=== PATIENT | female | born 1940 | race Caucasian/White ===

== ENCOUNTER → 2017-03-25 10:12 | Outpatient (CLI) | payer MEDICARE, OTHER, SELFPAY | PROVIDERS: Family Provider Family Medicine; PCP Family Medicine; Visit Provider Otolaryngology | DX: R05 Cough (principal) | CPT/HCPCS: 87070; 87205 ==

== ENCOUNTER → 2017-04-23 06:49 | Outpatient (CLI) | payer MEDICARE, OTHER, SELFPAY ==
--- NOTE | 2017-04-23 06:57 | CT_ITS ---
STUDY: CT MAXILLOFACIAL SINUSES REASON FOR EXAM: Female, 76 years old. RADIATION DOSAGE (If Supplied By Facility): CTDIvol = ( 33.06 ) mGy, DLP = ( 875.17 ) mGycm TECHNIQUE: The patient was scanned in a multi detector CT scanner. High resolution axial imaging was performed without the administration of intravenous contrast material. Sagittal and coronal images were reconstructed. The neck was present causing beam hardening artifact. Individualized dose optimization techniques were used for this CT. COMPARISON: Prior comparison studies are not available for review at this time. FINDINGS: FRONTAL SINUSES: Normal aeration, without mucosal inflammatory disease. ETHMOIDAL SINUSES: Normal aeration, without mucosal inflammatory disease. MAXILLARY SINUSES: Normal aeration, without mucosal inflammatory disease. SPHENOIDAL SINUSES: Normal aeration, without mucosal inflammatory disease. There is patency of the bilateral maxillary infundibuli with normal uncinate processes, ethmoid bullae, and hiatus semilunaris. There is a small right-sided inferior turbinate freddie bullosa. Normal bilateral inferior turbinates. Normal midline nasal septum. There is patency of the bilateral nasal airways. The visualized osseous structures are normal. The visualized bilateral orbital contents are normal. There is partial calcification of the carotid arteries. There is degenerative change of the cervical spine. There is visualization of mild atrophy and chronic involutional change. CT/Sinus/Facial Bone IMPRESSION: No evidence of sinusitis. There is calcification of the bilateral cavernous carotid arteries. There is visualized degenerative change in the cervical spine. Electronically Signed: Vane Zamarripa MD at 12:36 EST Tel , Service support ,
== END ==
PROVIDERS: Family Provider Family Medicine; PCP Family Medicine; Visit Provider Otolaryngology
DX: J32.9 Chronic sinusitis, unspecified (principal)
CPT/HCPCS: 70486

== ENCOUNTER 2017-06-26 05:17 | Emergency (ER) | payer MEDICARE, OTHER, SELFPAY ==
[2017-06-26 05:18] VITALS: BP 177/69; PULSE 67; RESP 18; TEMP 36.3; O2SAT 98; BMI 34.6
--- NOTE | 2017-06-26 05:27 | NURSING ---
PT ARRIVES C/O HEAD, NECK, JAW AND SINUS PAIN W/OCCASIONAL NAUSEA FOR WEEKS, BUT WORSENED THIS AM. DENIES CP, ARM PAIN.
--- NOTE | 2017-06-26 05:34 | ED.VISSUMM ---
- ER Visit Summary Date of Service: 06/26/17 Chief Complaint: Pain to the left side of her jaw. History of Present Illness: The patient is a 76 F history of CAD and ID. She states she has had sinus infections before. Currently states she has clear sinus drainage denies any fever. But is having pain to the left lateral jaw by the TMJ. Denies any trauma. No fever. No earache. Physical Examination: Well-appearing older female. Vital signs stable afebrile. H EENT exam her left TM she is tender to palpation. Hurts to open close her jaw. Dentition is intact. Oral mucosa is unremarkable. And right TM are normal. There is no dislocation of the jaw. There is no jaw fracture. The jaws nonswollen. The lips and gums are not swollen. There is no trouble breathing or swallowing. Neck nontender lymphadenopathy. Lungs clear to auscultation bilaterally. Heart regular rhythm no murmur. Abdomen soft nontender. Extremities moving all 4. Neurovascular intact. Test Results: None Emergency Department Course and Treatment: Patient's history and exam are consistent with left TMJ inflammation. She will be given 2 [place] here. Prescription for [place] and use Motrin and ice. Call and follow-up with her dentist. Treatment Plan: [place] and Motrin. Disposition: Discharge Impression: Acute left TMJ pain and inflammation This note was generated with Promosome dictation software. It may contain incorrect words, spelling, and punctuation that were not noted in review of the chart prior to signing ED Disposition - Plan for ED Patient: Chief Complaint: Cold Sx Referrals: Elfego Blandon III, MD [Primary Care Provider] -
--- NOTE | 2017-06-26 05:36 | ED.DEP ---
ED Disposition - Plan for ED Patient: Disposition: Home or Assisted Living Chief Complaint: Cold Sx Instructions: ED TMJ Syndrome Prescriptions: Hydrocodone Bitart/Apap 5-325 [[place] 5MG-325MG] 1 - 2 tab PO Q4H PRN PRN #20 tab PRN Reason: Pain Referrals: Elfego Blandon III, MD [Primary Care Provider] - As Needed Additional Instructions: To her left jaw at the left TMJ area. Motrin for pain and inflammation 2 pills twice a day. [place] for pain. Call and follow-up with your dentist. If not improving.
--- NOTE | 2017-06-26 05:37 | ED.DCSUM_ITS ---
- ER Visit Summary Date of Service: 06/26/17 Chief Complaint: Pain to the left side of her jaw. History of Present Illness: The patient is a 76 F history of CAD and NM. She states she has had sinus infections before. Currently states she has clear sinus drainage denies any fever. But is having pain to the left lateral jaw by the TMJ. Denies any trauma. No fever. No earache. Physical Examination: Well-appearing older female. Vital signs stable afebrile. H EENT exam her left TM she is tender to palpation. Hurts to open close her jaw. Dentition is intact. Oral mucosa is unremarkable. And right TM are normal. There is no dislocation of the jaw. There is no jaw fracture. The jaws nonswollen. The lips and gums are not swollen. There is no trouble breathing or swallowing. Neck nontender lymphadenopathy. Lungs clear to auscultation bilaterally. Heart regular rhythm no murmur. Abdomen soft nontender. Extremities moving all 4. Neurovascular intact. Test Results: None Emergency Department Course and Treatment: Patient's history and exam are consistent with left TMJ inflammation. She will be given 2 [place] here. Prescription for [place] and use Motrin and ice. Call and follow-up with her dentist. Treatment Plan: [place] and Motrin. Disposition: Discharge Impression: Acute left TMJ pain and inflammation This note was generated with bttn dictation software. It may contain incorrect words, spelling, and punctuation that were not noted in review of the chart prior to signing ED Disposition - Plan for ED Patient: Chief Complaint: Cold Sx Referrals: Elfego Blandon III, MD [Primary Care Provider] -
[2017-06-26] MEDS: HYDROcodone Bitartrate/Apap 5/325 Tablet PO (05:38)
--- NOTE | 2017-06-26 05:40 | DCINST.ED_ITS ---
ED Disposition - Plan for ED Patient: Disposition: Home or Assisted Living Chief Complaint: Cold Sx Instructions: ED TMJ Syndrome Prescriptions: Hydrocodone Bitart/Apap 5-325 [[place] 5MG-325MG] 1 - 2 tab PO Q4H PRN PRN #20 tab PRN Reason: Pain Referrals: Elfego Blandon III, MD [Primary Care Provider] - As Needed Additional Instructions: To her left jaw at the left TMJ area. Motrin for pain and inflammation 2 pills twice a day. [place] for pain. Call and follow-up with your dentist. If not improving.
[2017-06-26 05:58] VITALS: BP 146/85
== END 2017-06-26 05:59 | disposition home or self-care (01) ==
PROVIDERS: Emergency Provider Emergency Medicine; Family Provider Family Medicine; PCP Family Medicine
DX: M26.622 Arthralgia of left temporomandibular joint (principal); M26.69 Other specified disorders of temporomandibular joint; I25.10 Atherosclerotic heart disease of native coronary artery without angina pectoris; I25.2 Old myocardial infarction; E78.00 Pure hypercholesterolemia, unspecified; Z79.899 Other long term (current) drug therapy
CPT/HCPCS: 99283

== ENCOUNTER 2017-11-01 07:06 | Day surgery (SDC) | payer MEDICARE, OTHER, SELFPAY ==
[2017-11-01] VITALS (12 sets, daily range): BP systolic 78–115; BP diastolic 35–94; PULSE 57–67; RESP 18; TEMP 36.3–36.5; O2SAT 92–100; BMI 28.0
--- NOTE | 2017-11-01 10:50 | OP.ENDO_ITS ---
Patient Name: Alba Rowe Procedure Date: 11/01/2017 8:22 AM Date of : 1940 Age: 77 Procedure: Colonoscopy Indications: High risk colon cancer surveillance: Personal history of colonic polyps Patient Profile: Last Colonoscopy: May 2011. Providers: Tom Blandon Referring MD: Tom Blandon MD Medicines: See the Anesthesia note for documentation of the administered medications Complications: No immediate complications. Procedure: Pre-Anesthesia Assessment: - Prior to the procedure, a History and Physical was performed, and patient medications and allergies were reviewed. The patient's tolerance of previous anesthesia was also reviewed. The risks and benefits of the procedure and the sedation options and risks were discussed with the patient. All questions were answered, and informed consent was obtained. Prior Anticoagulants: The patient has taken no previous anticoagulant or antiplatelet agents. ASA Grade Assessment: II - A patient with mild systemic disease. After reviewing the risks and benefits, the patient was deemed in satisfactory condition to undergo the procedure. After I obtained informed consent, the scope was passed under direct vision. Throughout the procedure, the patient's blood pressure, pulse, and oxygen saturations were monitored continuously. The colonoscope was introduced through the anus and advanced to the cecum, identified by appendiceal orifice and ileocecal valve. The colonoscopy was technically difficult and complex due to a tortuous colon. Successful completion of the procedure was aided by applying abdominal pressure. The patient tolerated the procedure well. The quality of the bowel preparation was good. The ileocecal valve was photographed. Scope In: 8:37:35 AM Scope Withdrawal Time 0 hours 6 minutes 10 seconds Scope Out: 8:55:40 AM Total Procedure Duration Time 0 hours 18 minutes 5 seconds Findings: Hemorrhoids were found on perianal exam. Multiple small-mouthed diverticula were found in the sigmoid colon and descending colon. The exam was otherwise without abnormality. Impression: - Hemorrhoids found on perianal exam. - Diverticulosis in the sigmoid colon and in the descending colon. - The examination was otherwise normal. - No specimens collected. Recommendation: - Discharge patient to home. - Resume previous diet. - Continue present medications. - Repeat colonoscopy in 5 years for surveillance. Procedure Code(s): --- Professional --- 52065, Colonoscopy, flexible; diagnostic, including collection of specimen(s) by brushing or washing, when performed (separate procedure) Diagnosis Code(s): --- Professional --- Z86.010, Personal history of colonic polyps K64.9, Unspecified hemorrhoids K57.30, Diverticulosis of large intestine without perforation or abscess without bleeding CPT copyright 2017 [employer]. All rights reserved. The codes documented in this report are preliminary and upon face cleaner review may be revised to meet current compliance requirements. MD Tom Holloway, 11/01/2017 9:01:11 AM This report has been signed electronically. Number of Addenda: 0 Note Initiated On: 11/01/2017 8:22 AM
== END 2017-11-01 10:21 | disposition home or self-care (01) ==
LOC: EN 07:06 → AC 07:07
PROVIDERS: Family Provider Family Medicine; PCP Family Medicine; Visit Provider Surgery
PROC: 0DJD8ZZ Inspection of Lower Intestinal Tract, Via Natural or Artificial Opening Endoscopic (ICD-10-PCS; CPT 45378; principal; 2017-11-01 08:10)
DX: Z86.010 Personal history of colon polyps (principal); K57.30 Diverticulosis of large intestine without perforation or abscess without bleeding; K64.9 Unspecified hemorrhoids; K21.9 Gastro-esophageal reflux disease without esophagitis; I10 Essential (primary) hypertension; E11.9 Type 2 diabetes mellitus without complications; I25.10 Atherosclerotic heart disease of native coronary artery without angina pectoris; E78.00 Pure hypercholesterolemia, unspecified; M19.90 Unspecified osteoarthritis, unspecified site; I25.2 Old myocardial infarction; Z78.0 Asymptomatic menopausal state; Z79.899 Other long term (current) drug therapy
CPT/HCPCS: 45378; J7120

== ENCOUNTER 2021-10-10 15:38 | Emergency (ER) | payer MEDICARE, OTHER, SELFPAY ==
[2021-10-10 15:39] VITALS: BP 121/75; PULSE 84; RESP 14; TEMP 36.9; O2SAT 93; BMI 27.2
--- NOTE | 2021-10-10 16:03 | EKG12_ITS ---
Test Reason : CHEST PAIN Blood Pressure : / mmHG Vent. Rate : 082 BPM Atrial Rate : 082 BPM P-R Int : 160 ms QRS Dur : 086 ms QT Int : 382 ms P-R-T Axes : 027 007 026 degrees QTc Int : 446 ms Sinus rhythm with Premature atrial complexes Otherwise normal ECG Confirmed by LOC OLIVERA, RENETTA ([id number]), photographic editor ALBERTO CASAREZ ([id number]) on 10/13/2021 7:52:14 AM Referred By: ELIZA Confirmed By:RENETTA MONTERROSO MD
[2021-10-10 16:27] LABS: Absolute Neutrophil Count 4.7 X10^3/uL (2.0-7.7); Basophil# 0.01 X10^3/uL; Basophil% 0.2 % (0-1); Hematocrit 38.3 % (37-47); Hemoglobin 12.7 g/dL (12.0-15.0); Lymphocyte % 10.1 % (19-41); Mean Corp Hgb Conc 33.2 g/dL (32-36); Mean Corpuscular Hgb 29.5 pg (27.0-32.0); Mean Corpuscular Volume 88.9 fL (81-99); Monocyte# 0.63 X10^3/uL; Monocyte% 10.6 % (0-10); NRBC Flagged by Analyzer 0 % (0-5); Neutrophil # 4.66 X10^3/uL (2.7-7.7); Neutrophil % 78.6 % (47-70); POSITIVE DIFFERENTIAL YES; Platelet Count 197 K/mm3 (150-450); RBC Distribution Width CV 13.7 % (11.6-14.6); RBC Distribution Width SD 45.2 fl (35.1-43.9); Red Blood Count 4.31 M/mm3 (4.2-5.4); White Blood Count 5.9 K/mm3 (4.4-11.0)
--- NOTE | 2021-10-10 16:28 | CT_ITS ---
EXAM: CT CERVICAL SPINE WITHOUT INTRAVENOUS CONTRAST CLINICAL INDICATION: neck trauma/FALL TECHNIQUE: Helically acquired images were obtained of the cervical spine without intravenous contrast. 2D reformatted images were reviewed. This CT exam was performed using one or more of the following dose reduction techniques: automated exposure control, adjustment of the mA and/or kV according to patient size, and/or use of iterative reconstruction technique. This report was created using [employer] report generation technology. RADIATION DOSE: CTDIvol = 19.23 mGy, DLP = 423.93 mGy-cm COMPARISON: None. FINDINGS: VERTEBRAE: Anterior spondylosis at multiple cervical levels. No fracture. No traumatic subluxation. No discrete lytic or blastic abnormality. Normal alignment. Normal craniocervical junction and cervicothoracic junction. DISCS/SPINAL CANAL/NEURAL FORAMINA: Disc space narrowing throughout the cervical spine with some bridging bone/ankylosis at C3-C4. Bilateral foraminal narrowing at C5-C6, C6-C7 and C7-T1 predominantly due to uncovertebral hypertrophy. SOFT TISSUES: Unremarkable. No prevertebral soft tissue swelling. VASCULATURE: Atherosclerosis of the left carotid artery. LYMPH NODES: Unremarkable. No cervical adenopathy. LUNG APICES: Unremarkable as visualized. Clear. CT/Spine Cervical without Contras IMPRESSION: No acute findings in the cervical spine. Electronically Signed: Harinder Givens MD (Brooks) at 17:43 EDT Reading Location ID and State: [facility] / [place] , Service support ,
--- NOTE | 2021-10-10 16:28 | CT_ITS ---
STUDY: CT BRAIN WITHOUT CONTRAST REASON FOR EXAM: Female, 81 years old. head injury. FALL RADIATION DOSAGE (If Supplied By Facility): CTDIvol = ( 44.99 ) mGy, DLP = ( 779.24 ) mGycm TECHNIQUE: Transaxial CT imaging of the brain was performed without administration of intravenous contrast material. Individualized dose optimization techniques were used for this CT. COMPARISON: 02/19/2012 FINDINGS: Normal soft tissue structures. Normal calvarium. There is mild cerebral atrophy with widening of the extra-axial spaces and ventricular dilatation. There are areas of decreased attenuation within the white matter tracts of the supratentorial brain, consistent with microvascular disease changes. Normal basal ganglia and thalami. Normal brainstem. Normal cerebellum. There is no intracranial hemorrhage. There are no findings of an acute ischemic infarction. Normal visualized paranasal sinuses. CT/Brain/Head without Contrast IMPRESSION: No acute intracranial hemorrhage or mass effect. Electronically Signed: Harinder Givens MD (Brooks) at 17:42 EDT Reading Location ID and State: [facility] / [place] , Service support ,
--- NOTE | 2021-10-10 16:29 | EX.ED.DYSGE1 ---
HPI History of Present Illness Chief Complaint: Syncope Narrative Narrative: 81-year-old female presenting after having a syncopal episode yesterday. She states she was in her kitchen and was walking and had a complete syncopal episode and hit the floor. When she woke up she states I think I still do my chest. She states it hurts mildly. She did not have chest pain before she fell. She states has had a couple of episodes of lightheadedness afterwards while ambulating to the bathroom. She has not fainted again. Patient states she was feeling like she was developing sinusitis on . She went to the urgent care and was diagnosed with COVID-19. Patient at that point was discharged home and over the last 24 hours has developed nausea, vomiting. She states she not able to hold down any food or fluids. She states that she believes she is dehydrated and that is why she is fainting. She states she is not on any blood thinners. Her last fever was 102 ?F. That was on . She has not rechecked her temperature. [facility] Medical History CAD (coronary artery disease) Chest pain Generalized osteoarthritis GERD (gastroesophageal reflux disease) HLD (hyperlipidemia) HTN (hypertension) Personal history of colonic polyps Type II diabetes mellitus Home Medications atenolol 25 mg tablet 25 mg PO DAILY ##0 09/26/15 [History Last Taken 11/01/17 05:00 25 MG] lisinopril 10 mg tablet 10 mg PO DAILY ##0 09/26/15 [History Last Taken 11/01/17 05:00 10 MG] omeprazole 20 mg capsule,delayed release 20 mg PO BID 09/26/15 [History Last Taken 11/01/17 05:00 20 MG] pravastatin 40 mg tablet 80 mg PO DAILY 09/26/15 [History Last Taken 09/26/15] meloxicam 15 mg tablet 15 mg PO DAILY 10/05/17 [History Last Taken Unknown] ondansetron 4 mg disintegrating tablet 4 mg PO Q8H PRN nausea and vomiting #14 tabs 10/10/21 [Rx Last Taken Unknown] Allergy/AdvReac Type Severity Reaction Status Date / Time No Known Allergies Allergy Verified 10/10/21 15:43 Family History Mother Diabetes Heart disease Hypertension CAD (coronary artery disease) Surgical History History of renal stent S/P eye surgery S/P hemorrhoidectomy Social History Smoking Status: Never smoker alcohol intake: never ROS ROS ED Constitutional Constitutional ED: Reports chills and fever(s) Eyes Eyes: Denies change in vision or diplopia ENT ENT ED: Denies rhinorrhea or sore throat Cardiovascular Cardiovascular: Reports chest pain Respiratory/Chest Respiratory/Chest: Reports cough; Denies dyspnea Gastrointestinal Gastrointestinal: Reports nausea and vomiting; Denies abdominal pain Genitourinary Genitourinary ED: Denies dysuria or hematuria Musculoskeletal Musculoskeletal: Reports myalgias Integumentary Denies abscess or Abrasions Neurologic Neurologic: Reports headache(s); Denies paresthesias or weakness Psychiatric Psychiatric: Denies anxiety or depression EXAM Physical Exam Const Vital Signs: 10/10/21 15:39 10/10/21 15:47 10/10/21 16:41 Temperature 98.4 F Temperature Source Temporal Pulse Rate 84 Respiratory Rate 14 Respiratory Effort Normal Non-Labored Respiratory Depth Normal Respiratory Pattern Normal Blood Pressure 121/75 H Blood Pressure Mean 90 Pulse Ox 93 94 Oxygen Delivery Method Room Air Room Air Room Air 10/10/21 18:35 Temperature Temperature Source Pulse Rate 70 Respiratory Rate 16 Respiratory Effort Respiratory Depth Respiratory Pattern Blood Pressure 142/65 H Blood Pressure Mean 90 Pulse Ox 93 Oxygen Delivery Method Positive well nourished General Appearance ED: NAD; Negative for pallor HEENT Reports moist mucous membranes Negative for trauma Eyes PERRL and EOMs intact bilaterally General Eye ED: Negative for pale conjunctiva or scleral icterus Neck no lymphadenopathy Resp normal respiratory effort and clear to auscultation bilaterally Cardio regular rate and regular rhythm GI normal to inspection, nondistended, normoactive bowel sounds Neuro oriented x3 and CN's II-XII intact bilaterally Sensorium / Orientation: alert Psych mental status grossly normal Skin no rashes or lesions noted, no wounds and skin turgor normal General Skin Exam: Negative for jaundice or pallor MDM MDM MDM Narrative Medical decision making narrative: Patient presenting with 1 episode of syncope and a couple episodes of near syncope. She did fall and is unclear if she hit her head but she does complain of some upper chest and neck pain. Due to the syncope I did obtain EKG which on my interpretation shows normal sinus rhythm with a ventricular rate of 82 bpm with occasional PACs. Chest x-ray my interpretation is no acute cardiopulmonary process and radiologist agree. Blood work was obtained and her CBC shows no leukocytosis. She has slight lymphopenic which is consistent with her diagnosis of COVID. Renal function electrolytes are normal. High-sensitivity troponin is 18. Delta troponin at 2 hours is 19 there is no significant interval change. D-dimer was elevated at 1.72 and she did had a CT of the chest which did not identify any pulmonary emboli or dissection. There is no focal airspace disease. CT brain and CT cervical spine are negative for acute findings. Patient was treated with IV fluids. She states she feels improved. She wants to go home. I did not find any thing except for that that would warrant her to be admitted. To drink plenty of fluids and treat fevers and chills with ibuprofen and Tylenol same doses. I will send her home with Lillian to help her with this. Patient discharged home in stable condition. Impression: 1. Syncope 2. Lightheadedness 3. Cervical strain 4. Chest wall pain 5. COVID-19 Lab Data Attestation: I reviewed the patient's lab results. Labs: Laboratory Results - last 24 hr 10/10/21 10/10/21 10/10/21 16:20 16:20 16:20 WBC 5.9 RBC 4.31 Hgb 12.7 Hct 38.3 MCV 88.9 MCH 29.5 MCHC 33.2 RDW Std Deviation 45.2 H RDW Coeff of Jose 13.7 Plt Count 197 MPV 11.0 Immature Gran % (Auto) 0.500 Neut % (Auto) 78.6 H Lymph % (Auto) 10.1 L [place] % (Auto) 10.6 H Eos % (Auto) 0.0 Baso % (Auto) 0.2 Absolute Neuts (auto) 4.7 Absolute Lymphs (auto) 0.60 L Nucleated RBC % 0 Differential Comment SCANNED D-Dimer Quant (PE/DVT) 1.72 H* Sodium 136 Potassium 3.8 Chloride 101 Carbon Dioxide 27.0 Anion Gap 8 BUN 14 Creatinine 0.80 Estim Creat Clear Calc 53.38 Est GFR (MDRD) Af Amer 89 Est GFR (MDRD) Non-Af 74 BUN/Creatinine Ratio 17.5 Glucose 106 Calcium 9.5 Troponin I High Sens 18 10/10/21 18:36 WBC RBC Hgb Hct MCV MCH MCHC RDW Std Deviation RDW Coeff of Jose Plt Count MPV Immature Gran % (Auto) Neut % (Auto) Lymph % (Auto) Valley % (Auto) Eos % (Auto) Baso % (Auto) Absolute Neuts (auto) Absolute Lymphs (auto) Nucleated RBC % Differential Comment D-Dimer Quant (PE/DVT) Sodium Potassium Chloride Carbon Dioxide Anion Gap BUN Creatinine Estim Creat Clear Calc Est GFR (MDRD) Af Amer Est GFR (MDRD) Non-Af BUN/Creatinine Ratio Glucose Calcium Troponin I High Sens 19 Radiography Diagnostic Testing: Clinical Impression(s) from Imaging Studies Brain CT 10/10/21 16:28 IMPRESSION: No acute intracranial hemorrhage or mass effect. Electronically Signed: Harinder Givens MD (Brooks) at 17:42 EDT , Cervical Spine CT 10/10/21 16:28 IMPRESSION: No acute findings in the cervical spine. Electronically Signed: Harinder Givens MD (Brooks) at 17:43 EDT , Chest X-Ray 10/10/21 16:45 IMPRESSION: Mild bibasilar atelectasis without focal airspace consolidation. Electronically Signed: Harinder Givens MD (Brooks) at 17:02 EDT , Chest CTA 10/10/21 16:46 IMPRESSION: 1. No central or segmental pulmonary embolism. Electronically Signed: Harinder Givens MD (Brooks) at 17:47 EDT , Discharge Plan Triage Chief Complaint: Syncope Other Complaint: Fall ED Provider: Jean Smart Dx/Rx/DC Orders Instructions: Coronavirus Disease 2019 (COVID-19): Caring for Yourself or Others, ED Fainting, Uncertain Cause Prescriptions: New ondansetron 4 mg tablet,disintegrating 4 mg PO Q8H PRN (Reason: nausea and vomiting) Qty: 14 0RF No Action meloxicam 15 mg tablet 15 mg PO DAILY atenolol 25 MG tablet 25 mg PO DAILY Qty: 0 Label Comments: BP lisinopril 10 MG tablet 10 mg PO DAILY Qty: 0 pravastatin 40 MG tablet 80 mg PO DAILY Label Comments: CHOLESTEROL omeprazole 20 MG capsule 20 mg PO BID Label Comments: GERD Disposition Disposition: Home, Self Care
[2021-10-10] MEDS: 0.9% Normal Saline 1,000 ML 1000 ML IV (16:31)
[2021-10-10 16:41] VITALS: O2SAT 94
[2021-10-10 16:42] LABS: Differential Indicated SCAN CRITERIA MET
[2021-10-10] MEDS: Ondansetron 4 MG/2 ML Vial IV (16:43)
--- NOTE | 2021-10-10 16:45 | RAD_ITS ---
STUDY: X-RAY CHEST REASON FOR EXAM: Female, 81 years old. POSITIVE FOR COVID YESTERDAY. SYNCOPAL EPISODE AT HOME AND FELL YESTERDAY. LANDED ON CHEST. PAIN IN NECK, SHOULDER AND RIGHT RIBS. WEAKNESS. TECHNIQUE: AP COMPARISON: 09/26/2015 FINDINGS: EKG leads project over the chest. Mild atelectasis in the lung bases. No airspace consolidation. There is no demonstrated pleural abnormality. Normal size heart. Normal mediastinum and radha. Normal visualized pulmonary arteries. There is atherosclerotic tortuosity of the aortic arch and descending thoracic aorta. No acute bony process There is no demonstrated abnormality of the visualized soft tissue structures of the upper abdomen. RAD/Chest 1 View (Portable) IMPRESSION: Mild bibasilar atelectasis without focal airspace consolidation. Electronically Signed: Harinder Givens MD (Brooks) at 17:02 EDT ,
[2021-10-10 16:46] LABS: D-Dimer Quantitative (DVT/PE) 1.72 FEU/ug/m (0.27-0.49)
--- NOTE | 2021-10-10 16:46 | CT_ITS ---
EXAM: CT ANGIOGRAPHY CHEST WITHOUT AND WITH INTRAVENOUS CONTRAST CLINICAL INDICATION: syncope AND FALL, SCANNED BACK THROUGH BASE OF LUNGS THAT WAS MISSED TECHNIQUE: Helically acquired angiography images were obtained of the chest without and with intravenous contrast. This CT exam was performed using one or more of the following dose reduction techniques: automated exposure control, adjustment of the mA and/or kV according to patient size, and/or use of iterative reconstruction technique. This report was created using [employer] report generation technology. MIP reconstructed images were created and reviewed. CONTRAST: IV 100mL [id number] RADIATION DOSE: CTDIvol = 13.09 mGy, DLP = 547.61 mGy-cm COMPARISON: None. FINDINGS: PULMONARY ARTERIES: Unremarkable. Normal in caliber. No evidence of pulmonary embolism. AORTA: Unremarkable. Normal in caliber. No evidence of dissection. GREAT VESSELS OF AORTIC ARCH: Unremarkable. Normal in caliber. No evidence of dissection. LUNGS AND PLEURAL SPACES: Lung bases are excluded. No mass. No pleural effusion or thickening. No pneumothorax. HEART: Unremarkable. Heart size is normal. No pericardial effusion. No signs of right heart strain, ratio of right ventricle to left ventricle measures less than 1. MEDIASTINUM: Unremarkable. No mediastinal or hilar adenopathy. Esophagus is unremarkable. No hiatal hernia. THYROID: Unremarkable. No thyroid lesions. BONES/JOINTS: Degenerative changes of the thoracic spine. No suspicious lytic or blastic abnormality. CT/CTA Chest W/WO Contrast IMPRESSION: 1. No central or segmental pulmonary embolism. Electronically Signed: Harinder Givens MD (Brooks) at 17:47 EDT ,
--- NOTE | 2021-10-10 16:48 | NURSING ---
CRITICAL LAB VALUE GIVEN TO DR DEJESUS. PT D-DIMER IS 1.72.
[2021-10-10 17:01] LABS: Differential Comment SCANNED
[2021-10-10 17:08] LABS: Anion Gap 8 (5-15); BUN 14 mg/dL (7-18); BUN/Creat Ratio 17.5 RATIO (10-20); Calcium,Total 9.5 mg/dL (8.5-10.1); Chloride 101 mmol/L (98-107); EST Glomerular Filtration Rate 74 mL/min (>60); Est Glom Filt Rate - Afr Amer 89 mL/min (>60); Estimated Creatinine Clearance 53.38 ml/min; Glucose 106 mg/dL (74-106); Potassium 3.8 mmol/L (3.5-5.1); Sodium Level 136 mmol/L (136-145); Troponin-I HS (w/2H Reflex) 18 pg/mL (3.0-54.0)
[2021-10-10 18:24] LABS: Reflex Troponin-HS? (from REC) Y
[2021-10-10 18:35] VITALS: BP 142/65; PULSE 70; RESP 16; O2SAT 93
[2021-10-10 19:35] LABS: Troponin-I HS 19 pg/mL (3.0-54.0)
[2021-10-10 20:52] VITALS: BP 97/80; PULSE 67; RESP 16; O2SAT 98
== END 2021-10-10 20:53 | disposition home or self-care (01) ==
PROVIDERS: Emergency Provider Student in an Organized Health Care Education/Training Program; Visit Provider Student in an Organized Health Care Education/Training Program
DX: U07.1 COVID-19 (principal); E11.9 Type 2 diabetes mellitus without complications; I25.10 Atherosclerotic heart disease of native coronary artery without angina pectoris; S16.1XXA Strain of muscle, fascia and tendon at neck level, initial encounter; I10 Essential (primary) hypertension; W19.XXXA Unspecified fall, initial encounter; E78.5 Hyperlipidemia, unspecified; R07.89 Other chest pain; K21.9 Gastro-esophageal reflux disease without esophagitis; Z79.899 Other long term (current) drug therapy; I49.1 Atrial premature depolarization
CPT/HCPCS: 70450; 71045; 71275; 72125; 80048; 84484; 85025; 85379; 93005; 96361; 96374; 99282; J7030; Q9967; A4216; J2405

== ENCOUNTER 2022-07-17 19:34 | Inpatient (IN) | payer MEDICARE, OTHER, SELFPAY ==
[2022-07-17] VITALS (8 sets, daily range): BP systolic 97–131; BP diastolic 50–90; PULSE 69–82; RESP 12–17; TEMP 36.8–37.1; O2SAT 92–97; BMI 27.1
--- NOTE | 2022-07-17 19:49 | EKG12_ITS ---
Test Reason : DYSRHYTHMIA Blood Pressure : / mmHG Vent. Rate : 076 BPM Atrial Rate : 076 BPM P-R Int : 170 ms QRS Dur : 088 ms QT Int : 384 ms P-R-T Axes : 049 -04 020 degrees QTc Int : 432 ms Normal sinus rhythm Normal ECG Confirmed by YARON OLIVERA, BILL ([id number]), film and video editor ALBERTO CASAREZ ([id number]) on 07/20/2022 8:39:48 AM Referred By: MARISELA Confirmed By:BILL MARRUFO MD
[2022-07-17 20:23] LABS: Absolute Lymphocyte Count 1.17 X10^3/uL (0.83-4.51); Absolute Neutrophil Count 10.3 X10^3/uL (2.0-7.7); Basophil# 0.05 X10^3/uL; Basophil% 0.4 % (0-1); Eosinophil# 0.09 X10^3/uL; Eosinophils% 0.7 % (0-5); Hematocrit 34.1 % (37-47); Hemoglobin 11.7 g/dL (12.0-15.0); Lymphocyte # 1.17 X10^3/ul (0.83-4.51); Lymphocyte % 9.2 % (19-41); Mean Corp Hgb Conc 34.3 g/dL (32-36); Mean Corpuscular Hgb 30.5 pg (27.0-32.0); Mean Corpuscular Volume 88.8 fL (81-99); Mean Platelet Vol. 11.1 fl (6.2-12.0); Monocyte# 1.07 X10^3/uL; Monocyte% 8.4 % (0-10); NRBC Flagged by Analyzer 0 % (0-5); Platelet Count 227 K/mm3 (150-450); RBC Distribution Width CV 13.8 % (11.6-14.6); RBC Distribution Width SD 45.2 fl (35.1-43.9); Red Blood Count 3.84 M/mm3 (4.2-5.4); White Blood Count 12.7 K/mm3 (4.4-11.0)
--- NOTE | 2022-07-17 20:45 | RAD_ITS ---
STUDY: X-RAY CHEST REASON FOR EXAM: Female, 81 years old. syncope TECHNIQUE: Single AP portable view of the chest. COMPARISON: 10/10/2021 FINDINGS: EKG leads project over the chest. The lungs are clear and expanded. There is no demonstrated pleural abnormality. Normal size heart. Normal mediastinum and radha. Normal visualized pulmonary arteries. There is atherosclerotic tortuosity of the aortic arch and descending thoracic aorta. Normal visualized thoracic spine. Sclerotic lesion or overlying calcification of the left upper arm stable. There is no demonstrated abnormality of the visualized soft tissue structures of the upper abdomen. RAD/Chest 1 View (Portable) IMPRESSION: Nonacute portable x-ray examination of the chest. Electronically Signed: Harinder Givens (Brooks), at 21:18 EDT ,
[2022-07-17] MEDS: Ondansetron 4 MG/2 ML Vial IV (20:46)
[2022-07-17 21:14] LABS: ALB/GLOB Ratio 0.8 RATIO (0.9-2.4); AST(SGOT) 36 U/L (15-37); Alanine Aminotransfer ALT/SGPT 54 U/L (13-56); Albumin, Serum 2.8 g/dL (3.2-5.0); Alkaline Phosphatase 136 U/L (45-117); Anion Gap 10 (5-15); BUN 30 mg/dL (7-18); BUN/Creat Ratio 25.2 RATIO (10-20); Calcium,Total 8.5 mg/dL (8.5-10.1); Chloride 110 mmol/L (98-107); Creatinine, Serum 1.19 mg/dL (0.55-1.02); EST Glomerular Filtration Rate 46 mL/min (>60); Est Glom Filt Rate - Afr Amer 56 mL/min (>60); Estimated Creatinine Clearance 35.89 ml/min; Globulin 3.6 g/dL (2.2-4.2); Glucose 117 mg/dL (74-106); Potassium 3.8 mmol/L (3.5-5.1); Protein, Total 6.4 g/dL (6.4-8.2); Sodium Level 136 mmol/L (136-145); Troponin-I HS (w/2H Reflex) 7 pg/mL (3.0-54.0)
--- NOTE | 2022-07-17 21:45 | EDS_ITS ---
HPI History of Present Illness Chief Complaint: Syncope Informant: patient Narrative Narrative: Patient is a 81-year-old female with history of diabetes mellitus, hypertension, hyperlipidemia and coronary artery disease resenting after an episode of syncope versus respiratory arrest. Patient states that she was not feeling great after having lunch with her sister. She notes she has not been feeling good recently and also sustained a cat bite to her right foot last night. She needed to lay down because she was feeling a little lightheaded and dizzy but wanted to use the restroom before she went to sleep so she went to the bathroom. She then called out to her daughter because she was not feeling right. Her daughter came in and states the patient was drenched in sweat and her head gary down. The daughter was able to catch her. The daughter called 911. 911 recommend she lower her to the floor. She states her mother because she was holding her breath and then started to have what normal sounds like agonal respirations. rotary drill operator helper recommend the patient start chest compressions. Patient started this. She did not do any rescue breaths. Her mother grunted during these. By this time EMS arrived and took over. Patient had a pulse and was breathing on her own. Patient states she has had some issues since her hip surgery in November 2021 and is never really completely return to normal. She denies any fever. She notes she is has been feeling good today. Currently is complained of some chest pain but attributes that to the chest compressions. No other complaints at this time. [facility] Medical History (Updated 07/17/22 @ 23:[address] Cathleen Llanes, DO) CAD (coronary artery disease) Chest pain Generalized osteoarthritis GERD (gastroesophageal reflux disease) HLD (hyperlipidemia) HTN (hypertension) Personal history of colonic polyps Type II diabetes mellitus Home Medications atenolol 25 mg tablet 25 mg PO DAILY ##0 09/26/15 [History Last Taken 11/01/17 05:00 25 MG] omeprazole 20 mg capsule,delayed release 20 mg PO BID 09/26/15 [History Last Taken 11/01/17 05:00 20 MG] pravastatin 40 mg tablet 40 mg PO DAILY 09/26/15 [History Last Taken 09/26/15] lisinopril 20 mg-hydrochlorothiazide 12.5 mg tablet 1 tab PO DAILY 07/17/22 [History Last Taken Unknown] Allergy/AdvReac Type Severity Reaction Status Date / Time No Known Allergies Allergy Verified 07/17/22 19:48 Family History Mother Diabetes Heart disease Hypertension CAD (coronary artery disease) Surgical History History of renal stent S/P eye surgery S/P hemorrhoidectomy Social History Smoking Status: Never smoker alcohol intake: never ROS ROS ED Constitutional Constitutional ED: Denies chills or fever(s) Eyes Eyes: Denies change in vision ENT ENT ED: Denies rhinorrhea or sore throat Cardiovascular Cardiovascular: Reports chest pain; Denies palpitations Respiratory/Chest Respiratory/Chest: Denies cough or dyspnea Gastrointestinal Gastrointestinal: Reports nausea; Denies abdominal pain or vomiting Genitourinary Genitourinary ED: Denies dysuria or hematuria Musculoskeletal Musculoskeletal: Denies arthralgias or myalgias Integumentary Reports rash Neurologic Neurologic: Reports weakness; Denies headache(s) EXAM Physical Exam Const Vital Signs: 07/17/22 19:41 07/17/22 19:54 07/17/22 19:48 Temperature 98.7 F 98.3 F Temperature Source Temporal Temporal Pulse Rate 72 82 Pulse Rate [Lying] Pulse Rate [Sitting (for 1 minute prior to obtaining)] Pulse Rate [Standing (for 1 minute prior to obtaining)] Respiratory Rate 17 12 Respiratory Effort Normal Non-Labored Respiratory Pattern Normal Blood Pressure 110/55 L 97/72 Blood Pressure [Lying] Blood Pressure [Sitting (for 1 minute prior to obtaining)] Blood Pressure [Standing (for 1 minute prior to obtaining)] Blood Pressure Mean 73 80 Blood Pressure Mean [Lying] Blood Pressure Mean [Sitting (for 1 minute prior to obtaining)] Blood Pressure Mean [Standing (for 1 minute prior to obtaining)] Pulse Ox 92 96 Oxygen Delivery Method Room Air Room Air 07/17/22 21:17 Temperature Temperature Source Pulse Rate Pulse Rate [Lying] 75 Pulse Rate [Sitting (for 1 minute prior to obtaining)] 71 Pulse Rate [Standing (for 1 minute prior to obtaining)] 78 Respiratory Rate Respiratory Effort Respiratory Pattern Blood Pressure Blood Pressure [Lying] 104/57 L Blood Pressure [Sitting (for 1 minute prior to obtaining)] 97/73 Blood Pressure [Standing (for 1 minute prior to obtaining)] 118/62 Blood Pressure Mean Blood Pressure Mean [Lying] 72 Blood Pressure Mean [Sitting (for 1 minute prior to obtaining)] 81 Blood Pressure Mean [Standing (for 1 minute prior to obtaining)] 80 Pulse Ox Oxygen Delivery Method Positive well nourished and well developed Constitutional Narrative: Weak appearing General Appearance ED: well developed HEENT Reports dry mucous membranes Mouth ED: Yes dry mucous membranes Mouth: dry mucous membranes Eyes PERRL and EOMs intact bilaterally Neck supple and no JVD Chest Wall inspection of chest normal Chest Narrative: Mild tenderness palpation of the sternum. No chest wall crepitus appreciated. No deformity appreciated. Resp normal respiratory effort and clear to auscultation bilaterally Cardio regular rate, regular rhythm and no murmurs GI normal to inspection, nondistended, normoactive bowel sounds Extremity Extremity Narrative: Edema erythema and warmth of the right foot diffusely. There is a puncture wound over the fifth metatarsal consistent with a cat bite. No abscess appreciated. At this time there is no lymphangitic streaking. Neuro oriented x3 Sensorium / Orientation: alert Motor Exam: general weakness Psych mental status grossly normal MDM MDM MDM Narrative Medical decision making narrative: Patient is evaluated for a syncopal episode as well as for her cellulitis from a cat bite to her right foot. At this episode sounds more like it was vasovagal in nature as proceeded with diaphoresis and lightheadedness however given the patient's age and the report of apnea with it is possible that his more nefarious cause. Patient does have a leukocytosis of 12.7. Foot exam is highly consistent with cellulitis. I do not appreciate any abscess at this time. Is not consistent with necrotizing fasciitis. Patient is given IV fluids in the ER. No other obvious source of infection is found. She does have an elevation of her creatinine of 1.19 which is mildly above her baseline of 0.75-.8. She is orthostatic negative in the emergency room. Patient started IV Unasyn for this cellulitis. Patient is evaluated by hospitalist and will be admitted for IV antibiotics and further evaluation of the syncopal episode. Patient is agreeable with this plan of care. Lab Data Attestation: I reviewed the patient's lab results. Labs: Laboratory Results - last 24 hr 07/17/22 07/17/22 07/17/22 20:07 20:07 21:14 WBC 12.7 H RBC 3.84 L Hgb 11.7 L Hct 34.1 L MCV 88.8 MCH 30.5 MCHC 34.3 RDW Std Deviation 45.2 H RDW Coeff of Jose 13.8 Plt Count 227 MPV 11.1 Immature Gran % (Auto) 0.300 Neut % (Auto) 81.0 H Lymph % (Auto) 9.2 L [place] % (Auto) 8.4 Eos % (Auto) 0.7 Baso % (Auto) 0.4 Absolute Neuts (auto) 10.3 H Absolute Lymphs (auto) 1.17 Nucleated RBC % 0 ESR 4 Sodium 136 Potassium 3.8 Chloride 110 H Carbon Dioxide 16.0 L Anion Gap 10 BUN 30 H Creatinine 1.19 H Estim Creat Clear Calc 35.89 Est GFR (MDRD) Af Amer 56 L Est GFR (MDRD) Non-Af 46 L BUN/Creatinine Ratio 25.2 H Glucose 117 H Lactic Acid Calcium 8.5 Total Bilirubin 0.50 AST 36 ALT 54 Alkaline Phosphatase 136 H Total Creatine Kinase Troponin I High Sens 7 C-React Prot Ext Range Total Protein 6.4 Albumin 2.8 L Globulin 3.6 Albumin/Globulin Ratio 0.8 L Urine Color Urine Clarity Urine pH Ur Specific [place] Urine Protein Urine Glucose (UA) Urine Ketones Urine Occult Blood Urine Nitrite Urine Bilirubin Urine Urobilinogen Ur Leukocyte Esterase Urine RBC Urine WBC Ur Squamous Epith Cells Urine Bacteria Urine Mucus 07/17/22 07/17/22 07/17/22 21:14 21:14 21:47 WBC RBC Hgb Hct MCV MCH MCHC RDW Std Deviation RDW Coeff of Jose Plt Count MPV Immature Gran % (Auto) Neut % (Auto) Lymph % (Auto) [place] % (Auto) Eos % (Auto) Baso % (Auto) Absolute Neuts (auto) Absolute Lymphs (auto) Nucleated RBC % ESR Sodium Potassium Chloride Carbon Dioxide Anion Gap BUN Creatinine Estim Creat Clear Calc Est GFR (MDRD) Af Amer Est GFR (MDRD) Non-Af BUN/Creatinine Ratio Glucose Lactic Acid 1.9 Calcium Total Bilirubin AST ALT Alkaline Phosphatase Total Creatine Kinase 86 Troponin I High Sens C-React Prot Ext Range 6.47 H Total Protein Albumin Globulin Albumin/Globulin Ratio Urine Color Yellow Urine Clarity Clear Urine pH 5.0 Ur Specific [place] 1.015 Urine Protein 15 H Urine Glucose (UA) Normal Urine Ketones Negative Urine Occult Blood 10 H Urine Nitrite Negative Urine Bilirubin Negative Urine Urobilinogen Normal Ur Leukocyte Esterase 100 H Urine RBC 0 SEEN Urine WBC 0-5 SEEN Ur Squamous Epith Cells 0 SEEN Urine Bacteria 1+ Urine Mucus 0 SEEN Radiography Diagnostic Testing: Clinical Impression(s) from Imaging Studies Chest X-Ray 07/17/22 20:45 IMPRESSION: Nonacute portable x-ray examination of the chest. Electronically Signed: Pizano (Brooks) Chon, at 21:18 EDT , Rhythm Strip Rhythm Strip: Sinus Rhythm Rate: 76 Ectopy: None EKG Initial EKG: Attestation: I personally reviewed and interpreted this EKG as follows: Interpretation: Sinus Rhythm Comments: Normal sinus rhythm rate of 76 bpm Normal axis Normal intervals Normal ST segments Nonspecific T wave inversions in aVR, V1 and V2 which may be normal variant Management Discussion w/another healthcare provider: Hospitalist Discharge Plan Triage Chief Complaint: Syncope Other Complaint: Cellulitis ED Provider: Cathleen Llanes Dx/Rx/DC Orders Clinical Impression: Cat bite of right foot with infection, Type II diabetes mellitus, Syncope and collapse, Witnessed episode of apnea Prescriptions: No Action atenolol 25 MG tablet 25 mg PO DAILY Qty: 0 Label Comments: BP pravastatin 40 MG tablet 40 mg PO DAILY Label Comments: CHOLESTEROL omeprazole 20 MG capsule 20 mg PO BID Label Comments: GERD lisinopril-hydrochlorothiazide 20-12.5 mg tablet 1 tab PO DAILY Primary Care Provider: Shady Nuñez Referrals: Sahdy Nuñez MD [Primary Care Provider] - Disposition Disposition: Acute Care Hospital [facility]
[2022-07-17 21:51] LABS: Erythrocyte Sedimentation Rate 4 mm/hr (0-30)
[2022-07-17 21:52] LABS: Mucous, Urine 0 SEEN /hpf (<or=2+); Red Blood Cells-Urine 0 SEEN /hpf (0-5); Squamous Epithelial Cells - UA 0 SEEN /hpf (5-10)
[2022-07-17 21:58] LABS: CPK Total, Creatine Kinase 86 U/L (26-192); CRP 6.47 mg/L (0.0-3.0)
[2022-07-17 22:11] LABS: Reflex Troponin-HS? (from REC) Y
[2022-07-17 22:18] LABS: Lactic Acid 1.9 mmol/L (0.4-1.9)
[2022-07-17 22:31] LABS: Color, Urine Yellow (Yellow); Glucose, Dipstick Normal (Normal); Ketone-Dipstick Negative (Negative); Leukocyte Esterase-Dipstick 100 /ul (Negative); Nitrite-Dipstick Negative (Negative); Occult Blood-Urine 10 /ul (Negative); Protein-Dipstick 15 mg/dl (Negative); Specific Gravity, Urine 1.015 (1.002-1.030); Urine Bilirubin Dipstick Negative (Negative); Urine Clarity Clear (Clear); Urine Urobilinogen Normal (Normal)
[2022-07-17 22:41] LABS: White Blood Cells 0-5 SEEN /hpf (0-5)
[2022-07-17 22:42] LABS: Bacteria 1+ /hpf (None Seen)
[2022-07-17 23:01] LABS: Troponin-I HS 8 pg/mL (3.0-54.0)
--- NOTE | 2022-07-17 23:35 | HP.PCM.HOS_ITS ---
HPI - General General Date of Admission: 07/17/22 Date of Service: 07/17/22 Chief Complaint: syncope HPI Narrative GARLAND OBANDO, is a 81 F who presents with a syncopal episode. For some time, over the past several months to years, patient has been having episodes where she feels dizzy, diaphoretic, nauseated and passes out. Patient has these periodically. Patient had COVID-19 2 years ago and ever since then has been progressively fatigued. Patient states that she is functional and is able to go to work but struggles through what were previously normal tasks. Today, she had another event. She started feeling that way and went to the bathroom and sat on the toilet and called out to her daughter and by the time her daughter saw her she was unresponsive. CPR was performed by the daughter and EMS was called patient eventually came to. Yesterday, patient was bit on her foot by her cat and then developed erythema on the dorsum of her right foot. Patient was diagnosed with right foot cellulitis and received ampicillin//sulbactam in the emergency room. They did do orthostatic vital signs in the emergency room which were negative. Patient states that she sees doctors only when she needs to. Regards to these dizzy spells and progressive fatigue, patient and her family including her daughters and sister, stated that she has been dismissed because she is turning 82 and they have not sought further attention for the, according to them. [facility] Medical History (Updated 07/17/22 @ 23:[address] Adelfo Mccoy, ) CAD (coronary artery disease) Chest pain Generalized osteoarthritis GERD (gastroesophageal reflux disease) HLD (hyperlipidemia) HTN (hypertension) Malaise Personal history of colonic polyps Type II diabetes mellitus Home Medications atenolol 25 mg tablet 25 mg PO DAILY ##0 09/26/15 [History Last Taken 11/01/17 05:00 25 MG] omeprazole 20 mg capsule,delayed release 20 mg PO BID 09/26/15 [History Last Taken 11/01/17 05:00 20 MG] pravastatin 40 mg tablet 40 mg PO DAILY 09/26/15 [History Last Taken 09/26/15] lisinopril 20 mg-hydrochlorothiazide 12.5 mg tablet 1 tab PO DAILY 07/17/22 [History Last Taken Unknown] Allergy/AdvReac Type Severity Reaction Status Date / Time No Known Allergies Allergy Verified 07/17/22 19:48 Family History Mother Diabetes Heart disease Hypertension CAD (coronary artery disease) Surgical History History of renal stent S/P eye surgery S/P hemorrhoidectomy Social History Smoking Status: Never smoker alcohol intake: never ROS ROS Narrative Does state that she gets periods of anxiety but does not endorse panic attacks. No fever or chills. No blurry vision or diplopia. No chest pain or palpi tations. All review of systems were negative except as mentioned above in the history of present illness and the other review of systems. Vital Signs Vital Signs Vital Signs: 07/17/22 19:41 07/17/22 19:54 07/17/22 19:48 Temperature 37.1 C 36.8 C Temperature Source Temporal Temporal Pulse Rate 72 82 Pulse Rate [Lying] Pulse Rate [Sitting (for 1 minute prior to obtaining)] Pulse Rate [Standing (for 1 minute prior to obtaining)] Respiratory Rate 17 12 Respiratory Effort Normal Non-Labored Respiratory Pattern Normal Blood Pressure 110/55 L 97/72 Blood Pressure [Lying] Blood Pressure [Sitting (for 1 minute prior to obtaining)] Blood Pressure [Standing (for 1 minute prior to obtaining)] Blood Pressure Mean 73 80 Blood Pressure Mean [Lying] Blood Pressure Mean [Sitting (for 1 minute prior to obtaining)] Blood Pressure Mean [Standing (for 1 minute prior to obtaining)] Pulse Ox 92 96 Oxygen Delivery Method Room Air Room Air 07/17/22 21:17 Temperature Temperature Source Pulse Rate Pulse Rate [Lying] 75 Pulse Rate [Sitting (for 1 minute prior to obtaining)] 71 Pulse Rate [Standing (for 1 minute prior to obtaining)] 78 Respiratory Rate Respiratory Effort Respiratory Pattern Blood Pressure Blood Pressure [Lying] 104/57 L Blood Pressure [Sitting (for 1 minute prior to obtaining)] 97/73 Blood Pressure [Standing (for 1 minute prior to obtaining)] 118/62 Blood Pressure Mean Blood Pressure Mean [Lying] 72 Blood Pressure Mean [Sitting (for 1 minute prior to obtaining)] 81 Blood Pressure Mean [Standing (for 1 minute prior to obtaining)] 80 Pulse Ox Oxygen Delivery Method Weight Weight: 76.1 kg Body Mass Index (BMI) 27.1 Physical Exam Const alert and no apparent distress General Appearance: cooperative HEENT normocephalic and head/scalp atraumatic Eyes PERRL and EOMs intact bilaterally Eyes Narrative: No icterus Neck no lymphadenopathy, no JVD and no carotid bruits Resp normal respiratory effort, no retractions, no use of accessory muscles and clear to auscultation bilaterally Cardio regular rate and regular rhythm Cardio Narrative: 2 out of 6 systolic ejection murmur at the right sternal border. GI normal to inspection, nondistended, normoactive bowel sounds, soft to palpation, non-tender, non-distended and hepatosplenomegaly Extremity normal to inspection and full ROM Neuro oriented x3, CN's II-XII intact bilaterally and moves all extremities Sensorium / Orientation: awake and alert Motor Exam: strength 5/5 throughout Psych Psych Narrative: Flat affect Results Lab / Micro Data Attestation: I reviewed the patient's lab results. Result Diagrams: 07/17/22 20:07 07/17/22 20:07 Labs: Laboratory Results - last 24 hr 07/17/22 20:07: WBC 12.7 H, RBC 3.84 L, Hgb 11.7 L, Hct 34.1 L, MCV 88.8, MCH 30.5, MCHC 34.3, RDW Std Deviation 45.2 H, RDW Coeff of Jose 13.8, Plt Count 227, MPV 11.1, Immature Gran % (Auto) 0.300, Neut % (Auto) 81.0 H, Lymph % (Auto) 9.2 L, [place] % (Auto) 8.4, Eos % (Auto) 0.7, Baso % (Auto) 0.4, Absolute Neuts (auto) 10.3 H, Absolute Lymphs (auto) 1.17, Nucleated RBC % 0 07/17/22 20:07: Sodium 136, Potassium 3.8, Chloride 110 H, Carbon Dioxide 16.0 L , Anion Gap 10, BUN 30 H, Creatinine 1.19 H, Estim Creat Clear Calc 35.89, Est GFR (MDRD) Af Amer 56 L, Est GFR (MDRD) Non-Af 46 L, BUN/Creatinine Ratio 25.2 H , Glucose 117 H, Calcium 8.5, Total Bilirubin 0.50, AST 36, ALT 54, Alkaline Phosphatase 136 H, Troponin I High Sens 7, Total Protein 6.4, Albumin 2.8 L, Globulin 3.6, Albumin/Globulin Ratio 0.8 L 07/17/22 21:14: ESR 4 07/17/22 21:14: Total Creatine Kinase 86, C-React Prot Ext Range 6.47 H 07/17/22 21:14: Lactic Acid 1.9 07/17/22 21:47: Urine Color Yellow, Urine Clarity Clear, Urine pH 5.0, Ur Sp ecific [place] 1.015, Urine Protein 15 H, Urine Glucose (UA) Normal, Urine Ke tones Negative, Urine Occult Blood 10 H, Urine Nitrite Negative, Urine Bilirubin Negative, Urine Urobilinogen Normal, Ur Leukocyte Esterase 100 H, Urine RBC 0 SEEN, Urine WBC 0-5 SEEN, Ur Squamous Epith Cells 0 SEEN, Urine Bacteria 1+, Urine Mucus 0 SEEN 07/17/22 22:30: Troponin I High Sens 8 Rhythm Strip Rhythm Strip: Sinus Rhythm Rate: 76 Ectopy: None EKG Initial EKG: Attestation: I personally reviewed and interpreted this EKG as follows: Prior EKG tracings: available for review EKG Rhythm Intrepretation: Sinus Rhythm Radiology Impression Chest X-Ray 07/17/22 20:45 IMPRESSION: Nonacute portable x-ray examination of the chest. Electronically Signed: Harinder Grant (Brooks)an, at 21:18 EDT Reading Location ID and State: [facility] / [place] , Service support , Assessment & Plan Assessment/Plan (1) Cat bite of right foot with infection: PLAN: Patient did develop acute cellulitis within 24 hours of this cat bite. Patient received Unasyn in the emergency room and I will continue with Unasyn but also add vancomycin as I am concerned about staph faction with the rapid onset. No fluctuance that I can appreciate but patient did have a marked erythema on the dorsum of her right foot. That does get worse may need to consider doing further imaging such as a CAT scan. (2) Syncope and collapse: PLAN: I feel this event was more vasovagal related with this recent infection that she had. Patient has had these episodes before. I cannot elicit any things suggesting a peripheral vertigo at this time but patient is not dizzy currently. It is concerning that that could be a possibility but this does occur quite frequently. Other possibilities could be POTS but also medications. I will continue with her atenolol but hold her lisinopril/'s HCTZ. Does have a murmur which she has been told she has had before. We will check an echocardiogram to see if there is any evidence of any cardiomyopathy. Troponin series thus far have been normal x2. We will check another one but this does not seem to be consistent with a non-STEMI. (3) Malaise: PLAN: Is 1 other patient's complaints has been ongoing since she had COVID. Unclear if patient has long COVID or not. I did talk to the patient as well as family that she appears to be depressed and she also does endorse that she does feel anxious at times. I do not feel that her dizzy spells and syncope is related with anxiety. But patient may benefit from further counseling in the future. Of note when I was in the room the patient's daughter stated that I was doing the same thing that all her previous doctors had done to her and basically dismissing her. I told his daughter that I cannot speak for these other doctors but only for myself. With that statement this daughter charged out of the room but only came back later as I was wrapping up. Will check TSH, B12 and folate. PLAN: Plan Chronic conditions * GERD: Continue PPI * History of diabetes: Patient never taken medications. No work-up at this time. * Coronary artery disease: Appears to be stable at this time. VTE prophylaxis with low molecular weight heparin. Advance care planning, spent an additional 20 minutes where I addressed with the patient. I processed this conversation with having no expectations for any cardiopulmonary or respiratory arrest. The patient and the family's were very overwhelmed by this conversation patient initially said that she would want CPR but would not want to be on ventilator. I told her that that would not be practical as for the vast majority of patients that survive cardiopulmonary arrest they tend to be on a ventilator. Encouraged her to go full code if she wants to have CPR. And being on ventilator. Was not really consensus from patient or his family but I did strongly encourage them to talk it over further. I told them that she would remain full code at this time unless they tell us otherwise. Charges/Coding Visit Charges Inpatient E&M: 31881 Init Hosp L3 Procedures Hospitalists Procedures: 84275 Critial Care Addl 30 Min
[2022-07-18] VITALS (8 sets, daily range): BP systolic 97–114; BP diastolic 49–89; PULSE 65–95; RESP 14–18; TEMP 36.4–36.9; O2SAT 95–99; BMI 26.0
--- NOTE | 2022-07-18 00:09 | ECHOD_ITS ---
Reason For Study: SYNCOPE Procedure This was a 2D Doppler, Color Flow transthoracic echocardiogram. Exam performed portable in patient room. Left Ventricle Normal LV size. Left ventricular systolic function is normal. The estimated ejection fraction is 60 %. Stage 1 diastolic dysfunction. No regional wall motion abnormalities noted. Right Ventricle Normal RV size. Normal systolic function. Atria Normal left atrium. Normal right atrium. Mitral Valve Normal mitral valve. Tricuspid Valve Normal tricuspid valve. Mild tricuspid valve insufficiency. Pulmonary artery systolic pressure is 36 mmHg. Aortic Valve Trisinus/trileaflet aortic valve. Mild focal aortic valve calcification. Mild (1+) aortic valve insufficiency. Pulmonic Valve Normal pulmonic valve. Great Vessels Normal aortic root. The pulmonary artery is normal size. Normal inferior vena cava. Pericardium/Pleural No pericardial effusion. MMode/2D Measurements & Calculations LVIDd: 4.2 cm IVSd: 0.95 cm LVOT diam: 2.0 cm LVIDs: 3.2 cm LVPWd: 1.1 cm LVOT area: 3.2 cm2 FS: 22.6 % Ao root diam: 3.8 cm LAV(MOD-bp): 73.1 ml LVAd ap4: 26.0 cm2 LAV(MOD-bp) Indexed: 39.5 ml/m2 LVLd ap4: 7.4 cm LAV(MOD-sp2): 58.8 ml EDV(MOD-sp4): 72.3 ml LAV(MOD-sp4): 86.6 ml EDV(sp4-el): 76.9 ml LVAs ap4: 14.1 cm2 LVLs ap4: 6.2 cm ESV(MOD-sp4): 27.7 ml ESV(sp4-el): 27.3 ml EF(MOD-sp4): 61.6 % EF(sp4-el): 64.5 % SV(MOD-sp4): 44.5 ml SV(sp4-el): 49.5 ml LA A4 area: 25.0 cm2 LA dimension(2D): 4.3 cm RA A4 area: 9.1 cm2 Time Measurements MV dec time: 0.23 sec Doppler Measurements & Calculations MV E max harry: 57.9 cm/sec Lat Peak E' Harry: 8.9 cm/sec Med Peak E' Harry: 3.2 cm/sec MV A max harry: 86.8 cm/sec E/E' lat: 6.5 E/E' med: 18.0 MV E/A: 0.67 MV V2 max: 82.1 cm/sec Ao V2 max: 219.5 cm/sec MV max P.7 mmHg MV dec slope: 268.6 cm/sec2 Ao max P.3 mmHg MV V2 mean: 50.4 cm/sec Ao V2 mean: 159.7 cm/sec MV mean P.1 mmHg Ao mean P.4 mmHg MV V2 VTI: 32.8 cm Ao V2 VTI: 50.0 cm AV (velocity ratio): 0.55 MVA(VTI): 2.7 cm2 ROQUE(I,D): 1.7 cm2 ROQUE(V,D): 1.6 cm2 AI max harry: 325.1 cm/sec LV V1 max: 114.2 cm/sec SV(LVOT): 87.1 ml AI max P.3 mmHg LV V1 max P.2 mmHg LV V1 mean P.1 mmHg AI dec slope: 195.0 cm/sec2 LV V1 mean: 84.3 cm/sec AI P1/2t: 488.3 msec LV V1 VTI: 27.5 cm PA V2 max: 73.8 cm/sec TR max harry: 287.7 cm/sec PA V2 mean: 52.1 cm/sec TR max P.1 mmHg ECHO/Echo Complete Interpretation Summary Normal LV size. Left ventricular systolic function is normal. The estimated ejection fraction is 60 %. Stage 1 diastolic dysfunction. Pulmonary artery systolic pressure is 36 mmHg. Ordering Physician: Adelfo Mccoy Referring Physician: GIANNA STUBBS Performed By: Sadia Singh RCS
[2022-07-18] MEDS: 0.9% Normal Saline 1,000 ML 150 ML IV (00:42)
[2022-07-18] MEDS: 0.9% Saline Lock 10 ML Syringe IV ×3 (00:42→23:37)
[2022-07-18 01:07] LABS: Troponin-I HS 9 pg/mL (3.0-54.0)
--- NOTE | 2022-07-18 02:57 | PCM.RX.CS ---
Consult Pharmacy has been consulted to manage selected antiobiotic: Vancomycin Type of Consult: New start Suspected Infection: Skin/Soft tissue Labs: Sodium 136 mmol/L (136-145) 07/17/22 20:07 Potassium 3.8 mmol/L (3.5-5.1) 07/17/22 20:07 Chloride 110 mmol/L (98-107) H 07/17/22 20:07 Carbon Dioxide 16.0 mmol/L (21.0-32.0) L 07/17/22 20:07 Anion Gap 10 (5-15) 07/17/22 20:07 BUN 30 mg/dL (7-18) H 07/17/22 20:07 Creatinine 1.19 mg/dL (0.55-1.02) H 07/17/22 20:07 Est GFR (MDRD) Af Amer 56 mL/min (>60) L 07/17/22 20:07 Est GFR (MDRD) Non-Af 46 mL/min (>60) L 07/17/22 20:07 BUN/Creatinine Ratio 25.2 RATIO (10-20) H 07/17/22 20:07 Glucose 117 mg/dL (74-106) H 07/17/22 20:07 Goal Trough: 15-20 mcg/mL Pharmacy Plan for Drug Dosing: Pharmacy Service will continue to monitor and adjust dosing as required. Medications Vancomycin HCl (Vancomycin) 1,000 mg in 200 mls @ 200 mls/hr IV Q24H SUSIE Discontinued Medications Vancomycin HCl 1,750 mg/ (Sodium Chloride) 535 mls @ 250 mls/hr IV X1 ONE Stop: 07/18/22 02:38 Last Admin: 07/18/22 00:53 Dose: 250 mls/hr Follow-Up Labs: Trough Vancomycin Labs to be done on [date and time ordered]: 07/20 @ 0030
[2022-07-18 06:15] LABS: Absolute Lymphocyte Count 1.78 X10^3/uL (0.83-4.51); Absolute Neutrophil Count 5.7 X10^3/uL (2.0-7.7); Basophil# 0.04 X10^3/uL; Basophil% 0.5 % (0-1); Eosinophils% 1.2 % (0-5); Hematocrit 34.1 % (37-47); Hemoglobin 11.1 g/dL (12.0-15.0); Lymphocyte # 1.78 X10^3/ul (0.83-4.51); Lymphocyte % 20.8 % (19-41); Mean Corp Hgb Conc 32.6 g/dL (32-36); Mean Corpuscular Hgb 29.9 pg (27.0-32.0); Mean Corpuscular Volume 91.9 fL (81-99); Mean Platelet Vol. 10.9 fl (6.2-12.0); Monocyte# 0.85 X10^3/uL; Monocyte% 9.9 % (0-10); NRBC Flagged by Analyzer 0 % (0-5); Neutrophil # 5.74 X10^3/uL (2.7-7.7); Neutrophil % 67.1 % (47-70); Platelet Count 221 K/mm3 (150-450); RBC Distribution Width CV 14.1 % (11.6-14.6); RBC Distribution Width SD 47.4 fl (35.1-43.9); Red Blood Count 3.71 M/mm3 (4.2-5.4); White Blood Count 8.6 K/mm3 (4.4-11.0)
[2022-07-18 06:56] LABS: AST(SGOT) 26 U/L (15-37); Alanine Aminotransfer ALT/SGPT 47 U/L (13-56); Albumin, Serum 3.2 g/dL (3.2-5.0); Alkaline Phosphatase 143 U/L (45-117); Anion Gap 4 (5-15); BUN 22 mg/dL (7-18); BUN/Creat Ratio 23.1 RATIO (10-20); Calcium,Total 8.7 mg/dL (8.5-10.1); Chloride 108 mmol/L (98-107); Creatinine, Serum 0.95 mg/dL (0.55-1.02); EST Glomerular Filtration Rate 60 mL/min (>60); Est Glom Filt Rate - Afr Amer 72 mL/min (>60); Estimated Creatinine Clearance 44.95 ml/min; Globulin 3.2 g/dL (2.2-4.2); Glucose 111 mg/dL (74-106); Potassium 3.9 mmol/L (3.5-5.1); Protein, Total 6.4 g/dL (6.4-8.2); Sodium Level 139 mmol/L (136-145); Thyroid Stim Hormone (TSH) 1.15 uIU/mL (0.358-3.74)
--- NOTE | 2022-07-18 07:20 | PN.HOSP_ITS ---
Reason for Visit Reason for Visit: Diagnoses Local infection of the skin and subcutaneous tissue, unspecified (07/17/22) Other malaise (07/17/22) Syncope and collapse (07/17/22) Open bite, right foot, initial encounter (07/17/22) Bitten by cat, initial encounter (07/17/22) Subjective Subjective Follow-up for recurrent near syncope symptoms, syncope and collapse and cat bite infection. Objective Data Objective Data Vital Signs: Vital Signs Temp Pulse Resp BP Pulse Ox O2 Del Method 98.1 F 72 18 104/82 H 97 Room Air 07/18/22 05:43 07/18/22 05:43 07/18/22 05:43 07/18/22 05:43 07/18/22 05:43 07/18/22 05:43 Oxygen Delivery Method Room Air Weight: 161 lb 9.581 oz Body Mass Index (BMI) 26.0 Intake & Output: Intake and Output for Last 24 Hours 07/16/22 07/17/22 07/18/22 23:59 23:59 23:59 Intake Total 612 / 612 647 / 647 Balance 612 / 612 647 / 647 Lab / Micro Data Result Diagrams: 07/18/22 05:52 07/18/22 05:52 Labs: Laboratory Results - last 24 hr 07/17/22 20:07: WBC 12.7 H, RBC 3.84 L, Hgb 11.7 L, Hct 34.1 L, MCV 88.8, MCH 30.5, MCHC 34.3, RDW Std Deviation 45.2 H, RDW Coeff of Jose 13.8, Plt Count 227, MPV 11.1, Immature Gran % (Auto) 0.300, Neut % (Auto) 81.0 H, Lymph % (Auto) 9.2 L, [place] % (Auto) 8.4, Eos % (Auto) 0.7, Baso % (Auto) 0.4, Absolute Neuts (auto) 10.3 H, Absolute Lymphs (auto) 1.17, Nucleated RBC % 0 07/17/22 20:07: Sodium 136, Potassium 3.8, Chloride 110 H, Carbon Dioxide 16.0 L , Anion Gap 10, BUN 30 H, Creatinine 1.19 H, Estim Creat Clear Calc 35.89, Est GFR (MDRD) Af Amer 56 L, Est GFR (MDRD) Non-Af 46 L, BUN/Creatinine Ratio 25.2 H , Glucose 117 H, Calcium 8.5, Total Bilirubin 0.50, AST 36, ALT 54, Alkaline Ph osphatase 136 H, Troponin I High Sens 7, Total Protein 6.4, Albumin 2.8 L, Globulin 3.6, Albumin/Globulin Ratio 0.8 L 07/17/22 21:14: ESR 4 07/17/22 21:14: Total Creatine Kinase 86, C-React Prot Ext Range 6.47 H 07/17/22 21:14: Lactic Acid 1.9 07/17/22 21:47: Urine Color Yellow, Urine Clarity Clear, Urine pH 5.0, Ur Specific [place] 1.015, Urine Protein 15 H, Urine Glucose (UA) Normal, Urine Ketones Negative, Urine Occult Blood 10 H, Urine Nitrite Negative, Urine Bilirubin Negative, Urine Urobilinogen Normal, Ur Leukocyte Esterase 100 H, Urine RBC 0 SEEN, Urine WBC 0-5 SEEN, Ur Squamous Epith Cells 0 SEEN, Urine Bacteria 1+, Urine Mucus 0 SEEN 07/17/22 22:30: Troponin I High Sens 8 07/18/22 00:42: Troponin I High Sens 9 07/18/22 05:52: WBC 8.6, RBC 3.71 L, Hgb 11.1 L, Hct 34.1 L, MCV 91.9, MCH 29.9, MCHC 32.6, RDW Std Deviation 47.4 H, RDW Coeff of Jose 14.1, Plt Count 221, MPV 10.9, Immature Gran % (Auto) 0.500, Neut % (Auto) 67.1, Lymph % (Auto) 20.8, [place] % (Auto) 9.9, Eos % (Auto) 1.2, Baso % (Auto) 0.5, Absolute Neuts (auto) 5.7, Absolute Lymphs (auto) 1.78, Nucleated RBC % 0 07/18/22 05:52: Sodium 139, Potassium 3.9, Chloride 108 H, Carbon Dioxide 27.0, Anion Gap 4 L, BUN 22 H, Creatinine 0.95, Estim Creat Clear Calc 44.95, Est GFR (MDRD) Af Amer 72, Est GFR (MDRD) Non-Af 60, BUN/Creatinine Ratio 23.1 H, Glucose 111 H, Calcium 8.7, Total Bilirubin 0.60, AST 26, ALT 47, Alkaline Phosphatase 143 H, Total Protein 6.4, Albumin 3.2, Globulin 3.2, Albumin/Globulin Ratio 1.0, Folate 18.40, TSH 1.15 Radiography Diagnostic Testing: Radiology Impression Chest X-Ray 07/17/22 20:45 IMPRESSION: Nonacute portable x-ray examination of the chest. Electronically Signed: Harinder Givens (Brooks), at 21:18 EDT , Rhythm Strip Rhythm Strip: Sinus Rhythm Rate: 76 Ectopy: None Physical Exam Narrative Seen and examined. Has intermittent dizziness lightheadedness probably about once a week. She still works. She had cat bite on Tuesday evening on right foot. She also had boxes felt on right foot last week while working about 5 days ago. No fever. Physical exam General: Alert, Oriented x3, Cooperative HEENT: Atraumatic, PERRLA, EOMI, Normocephalic Oral: Oral mucosa moist. No Gingival or Mucosal Lesions/ Ulcerations Neck: Supple, No JVD, Negative Carotid Bruits Lungs: Air entry diminished in bilateral lung bases. No crepitation/rhonchi Cardiovascular: Regular rate, Regular Rhythm, Normal S1, Normal S2, systolic and diastolic murmur right second ICS, possible plus AR. Abdomen: Bowel Sounds Present, Soft, Non Tender, Non-Distended : No dysuria. No renal angle tenderness. No suprapubic tenderness. Extremities: Right foot is swollen. Capillary Refill Less than 3 Seconds Skin: 2 teeth bite scar over right foot with surrounding redness, swelling, edema and mild tenderness consistent with cellulitis. No open ulcer. Musculoskeletal: No Tenderness to Palpation of Joints or Extremities except of r ight foot as mentioned above Neurological: Cranial nerves II-XII grossly intact, DTR 2+/4 and Symmetrical, Neuro grossly intact Psych/Mental Status: Flat affect. Assessment & Plan Assessment/Plan (1) Cat bite of right foot with infection: PLAN: This 81-year-old female who was brought to ED for nausea, dizziness, diaphoretic and lightheadedness. She has been having the symptoms for about once a week over past several months to years.History of fatigue after COVID-19; 2 years ago; long-hauler symptoms. She had symptoms of dizziness and diaphoretic, went to bathroom, sat on the toilet seat, called her daughter and she slumped over and got unresponsive. CPR was started by the daughter as per EMS suggestion for agonal breathing. She was also bit by her cat and developed erythema on the dorsum of her right foot. Unasyn was started in ED. Patient had cat bite about 2 days ago on Tuesday and has swelling of the right foot with mild tenderness and redness. Patient received Unasyn in the emergency room and started on vancomycin and Unasyn continued Mild swelling but if patient develops fluctuation or concern for abscess will need CT scan. (2) Syncope and collapse: PLAN: Possible related to vasovagal. Other possibilities are POTS or medications. She also has murmur from the past. She had several episodes of near syncope and syncope in the past. Lisinopril and HCTZ on hold. Atenolol continued. 2D echo ordered. Troponin series all 3 are normal. Orthostatic vitals were negative in ED. (3) Malaise: PLAN: This might be long her symptoms from COVID-19 2 years ago or possible vague/unusual symptom of anxiety and depression. TSH and folate normal. CRP elevated. B12 pending. PLAN: Plan Chronic conditions * GERD: Continue PPI * History of diabetes: Patient never taken medications. No work-up at this time. * Coronary artery disease: Appears to be stable at this time. VTE prophylaxis with low molecular weight heparin. Advance care planning was discussed by admitting hospitalist. Full code Charges/Coding Visit Charges Inpatient E&M: 49279 Subs Hosp L2
[2022-07-18] MEDS: Pantoprazole Sodium 20 MG Tablet PO ×2 (11:16→21:04)
[2022-07-18] MEDS: Enoxaparin 40 MG/0.4 ML Syringe SC (11:16)
[2022-07-18] MEDS: Pravastatin 40 MG Tablet PO (21:04)
[2022-07-19] MEDS: Vancomycin IV 1,000 MG/200 ML BAG 200 MG IV (01:33)
[2022-07-19 03:15] VITALS: BP 115/64; PULSE 67; RESP 16; TEMP 36.8; O2SAT 97
[2022-07-19] MEDS: 0.9% Saline Lock 10 ML Syringe IV (06:02)
[2022-07-19 07:23] LABS: Absolute Lymphocyte Count 1.33 X10^3/uL (0.83-4.51); Absolute Neutrophil Count 3.3 X10^3/uL (2.0-7.7); Basophil# 0.03 X10^3/uL; Basophil% 0.5 % (0-1); Eosinophil# 0.36 X10^3/uL; Eosinophils% 6.5 % (0-5); Hematocrit 33.6 % (37-47); Hemoglobin 10.9 g/dL (12.0-15.0); Lymphocyte # 1.33 X10^3/ul (0.83-4.51); Lymphocyte % 23.9 % (19-41); Mean Corp Hgb Conc 32.4 g/dL (32-36); Mean Corpuscular Hgb 29.7 pg (27.0-32.0); Mean Corpuscular Volume 91.6 fL (81-99); Mean Platelet Vol. 11.5 fl (6.2-12.0); Monocyte# 0.55 X10^3/uL; Monocyte% 9.9 % (0-10); NRBC Flagged by Analyzer 0 % (0-5); Neutrophil # 3.29 X10^3/uL (2.7-7.7); Platelet Count 201 K/mm3 (150-450); RBC Distribution Width CV 14.3 % (11.6-14.6); RBC Distribution Width SD 48.1 fl (35.1-43.9); Red Blood Count 3.67 M/mm3 (4.2-5.4); White Blood Count 5.6 K/mm3 (4.4-11.0)
[2022-07-19 08:23] LABS: Vitamin B12 251 pg/mL (211-911)
[2022-07-19 08:58] VITALS: BP 129/59; PULSE 69; RESP 16; TEMP 37.2; O2SAT 95
[2022-07-19 08:58] LABS: Anion Gap 7 (5-15); BUN 15 mg/dL (7-18); BUN/Creat Ratio 21.3 RATIO (10-20); Calcium,Total 9.2 mg/dL (8.5-10.1); Chloride 108 mmol/L (98-107); EST Glomerular Filtration Rate 85 mL/min (>60); Est Glom Filt Rate - Afr Amer 103 mL/min (>60); Glucose 89 mg/dL (74-106); Potassium 3.9 mmol/L (3.5-5.1); Sodium Level 139 mmol/L (136-145)
[2022-07-19] MEDS: Enoxaparin 40 MG/0.4 ML Syringe SC (09:04)
[2022-07-19] MEDS: Pantoprazole Sodium 20 MG Tablet PO (09:04)
[2022-07-19] MEDS: Atenolol 25 MG Tablet PO (09:04)
--- NOTE | 2022-07-19 10:20 | CASEMGMT ---
RN?CM?MEAT COUNTER WORKER?CM?to room to meet with patient for initial transition planning/care coordination?assessment.?RN?CM?introduced self and role at [facility].? Pt voices understanding and consents to?assessment?at this time.? Pt resting in bed in no distress at this time.? Pt is A/O at this time and answers all questions appropriately.?? Care providers, pharmacy, and demographics verified/updated at this time. PCP: Dr Nuñez Specialists: Dr Skinny Heller-ortho @ [facility]. Has an upcoming appt July 26 Preferred [facility]acy: [facility] Insurance:MCR, [employer] Prescription Benefit:?Yes Living Will/HPOA:?Pt has LW and HCPOA, who is her dtr Alissa LNOK: Dtr/POAAlissa Living Arrangements: Lives w/dtr, Alissa, in 2-story home w/3 steps to enter. FFSU. Denies difficulty w/stairs. Indep w/ADL's and IADL's and manages her own medications. Pt works part-time @ [employer] Transportation:?Pt states drives self and states no transportation concerns at this time.? Dtr also drives. DME: States has the following DME:?shower chair, cane, walker, glucometer ?Pt states no need for further DME at this time.? HHC/SNF: No hx of SNF. Has had HHC in the past after hip surgery. Denies need for HHC or OP therapy at this time. Pt wishes to return home and states has no concerns with going home at time of discharge.? ?CM?to follow for any discharge planning/needs.? Pt voices no concerns/needs at this time.? Advised pt to ask for?CM?if any questions/concerns/needs arise.? Voices understanding. PLAN:??Home. Jonnathan KNAPPN?RN?CM
--- NOTE | 2022-07-19 12:51 | DCINST_ITS ---
Discharge Instructions Diet Discharge Diet: Low fat / Low cholesterol Activity Discharge Activity: Return to Normal Activity Dressing / Incision Call your doctor if you observe: Fever of 101 or Higher, Shortness of breath, Dizziness, Fainting spells, Swelling in the ankles, Chest pain and Increased palpitations (irregular heartbeat) Follow Up Care Test Results: Test results from this visit will be discussed in further detail at your follow- up appointment, if applicable. Discharge Plan Admission Admit Date/Time: 07/17/22 23:28 Attending Provider: Diogo Ward Primary Care Provider: Shady Nuñez Consulting Providers: Adelfo Mccoy ; Claude Ramey Instructions Additional Instructions / Restrictions: Hold your lisinopril and hydrochlorothiazide combination pill until after following up with your PCP. If you do have a home blood pressure monitor please take your blood pressure twice a day until you see your primary care physician. Given your history of long COVID as we discussed it may be beneficial to follow- up with neurology as an outpatient for possible autonomic testing. Discharge Orders/Prescriptions Prescriptions: New amoxicillin-pot clavulanate 875-125 mg tablet 1 tab PO BID Qty: 10 0RF Continued atenolol 25 MG tablet 25 mg PO DAILY Qty: 0 Label Comments: BP pravastatin 40 MG tablet 40 mg PO DAILY Label Comments: CHOLESTEROL omeprazole 20 MG capsule 20 mg PO BID Label Comments: GERD Held lisinopril-hydrochlorothiazide 20-12.5 mg tablet 1 tab PO DAILY Hold Instructions: Resume on 07/26/22. Referrals / Follow Up: Skinny Heller MD [Non-Staff] - 07/26/22 (As previously scheduled ) Shady Nuñez MD [Primary Care Provider] - Within 1 Week Disposition Disposition (needs filled in before D/C Order can be placed): Home, Self Care
--- NOTE | 2022-07-19 12:55 | PCM.DC.SUM ---
Providers Date of Admission: 07/17/22 Primary Care Physician: Dr. Shady Nuñez MD Reason For Visit: RIGHT FOOT CELLULITIS, SYNCOPE Diagnosis Discharge Diagnosis (1) Cat bite of right foot with infection: Status: Acute Code(s): S91.351A - Open bite, right foot, initial encounter; L08.9 - Local infection of the skin and subcutaneous tissue, unspecified; W55.01XA - Bitten by cat, initial encounter (2) Syncope and collapse: Status: Acute Code(s): R55 - Syncope and collapse (3) Malaise: Status: Acute Code(s): R53.81 - Other malaise Medications at Discharge Home Medications atenolol 25 mg tablet 25 mg PO DAILY ##0 09/26/15 omeprazole 20 mg capsule,delayed release 20 mg PO BID 09/26/15 pravastatin 40 mg tablet 40 mg PO DAILY 09/26/15 lisinopril 20 mg-hydrochlorothiazide 12.5 mg tablet 1 tab PO DAILY 07/17/22 amoxicillin 875 mg-potassium clavulanate 125 mg tablet 1 tab PO BID #10 tabs 07/19/22 Hospital Course Operations None Procedures 2-D Echocardiogram Summary of Care Provided Minutes Spent on Discharge: 38 Hospital Course: Per HPI: GARLAND OBANDO, is a 81 F who presents with a syncopal episode.? For some time, over the past several months to years, patient has been having episodes where she feels dizzy, diaphoretic, nauseated and passes out.? Patient has these periodically.? Patient had COVID-19 2 years ago and ever since then has been progressively fatigued.? Patient states that she is functional and is able to go to work but struggles through what were previously normal tasks.? Today, she had another event.? She started feeling that way and went to the bathroom and sat on the toilet and called out to her daughter and by the time her daughter saw her she was unresponsive.? CPR was performed by the daughter and EMS was called patient eventually came to.? Yesterday, patient was bit on her foot by her cat and then developed erythema on the dorsum of her right foot.? Patient was diagnosed with right foot cellulitis and received ampicillin//sulbactam in the emergency room.? They did do orthostatic vital signs in the emergency room which were negative.? Patient states that she sees doctors only when she needs to.? Regards to these dizzy spells and progressive fatigue, patient and her family including her daughters and sister, stated that she has been dismissed because she is turning 82 and they have not sought further attention for the, according to them. Hospital Course: 1. Syncope?81-year-old female presents to the hospital with syncope which she has had since she had COVID about 2 years ago she has been having multiple episodes of syncope periodically. She has had she states between 8-12 episodes within the last 12 months. She says that she sort of feels flushed and feels like everything is gotten really big before she passes out and she normally has time to get to a chair or to a couch. She did have troponins on admission which were unremarkable, and her echo demonstrated pulmonary artery pressure of 36 mmHg with a normal EF and stage I diastolic dysfunction which is normal for age. She is on atenolol and hydrochlorothiazide as well as lisinopril, I discussed with her the plan for possible discharge today and she expressed understanding of the risk benefits going home and would like to go home today. We did discuss how depression can play a role in verity of symptoms, she says that she has depression just because she feels so fatigued from her COVID and cannot live her normal life the way she used to. At this time she does not want to try any medications but I did recommend therapy. We will plan to continue the atenolol on discharge but will hold her lisinopril and hydrochlorothiazide and asked her to take blood pressures at home and follow-up with her PCP in 3 to 5 days, was evidenced here that she had some low blood pressures in the 90s even though her orthostatic vital signs were normal. Renal function was also at baseline. I did also discuss with her that it might be beneficial to follow-up with neurology as an outpatient to rule out an autonomic cause for her syncope 2. Cat bite of her right foot?she is feeling better and her white count is normal, no significant pain in her right foot she was started on Unasyn while here will transition to p.o. Augmentin for another 5 days and recommend outpatient follow-up. 3. GERD, hyperlipidemia are chronic medical conditions which complicate her care. Her home medications were continued where appropriate Physical Exam Narrative General: Alert, Oriented x3, Cooperative, No apparent distress HEENT: Atraumatic, PERRLA, EOMI, Normocephalic Oral: Moist Mucosa Neck: Supple, No JVD Lungs: Clear to auscultation, Normal air movement, No rhonchi, No wheeze, No rales Cardiovascular: Regular rate, Regular Rhythm, Normal S1, Normal S2, No murmurs Abdomen: Soft, Non Tender, Non-Distended, No Hepato-splenomegaly Extremities: No edema, Capillary Refill Less than 3 Seconds Skin: Right foot cellulitis from cat bite Musculoskeletal: No Tenderness to Palpation of Joints or Extremities Neurological: Cranial nerves II-XII grossly intact, Motor Exam 5/5 strength throughout, Sensory exam intact to light touch and pain Psych/Mental Status: Normal Affect, Appropriate Weight / BMI Weight Weight: 161 lb 9.581 oz Body Mass Index (BMI) 26.0 ABG / Lab / Microbiology Data Result Diagrams: 07/19/22 05:42 07/19/22 05:42 Laboratory: Laboratory Results - last 24 hr 07/18/22 05:52: Vitamin B12 251 07/19/22 05:42: WBC 5.6, RBC 3.67 L, Hgb 10.9 L, Hct 33.6 L, MCV 91.6, MCH 29.7, MCHC 32.4, RDW Std Deviation 48.1 H, RDW Coeff of Jose 14.3, Plt Count 201, MPV 11.5, Immature Gran % (Auto) 0.200, Neut % (Auto) 59.0, Lymph % (Auto) 23.9, [place] % (Auto) 9.9, Eos % (Auto) 6.5 H, Baso % (Auto) 0.5, Absolute Neuts (auto) 3.3, Absolute Lymphs (auto) 1.33, Nucleated RBC % 0 07/19/22 05:42: Sodium 139, Potassium 3.9, Chloride 108 H, Carbon Dioxide 24.0, Anion Gap 7, BUN 15, Creatinine 0.70, Estim Creat Clear Calc 42.70, Est GFR (MDRD) Af Amer 103, Est GFR (MDRD) Non-Af 85, BUN/Creatinine Ratio 21.3 H, Glucose 89, Calcium 9.2 Radiography Diagnostic Testing: Radiology Impression Echocardiogram 07/18/22 00:09 Interpretation Summary Normal LV size. Left ventricular systolic function is normal. The estimated ejection fraction is 60 %. Stage 1 diastolic dysfunction. Pulmonary artery systolic pressure is 36 mmHg. Ordering Physician: Adelfo Mccoy Referring Physician: SHADY STUBBS Performed By: Sadia Singh RCS D/C Instructions Discharge Diet: Low fat / Low cholesterol Call your doctor if you observe: Fever of 101 or Higher, Shortness of breath, Dizziness, Fainting spells, Swelling in the ankles, Chest pain and Increased palpitations (irregular heartbeat) Meaningful Use Info Meaningful Use Diagnoses (Choose all that apply): None applicable Discharge Plan Admission Admit Date/Time: 07/17/22 23:28 Attending Provider: Diogo Ward Primary Care Provider: Shady Nuñez Consulting Providers: Adelfo Mccoy ; Claude Ramey Instructions Additional Instructions / Restrictions: Hold your lisinopril and hydrochlorothiazide combination pill until after following up with your PCP. If you do have a home blood pressure monitor please take your blood pressure twice a day until you see your primary care physician. Given your history of long COVID as we discussed it may be beneficial to follow-up with neurology as an outpatient for possible autonomic testing. Discharge Orders/Prescriptions Prescriptions: New amoxicillin-pot clavulanate 875-125 mg tablet 1 tab PO BID Qty: 10 0RF Continued atenolol 25 MG tablet 25 mg PO DAILY Qty: 0 Label Comments: BP pravastatin 40 MG tablet 40 mg PO DAILY Label Comments: CHOLESTEROL omeprazole 20 MG capsule 20 mg PO BID Label Comments: GERD Held lisinopril-hydrochlorothiazide 20-12.5 mg tablet 1 tab PO DAILY Hold Instructions: Resume on 07/26/22. Referrals / Follow Up: Skinny Heller MD [Non-Staff] - 07/26/22 (As previously scheduled ) Shady Nuñez MD [Primary Care Provider] - Within 1 Week Disposition Disposition (needs filled in before D/C Order can be placed): Home, Self Care Charges/Coding Visit Charges Inpatient E&M: 44566 Disch Hosp >30min
--- NOTE | 2022-07-19 14:37 | CASEMGMT ---
Patient medically ready for discharge today. Sw presented to bedside, introduced self and explained sw role during admission. Sw asked patient if she has Advanced Directives in place. Patient reports that she does have documents, but would prefer to do them again today if sw is able to assist with that. - Sw completed necessary documents with patient, provided copies and had document scanned into patient's chart. Magalie Ortiz, ROADS [employer] PARKING LOTS SWEEPER OPERATOR, MANAGER AUDIT
[2022-07-19 14:52] VITALS: BP 144/69; PULSE 99; RESP 16; TEMP 36.8; O2SAT 98
--- NOTE | 2022-07-19 15:07 | PHA.DC.MC ---
Addendum entered and electronically signed by Kelsey Mckenna 07/19/22 15:07: Patient counseled by outpatient pharmacy managerJorge. Original Note: Pharmacy Service has performed discharge medication reconciliation and counseling for this patient. 1. AUGMENTIN 875MG PO BID X 5 DAYS The patient's discharge medication list was reviewed for discrepancies and discrepancies were resolved. Home Medications atenolol 25 mg tablet 25 mg PO DAILY blood pressure ##0 09/26/15 omeprazole 20 mg capsule,delayed release 20 mg PO BID reflux 09/26/15 pravastatin 40 mg tablet 40 mg PO DAILY cholesterol 09/26/15 lisinopril 20 mg-hydrochlorothiazide 12.5 mg tablet 1 tab PO DAILY blood pressure 07/17/22 amoxicillin 875 mg-potassium clavulanate 125 mg tablet 1 tab PO BID #10 tabs 07/19/22 The patient was counseled on the following discharge medications and changes in medications for homegoing were reviewed. The Reason for Use, instructions for use, and potential side effects were reviewed for all new medications. The patient's questions regarding all of their medications were answered. The patient was able to verbally demonstrate an understanding of their discharge medications.
--- NOTE | 2022-07-19 15:08 | CHAPLAIN ---
Type of Pastoral Visit _x__ Initial Visit ___ Follow-up Visit ___ On-call Visit ___ General Patient Visit ___ Spiritual Assessment ___ Family Conference ___ Bereavement ___ Rapid Response ___ Code Blue ___ Other (describe below) Pastoral Care Referral From _x__ Patient ___ Family ___ Nurse ___ Physician ___ [employer] Director ___ Field Liability Generalist ___ Other (describe below) Sacrament/Intervention _x__ Active listening ___ Anointing ___ Pentecostalism ___ Bereavement ___ Communion ___ Yakelin exploration ___ ___ Life review ___ Prayer ___ Reconciliation ___ Sacrament of Sick _x__ Supportive presence ___ Wedding ___ Other (describe below) Pastoral Comments asked this patient about her concerns or needs; pt said that everyone has been very nice and good to her; pt is expecting to be discharged soon today; pt said all is going well and she has no needs;
== END 2022-07-19 16:29 | disposition home or self-care (01) | DRG 603 ==
LOC: ED 23:05 → PCU 23:22
PROVIDERS: Internal Medicine; Emergency Provider Emergency Medicine; PCP Family Medicine; Visit Provider Family Medicine
DX: L03.115 Cellulitis of right lower limb (principal); S91.351A Open bite, right foot, initial encounter; E11.9 Type 2 diabetes mellitus without complications; K21.9 Gastro-esophageal reflux disease without esophagitis; I10 Essential (primary) hypertension; E78.5 Hyperlipidemia, unspecified; I25.10 Atherosclerotic heart disease of native coronary artery without angina pectoris; R55 Syncope and collapse; Z86.16 Personal history of COVID-19
CPT/HCPCS: 36415; 71045; 80048; 80053; 81001; 82550; 82607; 82746; 83605; 84443; 84484; 85025; 85652; 86140; 93005; 93306; 99285; J7030; J7040; A4216; J0295; J2405

== ENCOUNTER 2023-01-11 15:57 | Emergency (ER) | payer MEDICARE, OTHER, SELFPAY ==
[2023-01-11 15:59] VITALS: BP 170/82; PULSE 82; RESP 19; TEMP 35.9; O2SAT 96
--- NOTE | 2023-01-11 16:48 | RAD_ITS ---
STUDY: X-RAY CHEST REASON FOR EXAM: Female, 82 years old. cough TECHNIQUE: Single AP portable view of the chest. COMPARISON: 07/17/2022. FINDINGS: The lungs are clear and expanded. There is no demonstrated pleural abnormality. Normal size heart. Normal mediastinum and radha. Normal visualized pulmonary arteries. Normal visualized aortic arch and descending thoracic aorta. Normal visualized thoracic spine. Normal visualized ribs, clavicles, and shoulders. There is no demonstrated abnormality of the visualized soft tissue structures of the upper abdomen. RAD/Chest 1 View (Portable) IMPRESSION: Normal x-ray examination of the chest. Electronically Signed: John Brady MD at 17:32 EST ,
--- NOTE | 2023-01-11 16:49 | EDS_ITS ---
HPI <SUNIL Hammond - Last Filed: 01/11/23 18:16> History of Present Illness Chief Complaint: General Illness Narrative Narrative: 82-year-old female with PMH of HTN, HLD, CAD presents with 3 days of flulike illness. She has had low-grade fever under 100F, chills, malaise, congestion, shortness of breath, nausea and headache. She occasionally feels lightheaded. She has had decreased p.o. intake but no vomiting. No chest pain or cough. No abdominal pain or diarrhea. 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 PFSH <SUNIL Hammond - Last Filed: 01/11/23 18:16> [facility] Medical History (Updated 01/11/23 @ 18:00 by SUNIL Hammond) CAD (coronary artery disease) Chest pain Generalized osteoarthritis GERD (gastroesophageal reflux disease) HLD (hyperlipidemia) HTN (hypertension) Malaise Personal history of colonic polyps Type II diabetes mellitus Home Medications atenolol 25 mg tablet 25 mg PO DAILY blood pressure ##0 09/26/15 [History Last Taken 11/01/17 05:00 25 MG] omeprazole 20 mg capsule,delayed release 20 mg PO BID reflux 09/26/15 [History Last Taken 11/01/17 05:00 20 MG] pravastatin 40 mg tablet 40 mg PO DAILY cholesterol 09/26/15 [History Last Taken 09/26/15] lisinopril 20 mg-hydrochlorothiazide 12.5 mg tablet 1 tab PO DAILY blood pressure 07/17/22 [History Last Taken Unknown] amoxicillin 875 mg-potassium clavulanate 125 mg tablet 1 tab PO BID #10 tabs 07/19/22 [Rx Last Taken Unknown] ondansetron 4 mg disintegrating tablet 4 mg PO Q8H PRN PRN Nausea #12 tabs 01/11/23 [Rx Last Taken Unknown] Allergy/AdvReac Type Severity Reaction Status Date / Time No Known Allergies Allergy Verified 01/11/23 15:58 Family History Mother Diabetes Heart disease Hypertension CAD (coronary artery disease) Surgical History History of renal stent S/P eye surgery S/P hemorrhoidectomy Social History Smoking Status: Never smoker alcohol intake: never ROS <SUNIL Hammond - Last Filed: 01/11/23 18:16> ROS ED ROS Narrative Constitutional: Positive for fever, chills, malaise. ENT: Positive for rhinorrhea. CVS: Negative for chest pain, syncope. Respiratory: Positive for shortness of breath. Negative for cough. GI: Positive for nausea. Negative for abdominal pain, vomiting, diarrhea, melena, hematochezia. : Negative for dysuria, frequency. Neuro: Positive for headache. EXAM <SUNIL Hammond - Last Filed: 01/11/23 18:16> Physical Exam Narrative Exam Narrative: CONST: Patient sitting in no acute distress. EYES: Normal inspection. ENT: Normal inspection, moist mucous membranes. NECK: Normal inspection. No meningismus. RESP: No respiratory distress, CTAB. CVS: Regular rate and rhythm, no murmur, no gallop. ABD: Soft and nontender, no guarding or rebound, nondistended. SKIN: Color normal, no rash, warm, dry, intact. EXTREMITIES: Normal appearance, no pedal edema. NEURO: Oriented x4. PSYCH: Normal affect. Const Vital Signs: 01/11/23 15:59 01/11/23 17:18 01/11/23 18:01 Temperature 96.6 F L 98.4 F Temperature Source Temporal Oral Pulse Rate 82 76 Respiratory Rate 19 H 16 Respiratory Effort Normal Non-Labored Respiratory Pattern Normal Blood Pressure 170/82 H 149/56 H Blood Pressure Mean 111 87 Pulse Ox 96 94 Oxygen Delivery Method Room Air Room Air <Dr. Yefri Simmons MD - Last Filed: 01/11/23 22:10> Physical Exam Const Vital Signs: 01/11/23 15:59 01/11/23 17:18 01/11/23 18:01 Temperature 96.6 F L 98.4 F Temperature Source Temporal Oral Pulse Rate 82 76 Respiratory Rate 19 H 16 Respiratory Effort Normal Non-Labored Respiratory Pattern Normal Blood Pressure 170/82 H 149/56 H Blood Pressure Mean 111 87 Pulse Ox 96 94 Oxygen Delivery Method Room Air Room Air MDM <SUNIL Hammond - Last Filed: 01/11/23 18:16> MDM MDM Narrative Medical decision making narrative: History gathered from: Patient and daughter Patient has had 3 days of a flulike illness and episodic lightheadedness. She appears well and nontoxic. Vital signs are unremarkable. Her exam is also unremarkable. Differential includes COVID, flu, other viral illness, pneumonia, UTI among others. She was treated with IV fluids, Tylenol and Zofran while tests are pending. CBC and BMP are unremarkable CXR and UA negative for infectious process. Viral swab is positive for COVID-19 which explains her symptoms. She complains she still had a headache and was given IV Toradol since she has normal renal function. She is comfortable going home and I prescribed Zofran as needed and discussed symptomatic care and return precautions. She was discharged in stable condition. Lab Data Attestation: I reviewed the patient's lab results. Labs: Laboratory Results - last 24 hr 01/11/23 01/11/23 16:58 17:58 WBC 8.9 RBC 4.62 Hgb 13.3 Hct 41.0 MCV 88.7 MCH 28.8 MCHC 32.4 RDW Std Deviation 49.0 H RDW Coeff of Jose 15.0 H Plt Count 236 MPV 10.6 Immature Gran % (Auto) 0.300 Neut % (Auto) 87.9 H Lymph % (Auto) 5.2 L Alexander % (Auto) 6.3 Eos % (Auto) 0.1 Baso % (Auto) 0.2 Absolute Neuts (auto) 7.8 H Absolute Lymphs (auto) 0.46 L Nucleated RBC % 0 Differential Comment SCANNED Sodium 136 Potassium 3.7 Chloride 104 Carbon Dioxide 27.0 Anion Gap 5 BUN 13 Creatinine 0.73 Estim Creat Clear Calc 42.00 Est GFR (MDRD) Af Amer 98 Est GFR (MDRD) Non-Af 81 BUN/Creatinine Ratio 17.7 Glucose 130 H Calcium 9.1 Urine Color Yellow Urine Clarity Clear Urine pH 6.5 Ur Specific [place] 1.015 Urine Protein 15 H Urine Glucose (UA) Normal Urine Ketones Negative Urine Occult Blood 50 H Urine Nitrite Negative Urine Bilirubin Negative Urine Urobilinogen Normal Ur Leukocyte Esterase 100 H Urine RBC 0-5 SEEN Urine WBC 0-5 SEEN Ur Squamous Epith Cells 0-5 SEEN Urine Bacteria 0 SEEN Urine Mucus 0 SEEN Radiography Diagnostic Testing: Clinical Impression(s) from Imaging Studies Chest X-Ray 01/11/23 16:48 IMPRESSION: Normal x-ray examination of the chest. Electronically Signed: John Brady MD at 17:32 EST , ED attending interpretation of 1-view chest x-ray shows normal heart size, no acute infiltrate, edema, or effusion. <Dr. Yefri Simmons MD - Last Filed: 01/11/23 22:10> [facility] Lab Data Labs: Laboratory Results - last 24 hr 01/11/23 01/11/23 16:58 17:58 WBC 8.9 RBC 4.62 Hgb 13.3 Hct 41.0 MCV 88.7 MCH 28.8 MCHC 32.4 RDW Std Deviation 49.0 H RDW Coeff of Jose 15.0 H Plt Count 236 MPV 10.6 Immature Gran % (Auto) 0.300 Neut % (Auto) 87.9 H Lymph % (Auto) 5.2 L Alexander % (Auto) 6.3 Eos % (Auto) 0.1 Baso % (Auto) 0.2 Absolute Neuts (auto) 7.8 H Absolute Lymphs (auto) 0.46 L Nucleated RBC % 0 Differential Comment SCANNED Sodium 136 Potassium 3.7 Chloride 104 Carbon Dioxide 27.0 Anion Gap 5 BUN 13 Creatinine 0.73 Estim Creat Clear Calc 42.00 Est GFR (MDRD) Af Amer 98 Est GFR (MDRD) Non-Af 81 BUN/Creatinine Ratio 17.7 Glucose 130 H Calcium 9.1 Urine Color Yellow Urine Clarity Clear Urine pH 6.5 Ur Specific [place] 1.015 Urine Protein 15 H Urine Glucose (UA) Normal Urine Ketones Negative Urine Occult Blood 50 H Urine Nitrite Negative Urine Bilirubin Negative Urine Urobilinogen Normal Ur Leukocyte Esterase 100 H Urine RBC 0-5 SEEN Urine WBC 0-5 SEEN Ur Squamous Epith Cells 0-5 SEEN Urine Bacteria 0 SEEN Urine Mucus 0 SEEN Radiography Diagnostic Testing: Clinical Impression(s) from Imaging Studies Chest X-Ray 01/11/23 16:48 IMPRESSION: Normal x-ray examination of the chest. Electronically Signed: John Brady MD at 17:32 EST , Treatment and Re-Evaluation :: I have personally performed a face to face assessment of the patient and have reviewed the MAGALI Note. I performed a substantive portion of the visit including all aspects of the following. My ventura findings include: History: Patient has had about 3 days of some myalgias, low-grade fever, occasional sense of mild dyspnea. 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 Exam: Patient awake alert. She does have some nasal congestion on exam but no sinus tenderness. Oropharynx is normal. Neck is supple. No JVD or stridor. Lungs are clear bilaterally. Saturations are normal at 96% on room air showing no hypoxia. Heart rate is regular. Abdomen is soft nontender. Medical Decision Making: Patient is positive for COVID-19 which explains her sy mptoms. Discharge Plan Triage Chief Complaint: General Illness ED Midlevel Provider: Doris Manzano ED Provider: Yefri Simmons Dx/Rx/DC Orders Clinical Impression: COVID-19 Instructions: Caring for Someone Who Has COVID-19 Prescriptions: New ondansetron 4 mg tablet,disintegrating 4 mg PO Q8H PRN PRN (Reason: Nausea) Qty: 12 0RF No Action atenolol 25 MG tablet 25 mg PO DAILY Qty: 0 Patient Comments: BP pravastatin 40 MG tablet 40 mg PO DAILY Patient Comments: CHOLESTEROL omeprazole 20 MG capsule 20 mg PO BID Patient Comments: GERD lisinopril-hydrochlorothiazide 20-12.5 mg tablet 1 tab PO DAILY Hold Instructions: Resume on 07/26/22. amoxicillin-pot clavulanate 875-125 mg tablet 1 tab PO BID Qty: 10 0RF Primary Care Provider: Shady Nuñez Referrals: Shady Nuñez MD [Primary Care Provider] - Activity Restrictions/Additional Instructions: Rest, drink plenty of fluids, take Zofran as needed for nausea and vomiting. I recommend Tylenol every 6 hours for pain or fever. Disposition Disposition: Home, Self Care Discharge Date/Time: 01/11/23 18:28
[2023-01-11] MEDS: 0.9% Normal Saline (1000mL) 1,000 ML 999 ML IV (17:00)
[2023-01-11 17:12] LABS: Absolute Lymphocyte Count 0.46 X10^3/uL (0.83-4.51); Absolute Neutrophil Count 7.8 X10^3/uL (2.0-7.7); Basophil# 0.02 X10^3/uL; Basophil% 0.2 % (0-1); Eosinophil# 0.01 X10^3/uL; Eosinophils% 0.1 % (0-5); Hemoglobin 13.3 g/dL (12.0-15.0); Lymphocyte # 0.46 X10^3/ul (0.83-4.51); Lymphocyte % 5.2 % (19-41); Mean Corp Hgb Conc 32.4 g/dL (32-36); Mean Corpuscular Hgb 28.8 pg (27.0-32.0); Mean Corpuscular Volume 88.7 fL (81-99); Mean Platelet Vol. 10.6 fl (6.2-12.0); Monocyte# 0.56 X10^3/uL; Monocyte% 6.3 % (0-10); NRBC Flagged by Analyzer 0 % (0-5); Neutrophil % 87.9 % (47-70); POSITIVE DIFFERENTIAL YES; Platelet Count 236 K/mm3 (150-450); Red Blood Count 4.62 M/mm3 (4.2-5.4); White Blood Count 8.9 K/mm3 (4.4-11.0)
[2023-01-11] MEDS: Acetaminophen 500 MG Tablet 1000 MG PO (17:14)
[2023-01-11] MEDS: Ondansetron 4 MG/2 ML Vial IV (17:14)
[2023-01-11 17:16] VITALS: BMI 28.0
[2023-01-11 17:22] LABS: Differential Indicated SCAN CRITERIA MET
[2023-01-11 17:32] LABS: Anion Gap 5 (5-15); BUN 13 mg/dL (7-18); BUN/Creat Ratio 17.7 RATIO (10-20); Calcium,Total 9.1 mg/dL (8.5-10.1); Chloride 104 mmol/L (98-107); Creatinine, Serum 0.73 mg/dL (0.55-1.02); EST Glomerular Filtration Rate 81 mL/min (>60); Est Glom Filt Rate - Afr Amer 98 mL/min (>60); Glucose 130 mg/dL (74-106); Potassium 3.7 mmol/L (3.5-5.1); Sodium Level 136 mmol/L (136-145)
[2023-01-11 17:40] LABS: Differential Comment SCANNED
[2023-01-11 17:59] LABS: Bacteria 0 SEEN /hpf (None Seen); Mucous, Urine 0 SEEN /hpf (<or=2+)
[2023-01-11 18:01] VITALS: BP 149/56; PULSE 76; RESP 16; TEMP 36.9; O2SAT 94
[2023-01-11] MEDS: Ketorolac 15 MG/ML Vial IV (18:06)
[2023-01-11 18:07] LABS: Color, Urine Yellow (Yellow); Glucose, Dipstick Normal (Normal); Ketone-Dipstick Negative (Negative); Leukocyte Esterase-Dipstick 100 /ul (Negative); Nitrite-Dipstick Negative (Negative); Occult Blood-Urine 50 /ul (Negative); Protein-Dipstick 15 mg/dl (Negative); Specific Gravity, Urine 1.015 (1.002-1.030); Urine Bilirubin Dipstick Negative (Negative); Urine Clarity Clear (Clear); Urine Urobilinogen Normal (Normal); Urine pH 6.5 (5.0 - 8.0)
[2023-01-11 18:13] LABS: Squamous Epithelial Cells - UA 0-5 SEEN /hpf (5-10); White Blood Cells 0-5 SEEN /hpf (0-5)
[2023-01-11 18:14] LABS: Red Blood Cells-Urine 0-5 SEEN /hpf (0-5)
== END 2023-01-11 18:28 | disposition home or self-care (01) ==
PROVIDERS: Physician Assistant; Emergency Provider Emergency Medicine; PCP Family Medicine; Visit Provider Emergency Medicine
DX: U07.1 COVID-19 (principal); E11.9 Type 2 diabetes mellitus without complications; I10 Essential (primary) hypertension; E78.5 Hyperlipidemia, unspecified; I25.10 Atherosclerotic heart disease of native coronary artery without angina pectoris; K21.9 Gastro-esophageal reflux disease without esophagitis; Z79.899 Other long term (current) drug therapy; R11.0 Nausea; R51.9 Headache, unspecified
CPT/HCPCS: 71045; 80048; 81001; 85025; 87428; 96361; 96374; 96375; 99283; J7030; A4216; J2405

== ENCOUNTER 2023-03-10 11:36 | Emergency (ER) | payer MEDICARE, OTHER, SELFPAY ==
[2023-03-10 11:37] VITALS: BP 123/64; PULSE 77; RESP 18; TEMP 36.6; O2SAT 97
--- NOTE | 2023-03-10 11:54 | EDS_ITS ---
HPI History of Present Illness Chief Complaint: Lower Extremity Injury Detail of Chief Complaint: Generalized weakness and urinary frequency Informant: patient Narrative Narrative: Patient presents to the emergency department with complaint of generalized weakness and urinary frequency that is been going on for several weeks. Patient tells me she had surgery on her right knee had a total knee replacement on February [address] Forrester that was performed at [facility]. Patient states the knee has been doing well and really does not have much in the way of concerns about her knee. She is worried that she may have a urinary tract infection. She denies any chest pain or shortness of breath. She denies any cough. She has had low-grade fevers up to 100 at home. She denies sick contacts. [facility] Medical History (Updated 03/10/23 @ 16:[address] Sherman Shay DO) CAD (coronary artery disease) Chest pain Generalized osteoarthritis GERD (gastroesophageal reflux disease) HLD (hyperlipidemia) HTN (hypertension) Malaise Personal history of colonic polyps Type II diabetes mellitus Home Medications atenolol 25 mg tablet 25 mg PO DAILY blood pressure ##0 09/26/15 [History Last Taken 11/01/17 05:00 25 MG] omeprazole 20 mg capsule,delayed release 20 mg PO BID reflux 09/26/15 [History Last Taken 11/01/17 05:00 20 MG] pravastatin 40 mg tablet 40 mg PO DAILY cholesterol 09/26/15 [History Last Taken 09/26/15] lisinopril 20 mg-hydrochlorothiazide 12.5 mg tablet 1 tab PO DAILY blood pressure 07/17/22 [History Last Taken Unknown] amoxicillin 875 mg-potassium clavulanate 125 mg tablet 1 tab PO BID #10 tabs 07/19/22 [Rx Last Taken Unknown] ondansetron 4 mg disintegrating tablet 4 mg PO Q8H PRN PRN Nausea #12 tabs 01/11/23 [Rx Last Taken Unknown] Allergy/AdvReac Type Severity Reaction Status Date / Time No Known Allergies Allergy Verified 03/10/23 11:41 Family History Mother Diabetes Heart disease Hypertension CAD (coronary artery disease) Surgical History History of renal stent S/P eye surgery S/P hemorrhoidectomy Social History Smoking Status: Never smoker alcohol intake: never ROS ROS ED Review of Systems ROS Unobtainable: other Constitutional Constitutional ED: Reports lethargy; Denies chills, fever(s), sweats or weight loss Eyes Eyes: Denies blurry vision, change in vision or diplopia ENT ENT ED: Denies rhinorrhea or sore throat Cardiovascular Cardiovascular: Denies chest pain, orthopnea or racing heartbeat Respiratory/Chest Respiratory/Chest: Denies cough, dyspnea, dyspnea on exertion, orthopnea or sputum Gastrointestinal Gastrointestinal: Denies abdominal pain, diarrhea, nausea or vomiting Genitourinary Genitourinary ED: Reports urinary frequency; Denies dysuria or hematuria Musculoskeletal Musculoskeletal: Denies arthralgias, back pain, myalgias or neck pain Integumentary Denies abscess, Abrasions or rash Neurologic Neurologic: Reports weakness; Denies headache(s) Psychiatric Psychiatric: Denies anxiety, depression or suicidal thoughts Endocrine Endocrinology: Denies polydipsia, polyphagia or polyuria Hematologic/Lymphatic Hematologic/Lymphatic: Denies easy bleeding, easy bruising or lymphadenopathy Allergic/Immunologic Allergic/Immunologic ED: Denies mouth swelling, tongue swelling or urticaria EXAM Physical Exam Const Vital Signs: 03/10/23 11:37 03/10/23 15:10 Temperature 98 F Temperature Source Temporal Pulse Rate 77 87 Respiratory Rate 18 20 H Blood Pressure 123/64 H 132/68 H Blood Pressure Mean 83 89 Pulse Ox 97 97 Oxygen Delivery Method Room Air Room Air Positive well nourished and well developed General Appearance ED: well developed and NAD HEENT Reports TM's clear and moist mucous membranes normocephalic and atraumatic; Negative for trauma or tenderness Tympanic Membrane ED: Yes TM's clear Eyes PERRL and EOMs intact bilaterally General Eye ED: Negative for pale conjunctiva or scleral icterus Neck no lymphadenopathy, supple and no JVD General: Negative for tenderness Chest Wall inspection of chest normal and palpation of chest normal Chest: Negative for tenderness Resp normal respiratory effort and clear to auscultation bilaterally Effort and Inspection: Negative for respiratory distress or pain with movement Auscultation: Negative for rhonchi, wheezes or diminished lung sounds Cardio regular rate, regular rhythm, S1 normal heart sound, S2 normal heart sound and no murmurs Peripheral Pulses: pulses 2+ throughout GI normal to inspection, nondistended, normoactive bowel sounds, soft to palpation, non-tender, non-distended and no masses Back/Spine no CVA tenderness and no thoracic nor lumbar tenderness Extremity normal to inspection General Extremety ED: Negative for edema General Extremity: Negative for edema Neuro oriented x3, CN's II-XII intact bilaterally, no sensory deficits noted and gait normal Sensorium / Orientation: awake, alert, oriented to person, oriented to place and oriented to time Motor Exam: strength 5/5 throughout and strength abnormal Psych mental status grossly normal Skin no rashes or lesions noted and no wounds MDM MDM MDM Narrative Medical decision making narrative: Patient presents with complaint of fatigue and no appetite and she is felt poorly since she had surgery on her right knee to have it replaced on February 18. Daughter was worried about possibility of infection somewhere not necessarily infected knee. The swelling in the knee is actually gone down and is feeling improved. Patient's not had any fevers. IV line established. CBC with differe ntial slightly elevated white count of 11.6 with hemoglobin 12.2 and platelet count of 396. Chemistries unremarkable. Lactate was normal at 1.0 and troponin was normal at 10. EKG obtained arrival showed a sinus rhythm with a rate of 82 bpm with occasional PACs. Urinalysis was unremarkable. COVID and flu and RSV testing were negative. Patient was given liter mostly fluid bolus. Patient felt improved after treatment. At this point patient clinically looks well. Recommend she follow-up with her primary care physician within next 3 to 5 days. Offered her admission for placement to rehab facility potentially but she has help at home and does not want to be admitted. I do not think she has a postop knee infection. Clinically the wound is healing well and there is no drainage or erythema or cellulitic changes. Lab Data Attestation: I reviewed the patient's lab results. Labs: Laboratory Results - last 24 hr 03/10/23 03/10/23 12:10 15:05 WBC 11.6 H RBC 4.24 Hgb 12.2 Hct 37.8 MCV 89.2 MCH 28.8 MCHC 32.3 RDW Std Deviation 47.0 H RDW Coeff of Jose 14.6 Plt Count 396 MPV 10.5 Immature Gran % (Auto) 0.300 Neut % (Auto) 73.4 H Lymph % (Auto) 14.1 L [place] % (Auto) 10.2 H Eos % (Auto) 1.4 Baso % (Auto) 0.6 Absolute Neuts (auto) 8.5 H Absolute Lymphs (auto) 1.63 Nucleated RBC % 0 Sodium 137 Potassium 3.8 Chloride 103 Carbon Dioxide 30.0 Anion Gap 4 L BUN 13 Creatinine 0.86 Estim Creat Clear Calc 54.21 Est GFR (MDRD) Af Amer 81 Est GFR (MDRD) Non-Af 67 BUN/Creatinine Ratio 15.1 Glucose 106 Lactic Acid 1.0 Calcium 9.3 Troponin I High Sens 10 Urine Color Yellow Urine Clarity Clear Urine pH 8.0 Ur Specific [place] 1.010 Urine Protein 15 H Urine Glucose (UA) Normal Urine Ketones 5 H Urine Occult Blood Negative Urine Nitrite Negative Urine Bilirubin Negative Urine Urobilinogen 1 H Ur Leukocyte Esterase Negative Urine RBC 0 SEEN Urine WBC 0-5 SEEN Ur Squamous Epith Cells 0-5 SEEN Urine Bacteria 0 SEEN Urine Mucus 0 SEEN EKG Initial EKG: Attestation: I personally reviewed and interpreted this EKG as follows: Comments: Sinus rhythm with rate of 82 bpm with occasional PACs. Discharge Plan Triage Chief Complaint: Lower Extremity Injury ED Provider: Sherman Shay Dx/Rx/DC Orders Clinical Impression: Weakness Instructions: ED Weakness (Uncertain Cause) Prescriptions: No Action atenolol 25 MG tablet 25 mg PO DAILY Qty: 0 Patient Comments: BP pravastatin 40 MG tablet 40 mg PO DAILY Patient Comments: CHOLESTEROL omeprazole 20 MG capsule 20 mg PO BID Patient Comments: GERD lisinopril-hydrochlorothiazide 20-12.5 mg tablet 1 tab PO DAILY Hold Instructions: Resume on 07/26/22. amoxicillin-pot clavulanate 875-125 mg tablet 1 tab PO BID Qty: 10 0RF ondansetron 4 mg tablet,disintegrating 4 mg PO Q8H PRN PRN (Reason: Nausea) Qty: 12 0RF Primary Care Provider: Shady Nuñez Referrals: Shady Nuñez MD [Primary Care Provider] - 3-5 Days Disposition Disposition: Home, Self Care
[2023-03-10 12:17] VITALS: BMI 26.9
[2023-03-10] MEDS: 0.9% Normal Saline (1000mL) 1,000 ML 150 ML IV (12:24)
--- OUTSIDE RECORDS SUMMARY | 2023-03-10 12:25 | XMS RPT_ITS | CCD ---
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 Name Role Phone Santos Nuñez MD Primary Care Provider Santos Nuñez MD Primary Care Provider Sissen PSS, Galdino Unavailable Unavailable Santos Nuñez MD Primary Care Provider Skinny Heller MD Unavailable [phone] Josiah Salas PA-C Unavailable Nikky GRANDE, Diane Unavailable Santos Nuñez MD Primary Care Provider Skinny Heller MD Unavailable [phone] Josiah Salas PA-C Unavailable Nikky GRANDE, Diane Unavailable Josiah Salas PA-C Unavailable Nikky GRANDE, Diane Unavailable Faustino Alves MD Unavailable Sissen PSS, Galdino Unavailable Unavailable PROVIDER, UNKNOWN Referring Unavailable PROVIDER, UNKNOWN Primary Care Unavailable PROVIDER, UNKNOWN Primary Care Unavailable WES QUISPE Referring Unavailab le PROVIDER, UNKNOWN Primary Care Unavailable WES QUISPE Referring Unavailab VISHNU Thomas Consulting Unavailable PROVIDER, UNKNOWN Admitting Unavailable PROVIDER, UNKNOWN Attending Unavailable PROVIDER, UNKNOWN Primary Care Unavailable LUDA JAY Referring Unavailable PROVIDER, UNKNOWN Primary Care Unavailable LUDA JAY Referring Unavailable PROVIDER, UNKNOWN Primary Care Unavailable LUDA JAY Referring Unavailable PROVIDER, UNKNOWN Primary Care Unavailable LUDA JAY Referring Unavailable PROVIDER, UNKNOWN Primary Care Unavailable SANTOS NUÑEZ Primary Care Unavailab le PODLOGAR, NO Attending Unavailable SANTOS NUÑEZ Primary Care Unavailab le PODLOGARNO Attending Unavailable SANTOS NUÑEZ Primary Care Unavailab le PODLOGARNO Referring Unavailable SANTOS NUÑEZ Primary Care Unavailab le VETOCHRISTEN STARR Attending Unavailable SANTOS NUÑEZ Primary Care Unavailab LUDA Connolly Attending Unavailable SANTOS NUÑEZ Primary Care Unavailab le SANTOS NUÑEZ Referring Unavailab LUDA Connolly Referring Unavailable SANTOS NUÑEZ Primary Care Unavailab le VETORO, CHRISTEN Referring Unavailable SANTOS NUÑEZ Primary Care Unavailab LUDA Connolly Referring Unavailable FAUSTINO ALVES Attending Unavailable SANTOS NUÑEZ Primary Care Unavailab le SANTOS NUÑEZ Primary Care Unavailab RADHA Gomez Referring Unavailable CHRISTEN LINDO Attending Unavailable SANTOS NUÑEZ Primary Care Unavailab RAJNI Mcfadden Referring Unavailable SANTOS NUÑEZ Primary Care Unavailab GRACIE Parry Attending Unavailable SANTOS NUÑEZ Primary Care Unavailab LUDA Connolly Referring Unavailable WES QUISPE Attending Unavailab le SANTOS NUÑEZ Primary Care Unavailab le SANTOS NUÑEZ Primary Care Unavailab le VETORO, CHRISTEN Referring Unavailable SANTOS NUÑEZ Primary Care Unavailab le SANTOS NUÑEZ Primary Care Unavailab le SANTOS NUÑEZ Primary Care Unavailab le PODLOGARNO Attending Unavailable WES QUISPE Referring Unavailab CATHRYN Marin Attending Unavailable SANTOS NUÑEZ Primary Care Unavailab LUDA Connolly Attending Unavailable SANTOS NUÑEZ Primary Care Unavailab le VETOCHRISTEN STARR Attending Unavailable SANTOS NUÑEZ Primary Care Unavailab le SANTOS NUÑEZ Primary Care Unavailab SANTOS Almeida Attending Unavailab SKINNY Moss Referring Unavailable SANTOS NUÑEZ Primary Care Unavailab LUDA Connolly Referring Unavailable SANTOS NUÑEZ Primary Care Unavailab le SANTOS NUÑEZ Primary Care Unavailab le PODLOGAR, NO Attending Unavailable SANTOS NUÑEZ Primary Care Unavailab le PODLOGAR, NO Referring Unavailable SANTOS NUÑEZ Primary Care Unavailab le SANTOS NUÑEZ Referring Unavailab le SANTOS NUÑEZ Primary Care Unavailab le PODLOGDEX, NO Referring Unavailable FAUSTINO ALVES Referring Unavailable SANTOS UNÑEZ Primary Care Unavailab le FAUSTINO ALVES Referring Unavailable SANTOS NUÑEZ Primary Care Unavailab magi PLATTTOCHRISTEN STARR Attending Unavailable SANTOS NUÑEZ Primary Care Unavailab SANTOS Almeida Primary Care Unavailab le Allergies Allergy Classification Reported Allergen(s) Allergy Type Date of Onset Reaction(s) Facility (20 sources) Dust; Translations: [DUST] Propensity to adverse reactions 11-14-2007 [facility] (20 sources) Mold Extract; Translations: [MOLD] Drug Allergy 11-14-2007 [facility] Medications Current Medications Medication Drug Class(es) Dates Sig (Normalized) Sig (Original) acetaminophen 500 mg oral tablet (11 sources) Start: 11-21-2021 End: 12-05-2021 take 2 tablets by mouth every eight hours acetaminophen (TYLENOL) 500 mg tablet Take 2 tablets by mouth every 8 hours for 14 days. 84 tablet 0 11/21/2021 12/05/2021 Active Completed/Discontinued Medications Medication Drug Class(es) Dates Sig (Normalized) Sig (Original) ascorbic acid 500 mg oral tablet (20 sources) Vitamin C Start: 11-19-2021 End: 12-03-2021 take 1 tablet by mouth twice daily at mealtime ascorbic acid, vitamin C, (VITAMIN C) 500 mg tablet Take 1 tablet by mouth twice daily with meals for 28 doses. 28 tablet 0 11/19/2021 Active Problems Active Problems Problem Classification Problem Date Documented Date Episodic/Chronic Adjustment disorders (20 sources) Reactive depression (situational); Translations: [Adjustment disorder with depressed mood] Onset: 06-21-2013 06-21-2013 Chronic Chronic kidney disease (20 sources) Chronic kidney disease stage 3A ; Translations: [Chronic kidney disease, stage 3a] Onset: 07-22-2022 07-22-2022 Chronic Chronic kidney disease (1 source) Chronic kidney disease; Translations: [Chronic kidney disease, stage 3a (HCC)] Onset: 07-22-2022 Coronary atherosclerosis and other heart disease (20 sources) Coronary atherosclerosis; Translations: [Atherosclerotic heart disease of [place] coronary artery without angina pectoris] Onset: 11-04-2021 11-04-2021 Chronic Diabetes mellitus without complication (20 sources) Type 2 diabetes mellitus without complication; Translations: [Type 2 diabetes mellitus without complications] Onset: 07-09-2014 02-19-2015 Chronic Disorders of lipid metabolism (20 sources) Hyperlipidemia; Translations: [Hyperlipidemia, unspecified] Onset: 02-19-2015 02-19-2015 Chronic Esophageal disorders (20 sources) Gastroesophageal reflux disease; Translations: [Gastro-esophageal reflux disease without esophagitis] Onset: 06-21-2007 06-21-2007 Chronic Esophageal disorders (1 source) Esophageal disorders; Translations: [Gastroesophageal reflux disease with esophagitis, unspecified whether hemorrhage] Onset: 06-21-2007 Essential hypertension (20 sources) Benign essential hypertension; Translations: [Essential (primary) hypertension] Onset: 10-27-2004 10-27-2004 Chronic Genitourinary symptoms and ill-defined conditions (1 source) Frequency of micturition; Translations: [Urinary frequency] Onset: 01-31-2023 Episodic Malaise and fatigue (1 source) Fatigue; Translations: [Other fatigue] Episodic Neoplasms of unspecified nature or uncertain behavior (4 sources) Monoclonal gammopathy (clinical); Translations: [Monoclonal gammopathy] Onset: 09-06-2022 Chronic Osteoarthritis (20 sources) Osteoarthritis of hip; Translations: [Osteoarthritis of hip, unspecified] Onset: 11-19-2016 11-19-2016 Chronic Other and ill-defined heart disease (12 sources) Takotsubo cardiomyopathy; Translations: [Takotsubo syndrome] Onset: 11-02-2022 11-02-2022 Chronic Other and ill-defined heart disease (1 source) Takotsubo syndrome; Translations: [Takotsubo cardiomyopathy] Onset: 11-02-2022 Chronic Other and unspecified benign neoplasm (20 sources) Benign neoplasm of colon; Translations: [Benign neoplasm of colon, unspecified] 08-31-2007 Episodic Other connective tissue disease (2 sources) History of total hip arthroplasty; Translations: [Presence of right artificial hip joint] Chronic Other connective tissue disease (2 sources) History of repair of hip joint; Translations: [Presence of right artificial hip joint] Chronic Other connective tissue disease (2 sources) Presence of right artificial knee joint; Translations: [S/P total knee arthroplasty, right] Onset: 02-18-2023 Chronic Other connective tissue disease (1 source) Synovial cyst of right popliteal space; Translations: [Synovial cyst of popliteal space [Morales], right knee] Episodic Other connective tissue disease (1 source) Falls; Translations: [Repeated falls] 10-01-2022 Episodic Other connective tissue disease (1 source) Pain of left hand; Translations: [Pain in left hand] 12-01-2022 Episodic Other diseases of kidney and ureters (1 source) Abnormal renal function; Translations: [Disorder of kidney and ureter, unspecified] Episodic Other liver diseases (1 source) Alkaline phosphatase raised; Translations: [Abnormal levels of other serum enzymes] Episodic Other lower respiratory disease (2 sources) Dyspnea on exertion; Translations: [Other forms of dyspnea] 11-02-2022 Episodic Other nervous system disorders (1 source) Neuropathy; Translations: [Polyneuropathy, unspecified] Chronic Other nervous system disorders (2 sources) Other chronic pain; Translations: [Chronic pain of right knee] Onset: 05-07-2022 Chronic Other nervous system disorders (1 source) Polyneuropathy, unspecified; Translations: [Neuropathy] Onset: 08-03-2022 Chronic Other nervous system disorders (1 source) Paresthesia of upper limb; Translations: [Anesthesia of skin] Episodic Other nervous system disorders (1 source) Numbness of lower limb ; Translations: [Anesthesia of skin] Episodic Other nervous system disorders (1 source) Abnormal gait; Translations: [Unspecified abnormalities of gait and mobility] 10-01-2022 Episodic Other non-traumatic joint disorders (3 sources) Hip pain; Translations: [Pain in unspecified hip] Episodic Other non-traumatic joint disorders (1 source) Pain of left wrist; Translations: [Pain in left wrist] 12-03-2022 Episodic Other upper respiratory infections (1 source) Acute sinusitis; Translations: [Acute sinusitis, unspecified] Episodic Pooja-; endo-; and myocarditis; cardiomyopathy (except that caused by tuberculosis or sexually transmitted disease) (20 sources) Heart valve disorder; Translations: [Endocarditis, valve unspecified] Onset: 11-04-2021 11-04-2021 Chronic Residual codes; unclassified (2 sources) Pain; Translations: [Pain, unspecified] 11-26-2022 Episodic Spondylosis; intervertebral disc disorders; other back problems (20 sources) Lumbar spondylosis; Translations: [Spondylosis without myelopathy or radiculopathy, lumbar region] Onset: 07-05-2013 07-05-2013 Chronic Viral infection (1 source) Disease caused by 2019-nCoV; Translations: [COVID-19] Episodic Past or Other Problems Problem Classification Problem Date Documented Date Episodic/Chronic Cardiac dysrhythmias (6 sources) Palpitations; Translations: [Palpitations] Onset: 08-03-2022 Episodic Diabetes mellitus without complication (3 sources) Prediabetes; Translations: [Prediabetes] Onset: 04-02-2022 10-01-2022 Episodic E Codes: Natural/environment (1 source) Bitten by cat, subsequent encounter; Translations: [Cat bite, subsequent encounter] Onset: 07-22-2022 Episodic Other and unspecified benign neoplasm (20 sources) History of polyp of colon; Translations: [Personal history of colonic polyps] Onset: 09-08-2016 09-08-2016 Episodic Other connective tissue disease (20 sources) Plantar fasciitis; Translations: [Plantar fascial fibromatosis] Onset: 02-26-2019 02-26-2019 Episodic Other connective tissue disease (20 sources) Right rotator cuff syndrome; Translations: [Unspecified rotator cuff tear or rupture of right shoulder, not specified as traumatic] Onset: 02-26-2019 02-26-2019 Episodic Other infections; including parasitic (20 sources) Personal history of other infectious and parasitic diseases; Translations: [History of 2019 novel coronavirus disease (COVID-19)] Onset: 11-04-2021 11-04-2021 Episodic Other lower respiratory disease (1 source) Other forms of dyspnea; Translations: [FIGUEROA (dyspnea on exertion)] Onset: 11-12-2022 Episodic Other nervous system disorders (1 source) Anesthesia of skin; Translations: [Numbness and tingling of right arm] Onset: 05-07-2022 Episodic Other nervous system disorders (1 source) Paresthesia of skin; Translations: [Numbness and tingling of right arm] Onset: 05-07-2022 Episodic Other non-traumatic joint disorders (12 sources) Pain in right knee; Translations: [Pain in joint, lower leg] Onset: 05-07-2022 Episodic Residual codes; unclassified (20 sources) History of syncope; Translations: [Personal history of other specified conditions] Onset: 11-04-2021 11-04-2021 Episodic Residual codes; unclassified (20 sources) Postoperative state; Translations: [Other specified postprocedural states] Onset: 11-20-2021 11-20-2021 Episodic Residual codes; unclassified (1 source) Personal history of other specified conditions; Translations: [History of syncope] Onset: 11-04-2021 Episodic Residual codes; unclassified (1 source) Pain, unspecified; Translations: [Pain] Onset: 07-26-2022 Episodic Skin and subcutaneous tissue infections (2 sources) Infection of skin; Translations: [Local infection of the skin and subcutaneous tissue, unspecified] Onset: 07-22-2022 11-26-2022 Episodic Spondylosis; intervertebral disc disorders; other back problems (5 sources) Radiculopathy due to lumbar intervertebral disc disorder; Translations: [Intervertebral disc disorders with radiculopathy, lumbar region] Onset: 05-07-2022 Episodic Syncope (10 sources) Syncope; Translations: [Syncope and collapse] Onset: 08-03-2022 Episodic Results Test Name Value Interpretation Reference Range Facil ity Vital Signs Date Time Vital Sign Value Performing Clinician Adelina duran 12-03-2022 14:35-0400 Body weight 77.52 kg Cathryn Aggarwal APRN.CNP Work Phone: [facility] 12-03-2022 14:35-0400 Diastolic blood pressure 72 mm[Hg] Cathryn Aggarwal APRN.CNP Work Phone: [facility] 12-03-2022 14:35-0400 Heart rate 63 /min Cathryn Aggarwal APRN.CNP Work Phone: [facility] 12-03-2022 14:35-0400 Respiratory rate 20 /min Cathryn Aggarwal APRN.CNP Work Phone: [facility] 12-03-2022 14:35-0400 SaO2% (BldA) [Mass fraction] 95 % Cathryn Aggarwal SQUILGEER.TIRE BUILDER Work Phone: [facility] 12-03-2022 14:35-0400 Systolic blood pressure 118 mm[Hg] Cathryn Aggarwal SQUILGEER.TIRE BUILDER Work Phone: [facility] 12-03-2022 10:10-0400 Body weight 77.29 kg No Podlogar SQUILGEER.TIRE BUILDER Work Phone: [facility] 12-03-2022 10:10-0400 Diastolic blood pressure 84 mm[Hg] No Podlogar SQUILGEER.TIRE BUILDER Work Phone: [facility] 12-03-2022 10:10-0400 Heart rate 70 /min No Podlogar SQUILGEER.TIRE BUILDER Work Phone: [facility] 12-03-2022 10:10-0400 Respiratory rate 16 /min No Podlogar SQUILGEER.TIRE BUILDER Work Phone: [facility] 12-03-2022 10:10-0400 SaO2% (BldA) [Mass fraction] 96 % No Podlogar SQUILGEER.TIRE BUILDER Work Phone: [facility] 12-03-2022 10:10-0400 Systolic blood pressure 148 mm[Hg] No Podlogar SQUILGEER.TIRE BUILDER Work Phone: [facility] 12-01-2022 16:43-0400 Body temperature 98.01 [degF] Taras Nelson SQUILGEER.TIRE BUILDER Work Phone: [facility] 12-01-2022 16:43-0400 Body weight 76.11 kg Taras Nelson SQUILGEER.TIRE BUILDER Work Phone: [facility] 12-01-2022 16:43-0400 Diastolic blood pressure 86 mm[Hg] Taras Nelson SQUILGEER.TIRE BUILDER Work Phone: [facility] 12-01-2022 16:43-0400 Heart rate 74 /min Taras Nelson SQUILGEER.TIRE BUILDER Work Phone: [facility] 12-01-2022 16:43-0400 Respiratory rate 18 /min Taras Nelson APRN.TIRE BUILDER Work Phone: [facility] 12-01-2022 16:43-0400 SaO2% (BldA) [Mass fraction] 96 % Taras Nelson APRN.TIRE BUILDER Work Phone: [facility] 12-01-2022 16:43-0400 Systolic blood pressure 138 mm[Hg] Taras Nelson APRN.TIRE BUILDER Work Phone: [facility] 11-26-2022 13:34-0400 Body temperature 99.19 [degF] Rajni Martinez APRN.TIRE BUILDER Work Phone: [facility] 11-26-2022 13:34-0400 Body weight 76.3 kg Rajni Martinez APRN.TIRE BUILDER Work Phone: [facility] 11-26-2022 13:34-0400 Diastolic blood pressure 90 mm[Hg] Rajni Martinez APRN.TIRE BUILDER Work Phone: [facility] 11-26-2022 13:34-0400 Heart rate 78 /min Rajni Martinez APRN.TIRE BUILDER Work Phone: [facility] 11-26-2022 13:34-0400 Respiratory rate 21 /min Rajni Martinez APRN.TIRE BUILDER Work Phone: [facility] 11-26-2022 13:34-0400 SaO2% (BldA) [Mass fraction] 92 % Rajni Martinez APRN.TIRE BUILDER Work Phone: [facility] 11-26-2022 13:34-0400 Systolic blood pressure 140 mm[Hg] Rajni Martinez APRN.TIRE BUILDER Work Phone: [facility] 11-02-2022 14:58-0400 Body height 166.4 cm Wes Quispe DO Work Phone: [facility] 11-02-2022 14:58-0400 Body weight 74.39 kg Wes Quispe DO Work Phone: [facility] 11-02-2022 14:58-0400 Diastolic blood pressure 80 mm[Hg] Wes Quispe DO Work Phone: [facility] 11-02-2022 14:58-0400 Heart rate 78 /min Wes Quispe DO Work Phone: [facility] 11-02-2022 14:58-0400 SaO2% (BldA) [Mass fraction] 98 % Wes Quispe DO Work Phone: [facility] 11-02-2022 14:58-0400 Systolic blood pressure 118 mm[Hg] Wes Quispe DO Work Phone: [facility] 10-14-2022 14:20-0400 Body height 166.4 cm Gracie Gandhi PA-C Work Phone: [facility] 10-14-2022 14:20-0400 Body weight 76.43 kg Gracie Gandhi PA-C Work Phone: [facility] 10-14-2022 14:20-0400 Diastolic blood pressure 57 mm[Hg] Gracie Gandhi PA-C Work Phone: [facility] 10-14-2022 14:20-0400 Heart rate 57 /min Gracie Gandhi PA-C Work Phone: [facility] 10-14-2022 14:20-0400 SaO2% (BldA) [Mass fraction] 96 % Gracie BARBER-C Work Phone: [facility] 10-14-2022 14:20-0400 Systolic blood pressure 133 mm[Hg] Gracie Gandhi PA-C Work Phone: [facility] 10-01-2022 12:52-0400 Body weight 76.48 kg No Cosme SQUILGEER.TIRE BUILDER Work Phone: [facility] 10-01-2022 12:52-0400 Diastolic blood pressure 80 mm[Hg] No Velezlogdex SQUILGEER.TIRE BUILDER Work Phone: [facility] 10-01-2022 12:52-0400 Heart rate 80 /min No Podlogar SQUILGEER.TIRE BUILDER Work Phone: [facility] 10-01-2022 12:52-0400 Respiratory rate 16 /min No Podlogar SQUILGEER.TIRE BUILDER Work Phone: [facility] 10-01-2022 12:52-0400 SaO2% (BldA) [Mass fraction] 96 % No Podlogar SQUILGEER.TIRE BUILDER Work Phone: [facility] 10-01-2022 12:52-0400 Systolic blood pressure 142 mm[Hg] No Podlogar SQUILGEER.TIRE BUILDER Work Phone: [facility] 08-03-2022 14:39-0400 Body temperature 98.4 [degF] Ludaaydin Guyer PA-C Work Phone: [facility] 08-03-2022 14:39-0400 Body weight 74.12 kg Luda Guyer PA-C Work Phone: [facility] 08-03-2022 14:39-0400 Respiratory rate 16 /min Luda Queener PA-C Work Phone: [facility] 08-03-2022 14:39-0400 SaO2% (BldA) [Mass fraction] 95 % Luda Queener PA-C Work Phone: [facility] 05-24-2022 11:00-0400 Body temperature 99.5 [degF] Krislyn Aberegg PA Work Phone: [facility] 05-24-2022 11:00-0400 Body weight 74.39 kg Krislyn Aberegg PA Work Phone: [facility] 05-24-2022 11:00-0400 Diastolic blood pressure 70 mm[Hg] Krislyn Aberegg PA Work Phone: [facility] 05-24-2022 11:00-0400 Heart rate 118 /min Krislyn Aberegg PA Work Phone: [facility] 05-24-2022 11:00-0400 Respiratory rate 18 /min Krislyn Aberegg PA Work Phone: [facility] 05-24-2022 11:00-0400 SaO2% (BldA) [Mass fraction] 96 % Krislyn Aberegg PA Work Phone: [facility] 05-24-2022 11:00-0400 Systolic blood pressure 132 mm[Hg] Krislyn Aberegg PA Work Phone: [facility] 05-07-2022 13:10-0400 Body weight 73.94 kg No Podlogar SQUILGEER.TIRE BUILDER Work Phone: [facility] 05-07-2022 13:10-0400 Diastolic blood pressure 78 mm[Hg] No Podlogar SQUILGEER.TIRE BUILDER Work Phone: [facility] 05-07-2022 13:10-0400 Heart rate 61 /min No Podlogar SQUILGEER.TIRE BUILDER Work Phone: [facility] 05-07-2022 13:10-0400 Respiratory rate 16 /min No Podlogar SQUILGEER.TIRE BUILDER Work Phone: [facility] 05-07-2022 13:10-0400 SaO2% (BldA) [Mass fraction] 96 % No Podlogar SQUILGEER.TIRE BUILDER Work Phone: [facility] 05-07-2022 13:10-0400 Systolic blood pressure 104 mm[Hg] No Podlogar SQUILGEER.TIRE BUILDER Work Phone: [facility] 12-11-2021 10:30-0400 Body temperature 98.2 [degF] Diane Sher PT Work Phone: [facility] 12-11-2021 10:30-0400 Diastolic blood pressure 68 mm[Hg] Diane Sher PT Work Phone: [facility] 12-11-2021 10:30-0400 Heart rate 88 /min Diane Sher PT Work Phone: [facility] 12-11-2021 10:30-0400 Respiratory rate 16 /min Diane Sher PT Work Phone: [facility] 12-11-2021 10:30-0400 SaO2% (BldA) [Mass fraction] 96 % Diane Sher PT Work Phone: [facility] 12-11-2021 10:30-0400 Systolic blood pressure 116 mm[Hg] Diane Sher PT Work Phone: [facility] 12-08-2021 12:21-0400 Body temperature 98.01 [degF] Constance Carlos HEEL TRIMMER Work Phone: [facility] 12-08-2021 12:21-0400 Diastolic blood pressure 70 mm[Hg] Constance Carlos HEEL TRIMMER Work Phone: [facility] 12-08-2021 12:21-0400 Heart rate 77 /min Constance Carlos HEEL TRIMMER Work Phone: [facility] 12-08-2021 12:21-0400 Respiratory rate 18 /min Constance Carlso HEEL TRIMMER Work Phone: [facility] 12-08-2021 12:21-0400 SaO2% (BldA) [Mass fraction] 98 % Constance Carlos HEEL TRIMMER Work Phone: [facility] 12-08-2021 12:21-0400 Systolic blood pressure 118 mm[Hg] Constance Carlos HEEL TRIMMER Work Phone: [facility] 12-03-2021 13:32-0400 Body temperature 97.3 [degF] Constance Carlos HEEL TRIMMER Work Phone: [facility] 12-03-2021 13:32-0400 Diastolic blood pressure 68 mm[Hg] Constance Carlos HEEL TRIMMER Work Phone: [facility] 12-03-2021 13:32-0400 Heart rate 82 /min Constance Carlos HEEL TRIMMER Work Phone: [facility] 12-03-2021 13:32-0400 Respiratory rate 18 /min Constance Carlos HEEL TRIMMER Work Phone: [facility] 12-03-2021 13:32-0400 SaO2% (BldA) [Mass fraction] 97 % Constance Carlos HEEL TRIMMER Work Phone: [facility] 12-03-2021 13:32-0400 Systolic blood pressure 118 mm[Hg] Constance Carlos HEEL TRIMMER Work Phone: [facility] 12-01-2021 10:35-0400 Body temperature 98.6 [degF] Constance Carlos HEEL TRIMMER Work Phone: [facility] 12-01-2021 10:35-0400 Diastolic blood pressure 86 mm[Hg] Constance Carlos HEEL TRIMMER Work Phone: [facility] 12-01-2021 10:35-0400 Heart rate 76 /min Constance Carlos HEEL TRIMMER Work Phone: [facility] 12-01-2021 10:35-0400 Respiratory rate 18 /min Constance Carlos HEEL TRIMMER Work Phone: [facility] 12-01-2021 10:35-0400 SaO2% (BldA) [Mass fraction] 98 % Constance Carlos HEEL TRIMMER Work Phone: [facility] 12-01-2021 10:35-0400 Systolic blood pressure 126 mm[Hg] Constance Carlos HEEL TRIMMER Work Phone: [facility] 11-25-2021 09:15-0400 Body temperature 96.8 [degF] Diane Sher PT Work Phone: [facility] 11-25-2021 09:15-0400 Diastolic blood pressure 64 mm[Hg] Diane Sher PT Work Phone: [facility] 11-25-2021 09:15-0400 Heart rate 67 /min Diane Sher PT Work Phone: [facility] 11-25-2021 09:15-0400 Respiratory rate 16 /min Diane Sher PT Work Phone: [facility] 11-25-2021 09:15-0400 SaO2% (BldA) [Mass fraction] 99 % Diane Haljesikaman-Ribeiro PT Work Phone: [facility] 11-25-2021 09:15-0400 Systolic blood pressure 120 mm[Hg] Diane Halderman-Ribeiro PT Work Phone: [facility] 11-23-2021 10:31-0400 Diastolic blood pressure 78 mm[Hg] Diane Halderman-Ribeiro PT Work Phone: [facility] 11-23-2021 10:31-0400 Heart rate 82 /min Diane Adamman-Ribeiro PT Work Phone: [facility] 11-23-2021 10:31-0400 Respiratory rate 16 /min Diane Everettderman-Ribeiro PT Work Phone: [facility] 11-23-2021 10:31-0400 SaO2% (BldA) [Mass fraction] 97 % Diane Karlosderman-Ribeiro PT Work Phone: [facility] 11-23-2021 10:31-0400 Systolic blood pressure 132 mm[Hg] Diane Halderman-Ribeiro PT Work Phone: [facility] 11-23-2021 09:20-0400 Body temperature 97.39 [degF] Diane Everettderman-Ribeiro PT Work Phone: [facility] 11-02-2021 15:29-0400 Body height 166.4 cm Pacc 1 Work Phone: [facility] 11-02-2021 15:29-0400 Body temperature 98.6 [degF] Pacc 1 Work Phone: [facility] 11-02-2021 15:29-0400 Body weight 76.66 kg Pacc 1 Work Phone: [facility] 11-02-2021 15:29-0400 Diastolic blood pressure 78 mm[Hg] Pacc 1 Work Phone: [facility] 11-02-2021 15:29-0400 Heart rate 70 /min Pacc 1 Work Phone: [facility] 11-02-2021 15:29-0400 Respiratory rate 16 /min Pacc 1 Work Phone: [facility] 11-02-2021 15:29-0400 SaO2% (BldA) [Mass fraction] 97 % Pacc 1 Work Phone: [facility] 11-02-2021 15:29-0400 Systolic blood pressure 112 mm[Hg] Pacc 1 Work Phone: [facility] 10-20-2021 12:30-0400 Body temperature 98.01 [degF] No Podlogar SQUILGEER.TIRE BUILDER Work Phone: [facility] 10-20-2021 12:30-0400 Body weight 76.48 kg No Podlogar SQUILGEER.TIRE BUILDER Work Phone: [facility] 10-20-2021 12:30-0400 Diastolic blood pressure 80 mm[Hg] No Podlogar SQUILGEER.TIRE BUILDER Work Phone: [facility] 10-20-2021 12:30-0400 Heart rate 79 /min No Podlogar SQUILGEER.TIRE BUILDER Work Phone: [facility] 10-20-2021 12:30-0400 Respiratory rate 18 /min No Podlogar SQUILGEER.TIRE BUILDER Work Phone: [facility] 10-20-2021 12:30-0400 SaO2% (BldA) [Mass fraction] 97 % No Podlogar SQUILGEER.TIRE BUILDER Work Phone: [facility] 10-20-2021 12:30-0400 Systolic blood pressure 132 mm[Hg] No Podlogar SQUILGEER.TIRE BUILDER Work Phone: [facility] 07-31-2021 10:08-0400 Body weight 77.29 kg Santos Nuñez MD Work Phone: [facility] 07-31-2021 10:08-0400 Diastolic blood pressure 66 mm[Hg] Santos Nuñez MD Work Phone: [facility] 07-31-2021 10:08-0400 Heart rate 62 /min Santos Nuñez MD Work Phone: [facility] 07-31-2021 10:08-0400 Respiratory rate 16 /min Santos Nuñez MD Work Phone: [facility] 07-31-2021 10:08-0400 SaO2% (BldA) [Mass fraction] 98 % Santos Nuñez MD Work Phone: [facility] 07-31-2021 10:08-0400 Systolic blood pressure 130 mm[Hg] Santos Nuñez MD Work Phone: [facility] Encounters Encounter Date Encounter Type Care Provider Facility Start: 02-28-2023 End: 02-28-2023 ambulatory [facility] Facility:[facility] Start: 02-28-2023 End: 02-28-2023 ambulatory [facility] Facility:[facility] Start: 02-18-2023 End: 02-19-2023 ambulatory VISHNU GUILLEN Facility:[facility] Start: 01-31-2023 Encounter for other preprocedural examination SANTOS NUÑEZ [facility] Start: 01-31-2023 End: 02-01-2023 ambulatory SANTOS NUÑEZ Facility:[facility] Start: 01-28-2023 ambulatory UNKNOWN PROVIDER Facili ty:[facility] Start: 01-28-2023 Encounter for other preprocedural examination UNKNOWN PROVIDER [facility] Start: 01-28-2023 End: 01-28-[address] [facility] Start: 01-28-2023 End: 01-28-2023 Subsequent hospital visit by physician [facility] Radiology Procedures Date Procedure Procedure Detail Performing Clinician Start: 11-12-2022 Myocardial spect mul tiple studies Wes Quispe DO Work Phone: Start: 09-06-2022 Radiologic examinati on osseous survey compl Faustino Alves MD Work Phone: Start: 07-26-2022 Arthrocentesis aspir &/inj major jt/bursa w/o us Christen Lindo PA-C Work Phone: Start: 07-26-2022 Radiologic exam knee complete 4/more views Christen Lindo PA-C Work Phone: Start: 06-04-2021 Radiologic exam knee complete 4/more views Skinny Heller MD Work Phone: Plan of Treatment Date Care Activity Detail Author Start: 12-22-2023 BP Controlled (<130/80) BP Controlle d (<130/80) [facility] Start: 12-04-2023 Annual PCP Team [place] juliane Disease Visit Annual PCP Team Chronic Disease Visit [facility] Start: 12-04-2023 BP Controlled (<130/80) BP Controlle d (<130/80) [facility] Start: 10-02-2023 ANNUAL PCP TEAM PROJECT DEVELOPMENT ENGINEER JULIANE DISEASE VISIT ANNUAL PCP TEAM CHRONIC DISEASE VISIT [facility] Start: 10-02-2023 Hepatitis B surface antibody level LDL CHOLESTEROL [facility] Start: 08-04-2023 Creatinine measurement Serum Creatin ine [facility] Start: 08-04-2023 HEMOGLOBIN/HEMATOCRIT HEMOGLOBIN/HEM ATOCRIT [facility] Start: 08-04-2023 SERUM CREATININE SERUM CREATININE [facility] Start: 07-23-2023 ANNUAL PCP TEAM PROJECT DEVELOPMENT ENGINEER JULIANE DISEASE VISIT ANNUAL PCP TEAM CHRONIC DISEASE VISIT [facility] Start: 07-23-2023 BP CONTROLLED (<130/80) BP CONTROLLE D (<130/80) [facility] Start: 05-08-2023 ANNUAL PCP TEAM PROJECT DEVELOPMENT ENGINEER JULIANE DISEASE VISIT ANNUAL PCP TEAM CHRONIC DISEASE VISIT [facility] Start: 05-08-2023 BP CONTROLLED (<130/80) BP CONTROLLE D (<130/80) [facility] Start: 01-06-2023 Hemoglobin A1c measurement HbA1C [facility] Start: 01-06-2023 Hemoglobin A1c/Hemoglobin.total in Blood HBA1C [facility] Start: 12-30-2022 ANNUAL PCP TEAM PROJECT DEVELOPMENT ENGINEER JULIANE DISEASE VISIT ANNUAL PCP TEAM CHRONIC DISEASE VISIT [facility] Start: 12-30-2022 BP CONTROLLED (<130/80) BP CONTROLLE D (<130/80) [facility] Start: 12-30-2022 HEMOGLOBIN/HEMATOCRIT HEMOGLOBIN/HEM ATOCRIT [facility] Start: 12-30-2022 SERUM CREATININE SERUM CREATININE [facility] Start: 12-11-2022 BP CONTROLLED (<130/80) BP CONTROLLE D (<130/80) [facility] Start: 12-08-2022 BP CONTROLLED (<130/80) BP CONTROLLE D (<130/80) [facility] Start: 12-03-2022 BP CONTROLLED (<130/80) BP CONTROLLE D (<130/80) [facility] Start: 12-02-2022 ANNUAL PCP TEAM PROJECT DEVELOPMENT ENGINEER JULIANE DISEASE VISIT ANNUAL PCP TEAM CHRONIC DISEASE VISIT [facility] Start: 12-02-2022 Hepatitis B screening URINE ALBUMIN:CREATININE RATIO [facility] Start: 11-27-2022 BP CONTROLLED (<130/80) BP CONTROLLE D (<130/80) [facility] Start: 11-25-2022 BP CONTROLLED (<130/80) BP CONTROLLE D (<130/80) [facility] Start: 11-02-2022 BP CONTROLLED (<130/80) BP CONTROLLE D (<130/80) [facility] Start: 10-20-2022 ANNUAL PCP TEAM PROJECT DEVELOPMENT ENGINEER JULIANE DISEASE VISIT ANNUAL PCP TEAM CHRONIC DISEASE VISIT [facility] Start: 10-15-2022 Covid-19 Vaccine ( season) Covid-19 Vaccine ( season) [facility] Start: 10-15-2022 Influenza vaccination C [facility] Start: 10-09-2022 BP CONTROLLED (<130/80) BP CONTROLLE D (<130/80) [facility] Start: 10-01-2022 End: 12-01-2022 Lipid 1996 panel - Serum or Plasma [facility] Work Phone: Immunizations Immunization Date Immunization Notes Care Provider Fa sathya 02-19-2015 pneumococcal conjuga te vaccine, 13 valent Skinny Heller MD Work Phone: [facility] 03-01-2012 influenza virus vacc ine, unspecified formulation Skinny Heller MD Work Phone: [facility] 09-23-2010 diphtheria and tetan us toxoids, adsorbed for pediatric use Skinny Heller MD Work Phone: [facility] 09-23-2010 zoster vaccine, live Skinny Heller MD Work Phone: [facility] 08-07-2007 pneumococcal polysaccharide vaccine, 23 valent Skinny Heller MD Work Phone: [facility] 11-02-1999 diphtheria and tetan us toxoids, adsorbed for pediatric use Skinny Heller MD Work Phone: [facility] Work Phone: Payers Date Payer Category Payer Private Health Insurance [id number] 2007 Private Health Insurance [employer] PPO [id number] 2007-Present [phone] [address] [place] [address] PPO [id number] 2007 Private Health Insurance [id number] 2007 Medicare MEDICARE MEDICAR E A AND B [id number] 2007-Present [phone] [place] [address] Medicare [id number] 2007 Medicare MEDICARE MEDICAR E A AND B [id number] 2007-Present [phone] [place] [address] Medicare [id number] 2007 Medicare [id number] Social History Date Type Detail Facility Start: 07-25-2012 End: 10-09-2021 Tobacco smoking status NHIS Never smoked tobacco [facility] Work Phone: Start: 04-03-2021 End: 01-03-2023 Alcohol intake Current drinker of alcohol (finding) [facility] Start: 02-22-2011 History SDOH Alcohol Comment Rarely [facility] Start: 1940 Sex Assigned At Not on file C [facility] Start: 04-28-2021 End: 12-30-2021 Exposure to SARS-CoV-2 (event) Not sure [facility] Work Phone: Start: 07-25-2012 End: 10-09-2021 Tobacco use and exposure Smokeless tobacco non-user [facility] Start: 11-18-2021 History SDOH Financial 4 [facility] Start: 11-18-2021 History SDOH Food Worry 1 [facility] Start: 11-18-2021 History SDOH Transport Med 2 [facility] Start: 07-06-2022 End: 10-01-2022 History of Social function [facility] Start: 07-06-2022 End: 10-01-2022 Tobacco use panel [facility] How hard is it for y ou to pay for the very basics like food, housing, medical care, and heating Not very hard [facility] (I/We) worried faye er (my/our) food would run out before (I/we) got money to buy more. Never true [facility] In the past 12 month s, has lack of transportation kept you from medical appointments or from getting medications? No [facility] In the past 12 month s, was there a time when you were not able to pay the mortgage or rent on time? No [facility] Medical Equipment Procedure Code Equipment Code Equipment Origin al Text Equipment Identifier Dates Trident X3 Polyethylene Insert 0deg 36mm Sz D [id number] Start: 11-18-2021 Stem Accolade Ii 5 127d Femoral - [id number] Start: 11-18-2021 Head V40 36mm 0m m Offset Taper Biolox Delta Femoral Hip - [id number] Start: 11-18-2021 Screw Trident Ii 6.5mm 25mm Bone Low Profile Hexagonal Sterile - [id number] Start: 11-18-2021 Goals Date Patient Goal Desired Activity /State Personal health goal Clinical Notes 08-20-2015 to 02-28-2023 [facility] - Quin Mccall, RT(R) - 01/28/2023 4:00 PM Christen Anguiano PA-C - 01/03/2023 8:51 AM Flakita Grossman RN - 01/03/2023 7:57 AM ESTPatient InstructionsPatient Instructions Note Date & Type Note Facility 02-28-2023 Note HNO ID: [id number] Author: CHRISTEN LINDO PA-C Service: ? Author Type: Physician School Bus Driver/Teacher Assistant Type: Progress Notes Filed: 02/28/2023 12:05 Note Text: Ortho Knee Follow Up Note Narrative Referring Provider: No referring provider defined for this encounter. PCP: Santos Nuñez MD IMPRESSION/PLAN: 82 year old s/p Right Total Knee Replacement completed on 02/18/2023. Recent Surgeries this specialty 02/18/2023 (1w, 3d) ROBOTIC ASSISTED TOTAL KNEE ARTHROPLASTY; COMPUTER ASSIST MUSCULOSKETAL SURG NAVIGATION ORTHO PROCED W/IMAGE GUIDANCE BASED ON CT/MRI IMAGES (Right; Right) Skinny Heller MD - Posted 11/18/2021 (1yr, 3mo) ARTHROPLASTY REPLACE JOINT TOTAL HIP (Right) Skinny Heller MD - Posted PAIN EVALUATION 02/28/2023 1059 Pain Level: 9 Pain Location: Knee-Right Description: Throbbing;Tightness;Stiffness Duration Amount of Time: -- post op Frequency: Intermittent Intervention/Comfort measure: Exercise;Medication IMPRESSION: At normal post-operative stage of recovery. PLAN: Continue current conservative treatment. Rest, Ice, Compression, Elevation PRN. Patient Reassurance: Patient reassured and supported. All questions answered. Follow up 1 month No X-Rays Needed Garland Obando presents today for a a routine 1st post-op visit ACTIVE PROBLEM LIST Essential Hypertension, Benign Esophageal Reflux Benign Neoplasm of Colon Situational Depression Lumbar Spondylosis Lumbar Degenerative Disc Disease Diabetes Mellitus Type 2, Controlled, Without Complications (Hcc) Hyperlipidemia Ldl Goal <100 Personal History of Colonic Polyps Hip Osteoarthritis Lumbar Facet Joint Syndrome Plantar Fasciitis Rotator Cuff Syndrome of Right Shoulder Coronary Artery Disease Involving [place] Coronary Artery of [place] Heart Without Angina Pectoris History of 2019 Novel Coronavirus Disease (Covid-19) Valvular Heart Disease History of Syncope Post-Operative State Chronic Kidney Disease, Stage 3a (Hcc) Takotsubo Cardiomyopathy Status post op: BMI: There is no height or weight on file to calculate BMI. Post-operative recovery was complicated by uneventful/none. Readmission(s) since surgery (90 days post)? No ED Visits AND Hospitalizations - Last 180 days 02/18/23 Skinny Heller MD, ME2E S/P total knee arthroplasty, right, Admission (Discharged) Patient rates their condition as unchanged. Does the patient still experience pain? Onset: activity. Location: Right knee. Frequency: intermittently. Pain scale: 9. Pain character: sharp, ache, and throbbing. Relieving factors: Rest, Ice, Sitting, and Pain medication. Aggravating factors: Exercise and Increased activity Post Op discharge patient location: in home. Functional Assessment is as follows: is ready to begin outpatient PT. Functional difficulties: Prolonged standing, Stair climbing, Arising from chair, and Walking. Pain Medication: Narcotic Current Opioids Analgesic Opioid Agonists Start End oxyCODONE IR (ROXICODONE) 5 mg immediate release tablet 02/25/2023 03/04/2023 Sig - Route: Take 1-2 tablets by mouth every 4 hours as needed for pain for up to 7 days. - ORAL Earliest Fill Date: 02/25/2023 Currently Ambulating with: a wheelchair EXAM: POST OP KNEE Right Post-Operative Knee Ambulates with a antalgic gait. SKIN: Appropriate postop appearance, No evidence of erythema, warmth, discharge or drainage, and No evidence of warmth or erythema. Range of motion is 15 degrees in extension and 80 degrees of flexion. Extension La degrees Pain with ROM: Yes There is Moderate effusion. Mal-alignment: No Tender to the palpation of Lateral femoral condyle and Lateral joint line Neurovascular Status: Sensation Intact, Moves foot and ankle up AND down, and 2+ dorsalis pedis Stability:Anterior/Posterior- Yes, stable and Varus/Valgus- Yes, stable Quad strength: weak Imagin. Implants are well aligned. Provider: Christen Lindo PA-C Completed by: Christen Lindo PA-C [facility] 02-28-2023 Note HNO ID: [id number] Author: ?, ?, ? Service: ? Author Type: ? Type: Progress Notes Filed: 02/28/2023 12:05 Note Text: AMB ROOMING INTAKE FLOWSHEET DATA Risk Screening Do you have concerns about personal safety or safety in the home?: No Pain Pain Level: 9 Pain Location: Knee-Right Description: Throbbing, Tightness, Stiffness Duration Amount of Time: (post op) Frequency: Intermittent Intervention/Comfort measure: Exercise, Medication Patient here today for 1 week 3 days post op robotic assisted right TKA. She is having some pain and continues taking her oxycodone and doing exercises. Still no bowel movement yet. New x-ray today. [facility] 02-28-2023 Note HNO ID: [id number] Author: ROD MAXWELL RT(R) Service: ? Author Type: Medical Review Specialist Type: Progress Notes Filed: 02/28/2023 10:57 Note Text: Radiology Service Progress Note PATIENT NAME: Garland Obando DATE OF SERVICE: February 28, 2023 TIME: 10:30 AM PATIENT IDENTITY VERIFICATION COMPLETED USING TWO (2) IDENTIFIERS: Name and Date of confirmed by patient verbally. FALL SCREENING: Has the patient had 2 falls in the last year or 1 fall with injury or currently using an Ambulatory Assistive Device (Walker, Cane, Wheelchair, Crutches, etc.)? Yes, Patient High Risk for Falls What interventions were put in place to prevent falls during this visit? Offered Assistance with Transfers/Clothing, Instructed Patient to Remain Seated (Not on Exam Table) Until Exam, and Increased Observations by Caregivers PATIENT GENDER DATA: Female. status: : No status: NO. PATIENT RELEVANT IMPLANT DATA REVIEWED: Yes RADIOLOGY DEPARTMENT: General X-ray: Exam(s) Completed: Lower Extremity X-Ray(s): Knee, AP / Lat / Merchant Right PERIPHERAL IV DATA: Not applicable SIGNED BY: RT Benji(R) February 28, 2023 10:30 AM [facility] 02-19-2023 Note HNO ID: [id number] Author: VISHNU GUILLEN MD Service: General Internal Medicine Author Type: Physician Type: Progress Notes Filed: 02/19/2023 12:57 Note Text: INPATIENT PROGRESS NOTES Patient Name: Garland Obando DATE of SERVICE: 02/19/2023 TIME of SERVICE: 9:23 PRIMARY SERVICE: medicine INTERVAL HPI: Uneventful night, no nausea or vomiting. No cough or shortness of breath. No lightheadedness or dizziness. ASSESSMENT AND PLAN: Osteoarthritis, status post right total knee arthroplasty with aspirin Hyperlipidemia continue statins Takotsubo cardiomyopathy, clinically not on failure DM type II diet controlled CKD stage III Discussed with physical therapy Discharge home today Home-going meds reviewed Plan of care discussed with: Provider, RN, Patient. PERTINENT ROS: All other reviewed and negative other than HPI. MEDICATIONS: Current Facility-Administered Medications Medication Dose Route Frequency scopolamine - VERIFY patch OTHER q 8 H scopolamine - REMOVE PATCH OTHER ONCE atorvastatin 40 mg tab(s) (LIPITOR) 40 mg ORAL AT BEDTIME atenolol 25 mg tab(s) (TENORMIN) 25 mg ORAL DAILY folic acid 1 mg tab(s) 1 mg ORAL DAILY pantoprazole DR 20 mg tab(s) (PROTONIX) 20 mg ORAL DAILY PRN NaCl 0.9% iv flush bag 20 mL INTRAVENOUS PRN oxyCODONE IR 5-10 mg tab(s) (ROXICODONE) 5-10 mg ORAL q 3 H PRN morphine 2-6 mg injection 2-6 mg INTRAVENOUS q 2 H PRN acetaminophen 1,000 mg tab(s) (TYLENOL) 1,000 mg ORAL q 8 H ondansetron orally disintegrating 4 mg tab(s) (ZOFRAN ODT) 4 mg ORAL q 6 H PRN Or ondansetron (PF) 4 mg injection (ZOFRAN) 4 mg INTRAVENOUS q 6 H PRN magnesium hydroxide 400 mg/5 mL 30 mL (MOM) 30 mL ORAL DAILY PRN [START ON 02/20/2023] bisacodyl EC 10 mg tab(s) (DULCOLAX) 10 mg ORAL DAILY aluminum-magnesium hydroxide-simethicone 200-200-20 mg/5 mL 30 mL 30 mL ORAL q 2 H PRN ascorbic acid (vitamin C) 500 mg tab(s) (VITAMIN C) 500 mg ORAL BID w MEALS docusate sodium 100 mg cap(s) (COLACE) 100 mg ORAL BID senna 17.2 mg tab(s) (SENOKOT) 17.2 mg ORAL AT BEDTIME aspirin, enteric coated 81 mg tab(s) 81 mg ORAL BID keTORolac 15 mg injection (Toradol) 15 mg INTRAVENOUS q 6 H PRN lactated ringers iv infusion 75 mL/hr INTRAVENOUS CONTINUOUS PHYSICAL EXAM: Patient Vitals for the past 24 hrs: BP Temp Temp src Pulse Resp SpO2 Height Weight 02/19/23 0738 124/56 36.8 ?C (98.2 ?F) Oral (!) 50 -- 90 % -- -- 02/19/23 0546 136/60 36.7 ?C (98.1 ?F) Oral (!) 52 16 92 % -- -- 02/18/23 2313 124/60 36.6 ?C (97.9 ?F) Oral (!) 57 17 99 % -- -- 02/18/232023 (!) 128/49 36.5 ?C (97.7 ?F) Oral 72 17 91 % -- -- 02/18/23 1833 124/59 36.6 ?C (97.9 ?F) Oral 65 17 93 % -- -- 02/18/23 1634 145/62 -- -- (!) 57 -- 96 % -- -- 02/18/23 1527 111/51 36.5 ?C (97.7 ?F) Oral 61 16 97 % -- -- 02/18/23 1352 112/68 36.3 ?C (97.3 ?F) Oral (!) 57 16 97 % -- -- 02/18/23 1346 -- -- -- -- -- -- 165.1 cm (5' 5 ) 81.9 kg (180 lb 8.9 oz) 02/18/23 1332 129/61 37.5 ?C (99.5 ?F) Temporal -- -- -- -- -- 02/18/23 1330 129/61 -- -- (!) 57 18 96 % -- -- 02/18/23 1315 137/63 -- -- 64 18 95 % -- -- 02/18/23 1305 -- -- -- 64 16 95 % -- -- 02/18/23 1300 110/57 -- -- 66 18 95 % -- -- Body mass index is 30.05 kg/m?. GENERAL: Alert, no distress, cooperative NECK: No jugulovenous distention LUNGS: Lungs clear to auscultation, Good diaphragmatic excursion CARDIAC: Normal S1 and S2; no rubs, murmurs, or gallops ABDOMEN: Abdomen soft, non-tender, BS normal, No masses or organomegaly EXTREMITIES: no edema, no calf tenderness CBC: Recent Labs 02/19/23 0515 WBC 9.28 RBC 4.12 HB 11.9 HCT 36.2 PLT 218 MCV 87.9 MCH 28.9 MPV 11.0 Coags: CMP: Recent Labs 02/19/23 0515 NA 140 K 4.2 CHLOR 105 CO2 28 BUN 14 CREAT 0.77 GLUC 127* CA 9.3 ANION 7* Cardiac Enzymes: Liver Function, Amylase, Lipase: No results for input(s): TPROT , ALB , ALT , AST , ALKPHOS , TBILI , AMYLASE , LIPASE , LACTATE in the last 24 hours. ABG's: No results for input(s): PH , PCO2 , PO2 , BE , HCO3 , CO2CT , O2HB , COHB , MHGB , TEMP , PHTC , PCO2T , PO2T , O2AD in the last 24 hours. MG/PHOS: No results for input(s): MG , P in the last 24 hours. SIGNATURE: Vishnu Guillen MD [facility] 02-19-2023 Note HNO ID: [id number] Author: FRAN DEWEY MD Service: Orthopaedic Surgery Author Type: Physician Type: Progress Notes Filed: 02/19/2023 06:44 Note Text: Inpatient Progress Note Orthopaedic Surgery Assessment Garland Obando underwent Procedure(s) (LRB): ROBOTIC ASSISTED TOTAL KNEE ARTHROPLASTY (Right) by Skinny Lozano MD on 02/18/2023 Post Op Plan - Weightbearing: WBAT RLE - Dressing: Intact - Recinos: Per nursing protocol - Diet: Reg - HLIV when tolerating adequate PO - DVT Prophylaxis: ASA 81mg BID, SCDs - Antibiotics: Perio Ancef - Consults: PT/OT, care management, appreciate recs Dispo: Pending PT/OT clearance, anticipated discharge 02/19/2023 Rounding Subjective No o/n issues. Pain well controlled. Denies nausea, vomiting, chest pain, shortness of breath. Reports doing well with therapy yesterday. Objective Blood pressure 136/60, pulse (!) 52, temperature 36.7 ?C (98.1 ?F), temperature source Oral, resp. rate 16, height 165.1 cm (5' 5 ), weight 81.9 kg (180 lb 8.9 oz), SpO2 92%. Physical Exam AAOx3, NAD Breathing comfortably at rest RRR to peripheral palpation Right Lower Extremity Inspection: Dressing c/d/i. Compartments: Soft, compressible Sensory: SILT to SP/DP/T/S/S distributions Motor: Intact DF/PF/EHL Vascular: DP 2+ to palp; CR < 2 sec; foot warm AND well-perfused Lab Review Creatinine (mg/dL) Date Value 02/19/2023 0.77 01/31/2023 0.76 08/03/2022 0.82 04/03/2021 0.97 (H) 08/12/2020 1.00 (H) 02/29/2020 1.05 (H) Sodium (mmol/L) Date Value 02/19/2023 140 01/31/2023 142 08/03/2022 141 04/03/2021 138 08/12/2020 140 02/29/2020 139 Potassium (mmol/L) Date Value 02/19/2023 4.2 01/31/2023 3.8 08/03/2022 4.3 04/03/2021 4.5 08/12/2020 4.3 02/29/2020 4.2 Hemoglobin (g/dL) Date Value 02/19/2023 11.9 01/31/2023 13.8 08/03/2022 12.9 08/12/2020 12.7 11/19/1999 14.0 Hematocrit (%) Date Value 02/19/2023 36.2 01/31/2023 41.1 08/03/2022 40.0 08/12/2020 38.8 11/19/1999 41.5 WBC (k/uL) Date Value 02/19/2023 9.28 01/31/2023 5.35 08/03/2022 6.91 08/12/2020 7.05 11/19/1999 5.52 PT INR (no units) Date Value 02/12/2010 1.0 Glucose, Point of Care (mg/dL) Date Value 02/18/2023 114 (A) 02/18/2023 102 (A) Please scroll above for Assessment AND Plan. Fran Dewey MD Adult Reconstruction Fellow Department of Orthopaedic Surgery 02/19/2023 6:42 AM Mobile/pager: [phone] Plan of care discussed with: Patient. [facility] 02-18-2023 Note HNO ID: [id number] Author: JACQUE MIRANDA APRN.CRNA Service: Anesthesiology Author Type: Nurse Wedding Planner Type: Anesthesia Procedure Notes Filed: 02/18/2023 10:56 Note Text: ANESTHESIOLOGY PROCEDURE NOTE Spinal Block General Information Procedure Start Time/Medication Administration: 02/18/2023 10:30 AM Timeout Performed Pre-procedure: timeout performed Consent Obtained: Yes Patient identity confirmed: arm band and patient Reason for Block: primary surgical anesthetic Staffing DRY FINISHER: Jacque Miranda APRN.DRY FINISHER Preparation Sterility Preparation: hand hygiene performed prior to procedure, sterile gloves, drapes, and procedure tray, surgical cap used, mask used, sterile drape used during line insertion, skin prep agent completely dried prior to procedure Site Prep: Betadine Procedure Details Patient Position: sitting Ultrasound Guided: Yes Monitoring: Pulse Ox and EKG Approach: Midline Location: L3-4 Injection Technique: single-shot Needle Needle Type: cutting Needle Gauge: 22 G CSF: CSF clear Assessment Events: tolerated well Comments Placed on 2nd attempt with 22g at L3-4, pt gaetano well, 1.8 ml hyperbaric marcaine from kit SIGNATURE: Jacque Miranda APRN.DRY FINISHER PATIENT NAME: Garland Obando DATE: February 18, 2023 TIME: 10:54 AM CSN: [id number] [facility] 02-18-2023 Note HNO ID: [id number] Author: OMAYRA ENRIQUE MD Service: Anesthesiology Author Type: Anesthesiologist Type: Anesthesia Procedure Notes Filed: 02/18/2023 10:36 Note Text: ANESTHESIOLOGY PROCEDURE NOTE Peripheral Nerve Block General Information Procedure Start Time/Medication Administration: 02/18/2023 10:13 AM Procedure End time: 02/18/2023 10:15 AM Patient location during procedure: induction room Timeout Performed Pre-procedure: timeout performed Consent Obtained: Yes Patient identity confirmed: arm band and patient Reason for block: post-op pain management/at surgeon's request Staffing Anesthesiologist: Omayra Enrique MD Performed by: anesthesiologist Preparation Sterility Preparation: hand hygiene performed prior to procedure, sterile gloves, drapes, and procedure tray, surgical cap used, mask used, sterile drape used during line insertion, skin prep agent completely dried prior to procedure Site Prep: Chloraprep Pre-Procedure Neuro Exam Location: RLE Sensory: intact Motor: intact Procedure Details Patient Position: supine Monitoring: Pulse OX, EKG and NIBP Block Type Lower Extremity: distal femoral (adductor canal) Laterality: right Injection Technique: single-shot Ultrasound Guided: Yes Image in Chart: yes Local Infiltration: Yes Needle Needle Type: echogenic Needle Gauge: 22 G Needle Length: 100 mm Needle Localization: ultrasound Assessment Injection assessment: negative aspiration, no paresthesia on injection, incremental injection and local visualized surrounding nerve on ultrasound Post-Procedure Neuro Exam Expected Regional Anesthesia: Yes Medications Administered dexamethasone sodium phosphate injection (DECADRON) - peripheral nerve block 4 mg - 02/18/2023 10:13:00 AM ropivacaine (PF) 5 mg/mL (0.5 %) injection (NAROPIN) - peripheral nerve block 20 mL - 02/18/2023 10:13:00 AM SIGNATURE: Omayra Enrique MD PATIENT NAME: Garland Obando DATE: February 18, 2023 TIME: 10:36 AM CSN: [id number] [facility] 01-28-2023 Miscellaneous Notes Radiology Service Progress Note PATIENT NAME: Garland Obando DATE OF SERVICE: January 28, 2023 TIME: 4:06 PM PATIENT IDENTITY VERIFICATION COMPLETED USING TWO (2) IDENTIFIERS: Name and Date of confirmed by patient verbally and Name and Date of confirmed by identification band. FALL SCREENING: Has the patient had 2 falls in the last year or 1 fall with injury or currently using an Ambulatory Assistive Device (Walker, Cane, Wheelchair, Crutches, etc.)? No PATIENT GENDER DATA: Female. status: : No status: NO. PATIENT RELEVANT IMPLANT DATA REVIEWED: Yes RADIOLOGY DEPARTMENT: CT; Exam(s) Completed: right glendy knee PERIPHERAL IV DATA: Not applicable SIGNED BY: RT uRss(R) January 28, 2023 4:06 PM documented in this encounter [facility] 01-03-2023 Note HNO ID: [id number] Author: Christen Lindo PA-C Service: ? Author Type: Physician School Bus Driver/Teacher Assistant Type: Progress Notes Filed: 01/03/2023 12:58 PM Note Text: CONSULT ORTHOPAEDIC: KNEE PRIMARY CARE PHYSICIAN: Santos Nuñez MD REFERRING PROVIDER: No referring provider defined for this encounter. ASSESSMENT AND PLAN Impression: Right Knee Severe Degenerative Osteoarthritis, Primary Diagnoses: No diagnosis found. Based upon the evaluation today and after discussions with Garland Obando, Garland Obando has significant, worsening pain at the knee. This pain is increased with activity and weight bearing, and interferes with activities of daily living. These symptoms have continued despite a number of non-surgical measures, including a trial of oral pain medication and attempted physical therapy/ structured exercise program and/or use of an assistive device/ bracing (for at least 12 weeks unless the patient was unable to tolerate these measures as discussed above). At this point, the patient will not benefit from further PT due to the severity of their condition. The patient's physical examination is consistent with limitations in range of motion, pain with passive range of motion, crepitus, and effusion/ synovitis. These examination findings are corroborated by imaging findings of joint space narrowing, periarticular osteophyte formation, and subchondral sclerosis. The patient has been treated by the practice and all reasonable treatments have failed to control the disease, which causes significant pain and limits activities of daily living. The patient has failed conservative treatment and joint replacement surgery was discussed and agreed upon by both provider and patient. We will proceed with surgical management to improve function and relieve pain refractory to non-surgical measures. Right Primary Total Knee Arthroplasty as evidenced by progressive symptoms. Progressive Symptoms Include: Pain impacting sleep or causing fatigue Pain worsened by weight bearing Pain limiting ability to stay fit and healthy. Surgery Details Date and Location: At [facility] on TBD. Implants: Mitul Robotic: Yes Predicted LOS: 2 days (Inpatient candidate) Informed consent obtained in the office today. The risks and benefits of surgery were discussed at length including but not limited to the risks of infection, bleeding, nerve or blood vessel injury, deep venous thrombosis, pulmonary embolism, arthrofibrosis, reflex sympathetic dystrophy, , paralysis, knee or patellar dislocation, extensor mechanism injury, bone fracture, component loosening or failure requiring re-operation or amputation. Informed consent was obtained and the patient was scheduled for surgery. We also discussed fixation strategies including cement and cementless fixation and advantages and disadvantages of each. We discussed the details of the surgery as well as rehabilitation. All questions were answered, and the patient wishes to proceed with surgery.. The patient has been ordered: No orders found for this visit on 01/03/23. No orders placed today. CONSULTS: IMPACT/PACE Consult for preoperative clearance. Cardiology Consult for cardiac clearance for syncope, HTN, palpitations . Total Joint Arthroplasty: Risk Calculator Garland Obando has a 42.73% chance of NOT returning home at discharge for a Primary total Knee replacement. Garland's estimated Length of Stay is 2 days (Inpatient candidate). Garland's 30 day chance of readmission is 5.06%. Readmission Probability 5.06 % (within 30 days following surgery) Estimated LOS 2 days Discharge Disposition Probability D/C to Home 57.27 % D/C to SNF 42.73 % These calculations are based on the following factors: - 82 years of age - sex is not male - BMI of 27 kg/m2 - NarxCare score of 0 - 0 hospitalizations in the last 12 months - no history of heart disease - history of diabetes - no history of COPD - no history of anemia - preoperative ambulation: impaired community distances - 2 step(s) to enter home - bed location is on the first floor - bath location is on the first floor - caregiver is inconsistent - home is not more than 150 miles away - PROMIS-10 Mental Health T score 41-49 - Marital status: single Risk Factors for Total Knee Arthroplasty (TKA) Major Risk Factors Obesity normal High: BMI > 40 Moderate: BMI 30-40 Normal: BMI < 30 Diabetes Moderate Risk High: A1C > 8 Moderate: A1C 7-8 Normal: A1C < 7 Smoking normal High: Current smoker Normal: Non smoker Narcotics Use normal High:NarxCare >=300 Moderate: 100-299 Normal: 0-99 Depression Unknown Risk High: PHQ-9 >14 Moderate: PHQ-9 5-14 Normal: PHQ-9 < 5 Area Deprivation Index (REIC) Moderate Risk High: ERIC Score > 75 Moderate: ERIC 50-75 Normal: ERIC < 50 Diabetes: Well controlled - Garland has been diagnosed with Type 2 Diabetes. Her last (more content not included)... [facility] 01-03-2023 Note HNO ID: [id number] Author: Flakita Fontaine RN Service: ? Author Type: Registered Nurse Type: Progress Notes Filed: 01/03/2023 12:58 PM Note Text: Patient presents with: Right Knee - Established Patient, Follow Up: 13 weeks post visit OA right knee Patient is here for right knee pain. States her right foot has started hurting as well. Would like to talk about a right TKA. Pain gets worse with activity and gets worse at night. Uses a cane to ambulate. AMB ROOMING INTAKE FLOWSHEET DATA Pain Pain Level: 6 Pain Location: Knee-Right Description: Aching (Grinding) Duration Amount of Time: (Ongoing) Frequency: Continuous Intervention/Comfort measure: Reposition Flakita Fontaine RN [facility] 01-03-2023 History of Present illness Narrative CONSULT ORTHOPAEDIC: KNEE PRIMARY CARE PHYSICIAN: Santos Nuñez MD REFERRING PROVIDER: No referring provider defined for this encounter. ASSESSMENT & PLAN Impression: Right Knee Severe Degenerative Osteoarthritis, Primary Diagnoses: No diagnosis found. Based upon the evaluation today and after discussions with Garland Obando, Garland Obando has significant, worsening pain at the knee. This pain is increased with activity and weight bearing, and interferes with activities of daily living. These symptoms have continued despite a number of non-surgical measures, including a trial of oral pain medication and attempted physical therapy/ structured exercise program and/or use of an assistive device/ bracing (for at least 12 weeks unless the patient was unable to tolerate these measures as discussed above). At this point, the patient will not benefit from further PT due to the severity of their condition. The patient's physical examination is consistent with limitations in range of motion, pain with passive range of motion, crepitus, and effusion/ synovitis. These examination findings are corroborated by imaging findings of joint space narrowing, periarticular osteophyte formation, and subchondral sclerosis. The patient has been treated by the practice and all reasonable treatments have failed to control the disease, which causes significant pain and limits activities of daily living. The patient has failed conservative treatment and joint replacement surgery was discussed and agreed upon by both provider and patient. We will proceed with surgical management to improve function and relieve pain refractory to non-surgical measures. Right Primary Total Knee Arthroplasty as evidenced by progressive symptoms. Progressive Symptoms Include: Pain impacting sleep or causing fatigue Pain worsened by weight bearing Pain limiting ability to stay fit and healthy. Surgery Details Date and Location: At [facility] on TBD. Implants: Mitul Robotic: Yes Predicted LOS: 2 days (Inpatient candidate) Informed consent obtained in the office today. The risks and benefits of surgery were discussed at length including but not limited to the risks of infection, bleeding, nerve or blood vessel injury, deep venous thrombosis, pulmonary embolism, arthrofibrosis, reflex sympathetic dystrophy, , paralysis, knee or patellar dislocation, extensor mechanism injury, bone fracture, component loosening or failure requiring re-operation or amputation. Informed consent was obtained and the patient was scheduled for surgery. We also discussed fixation strategies including cement and cementless fixation and advantages and disadvantages of each. We discussed the details of the surgery as well as rehabilitation. All questions were answered, and the patient wishes to proceed with surgery.. The patient has been ordered: No orders found for this visit on 01/03/23. No orders placed today. CONSULTS: IMPACT/PACE Consult for preoperative clearance. Cardiology Consult for cardiac clearance for syncope, HTN, palpitations . Total Joint Arthroplasty: Risk Calculator Garland Obando has a 42.73% chance of NOT returning home at discharge for a Primary total Knee replacement. Garland's estimated Length of Stay is 2 days (Inpatient candidate). Garland's 30 day chance of readmission is 5.06%. Readmission Probability 5.06 % (within 30 days following surgery) Estimated LOS 2 days Discharge Disposition Probability D/C to Home 57.27 % D/C to SNF 42.73 % These calculations are based on the following factors: - 82 years of age - sex is not male - BMI of 27 kg/m2 - NarxCare score of 0 - 0 hospitalizations in the last 12 months - no history of heart disease - history of diabetes - no history of COPD - no history of anemia - preoperative ambulation: impaired community distances - 2 step(s) to enter home - bed location is on the first floor - bath location is on the first floor - caregiver is inconsistent - home is not more than 150 miles away - PROMIS-10 Mental Health T score 41-49 - Marital status: single Risk Factors for Total Knee Arthroplasty (TKA) Major Risk Factors Obesity normal High: BMI > 40 Moderate: BMI 30-40 Normal: BMI < 30 Diabetes Moderate Risk High: A1C > 8 Moderate: A1C 7-8 Normal: A1C < 7 Smoking normal High: Current smoker Normal: Non smoker Narcotics Use normal High:NarxCare >=300 Moderate: 100-299 Normal: 0-99 Depression Unknown Risk High: PHQ-9 >14 Moderate: PHQ-9 5-14 Normal: PHQ-9 < 5 Area Deprivation Index (ERIC) Moderate Risk High: ERIC Score > 75 Moderate: ERIC 50-75 Normal: ERIC < 50 Diabetes: Well controlled - Garland has been diagnosed with Type 2 Diabetes. Her last Hemoglobin A1C was 6.1 (07/06/2022). Pt is followed by No [facility] for Type 2 Diabetes - last seen on 12/02/2021. Area Deprivation Index (ERIC) ERIC Score 07/31/2021 07/06/2022 National Score 46 67 Patient Health Questionnaire (PHQ-9) PHQ-9 09/09/2016 03/14/2017 05/02/2017 PHQ-2 Score 0 0 1 PHQ-9 Score - 3 7 (0-4) minimal depression, (5-9) mild depression, (10-14) moderate depression, (15-19) moderately severe depression, (20-27) severe depression Bone Density Risk Screen Garland Obando is at risk for bone loss and has not had a bone densitometry scan in the last 2 years (date of last scan: 08/28/2007). Recommend a bone densitometry scan and if indicated on the bone density results, a consult to a bone health specialist (Rheumatology, Endocrinology, or Women's Health) for bone assessment. Risk Factors: Use of Proton Pump Inhibitors History of falls Dx of Chronic Kidney Disease (CKD) Prednisone or use of systemic steroids Additional Risk Factors Past Orthopaedic Surgery: Garland had hip surgery on 11/18/2021 with Skinny Heller. Malnutrition: No Malnutrition Screening Tool (MST) score on file- please complete the MST screening tool (click here to open) and refresh the note. ACTIVE PROBLEM LIST Essential Hypertension, Benign Esophageal Reflux Benign Neoplasm of Colon Situational Depression Lumbar Spondylosis Lumbar Degenerative Disc Disease Diabetes Mellitus Type 2, Controlled, Without Complications (Hcc) Hyperlipidemia Ldl Goal <100 Personal History of Colonic Polyps Hip Osteoarthritis Lumbar Facet Joint Syndrome Plantar Fasciitis Rotator Cuff Syndrome of Right Shoulder Coronary Artery Disease Involving [place] Coronary Artery of [place] Heart Without Angina Pectoris History of 2019 Novel Coronavirus Disease (Covid-19) Valvular Heart Disease History of Syncope Post-Operative State Chronic Kidney Disease, Stage 3a (Hcc) Takotsubo Cardiomyopathy SUBJECTIVE CHIEF COMPLAINT: Knee Pain HPI: Garland Obando is a 82 year old patient with the presenting complaint of Established Patient and Follow Up of the Right Knee (13 weeks post visit OA right knee). Garland Obando has had progressive problems with the knee(s) most of the day over the past 6 month(s) interfering with activities which include doing drug coordinator, rising from a sitting position, standing for prolonged periods of time, getting in and out of a car, and safety-increased risk for fall. The problem began limiting activities 7-12 months ago. Garland reports a current pain level of 6 (Knee-Right). She describes the pain as Aching (Grinding). The pain is Continuous . Interventions tried include Reposition. FALL RISK: Garland is at risk for falls. She has had either 2 falls in the last year or at least 1 fall with injury and/or is currently using an ambulatory assitive device (walker, cane, wheelchair, crutches, etc.) The following interventions were put in place to prevent falls this visit: Instructed Patient to Call for Help if Needed PROMIS Physical Function Score No flowsheet data found. FUNCTIONAL STATUS: Take care of self, that is eating, dressing, bathing, using the toilet (2.75 METs) Walk a block or two on level ground (2.75 METs) PREVIOUS TREATMENTS: Most recent knee injection: Large Joint Arthro/Inj: R knee joint (injected on 07/26/2022 by Christen Lindo) Past anti-inflammatory medications (not necessarily for this reason for visit): betamethasone acetate,sod phos, celecoxib, etodolac, ketorolac tromethamine, meloxicam, naproxen, prednisone Medical Treatments: RX NSAIDS for 3 Months or Greater (meloxicam (Mobic)), Steroid Injections Right Knee REVIEW OF SYSTEMS: PAIN ASSESSMENT: See HPI. MUSCULOSKELETAL: See HPI. Malnutrition Screening Tool (MST) 11/18/2021 Lost Weight Recently Without Trying? If Yes, Amount of Weight Loss(lbs) 0:No Eating Poorly Because of a Decreased Appetite 0:No Weight Loss Score (Calculated) 0 Appetite Score (Calculated) 0 Total MST Score (Calculated) 0 PAST MEDICAL HISTORY Diagnosis Date Allergic rhinitis Benign neoplasm of colon Cervical radiculopathy due to intervertebral disc disorder 03/01/2012 Chronic kidney disease, stage 3a (HCC) 07/22/2022 Coronary artery disease Diverticulosis of colon (without mention of hemorrhage) Diverticulosis Essential hypertension, benign Heart attack (HCC) Hyperlipidemia LDL goal < 100 02/12/2010 Lichen sclerosus 03/10/2020 Lumbar disc disease with radiculopathy 05/08/2013 Mental disorder Osteoarthrosis, unspecified whether generalized or localized, unspecified site Other and unspecified hyperlipidemia Sacroiliac joint pain 07/05/[address] Type II or unspecified type diabetes mellitus without mention of complication, not stated as uncontrolled Vitiligo PAST SURGICAL HISTORY Procedure Laterality Date COLONOSCOPY FLX DX W/COLLJ SPEC WHEN PFRMD 05/16/2000 Colonoscopy COLONOSCOPY FLX DX W/COLLJ SPEC WHEN PFRMD 05/17/2011 Colonoscopy COLONOSCOPY W/BIOPSY SINGLE/MULTIPLE 11/14/07 HEMORRHOIDECTOMY XTRNL 2/> COLUMN/GROUP LEFT HEART CATH,PERCUTANEOUS 11/1999 PAST SURGICAL HISTORY OF 2003 R ureter surgery PAST SURGICAL HISTORY OF 2008 Cyst removal right index finger STRABISMUS RECESSION/RESCJ 1 HRZNTL [facility] Strabismus Surgery left eye FAMILY HISTORY Problem Relation Age of Onset Stroke Mother Coronary Artery Disease Father Stroke Maternal Grandmother Social History Tobacco Use Smoking status: Never Smokeless tobacco: Never Vaping Use Vaping Use: Never used Substance Use Topics Alcohol use: Yes Comment: Rarely Drug use: No ALLERGIES: Dust and Mold MEDICATIONS: folic acid 1 mg tablet^Take 1 mg by mouth once daily.^Disp: ^Rfl: atorvastatin (LIPITOR) 40 mg tablet^Take 1 tablet by mouth daily at bedtime. For cholesterol.^Disp: 90 tablet^Rfl: 1 atenolol (TENORMIN) 25 mg tablet^Take 1 tablet by mouth once daily.^Disp: 90 tablet^Rfl: 3 ascorbic acid, vitamin C, (VITAMIN C) 500 mg tablet^Take 1 tablet by mouth twice daily with meals for 28 doses.^Disp: 28 tablet^Rfl: 0 (Patient taking differently: Take 500 mg by mouth as needed.) omeprazole (PRILOSEC) 20 mg capsule^Take 1 capsule by mouth twice daily.^Disp: 180 capsule^Rfl: 3 (Patient taking differently: Take 20 mg by mouth as needed.) fluticasone (FLONASE) 50 mcg/actuation nasal spray^Use 2 Sprays in each nostril once daily. Rinse mouth after use.^Disp: 11.1 mL^Rfl: 0 vits A,C,E/lutein/minerals (EYE HEALTH PLUS LUTEIN ORAL)^Take 1 capsule by mouth once daily.^Disp: ^Rfl: OBJECTIVE PHYSICAL EXAM: There were no vitals taken for this visit. All other systems deferred. GENERAL: Appears healthy, well-nourished, no deformities. HABITUS: Normal GAIT: Shuffling and Ambulatory Aid: a cane KNEE EXAM: Right: Alignment: Valgus deformity, Partially Correctable Range of motion is lacking a few degrees secondary to tight hamstrings degrees in extension and 110 degrees of flexion. Extension La degrees Pain with ROM: Yes Effusion: Slight Tender to the palpation of Posterior Knee, Lateral femoral condyle, and Lateral joint line Pain with patellar compression: No Stability: Anterior/Posterior stable and Varus/Valgus stable Hip Exam: flexion to 100+ degrees, full extension, internal/external rotation adequate, and no pain with log roll Neurovascular Status: Sensation Intact, Moves foot and ankle up & down, and 2+ dorsalis pedis DATA: She was last seen in orthopaedic clinic for her knee/leg on 10/04/2022 with Christen Lindo. Most recent knee imaging was completed on 07/28/2022 (XR KNEE GENERAL 4V AP BOTH/PA BOTH/LAT/MERC RIGHT) . Attached is imaging for the order.Most recent upper leg imaging was completed on 12/31/2010 (XR FEMUR AP/LAT LT) . Attached is imaging for the order.Most recent lower leg imaging was completed on 12/31/2010 (XR TIBIA FIBULA AP/LAT LT) . Attached is imaging for the order.The most recent knee injection was Large Joint Arthro/Inj: R knee joint, injected on 07/26/2022 by Christen Lindo. Diagnostic tests reviewed for today's visit: Most recent labs Most recent EKG Left knee X-Ray: Lateral joint space noted to have severe degenerative changes The following conditions were addressed during the office visit today: none SIGNATURE: Christen Lindo PA-C PATIENT NAME: Garland Obando DATE: January 03, 2023 TIME: 8:51 AM Patient presents with: Right Knee - Established Patient, Follow Up: 13 weeks post visit OA right knee Patient is here for right knee pain. States her right foot has started hurting as well. Would like to talk about a right TKA. Pain gets worse with activity and gets worse at night. Uses a cane to ambulate. AMB ROOMING INTAKE FLOWSHEET DATA Pain Pain Level: 6 Pain Location: Knee-Right Description: Aching (Grinding) Duration Amount of Time: (Ongoing) Frequency: Continuous Intervention/Comfort measure: Reposition Flakita Fontaine RN documented in this encounter [facility] 12-24-2022 Miscellaneous Notes See telephone note date 12/22/[address] Barrios response. Madiha Patterson LPN Please review and advise. 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 Encouraged her to reach out to hematology for follow-up as she has yet to review her follow-up testing. Patient was recommended by neurology to get a follow up appointment with hematology. Patient was questioning whether this was necessary. documented in this encounter [facility] 12-21-2022 Note HNO ID: [id number] Author: Luda Jay PA-C Service: ? Author Type: Physician School Bus Driver/Teacher Assistant Type: Progress Notes Filed: 12/21/2022 4:45 PM Note Text: ESTABLISHED PATIENT VISIT Last visit: 08/03/22 Assessment AND Plan: Garland Obando is a 82 year old female with a history of HTN, HLD, CAD, valvular heart disease, CKD stage 3, DM 2, lumbar DDD. Her examination demonstrates weakness on the right side including the hand and hip, sensory abnormalities worsening on the right side in the lower extremity. Negative Romberg, no signs of myelopathy. Orthostatics showed appropriate response of blood pressure, but did have slight decrease in heart rate when standing. Patient with multiple episodes of syncope, daily lightheadedness. Lightheadedness is brought on most commonly by position change, states that he is standing and prolonged periods of standing, but will, with sitting as well. Notes associated floaters, diaphoresis and nausea when symptoms are severe. Patient had 1 atypical episode on July 17 where she had a syncopal episode, daughter thought that she stopped breathing and perform CPR. EMS arrived and took her to the hospital, patient was admitted. Patient was admitted to [facility], records limited, it appears that echocardiogram showed mild systolic dysfunction with preserved ejection fraction, no imaging of the brain was obtained per chart review. 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 Continues to have near daily potation's, was told that she has a murmur but has not had a Holter monitor or event monitor in a very long time. Patient also describes episodes of lightheadedness followed by immediate sleep after she goes on to her bed, unclear this is passing out or if she just falls asleep. Due to persistent lightheadedness, altered level of consciousness, syncope, will obtain MRA head and neck, MRI of the brain. Additionally, patient also reporting palpitations, had decrease in heart rate when standing will obtain Zio monitor and follow-up with cardiology as she has significant cardiac history. Patient also with signs and symptoms of possible neuropathy in the lower extremity, notes recent hip surgery 1 year ago and still persistent weakness on the lower extremity. Patient history of diabetes, notes paresthesias beginning 2 to 3 weeks ago in the toes been constant and unchanged. Does have possible signs of small and large fiber involvement, but patient states she is very unsure of what she was feeling during sensory exam. We will obtain EMG of the lower extremity to evaluate for any signs of neuropathy that could be contributing to an orthostatic cause of patient's symptoms. We will also obtain laboratory evaluation to assess for common causes of neuropathy. Recent A1c was 6.1. Finally, as patient had altered level of consciousness, many of the events were unwitnessed, will obtain EEG to evaluate for any signs of epileptiform changes. At this time, have low suspicion for seizure. Discussed red flag signs and symptoms that would warrant emergent evaluation in the emergency department, she agrees and understands. Patient agreeable to treatment plan of care at this time, all questions were answered. Patient to follow-up in 2 weeks following the completion of her testing. Garland was seen today for new patient evaluation. CHIEF COMPLAINT: follow up HISTORY OF PRESENT ILLNESS: Garland Obando is a 82 year old female, BMI 27.76 kg/m2 with a PMH significant for HTN, HLD, CAD, valvular heart disease, CKD stage 3, DM 2, lumbar DDD. Seen by Cardiology 12/03/22 for syncope, doing well and encouragd sleep follow up. Last seen on 08/03/22 for syncope and likely neuropathy. LH is positional, doing well. History of takotsubos in the past and no longer established with cardiology, having daily palpitations. One episode where daughter performed CPR in July. EMG, imaging and zio with referral to cardio was ordered. EEG was ordered to evaluated for seizure activity. 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 MRA shows left carotid stenosis at 30% but otherwise normal. EMG was normal. EEG showed some slowing but otherwise normal. Heart monitor showed SVT but no arryhtmia. Patient presents for follow-up appointment. Patient notes that since last appointment in July she has been significantly better, gets occasional lightheadedness, but no episodes of syncope or presyncope. Notes that she will only get the lightheadedness when she has been standing still for a while and bends over or do something quickly. Notes that she will sit back down and feel significantly better. Her biggest concern today is her right knee, states that she needs to get this repaired and is waiting to corbett (more content not included)... [facility] 12-03-2022 Note HNO ID: [id number] Author: Cathryn Aggarwal APRN.TIRE BUILDER Service: ? Author Type: Nurse Practitioner Type: Progress Notes Filed: 12/03/2022 3:34 PM Note Text: [facility] Department of Cardiovascular Medicine SECTION OF CLINICAL CARDIOLOGY OUTPATIENT VISIT DATE December 03, 2022 OUTPATIENT VISIT TYPE ESTABLISHED Elements of this note, including but not limited to HPI, ROS, Physical Exam, Assessment and Plan were copied and pasted from previous office visit notes completed within our department. Updates have been made where appropriate/noted and reflect current exam and medical decision making from date of this visit. Patient Name: Garland Obando : 1940 PRIMARY CARE PHYSICIAN: Santos Nuñez MD CHIEF COMPLAINT: Patient presents with: Follow Up Interval Hx: Ms. Obando comes for a follow up visit. The last office visit visit with Dr. Quispe was 11/02/2022. At last OV she was ordered a stress test. She is here to review those results. Patient with 0 hospitalizations or ER visits since last OV. Since last office visit patient has been feeling about the same. Still struggles with right knee pain Pending possible knee replacement with Dr. Heller. No chest pain No SOB Does have some D/L on occasion - no syncope since last OV Sx worse with position changes ? Sleep is bad - always but worse now. Appetite is good Watches Na intake Fluid intake is fair - working on this Very active 82 year old Taking meds as ordered Limited most by knee pain. No LE edema No bloating. IMPRESSION/PLAN: ASSESSMENT/PLAN: 1. Syncope and collapse - ICD9: 780.2, ICD10: R55 (primary diagnosis) - started 2-3 years ago after having covid - has some lightheadedness with position changes - no recurrent syncope - recent zio with no arrhythmia noted. - reviewed importance of good fluid intake - recent stress test shows no ischemia or infarct. 2. Takotsubo cardiomyopathy - ICD9: 429.83, ICD10: I51.81 - reported remote history - no records to confirm this. 3. Essential hypertension, benign - ICD9: 401.1, ICD10: I10 - Controlled - Continue current medications - Recommend home blood pressure monitoring, to bring results to next visit - Encouraged sodium restriction, DASH or Mediterranean diet - Recommend regular aerobic exercise - Reviewed risks of hypertension and principles of treatment 4. Palpitations - ICD9: 785.1, ICD10: R00.2 - improved - continue Atenolol Conclusion: Patient pending possible knee replacement in the future. We will provide clearance if needed. I spent a total of 30 minutes on the date of the service which included preparing to see the patient, [id number] patient care, completing clinical documentation, performing a medically appropriate examination, counseling and educating the patient/family/caregiver, ordering medications, tests, or procedures, and communicating results to the patient/family/caregiver. Thank you very much for allowing me to assist in the care of Garland Obando. The above information was discussed at length and detail with the patient who verbalized an understanding of the plan and was given ample opportunity to ask questions. The appropriate follow up has been arranged. I have advised the patient to contact me if any questions/problems arise prior to the follow up. Cathryn Aggarwal APRN.[facility] Cardiology Nurse Practitioner Section of Regional Cardiology [place] Dept of Cardiovascular Medicine [facility] [address] [place] [address] Office Office December 03, 2022 9:51 AM This note was partially generated using ClassBadges recognition system and may contain errors related to that system including grammar, punctuation, spelling, and words that may be inappropriate. CARDIAC STUDIES: LV Ejection Fraction (%) Date Value 11/12/2021 62 10/11/2002 55 LABS: Sodium (mmol/L) Date Value 08/03/2022 141 12/30/2021 137 04/03/2021 138 08/12/2020 140 Potassium (mmol/L) Date Value 08/03/2022 4.3 12/30/2021 4.8 04/03/2021 4.5 08/12/2020 4.3 BUN (mg/dL) Date Value 08/03/2022 13 12/30/2021 33 11/20/2021 9 11/04/2021 31 04/03/2021 27 08/12/2020 28 02/29/2020 19 09/07/2018 20 Creatinine (mg/dL) Date Value 08/03/2022 0.82 12/30/2021 1.16 11/20/2021 0.76 11/04/2021 1.28 04/03/2021 0.97 08/12/2020 1.00 02/29/2020 1.05 09/07/2018 0.95 Magnesium (mg/dL) Date Value 11/20/2021 1.3 Hemoglobin (g/dL) Date Value 08/03/2022 12.9 12/30/2021 11.7 08/12/2020 12.7 11/19/1999 14.0 No results found for: PROBNP No results found for: HSTNT Cholesterol, Total (mg/dL) Date Value 10/01/2022 153 04/03/2021 262 HDL Cholesterol (mg/dL) Date Value 10/01/2022 58 04/03/2021 58 Triglyceri (more content not included)... [facility] 12-03-2022 Instructions Cathryn Aggarwal APRN.CNP - 12/03/2022 3:14 PM EDT Stress test was normal - I think that we can clear you for surgery. No abnormal heart rhythm noted on recent monitor Continue same medications. Try and increase fluid intake Follow up in 6 months documented in this encounter [facility] 12-03-2022 History of Present illness Narrative [facility] Department of Cardiovascular Medicine SECTION OF CLINICAL CARDIOLOGY OUTPATIENT VISIT DATE December 03, 2022 OUTPATIENT VISIT TYPE ESTABLISHED Elements of this note, including but not limited to HPI, ROS, Physical Exam, Assessment and Plan were copied and pasted from previous office visit notes completed within our department. Updates have been made where appropriate/noted and reflect current exam and medical decision making from date of this visit. Patient Name: Garland Obando : 1940 PRIMARY CARE PHYSICIAN: Santos Nuñez MD CHIEF COMPLAINT: Patient presents with: Follow Up Interval Hx: Ms. Obando comes for a follow up visit. The last office visit visit with Dr. Quispe was 11/02/2022. At last OV she was ordered a stress test. She is here to review those results. Patient with 0 hospitalizations or ER visits since last OV. Since last office visit patient has been feeling about the same. Still struggles with right knee pain Pending possible knee replacement with Dr. Heller. No chest pain No SOB Does have some D/L on occasion - no syncope since last OV Sx worse with position changes ? Sleep is bad - always but worse now. Appetite is good Watches Na intake Fluid intake is fair - working on this Very active 82 year old Taking meds as ordered Limited most by knee pain. No LE edema No bloating. IMPRESSION/PLAN: ASSESSMENT/PLAN: 1. Syncope and collapse - ICD9: 780.2, ICD10: R55 (primary diagnosis) - started 2-3 years ago after having covid - has some lightheadedness with position changes - no recurrent syncope - recent zio with no arrhythmia noted. - reviewed importance of good fluid intake - recent stress test shows no ischemia or infarct. 2. Takotsubo cardiomyopathy - ICD9: 429.83, ICD10: I51.81 - reported remote history - no records to confirm this. 3. Essential hypertension, benign - ICD9: 401.1, ICD10: I10 - Controlled - Continue current medications - Recommend home blood pressure monitoring, to bring results to next visit - Encouraged sodium restriction, DASH or Mediterranean diet - Recommend regular aerobic exercise - Reviewed risks of hypertension and principles of treatment 4. Palpitations - ICD9: 785.1, ICD10: R00.2 - improved - continue Atenolol Conclusion: Patient pending possible knee replacement in the future. We will provide clearance if needed. I spent a total of 30 minutes on the date of the service which included preparing to see the patient, [id number] patient care, completing clinical documentation, performing a medically appropriate examination, counseling and educating the patient/family/caregiver, ordering medications, tests, or procedures, and communicating results to the patient/family/caregiver. Thank you very much for allowing me to assist in the care of Garland Obando. The above information was discussed at length and detail with the patient who verbalized an understanding of the plan and was given ample opportunity to ask questions. The appropriate follow up has been arranged. I have advised the patient to contact me if any questions/problems arise prior to the follow up. Cathryn Aggarwal APRN.[facility] Cardiology Nurse Practitioner Section of Regional Cardiology [facility] Dept of Cardiovascular Medicine [facility] Heart [facility] Vascular [facility] [address] [place] [address] Office Office December 03, 2022 9:51 AM This note was partially generated using Firmafon voice recognition system and may contain errors related to that system including grammar, punctuation, spelling, and words that may be inappropriate. CARDIAC STUDIES: LV Ejection Fraction (%) Date Value 11/12/2021 62 10/11/2002 55 LABS: Sodium (mmol/L) Date Value 08/03/2022 141 12/30/2021 137 04/03/2021 138 08/12/2020 140 Potassium (mmol/L) Date Value 08/03/2022 4.3 12/30/2021 4.8 04/03/2021 4.5 08/12/2020 4.3 BUN (mg/dL) Date Value 08/03/2022 13 12/30/2021 33 11/20/2021 9 11/04/2021 31 04/03/2021 27 08/12/2020 28 02/29/2020 19 09/07/2018 20 Creatinine (mg/dL) Date Value 08/03/2022 0.82 12/30/2021 1.16 11/20/2021 0.76 11/04/2021 1.28 04/03/2021 0.97 08/12/2020 1.00 02/29/2020 1.05 09/07/2018 0.95 Magnesium (mg/dL) Date Value 11/20/2021 1.3 Hemoglobin (g/dL) Date Value 08/03/2022 12.9 12/30/2021 11.7 08/12/2020 12.7 11/19/1999 14.0 No results found for: PROBNP No results found for: HSTNT Cholesterol, Total (mg/dL) Date Value 10/01/2022 153 04/03/2021 262 HDL Cholesterol (mg/dL) Date Value 10/01/2022 58 04/03/2021 58 Triglyceride (mg/dL) Date Value 10/01/2022 63 04/03/2021 98 LDL Cholesterol (mg/dL) Date Value 10/01/2022 82 04/03/2021 184 TSH (mIU/L) Date Value 08/03/2022 1.510 PT INR (no units) Date Value 02/12/2010 1.0 There were no tests performed for review. PHYSICAL EXAMINATION: Vitals: BP 118/72 (BP Site: Left Arm, BP Position: Sitting) Pulse 63 Resp 20 Wt 77.5 kg (170 lb 14.4 oz) SpO2 95% BMI 28.01 kg/m General: Well appearing, in no acute distress. Skin: No clubbing, no cyanosis. Eyes: Extra ocular movements intact Oropharynx: Teeth in good repair. Neck: No jugular venous distention, no carotid bruits, carotids have a normal upstroke, no palpable thyromegaly. Lungs: Clear to auscultation bilaterally, no wheezing or rhonchi. Heart: Regular rhythm, PMI not displaced, S1, S2 normal, no S3, no S4, no heaves, no rub and no murmur. Abdomen: Soft, nontender, bowel sounds normal, no palpable organomegaly, no bruits. Extremities: No peripheral edema . Grade 2/4 distal pulses bilaterally. Neuro: Oriented to person, place and time, alert, cooperative, gait coordinated. REVIEW OF SYSTEMS: GENERAL: Negative for: Weight loss or gain, Fever or Chills, Weakness and Sleep difficulties. HEENT: Negative for: Headache, Impaired Vision, Glasses, Hearing Impairment, Ringing in Ears, Nosebleeds, Poor dental care, Bleeding Gums, Dentures NECK: Negative for: Swelling, Pain, Stiffness RESPIRATORY: Negative for: Cough, Blood in Sputum, Shortness of breath, Wheezing, Apnea GASTROINTESTINAL: Negative for: Trouble swallowing, Heartburn, Change in bowel habits, Blood in stool, Dark black stools MUSCULOSKELETAL: Negative for: Muscle or joint pain, Stiffness , Joint swelling NEUROLOGIC/PSYCHIATRIC: Negative for: Weakness, Paralysis, Numbness, Tingling, Tremor, Nervousness, Depressed mood, Memory loss SKIN: Negative for: Rashes, Itching HEMATOLOGICAL/LYMPHATIC: Negative for: Easy bruising , Easy bleeding ENDOCRINE: Negative for: Heat or cold intolerance, Excessive sweating, Frequent urination, Frequent thirst ALLERGIES: Dust and Mold PAST MEDICAL HISTORY: PAST MEDICAL HISTORY Diagnosis Date Allergic rhinitis Benign neoplasm of colon Cervical radiculopathy due to intervertebral disc disorder 03/01/2012 Chronic kidney disease, stage 3a (HCC) 07/22/2022 Coronary artery disease Diverticulosis of colon (without mention of hemorrhage) Diverticulosis Essential hypertension, benign Heart attack (HCC) Hyperlipidemia LDL goal < 100 02/12/2010 Lichen sclerosus 03/10/2020 Lumbar disc disease with radiculopathy 05/08/2013 Mental disorder Osteoarthrosis, unspecified whether generalized or localized, unspecified site Other and unspecified hyperlipidemia Sacroiliac joint pain 07/05/[address] Type II or unspecified type diabetes mellitus without mention of complication, not stated as uncontrolled Vitiligo SOCIAL HISTORY: Social History Tobacco Use Smoking status: Never Smokeless tobacco: Never Vaping Use Vaping Use: Never used Substance Use Topics Alcohol use: Yes Comment: Rarely Drug use: No FAMILY HISTORY: FAMILY HISTORY Problem Relation Age of Onset Stroke Mother Coronary Artery Disease Father Stroke Maternal Grandmother I have confirmed and edited as necessary, the PFSH and ROS obtained by others. Cathryn Aggarwal, SQUILGEER.TIRE BUILDER CURRENT MEDICATIONS: Current Outpatient Medications Medication Sig predniSONE (DELTASONE) 20 mg tablet Take 2 tablets by mouth once daily for 5 days. atorvastatin (LIPITOR) 40 mg tablet Take 1 tablet by mouth daily at bedtime. For cholesterol. atenolol (TENORMIN) 25 mg tablet Take 1 tablet by mouth once daily. ascorbic acid, vitamin C, (VITAMIN C) 500 mg tablet Take 1 tablet by mouth twice daily with meals for 28 doses. (Patient taking differently: Take 500 mg by mouth as needed.) omeprazole (PRILOSEC) 20 mg capsule Take 1 capsule by mouth twice daily. (Patient taking differently: Take 20 mg by mouth as needed.) fluticasone (FLONASE) 50 mcg/actuation nasal spray Use 2 Sprays in each nostril once daily. Rinse mouth after use. vits A,C,E/lutein/minerals (EYE HEALTH PLUS LUTEIN ORAL) Take 1 capsule by mouth once daily. Current Facility-Administered Medications Medication Dose Route Frequency perflutren lipid microspheres 1.3 mL in NaCl (PF) 0.9% 10 mL injection (DEFINITY) INTRAVENOUS DIRECTED PRN sodium chloride 0.9 % (flush) 10 mL (BD POSIFLUSH) 10 mL INTRAVENOUS DIRECTED PRN documented in this encounter [facility] 12-03-2022 Note HNO ID: [id number] Author: No Cosme APRN.TIRE BUILDER Service: ? Author Type: Nurse Practitioner Type: Progress Notes Filed: 12/03/2022 11:00 AM Note Text: 12/03/2022 Patient presents with: Recheck: [facility] follow up; left arm pain and swelling SUBJECTIVE: This is a 82 year old that is here today for Above Complaints. [facility] for left hand pain, swelling and redness. Given prednisone for possible arthritis flair. Taking prednisone as prescribed. A few days prior was treated for possible skin infection of left upper arm with doxycycline. Left arm infection has resolved. Hand pain and swelling improving. Patient reports she had been out raking leaves for some time before her problems began. Admit she does get numbness in tingling in both hands from time to time with it being worse to the right. Is right hand dominant although she reports she can use both hands to completed tasks. Denies recent or past injuries or surgeries, fevers, chills, redness, swelling or open wounds [facility] records reviewed PAST MEDICAL HISTORY Diagnosis Date Allergic rhinitis Benign neoplasm of colon Cervical radiculopathy due to intervertebral disc disorder 03/01/2012 Chronic kidney disease, stage 3a (HCC) 07/22/2022 Coronary artery disease Diverticulosis of colon (without mention of hemorrhage) Diverticulosis Essential hypertension, benign Heart attack (HCC) Hyperlipidemia LDL goal < 100 02/12/2010 Lichen sclerosus 03/10/2020 Lumbar disc disease with radiculopathy 05/08/2013 Mental disorder Osteoarthrosis, unspecified whether generalized or localized, unspecified site Other and unspecified hyperlipidemia Sacroiliac joint pain 07/05/[address] Type II or unspecified type diabetes mellitus without mention of complication, not stated as uncontrolled Vitiligo ALLERGIES Dust and Mold MEDICATIONS Current Outpatient Medications Medication Sig predniSONE (DELTASONE) 20 mg tablet Take 2 tablets by mouth once daily for 5 days. atorvastatin (LIPITOR) 40 mg tablet Take 1 tablet by mouth daily at bedtime. For cholesterol. atenolol (TENORMIN) 25 mg tablet Take 1 tablet by mouth once daily. ascorbic acid, vitamin C, (VITAMIN C) 500 mg tablet Take 1 tablet by mouth twice daily with meals for 28 doses. (Patient taking differently: Take 500 mg by mouth as needed.) omeprazole (PRILOSEC) 20 mg capsule Take 1 capsule by mouth twice daily. (Patient taking differently: Take 20 mg by mouth as needed.) fluticasone (FLONASE) 50 mcg/actuation nasal spray Use 2 Sprays in each nostril once daily. Rinse mouth after use. vits A,C,E/lutein/minerals (EYE HEALTH PLUS LUTEIN ORAL) Take 1 capsule by mouth once daily. Current Facility-Administered Medications Medication Dose Route Frequency perflutren lipid microspheres 1.3 mL in NaCl (PF) 0.9% 10 mL injection (DEFINITY) INTRAVENOUS DIRECTED PRN sodium chloride 0.9 % (flush) 10 mL (BD POSIFLUSH) 10 mL INTRAVENOUS DIRECTED PRN Medications and allergies reviewed by this provider. SOCIAL HISTORY Social History Tobacco Use Smoking status: Never Smokeless tobacco: Never Vaping Use Vaping Use: Never used Substance Use Topics Alcohol use: Yes Comment: Rarely Drug use: No REVIEW OF SYSTEMS All other reviewed and negative other than HPI. OBJECTIVE: BP 148/84 Pulse 70 Resp 16 Wt 77.3 kg (170 lb 6.4 oz) SpO2 96% BMI 27.92 kg/m? . Vital signs reviewed by this provider. APPEARANCE Well appearing, alert, in no acute distress, well-hydrated, well nourished. LEFT Shoulder/ Arm/Wrist and Hand: no obvious deformity, erythema, or swelling. FROM. Reports some discomfort to radial side of wrist. 2+ radial pulse. Cap refill WNL Hepatitis B Vaccine(1 of 3 - Risk 3-dose series) Never done RSV Vaccine(1 - 1-dose 60+ series) Never done Shingrix Vaccine(2 of 3) due on 11/18/2010 DTaP,Tdap,Td Vaccine(3 - Tdap) due on 09/23/2020 Diabetic Foot Exam due on 09/12/2021 Advance Directive Discussion Never done Dilated Retinal Exam due on 02/16/2022 BP Controlled (<130/80) due on 04/03/2022 Influenza Vaccine(1) due on 10/15/2022 Covid-19 Vaccine(3 - season) due on 10/15/2022 Urine Albumin:Creatinine Ratio due on 12/02/2022 HbA1C due on 01/06/2023 Serum Creatinine due on 08/04/2023 LDL Cholesterol due on 10/02/2023 Annual PCP Team Chronic Disease Visit due on 12/04/2023 Bone Density Screening Completed Pneumococcal Vaccine: 65+ Completed Colorectal Cancer Screening Discontinued ASSESSMENT/PLAN: 1. Left wrist pain - ICD9: 719.43, ICD10: M25.532 - possibly related to arthritis - no red flag symptoms or exam findings - red flag symptoms discussed, verbalizes understanding - may use OTC topicals and tylenol as directed on packaging - follow-up if symptoms fail to full resolve to ER with red flag symptoms No Cosme APRN.[facility] Prescription instructions (more content not included)... [facility] 12-03-2022 Instructions No Cosme APRN.CNP - 12/03/2022 10:28 AM EDT Make follow-up appointment with neurology documented in this encounter [facility] 12-03-2022 History of Present illness Narrative 12/03/2022 Patient presents with: Recheck: [facility] care follow up; left arm pain and swelling SUBJECTIVE: This is a 82 year old that is here today for Above Complaints. [facility]22 for left hand pain, swelling and redness. Given prednisone for possible arthritis flair. Taking prednisone as prescribed. A few days prior was treated for possible skin infection of left upper arm with doxycycline. Left arm infection has resolved. Hand pain and swelling improving. Patient reports she had been out raking leaves for some time before her problems began. Admit she does get numbness in tingling in both hands from time to time with it being worse to the right. Is right hand dominant although she reports she can use both hands to completed tasks. Denies recent or past injuries or surgeries, fevers, chills, redness, swelling or open wounds [facility] records reviewed PAST MEDICAL HISTORY Diagnosis Date Allergic rhinitis Benign neoplasm of colon Cervical radiculopathy due to intervertebral disc disorder 03/01/2012 Chronic kidney disease, stage 3a (HCC) 07/22/2022 Coronary artery disease Diverticulosis of colon (without mention of hemorrhage) Diverticulosis Essential hypertension, benign Heart attack ([facility]) Hyperlipidemia LDL goal < 100 02/12/2010 Lichen sclerosus 03/10/2020 Lumbar disc disease with radiculopathy 05/08/2013 Mental disorder Osteoarthrosis, unspecified whether generalized or localized, unspecified site Other and unspecified hyperlipidemia Sacroiliac joint pain 07/05/[address] Type II or unspecified type diabetes mellitus without mention of complication, not stated as uncontrolled Vitiligo ALLERGIES Dust and Mold MEDICATIONS Current Outpatient Medications Medication Sig predniSONE (DELTASONE) 20 mg tablet Take 2 tablets by mouth once daily for 5 days. atorvastatin (LIPITOR) 40 mg tablet Take 1 tablet by mouth daily at bedtime. For cholesterol. atenolol (TENORMIN) 25 mg tablet Take 1 tablet by mouth once daily. ascorbic acid, vitamin C, (VITAMIN C) 500 mg tablet Take 1 tablet by mouth twice daily with meals for 28 doses. (Patient taking differently: Take 500 mg by mouth as needed.) omeprazole (PRILOSEC) 20 mg capsule Take 1 capsule by mouth twice daily. (Patient taking differently: Take 20 mg by mouth as needed.) fluticasone (FLONASE) 50 mcg/actuation nasal spray Use 2 Sprays in each nostril once daily. Rinse mouth after use. vits A,C,E/lutein/minerals (EYE HEALTH PLUS LUTEIN ORAL) Take 1 capsule by mouth once daily. Current Facility-Administered Medications Medication Dose Route Frequency perflutren lipid microspheres 1.3 mL in NaCl (PF) 0.9% 10 mL injection (DEFINITY) INTRAVENOUS DIRECTED PRN sodium chloride 0.9 % (flush) 10 mL (BD POSIFLUSH) 10 mL INTRAVENOUS DIRECTED PRN Medications and allergies reviewed by this provider. SOCIAL HISTORY Social History Tobacco Use Smoking status: Never Smokeless tobacco: Never Vaping Use Vaping Use: Never used Substance Use Topics Alcohol use: Yes Comment: Rarely Drug use: No REVIEW OF SYSTEMS All other reviewed and negative other than HPI. OBJECTIVE: BP 148/84 Pulse 70 Resp 16 Wt 77.3 kg (170 lb 6.4 oz) SpO2 96% BMI 27.92 kg/m . Vital signs reviewed by this provider. APPEARANCE Well appearing, alert, in no acute distress, well-hydrated, well nourished. LEFT Shoulder/ Arm/Wrist and Hand: no obvious deformity, erythema, or swelling. FROM. Reports some discomfort to radial side of wrist. 2+ radial pulse. Cap refill WNL Hepatitis B Vaccine(1 of 3 - Risk 3-dose series) Never done RSV Vaccine(1 - 1-dose 60+ series) Never done Shingrix Vaccine(2 of 3) due on 11/18/2010 DTaP,Tdap,Td Vaccine(3 - Tdap) due on 09/23/2020 Diabetic Foot Exam due on 09/12/2021 Advance Directive Discussion Never done Dilated Retinal Exam due on 02/16/2022 BP Controlled (<130/80) due on 04/03/2022 Influenza Vaccine(1) due on 10/15/2022 Covid-19 Vaccine(3 - 2022- season) due on 10/15/2022 Urine Albumin:Creatinine Ratio due on 12/02/2022 HbA1C due on 01/06/2023 Serum Creatinine due on 08/04/2023 LDL Cholesterol due on 10/02/2023 Annual PCP Team Chronic Disease Visit due on 12/04/2023 Bone Density Screening Completed Pneumococcal Vaccine: 65+ Completed Colorectal Cancer Screening Discontinued ASSESSMENT/PLAN: 1. Left wrist pain - ICD9: 719.43, ICD10: M25.532 - possibly related to arthritis - no red flag symptoms or exam findings - red flag symptoms discussed, verbalizes understanding - may use OTC topicals and tylenol as directed on packaging - follow-up if symptoms fail to full resolve to ER with red flag symptoms No Cosme APRN.CNP Prescription instructions reviewed with patient as applicable. Patient advised if symptoms do not improve or if symptoms worsen sooner, to contact their primary care physician. Potential red flag symptoms discussed with the patient. Reviewed appropriate action plan to take if red flag symptoms occur. Patient agreeable to treatment plan. I spent a total of 25 minutes on the date of the service which included preparing to see the patient, [id number] patient care, completing clinical documentation, obtaining and/or reviewing separately obtained history, performing a medically appropriate examination, counseling and educating the patient/family/caregiver, and ordering medications, tests, or procedures. documented in this encounter [facility] 12-01-2022 Note HNO ID: [id number] Author: Taras Nelson APRN.CNP Service: ? Author Type: Nurse Practitioner Type: Progress Notes Filed: 12/01/2022 5:58 PM Note Text: Subjective HPI HPI Garland Obando is a 82 year old female who presents today for CC of left hand pain, swelling, redness. This started 1 week ago after raking leaves. Has tried otc medication for relief. Symptoms are worsened by nothing. Risk factors hx of RA. Recently had round of antibiotics for infection on left upper arm. .Patient presents with: left arm and hand pain: X 1 week-started after raking leaves PAST MEDICAL HISTORY Diagnosis Date Allergic rhinitis Benign neoplasm of colon Cervical radiculopathy due to intervertebral disc disorder 03/01/2012 Chronic kidney disease, stage 3a (HCC) 07/22/2022 Coronary artery disease Diverticulosis of colon (without mention of hemorrhage) Diverticulosis Essential hypertension, benign Heart attack (HCC) Hyperlipidemia LDL goal < 100 02/12/2010 Lichen sclerosus 03/10/2020 Lumbar disc disease with radiculopathy 05/08/2013 Mental disorder Osteoarthrosis, unspecified whether generalized or localized, unspecified site Other and unspecified hyperlipidemia Sacroiliac joint pain 07/05/[address] Type II or unspecified type diabetes mellitus without mention of complication, not stated as uncontrolled Vitiligo PAST SURGICAL HISTORY Procedure Laterality Date COLONOSCOPY FLX DX W/COLLJ SPEC WHEN PFRMD 05/16/2000 Colonoscopy COLONOSCOPY FLX DX W/COLLJ SPEC WHEN PFRMD 05/17/2011 Colonoscopy COLONOSCOPY W/BIOPSY SINGLE/MULTIPLE 11/14/07 HEMORRHOIDECTOMY XTRNL 2/> COLUMN/GROUP LEFT HEART CATH,PERCUTANEOUS 11/1999 PAST SURGICAL HISTORY OF 2003 R ureter surgery PAST SURGICAL HISTORY OF 2008 Cyst removal right index finger STRABISMUS RECESSION/RESCJ 1 [facility]NTL [facility] [place] Strabismus Surgery left eye ALLERGIES Dust and Mold MEDICATIONS doxycycline monohydrate 100 mg tabletTake 1 tablet by mouth two times a day for 5 days.Disp: 10 tabletRfl: 0 atorvastatin (LIPITOR) 40 mg tabletTake 1 tablet by mouth daily at bedtime. For cholesterol.Disp: 90 tabletRfl: 1 atenolol (TENORMIN) 25 mg tabletTake 1 tablet by mouth once daily.Disp: 90 tabletRfl: 3 omeprazole (PRILOSEC) 20 mg capsuleTake 1 capsule by mouth twice daily.Disp: 180 capsuleRfl: 3 (Patient taking differently: Take 20 mg by mouth as needed.) fluticasone (FLONASE) 50 mcg/actuation nasal sprayUse 2 Sprays in each nostril once daily. Rinse mouth after use.Disp: 11.1 mLRfl: 0 vits A,C,E/lutein/minerals (EYE HEALTH PLUS LUTEIN ORAL)Take 1 capsule by mouth once daily.Disp: Rfl: predniSONE (DELTASONE) 20 mg tabletTake 2 tablets by mouth once daily for 5 days.Disp: 10 tabletRfl: 0 ascorbic acid, vitamin C, (VITAMIN C) 500 mg tabletTake 1 tablet by mouth twice daily with meals for 28 doses.Disp: 28 tabletRfl: 0 (Patient taking differently: Take 500 mg by mouth as needed.) FAMILY HISTORY Problem Relation Age of Onset Stroke Mother Coronary Artery Disease Father Stroke Maternal Grandmother Social History Tobacco Use Smoking status: Never Smokeless tobacco: Never Vaping Use Vaping Use: Never used Substance Use Topics Alcohol use: Yes Comment: Rarely Drug use: No Review of Systems Constitutional: Negative for fever. Skin: Negative for itching and rash. Objective Blood pressure 138/86, pulse 74, temperature 36.7 ?C (98 ?F), temperature source Tympanic, resp. rate 18, weight 76.1 kg (167 lb 12.8 oz), SpO2 96 %. Physical Exam Constitutional: General: She is not in acute distress. Appearance: She is not toxic-appearing or diaphoretic. HENT: Head: Normocephalic and atraumatic. Pulmonary: Effort: Pulmonary effort is normal. No accessory muscle usage or respiratory distress. Musculoskeletal: Hands: Neurological: Mental Status: She is alert and oriented to person, place, and time. ASSESSMENT/PLAN: 1. Hand pain, left - ICD9: 729.5, ICD10: M79.642 Possible arthritis flair, will refer to pcp for recheck. Urgent f/u for worsening s/s. - PREDNISONE 20 MG TABLET Taras Nelson APRN.TIRE BUILDER [facility] 12-01-2022 History of Present illness Narrative Images from the original note were not included. Subjective HPI HPI Garland Obando is a 82 year old female who presents today for CC of left hand pain, swelling, redness. This started 1 week ago after raking leaves. Has tried otc medication for relief. Symptoms are worsened by nothing. Risk factors hx of RA. Recently had round of antibiotics for infection on left upper arm. .Patient presents with: left arm and hand pain: X 1 week-started after raking leaves PAST MEDICAL HISTORY Diagnosis Date Allergic rhinitis Benign neoplasm of colon Cervical radiculopathy due to intervertebral disc disorder 03/01/2012 Chronic kidney disease, stage 3a (HCC) 07/22/2022 Coronary artery disease Diverticulosis of colon (without mention of hemorrhage) Diverticulosis Essential hypertension, benign Heart attack (HCC) Hyperlipidemia LDL goal < 100 02/12/2010 Lichen sclerosus 03/10/2020 Lumbar disc disease with radiculopathy 05/08/2013 Mental disorder Osteoarthrosis, unspecified whether generalized or localized, unspecified site Other and unspecified hyperlipidemia Sacroiliac joint pain 07/05/[address] Type II or unspecified type diabetes mellitus without mention of complication, not stated as uncontrolled Vitiligo PAST SURGICAL HISTORY Procedure Laterality Date COLONOSCOPY FLX DX W/COLLJ SPEC WHEN PFRMD 05/16/2000 Colonoscopy COLONOSCOPY FLX DX W/COLLJ SPEC WHEN PFRMD 05/17/2011 Colonoscopy COLONOSCOPY W/BIOPSY SINGLE/MULTIPLE 11/14/07 HEMORRHOIDECTOMY XTRNL 2/> COLUMN/GROUP LEFT HEART CATH,PERCUTANEOUS 11/1999 PAST SURGICAL HISTORY OF 2003 R ureter surgery PAST SURGICAL HISTORY OF 2008 Cyst removal right index finger STRABISMUS RECESSION/RESCJ 1 [facility]NTL [facility] [place] Strabismus Surgery left eye ALLERGIES Dust and Mold MEDICATIONS doxycycline monohydrate 100 mg tablet^Take 1 tablet by mouth two times a day for 5 days.^Disp: 10 tablet^Rfl: 0 atorvastatin (LIPITOR) 40 mg tablet^Take 1 tablet by mouth daily at bedtime. For cholesterol.^Disp: 90 tablet^Rfl: 1 atenolol (TENORMIN) 25 mg tablet^Take 1 tablet by mouth once daily.^Disp: 90 tablet^Rfl: 3 omeprazole (PRILOSEC) 20 mg capsule^Take 1 capsule by mouth twice daily.^Disp: 180 capsule^Rfl: 3 (Patient taking differently: Take 20 mg by mouth as needed.) fluticasone (FLONASE) 50 mcg/actuation nasal spray^Use 2 Sprays in each nostril once daily. Rinse mouth after use.^Disp: 11.1 mL^Rfl: 0 vits A,C,E/lutein/minerals (EYE HEALTH PLUS LUTEIN ORAL)^Take 1 capsule by mouth once daily.^Disp: ^Rfl: predniSONE (DELTASONE) 20 mg tablet^Take 2 tablets by mouth once daily for 5 days.^Disp: 10 tablet^Rfl: 0 ascorbic acid, vitamin C, (VITAMIN C) 500 mg tablet^Take 1 tablet by mouth twice daily with meals for 28 doses.^Disp: 28 tablet^Rfl: 0 (Patient taking differently: Take 500 mg by mouth as needed.) FAMILY HISTORY Problem Relation Age of Onset Stroke Mother Coronary Artery Disease Father Stroke Maternal Grandmother Social History Tobacco Use Smoking status: Never Smokeless tobacco: Never Vaping Use Vaping Use: Never used Substance Use Topics Alcohol use: Yes Comment: Rarely Drug use: No Review of Systems Constitutional: Negative for fever. Skin: Negative for itching and rash. Objective Blood pressure 138/86, pulse 74, temperature 36.7 C (98 F), temperature source Tympanic, resp. rate 18, weight 76.1 kg (167 lb 12.8 oz), SpO2 96 %. Physical Exam Constitutional: General: She is not in acute distress. Appearance: She is not toxic-appearing or diaphoretic. HENT: Head: Normocephalic and atraumatic. Pulmonary: Effort: Pulmonary effort is normal. No accessory muscle usage or respiratory distress. Musculoskeletal: Hands: Neurological: Mental Status: She is alert and oriented to person, place, and time. ASSESSMENT/PLAN: 1. Hand pain, left - ICD9: 729.5, ICD10: M79.642 Possible arthritis flair, will refer to pcp for recheck. Urgent f/u for worsening s/s. - PREDNISONE 20 MG TABLET Taras Nelson APRN.TIRE BUILDER documented in this encounter [facility] 11-26-2022 Note HNO ID: [id number] Author: Rajni Martinez APRN.CURTIS Service: ? Author Type: Nurse Practitioner Type: Progress Notes Filed: 11/26/2022 2:31 PM Note Text: Subjective Came in with complaints of left shoulder pain. Says it started a few days ago. Patient says it got significantly worse while raking the yard. Patient says range of motion is a little uncomfortable and it is tender to touch. Patient did not fall and injure it in any way. Patient does have history of bursitis and arthritis. The history is provided by the patient. No biblical languages professor was used. Review of Systems Constitutional: Negative. Skin: Negative. Objective Physical Exam Constitutional: Appearance: Normal appearance. Pulmonary: Effort: Pulmonary effort is normal. Musculoskeletal: Arms: Comments: Redness warmth and tenderness located in the area marked above. Difficulty with range of motion due to pain. Neurological: Mental Status: She is alert. PAST MEDICAL HISTORY Diagnosis Date Allergic rhinitis Benign neoplasm of colon Cervical radiculopathy due to intervertebral disc disorder 03/01/2012 Chronic kidney disease, stage 3a (HCC) 07/22/2022 Coronary artery disease Diverticulosis of colon (without mention of hemorrhage) Diverticulosis Essential hypertension, benign Heart attack (HCC) Hyperlipidemia LDL goal < 100 02/12/2010 Lichen sclerosus 03/10/2020 Lumbar disc disease with radiculopathy 05/08/2013 Mental disorder Osteoarthrosis, unspecified whether generalized or localized, unspecified site Other and unspecified hyperlipidemia Sacroiliac joint pain 07/05/[address] Type II or unspecified type diabetes mellitus without mention of complication, not stated as uncontrolled Vitiligo PAST SURGICAL HISTORY Procedure Laterality Date COLONOSCOPY FLX DX W/COLLJ SPEC WHEN PFRMD 05/16/2000 Colonoscopy COLONOSCOPY FLX DX W/COLLJ SPEC WHEN PFRMD 05/17/2011 Colonoscopy COLONOSCOPY W/BIOPSY SINGLE/MULTIPLE 11/14/07 HEMORRHOIDECTOMY XTRNL 2/> COLUMN/GROUP LEFT HEART CATH,PERCUTANEOUS 11/1999 PAST SURGICAL HISTORY OF 2003 R ureter surgery PAST SURGICAL HISTORY OF 2008 Cyst removal right index finger STRABISMUS RECESSION/RESCJ 1 [facility]L [facility] [place] Strabismus Surgery left eye ALLERGIES Dust and Mold MEDICATIONS ascorbic acid, vitamin C, (VITAMIN C) 500 mg tabletTake 1 tablet by mouth twice daily with meals for 28 doses.Disp: 28 tabletRfl: 0 (Patient taking differently: Take 500 mg by mouth as needed.) atenolol (TENORMIN) 25 mg tabletTake 1 tablet by mouth once daily.Disp: 90 tabletRfl: 3 atorvastatin (LIPITOR) 40 mg tabletTake 1 tablet by mouth daily at bedtime. For cholesterol.Disp: 90 tabletRfl: 1 fluticasone (FLONASE) 50 mcg/actuation nasal sprayUse 2 Sprays in each nostril once daily. Rinse mouth after use.Disp: 11.1 mLRfl: 0 omeprazole (PRILOSEC) 20 mg capsuleTake 1 capsule by mouth twice daily.Disp: 180 capsuleRfl: 3 (Patient taking differently: Take 20 mg by mouth as needed.) vits A,C,E/lutein/minerals (EYE HEALTH PLUS LUTEIN ORAL)Take 1 capsule by mouth once daily.Disp: Rfl: FAMILY HISTORY Problem Relation Age of Onset Stroke Mother Coronary Artery Disease Father Stroke Maternal Grandmother Social History Tobacco Use Smoking status: Never Smokeless tobacco: Never Vaping Use Vaping Use: Never used Substance Use Topics Alcohol use: Yes Comment: Rarely Drug use: No ASSESSMENT/PLAN: 1. Pain - ICD9: 780.96, ICD10: R52 (primary diagnosis) - XR SHOULDER GENERAL 3V OR MORE AP/TRUE AP/OTHER LEFT * * * * Physician Interpretation * * * * EXAMINATION: XR SHLDR >/=3V AP/DENNY AP/OTHR LT CLINICAL HISTORY: Left shoulder pain Technique: XR SHLDR >/=3V AP/DENNY AP/OTHR LT -- LEFT with 3 views on 3 images Comparison: None RESULT: No acute fracture or dislocation. Joint spaces are maintained. IMPRESSION IMPRESSION: No acute osseous abnormality [place] [employer] Technician: CELSO Transcribe Date/Time: Nov 26 2022 2:16P Dictated by : ADELE HOBSON MD 2. Skin infection - ICD9: 686.9, ICD10: L08.9 - DOXYCYCLINE MONOHYDRATE 100 MG TABLET Patient was educated about proper use of medication supportive therapies. Patient was educated to watch the reddened area and make sure it seems to be going down. If patient's pain increases she develops fever nausea vomiting. Patient is to go straight to the emergency room. Patient was okay with this care plan. Rajni Martinez APRN.[facility] 11-26-2022 Note HNO ID: [id number] Author: Rod Maxwell RT(R) Service: ? Author Type: Medical Review Specialist Type: Progress Notes Filed: 11/26/2022 2:12 PM Note Text: Radiology Service Progress Note PATIENT NAME: Garland Obando DATE OF SERVICE: November 26, 2022 TIME: 2:12 PM PATIENT IDENTITY VERIFICATION COMPLETED USING TWO (2) IDENTIFIERS: Name and Date of confirmed by patient verbally. FALL SCREENING: Has the patient had 2 falls in the last year or 1 fall with injury or currently using an Ambulatory Assistive Device (Walker, Cane, Wheelchair, Crutches, etc.)? Yes, Patient High Risk for Falls What interventions were put in place to prevent falls during this visit? Instructed Patient to Call for Help if Needed, Offered Assistance with Transfers/Clothing, Instructed Patient to Remain Seated (Not on Exam Table) Until Exam, and Increased Observations by Caregivers PATIENT GENDER DATA: Female. status: : No status: NO. PATIENT RELEVANT IMPLANT DATA REVIEWED: Yes RADIOLOGY DEPARTMENT: General X-ray: Exam(s) Completed: Upper Extremity X-Ray(s): Shoulder, AP / TRUE AP / AXILLARY left PERIPHERAL IV DATA: Not applicable SIGNED BY: RT Benji(R) November 26, 2022 2:12 PM [facility] 11-26-2022 History of Present illness Narrative Images from the original note were not included. Subjective Came in with complaints of left shoulder pain. Says it started a few days ago. Patient says it got significantly worse while raking the yard. Patient says range of motion is a little uncomfortable and it is tender to touch. Patient did not fall and injure it in any way. Patient does have history of bursitis and arthritis. The history is provided by the patient. No biblical languages professor was used. Review of Systems Constitutional: Negative. Skin: Negative. Objective Physical Exam Constitutional: Appearance: Normal appearance. Pulmonary: Effort: Pulmonary effort is normal. Musculoskeletal: Arms: Comments: Redness warmth and tenderness located in the area marked above. Difficulty with range of motion due to pain. Neurological: Mental Status: She is alert. PAST MEDICAL HISTORY Diagnosis Date Allergic rhinitis Benign neoplasm of colon Cervical radiculopathy due to intervertebral disc disorder 03/01/2012 Chronic kidney disease, stage 3a (HCC) 07/22/2022 Coronary artery disease Diverticulosis of colon (without mention of hemorrhage) Diverticulosis Essential hypertension, benign Heart attack (HCC) Hyperlipidemia LDL goal < 100 02/12/2010 Lichen sclerosus 03/10/2020 Lumbar disc disease with radiculopathy 05/08/2013 Mental disorder Osteoarthrosis, unspecified whether generalized or localized, unspecified site Other and unspecified hyperlipidemia Sacroiliac joint pain 07/05/[address] Type II or unspecified type diabetes mellitus without mention of complication, not stated as uncontrolled Vitiligo PAST SURGICAL HISTORY Procedure Laterality Date COLONOSCOPY FLX DX W/COLLJ SPEC WHEN PFRMD 05/16/2000 Colonoscopy COLONOSCOPY FLX DX W/COLLJ SPEC WHEN PFRMD 05/17/2011 Colonoscopy COLONOSCOPY W/BIOPSY SINGLE/MULTIPLE 11/14/07 HEMORRHOIDECTOMY XTRNL 2/> COLUMN/GROUP LEFT HEART CATH,PERCUTANEOUS 11/1999 PAST SURGICAL HISTORY OF 2003 R ureter surgery PAST SURGICAL HISTORY OF 2008 Cyst removal right index finger STRABISMUS RECESSION/RESCJ 1 [facility]NTL [facility] [place] Strabismus Surgery left eye ALLERGIES Dust and Mold MEDICATIONS ascorbic acid, vitamin C, (VITAMIN C) 500 mg tablet^Take 1 tablet by mouth twice daily with meals for 28 doses.^Disp: 28 tablet^Rfl: 0 (Patient taking differently: Take 500 mg by mouth as needed.) atenolol (TENORMIN) 25 mg tablet^Take 1 tablet by mouth once daily.^Disp: 90 tablet^Rfl: 3 atorvastatin (LIPITOR) 40 mg tablet^Take 1 tablet by mouth daily at bedtime. For cholesterol.^Disp: 90 tablet^Rfl: 1 fluticasone (FLONASE) 50 mcg/actuation nasal spray^Use 2 Sprays in each nostril once daily. Rinse mouth after use.^Disp: 11.1 mL^Rfl: 0 omeprazole (PRILOSEC) 20 mg capsule^Take 1 capsule by mouth twice daily.^Disp: 180 capsule^Rfl: 3 (Patient taking differently: Take 20 mg by mouth as needed.) vits A,C,E/lutein/minerals (EYE HEALTH PLUS LUTEIN ORAL)^Take 1 capsule by mouth once daily.^Disp: ^Rfl: FAMILY HISTORY Problem Relation Age of Onset Stroke Mother Coronary Artery Disease Father Stroke Maternal Grandmother Social History Tobacco Use Smoking status: Never Smokeless tobacco: Never Vaping Use Vaping Use: Never used Substance Use Topics Alcohol use: Yes Comment: Rarely Drug use: No ASSESSMENT/PLAN: 1. Pain - ICD9: 780.96, ICD10: R52 (primary diagnosis) - XR SHOULDER GENERAL 3V OR MORE AP/TRUE AP/OTHER LEFT * * * * Physician Interpretation * * * * EXAMINATION: XR SHLDR >/=3V AP/DENNY AP/OTHR LT CLINICAL HISTORY: Left shoulder pain Technique: XR SHLDR >/=3V AP/DENNY AP/OTHR LT -- LEFT with 3 views on 3 images Comparison: None RESULT: No acute fracture or dislocation. Joint spaces are maintained. IMPRESSION IMPRESSION: No acute osseous abnormality [place] [employer] [place] Technician: CELSO Transcribe Date/Time: Nov 26 2022 2:16P Dictated by : ADELE HOBSON MD 2. Skin infection - ICD9: 686.9, ICD10: L08.9 - DOXYCYCLINE MONOHYDRATE 100 MG TABLET Patient was educated about proper use of medication supportive therapies. Patient was educated to watch the reddened area and make sure it seems to be going down. If patient's pain increases she develops fever nausea vomiting. Patient is to go straight to the emergency room. Patient was okay with this care plan. Rajni Martinez APRN.CURTIS documented in this encounter [facility] 11-12-2022 Note HNO ID: [id number] Author: Lazara Lou CNMT Service: Radiology Author Type: Technologist Type: Progress Notes Filed: 11/12/2022 9:46 AM Note Text: RADIOLOGY SERVICE PROGRESS NOTE SERVICE DATE: 11/12/2022 SERVICE TIME: 9:09 AM PATIENT IDENTITY VERIFICATION COMPLETED USING TWO (2) STANDARD IDENTIFIERS: Name and Date of confirmed by patient verbally and Name and Date of confirmed by identification band FALL SCREENING: Has the patient had 2 falls in the last year or 1 fall with injury or currently using an Ambulatory Assistive Device (Walker, Cane, Wheelchair, Crutches, etc.)? Yes, Patient High Risk for Falls What interventions were put in place to prevent falls during this visit? [place] Risk Wristband Applied, Offered Assistance with Transfers/Clothing, and Increased Observations by Caregivers PATIENT GENDER DATA: .female : No ALLERGIES: Reviewed and unchanged MEDICATIONS REVIEWED: Not applicable PATIENT RELEVANT IMPLANT DATA REVIEWED: Not Applicable CREATININE: Creatinine Date Value Ref Range Status 08/03/2022 0.82 0.58 - 0.96 mg/dL Final 12/30/2021 1.16 (H) 0.58 - 0.96 mg/dL Final 11/20/2021 0.76 0.58 - 0.96 mg/dL Final Estimated Glomerular Filtration Rate Date Value Ref Range Status 08/03/2022 72 >=60 mL/min/1.73m? Final Comment: Estimated Glomerular Filtration Rate (eGFR) is calculated using the 2020 CKD-EPI creatinine equation. This equation utilizes serum creatinine, sex, and age as parameters. The creatinine assay has traceable calibration to isotope dilution-mass spectrometry. Refer to KDIGO guidelines for clinical interpretation. In patients with unstable renal function, e.g. those with acute kidney injury, the eGFR may not accurately reflect actual GFR. eGFR- Date Value Ref Range Status 04/03/2021 >60 Final P.O.C.T. RESULTS: N/A November 12, [address] PERFORMED: No IV SITE: Ambulatory: A peripheral IV was started in the Right antecubital site with a Angio cath: 22 gauge. POST EXAM PIV STATUS: Discontinued PROCEDURE TYPE: NM Stress: 12.9 mCi [id number]-[id number] was administered IV for Rest Imaging at 8:39 by . 33.9 mCi [id number] was administered IV for Stress Imaging at 9:38 by mm. PATIENT DISCHARGED TO: Ambulatory patient, left [place] department area. A Diagnostic radioactive procedure has taken place, with no further precautions necessary other than routine body substance precautions. More information regarding radiation safety can be found using this link: [email or web address]%20Nuclear%20Medi cine%[email or web address] SIGNATURE: FLORES Stark PATIENT NAME: Garland Obando DATE: November 12, 2022 TIME: 9:09 AM PAGER/CONTACT #: [facility] 11-12-2022 History of Present illness Narrative RADIOLOGY SERVICE PROGRESS NOTE SERVICE DATE: 11/12/2022 SERVICE TIME: 9:09 AM PATIENT IDENTITY VERIFICATION COMPLETED USING TWO (2) STANDARD IDENTIFIERS: Name and Date of confirmed by patient verbally and Name and Date of confirmed by identification band FALL SCREENING: Has the patient had 2 falls in the last year or 1 fall with injury or currently using an Ambulatory Assistive Device (Walker, Cane, Wheelchair, Crutches, etc.)? Yes, Patient High Risk for Falls What interventions were put in place to prevent falls during this visit? Yellow Falls Risk Wristband Applied, Offered Assistance with Transfers/Clothing, and Increased Observations by Caregivers PATIENT GENDER DATA: .female : No ALLERGIES: Reviewed and unchanged MEDICATIONS REVIEWED: Not applicable PATIENT RELEVANT IMPLANT DATA REVIEWED: Not Applicable CREATININE: Creatinine Date Value Ref Range Status 08/03/2022 0.82 0.58 - 0.96 mg/dL Final 12/30/2021 1.16 (H) 0.58 - 0.96 mg/dL Final 11/20/2021 0.76 0.58 - 0.96 mg/dL Final Estimated Glomerular Filtration Rate Date Value Ref Range Status 08/03/2022 72 >=60 mL/min/1.73m Final Comment: Estimated Glomerular Filtration Rate (eGFR) is calculated using the 2020 CKD-EPI creatinine equation. This equation utilizes serum creatinine, sex, and age as parameters. The creatinine assay has traceable calibration to isotope dilution-mass spectrometry. Refer to KDIGO guidelines for clinical interpretation. In patients with unstable renal function, e.g. those with acute kidney injury, the eGFR may not accurately reflect actual GFR. eGFR- Date Value Ref Range Status 04/03/2021 >60 Final P.O.C.T. RESULTS: N/A November 12, [address] PERFORMED: No IV SITE: Ambulatory: A peripheral IV was started in the Right antecubital site with a Angio cath: 22 gauge. POST EXAM PIV STATUS: Discontinued PROCEDURE TYPE: NM Stress: 12.9 mCi [id number]-Psuydzc was administered IV for Rest Imaging at 8:39 by . 33.9 mCi Py36s-Gqxawma was administered IV for Stress Imaging at 9:38 by mm. PATIENT DISCHARGED TO: Ambulatory patient, left [place] department area. A Diagnostic radioactive procedure has taken place, with no further precautions necessary other than routine body substance precautions. More information regarding radiation safety can be found using this link: [email or web address] %[email or web address] SIGNATURE: FLORES Stark PATIENT NAME: Garland Obando DATE: November 12, 2022 TIME: 9:09 AM PAGER/CONTACT #: documented in this encounter [facility] 11-02-2022 Note HNO ID: [id number] Author: Wes Quispe, DO Service: ? Author Type: Physician Type: Progress Notes Filed: 11/02/2022 4:17 PM Note Text: [facility] SECTION OF REGIONAL CARDIOLOGY [facility] OUTPATIENT VISIT DATE November 02, 2022 PRIMARY CARE PHYSICIAN: Santos Nuñez [address] [place] [address] HISTORY OF PRESENT ILLNESS: Ms. Obando is a 82 year old female. The patient presents for evaluation treatment options of syncope and collapse. She has additional issues with palpitations. She has had telemetry monitoring which has not showed any significant dysrhythmia. Syncope occurred most recently after having had plates the previous day from her cat. She has had previous multiple syncopal episodes in the past. His last episode she woke up to 5 [employer] after her daughter apparently gave her rescue CPR as directed to her by 911. The patient apparently had agonal breathing. She had no sequelae no recollection of such. There was no loss of bowel or bladder habit. Patient has a history of anxiety with difficulty sleeping. She states she unfortunately cannot turn her brain off . She returned years ago from a visit with family after which she was admitted with a Takotsubo cardiomyopathy. This apparently resolved very quickly and more recent echocardiogram have shown no significant valvular or structural heart disease with normal LV systolic function. The patient although has been given a history in the past of coronary disease but to her recollection has never been told that she has had such. Unfortunately previous records such as cardiac catheterizations are unavailable at the time of this dictation. She is lately complaining of easy fatigability suggestive of exercise intolerance/possible dyspnea. She denies chest discomfort. She notes palpitations occurring sporadically throughout the day lasting seconds to minutes. This is both feeling of intense heartbeat as well as racing of her heart. There is no other associated symptoms. She denies GI/ bleeding or melena. Her daughter who lives with her accompanies her today. The patient is and lives at home with her daughter. She is able to take care of her home. 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 She is a non-smoker, nondrinker. She has 1 cup of coffee daily. She admits to not drinking enough water. She has a small breakfast, moderate-sized lunch and larger portion dinner. She works part-time with her daughter at [employer]. She notes more difficulty with exertion due to knee pain and is in need of a total knee replacement in the near future. Cardiac risk factors: Age, postmenopausal female, hypertension, hyperlipidemia, prediabetes, possible history of CAD Impression: 1. Syncope and collapse 2. Palpitations 3. Dyspnea/exercise intolerance 4. History of CAD? 5. History of Takotsubo cardiomyopathy 6. Hypertension 7. History hyperlipidemia 8. History of prediabetes 9. Degenerative joint disease 10. Insomnia possible sleep disorder? PLAN AND RECOMMENDATIONS: Given the patient's exercise intolerance and symptoms she will need further evaluation for underlying ischemia or significant CAD with nuclear stress imaging. This will be performed with Lexiscan due to her relative inability to walk. In the absence of findings we recommend continued guideline directed therapy. There have been no significant dysrhythmias. We have long discussion regarding dietary modification and lifestyle modification the latter of which which would be more probable after her knee is replaced. Should nuclear stress imaging be normal/low risk, we feel confident that she would be acceptable risk to do so. In the interim we discussed improvement of hydration as well as improvement of the composition of her meals. We discussed essentially a Mediterranean style diet. We will follow-up with her in a month's time for repeat evaluation. In the interim we strongly suggest consideration of evaluation with sleep medicine which we will leave your discretion or will potentially order at her follow-up visit. Vitals: BP 118/80 Pulse 78 Ht 166.4 cm (5' 5.5 ) Wt 74.4 kg (164 lb) SpO2 98% BMI 26.88 kg/m? Physical Exam Vitals reviewed. Constitutional: General: She is not in acute distress. Appearance: Normal appearance. She is well-developed. HENT: Head: Normocephalic and atraumatic. Nose: Nose normal. Eyes: General: No scleral icterus. Right eye: No discharge. Left eye: No discharge. Pupils: Pupils are equal, round, and reactive to light. Neck: Thyroid: No thyromegaly. Vascular: No carotid bruit or JVD. Cardiovascular: Rate and Rhythm: Normal rate and regular rhythm. Heart sounds: Normal heart sounds. No murmur heard. No friction rub. No gallop. Pulm (more content not included)... [facility] 11-02-2022 History of Present illness Narrative Images from the original note were not included. [facility] SECTION OF REGIONAL CARDIOLOGY [facility] OUTPATIENT VISIT DATE November 02, 2022 PRIMARY CARE PHYSICIAN: Santos Nuñez [address] [place] [address] HISTORY OF PRESENT ILLNESS: Ms. Obando is a 82 year old female. The patient presents for evaluation treatment options of syncope and collapse. She has additional issues with palpitations. She has had telemetry monitoring which has not showed any significant dysrhythmia. Syncope occurred most recently after having had plates the previous day from her cat. She has had previous multiple syncopal episodes in the past. His last episode she woke up to 5 [employer] after her daughter apparently gave her rescue CPR as directed to her by 911. The patient apparently had agonal breathing. She had no sequelae no recollection of such. There was no loss of bowel or bladder habit. Patient has a history of anxiety with difficulty sleeping. She states she unfortunately cannot turn her brain off . She returned years ago from a visit with family after which she was admitted with a Takotsubo cardiomyopathy. This apparently resolved very quickly and more recent echocardiogram have shown no significant valvular or structural heart disease with normal LV systolic function. The patient although has been given a history in the past of coronary disease but to her recollection has never been told that she has had such. Unfortunately previous records such as cardiac catheterizations are unavailable at the time of this dictation. She is lately complaining of easy fatigability suggestive of exercise intolerance/possible dyspnea. She denies chest discomfort. She notes palpitations occurring sporadically throughout the day lasting seconds to minutes. This is both feeling of intense heartbeat as well as racing of her heart. There is no other associated symptoms. She denies GI/ bleeding or melena. Her daughter who lives with her accompanies her today. The patient is and lives at home with her daughter. She is able to take care of her home. 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 She is a non-smoker, nondrinker. She has 1 cup of coffee daily. She admits to not drinking enough water. She has a small breakfast, moderate-sized lunch and larger portion dinner. She works part-time with her daughter at [employer]. She notes more difficulty with exertion due to knee pain and is in need of a total knee replacement in the near future. Cardiac risk factors: Age, postmenopausal female, hypertension, hyperlipidemia, prediabetes, possible history of CAD Impression: 1. Syncope and collapse 2. Palpitations 3. Dyspnea/exercise intolerance 4. History of CAD? 5. History of Takotsubo cardiomyopathy 6. Hypertension 7. History hyperlipidemia 8. History of prediabetes 9. Degenerative joint disease 10. Insomnia possible sleep disorder? PLAN AND RECOMMENDATIONS: Given the patient's exercise intolerance and symptoms she will need further evaluation for underlying ischemia or significant CAD with nuclear stress imaging. This will be performed with Lexiscan due to her relative inability to walk. In the absence of findings we recommend continued guideline directed therapy. There have been no significant dysrhythmias. We have long discussion regarding dietary modification and lifestyle modification the latter of which which would be more probable after her knee is replaced. Should nuclear stress imaging be normal/low risk, we feel confident that she would be acceptable risk to do so. In the interim we discussed improvement of hydration as well as improvement of the composition of her meals. We discussed essentially a Mediterranean style diet. We will follow-up with her in a month's time for repeat evaluation. In the interim we strongly suggest consideration of evaluation with sleep medicine which we will leave your discretion or will potentially order at her follow-up visit. Vitals: BP 118/80 Pulse 78 Ht 166.4 cm (5' 5.5 ) Wt 74.4 kg (164 lb) SpO2 98% BMI 26.88 kg/m Physical Exam Vitals reviewed. Constitutional: General: She is not in acute distress. Appearance: Normal appearance. She is well-developed. HENT: Head: Normocephalic and atraumatic. Nose: Nose normal. Eyes: General: No scleral icterus. Right eye: No discharge. Left eye: No discharge. Pupils: Pupils are equal, round, and reactive to light. Neck: Thyroid: No thyromegaly. Vascular: No carotid bruit or JVD. Cardiovascular: Rate and Rhythm: Normal rate and regular rhythm. Heart sounds: Normal heart sounds. No murmur heard. No friction rub. No gallop. Pulmonary: Effort: Pulmonary effort is normal. No respiratory distress. Breath sounds: Normal breath sounds. No wheezing or rales. Abdominal: General: Bowel sounds are normal. Palpations: Abdomen is soft. Musculoskeletal: General: Normal range of motion. Cervical back: Normal range of motion and neck supple. Skin: General: Skin is warm and dry. Capillary Refill: Capillary refill takes less than 2 seconds. Coloration: Skin is not pale. Neurological: Mental Status: She is alert and oriented to person, place, and time. Cranial Nerves: No cranial nerve deficit. Psychiatric: Behavior: Behavior normal. Thought Content: Thought content normal. Judgment: Judgment normal. Review of Systems Constitutional: Positive for fatigue. Negative for activity change. HENT: Negative for ear pain and facial swelling. Eyes: Negative for pain and discharge. Respiratory: Positive for shortness of breath. Negative for chest tightness. Cardiovascular: Negative for chest pain, palpitations and leg swelling. Syncope and collapse Gastrointestinal: Negative for abdominal pain, blood in stool, nausea and vomiting. Endocrine: Negative for cold intolerance and heat intolerance. Genitourinary: Negative for frequency and hematuria. Musculoskeletal: Positive for arthralgias. Negative for gait problem. Skin: Negative for color change, pallor and rash. Allergic/Immunologic: Negative for immunocompromised state. Neurological: Negative for dizziness, syncope, light-headedness and headaches. Hematological: Negative for adenopathy. Does not bruise/bleed easily. Psychiatric/Behavioral: Negative for confusion. The patient is not nervous/anxious. PAST MEDICAL HISTORY Diagnosis Date Allergic rhinitis Benign neoplasm of colon Cervical radiculopathy due to intervertebral disc disorder 03/01/2012 Chronic kidney disease, stage 3a (HCC) 07/22/2022 Coronary artery disease Diverticulosis of colon (without mention of hemorrhage) Diverticulosis Essential hypertension, benign Heart attack (HCC) Hyperlipidemia LDL goal < 100 02/12/2010 Lichen sclerosus 03/10/2020 Lumbar disc disease with radiculopathy 05/08/2013 Mental disorder Osteoarthrosis, unspecified whether generalized or localized, unspecified site Other and unspecified hyperlipidemia Sacroiliac joint pain 07/05/[address] Type II or unspecified type diabetes mellitus without mention of complication, not stated as uncontrolled Vitiligo PAST SURGICAL HISTORY Procedure Laterality Date COLONOSCOPY FLX DX W/COLLJ SPEC WHEN PFRMD 05/16/2000 Colonoscopy COLONOSCOPY FLX DX W/COLLJ SPEC WHEN PFRMD 05/17/2011 Colonoscopy COLONOSCOPY W/BIOPSY SINGLE/MULTIPLE 11/14/07 HEMORRHOIDECTOMY XTRNL 2/> COLUMN/GROUP LEFT HEART CATH,PERCUTANEOUS 11/1999 PAST SURGICAL HISTORY OF 2003 R ureter surgery PAST SURGICAL HISTORY OF 2008 Cyst removal right index finger STRABISMUS RECESSION/RESCJ 1 [facility]NTL [facility] Strabismus Surgery left eye Social History Tobacco Use Smoking status: Never Smokeless tobacco: Never Vaping Use Vaping Use: Never used Substance Use Topics Alcohol use: Yes Comment: Rarely Drug use: No FAMILY HISTORY Problem Relation Age of Onset Stroke Mother Coronary Artery Disease Father Stroke Maternal Grandmother ALLERGIES Allergen Reactions Dust Mold CURRENT MEDICATIONS: atorvastatin (LIPITOR) 40 mg tablet^Take 1 tablet by mouth daily at bedtime. For cholesterol.^Disp: 90 tablet^Rfl: 1 atenolol (TENORMIN) 25 mg tablet^Take 1 tablet by mouth once daily.^Disp: 90 tablet^Rfl: 3 omeprazole (PRILOSEC) 20 mg capsule^Take 1 capsule by mouth twice daily.^Disp: 180 capsule^Rfl: 3 (Patient taking differently: Take 20 mg by mouth as needed.) fluticasone (FLONASE) 50 mcg/actuation nasal spray^Use 2 Sprays in each nostril once daily. Rinse mouth after use.^Disp: 11.1 mL^Rfl: 0 vits A,C,E/lutein/minerals (EYE HEALTH PLUS LUTEIN ORAL)^Take 1 capsule by mouth once daily.^Disp: ^Rfl: ascorbic acid, vitamin C, (VITAMIN C) 500 mg tablet^Take 1 tablet by mouth twice daily with meals for 28 doses.^Disp: 28 tablet^Rfl: 0 (Patient taking differently: Take 500 mg by mouth as needed.) Wes Quispe DO, FACC, FACOI Anthropologist Physical, [facility] Anthropologist Physical, [facility] Cardiac Rehabilitation Anthropologist Physical, [facility] Cardiac Rehabilitation Anthropologist Physical, [facility] Anthropologist Physical, [facility] Ambulatory Cardiology Clinical School Bus Driver/Teacher Assistant Profressor of Medicine, [facility] - [facility] Staff Senior Clinical Study Manager, Azar Florez Department of Cardiovascular Medicine/Heart and Vascular [place], [facility] Please note: This note has been produced using speech recognition software and may contain errors related to that system including mary anne, punctuation, spelling, words, gender and phrases that may be inappropriate. documented in this encounter [facility] 10-14-2022 Note HNO ID: [id number] Author: Gracie Gandhi PA-C Service: ? Author Type: Physician School Bus Driver/Teacher Assistant Type: Progress Notes Filed: 10/14/2022 3:08 PM Note Text: Gracie Gandhi PA-C [facility] [address] [address] 10/14/2022 ASSESSMENT AND PLAN: Assessment : Encounter Diagnosis ICD-10-CM 1. Degeneration of lumbar or lumbosacral intervertebral disc M51.37 XR LUMBAR MOTION 4V AP/LAT/ FLEX/EXT CONSULT TO PHYSICAL THERAPY 2. Chronic bilateral low back pain without sciatica M54.50 XR LUMBAR MOTION 4V AP/LAT/ FLEX/EXT G89.29 CONSULT TO PHYSICAL THERAPY Discussion: Ms. Obando is a very pleasant 82-year-old female accompanied by a family member here at today's office visit. She is here for evaluation of generalized lumbosacral pain over wide area of the low back, posterior pelvis. She does have appreciable and fairly severe right knee pain and right hip pain. She sees orthopedics separately. She walks with a quad cane EXAM Highlights: Her gait very prominently favors the right side. She has difficulty placing almost any amount of weight on her right leg and limps quite a bit. Low back is mildly to moderately tender throughout the entire lumbar paraspinal musculature and bilateral PSIS and SI regions She has normal motor and sensory function on the left but her global motor function on the right is appreciably diminished as noted below. She describes limitations secondary to pain reproduction in the knee or the hip or both. Voluntary sitting SLR is negative bilaterally. She is unable to straighten out her right knee fully. This gives her a functional leg length discrepancy right shorter than left. IMAGING: I was able to review some x-rays of her hips but it does not indicate that she was standing for any of the films. There does also appear to be some appreciable low back degeneration at the discs that are visualized on the x-rays. SUMMARY/PLAN: I think that a lot of her low back issues are secondary to her hip issues. She understands that any treatment of the low back will need to be remaining fairly conservative in order to provide a reasonable measure of safety. I would probably hold off on injections but have her focus is much as possible on the underlying orthopedic issues affecting the right lower extremity. She does have age-appropriate degenerative findings with disc space narrowing and facet arthropathy in the lumbar region, but I do not think that she has the majority of her back pain caused by this more chronic finding. Plan : DIAGNOSTIC TESTING: -X-ray views will be obtained to better evaluate bony structures. -Dynamic plain radiographs of the Lumbar spine are ordered. REFERAL FOR SERVICES: -Physical therapy will be instituted. MEDICATIONS: -She is to check with her PCP regarding consideration of an oral NSAIDs for day-to-day help with her back pain and right leg OA symptoms in the knee and hip. She does have increased BUN and creatinine so she will check with PCP before starting oral NSAIDs ACTIVITY RECOMMENDATIONS: -The patient is encouraged to avoid bed rest and maintain normal activity. FOLLOW-UP: -The patient is instructed to return as needed. This document has been created with the use of voice recognition technology. It may contain inaccuracies: (e.g. misspellings, inaccurate syntax or word sense) that have escaped review. Time spent: 40 minutes today with this patient visit. This includes [id number] time, review of chart records regarding conservative care history, spine-pertinent imaging, and communication/care coordination with referring provider, problem-specific history-taking and counseling/education regarding treatment options. cc: SELF Phone: N/A Fax: Results of consultation to be transmitted via electronic medical record for those providers who practice within [facility] [place] or with access to [facility] via [facility], or via letter. ____ ################################## ################################## #### CHIEF COMPLAINT: Patient is here for the lower back pain, pain radiates to the middle back, and then to the right leg. Has numbness in the feet. Has this pain for years. In the last few months pain started to get worse. Level of the pain is at 6/10. HPI: see Discussion above History of bowel or bladder dysfunction (not IBS or constipation): Yes, Frequency History of previous spinal surgery: No History of spinal fracture: No Work Status: retired NON-OPERATIVE CARE: Medication(s): She has tried the following for relief of her symptoms: taking no medications for this problem Physical Therapy: She has had physical therapy for her current symptoms. Was not helping Spinal Injections: She has gotten prior spinal injections. Lumbar facet injections/MB (more content not included)... [facility] 10-14-2022 History of Present illness Narrative Images from the original note were not included. Gracie Gandhi PA-C [facility] [address] [address] 10/14/2022 ASSESSMENT AND PLAN: Assessment : Encounter Diagnosis ICD-10-CM 1. Degeneration of lumbar or lumbosacral intervertebral disc M51.37 XR LUMBAR MOTION 4V AP/LAT/ FLEX/EXT CONSULT TO PHYSICAL THERAPY 2. Chronic bilateral low back pain without sciatica M54.50 XR LUMBAR MOTION 4V AP/LAT/ FLEX/EXT G89.29 CONSULT TO PHYSICAL THERAPY Discussion: Ms. Obando is a very pleasant 82-year-old female accompanied by a family member here at today's office visit. She is here for evaluation of generalized lumbosacral pain over wide area of the low back, posterior pelvis. She does have appreciable and fairly severe right knee pain and right hip pain. She sees orthopedics separately. She walks with a quad cane EXAM Highlights: Her gait very prominently favors the right side. She has difficulty placing almost any amount of weight on her right leg and limps quite a bit. Low back is mildly to moderately tender throughout the entire lumbar paraspinal musculature and bilateral PSIS and SI regions She has normal motor and sensory function on the left but her global motor function on the right is appreciably diminished as noted below. She describes limitations secondary to pain reproduction in the knee or the hip or both. Voluntary sitting SLR is negative bilaterally. She is unable to straighten out her right knee fully. This gives her a functional leg length discrepancy right shorter than left. IMAGING: I was able to review some x-rays of her hips but it does not indicate that she was standing for any of the films. There does also appear to be some appreciable low back degeneration at the discs that are visualized on the x-rays. SUMMARY/PLAN: I think that a lot of her low back issues are secondary to her hip issues. She understands that any treatment of the low back will need to be remaining fairly conservative in order to provide a reasonable measure of safety. I would probably hold off on injections but have her focus is much as possible on the underlying orthopedic issues affecting the right lower extremity. She does have age-appropriate degenerative findings with disc space narrowing and facet arthropathy in the lumbar region, but I do not think that she has the majority of her back pain caused by this more chronic finding. Plan : DIAGNOSTIC TESTING: -X-ray views will be obtained to better evaluate bony structures. -Dynamic plain radiographs of the Lumbar spine are ordered. REFERAL FOR SERVICES: -Physical therapy will be instituted. MEDICATIONS: -She is to check with her PCP regarding consideration of an oral NSAIDs for day-to-day help with her back pain and right leg OA symptoms in the knee and hip. She does have increased BUN and creatinine so she will check with PCP before starting oral NSAIDs ACTIVITY RECOMMENDATIONS: -The patient is encouraged to avoid bed rest and maintain normal activity. FOLLOW-UP: -The patient is instructed to return as needed. This document has been created with the use of voice recognition technology. It may contain inaccuracies: (e.g. misspellings, inaccurate syntax or word sense) that have escaped review. Time spent: 40 minutes today with this patient visit. This includes [id number] time, review of chart records regarding conservative care history, spine-pertinent imaging, and communication/care coordination with referring provider, problem-specific history-taking and counseling/education regarding treatment options. cc: SELF Phone: N/A Fax: Results of consultation to be transmitted via electronic medical record for those providers who practice within [facility], [place] or with access to [facility] via [facility], or via letter. ____ ################################## ################################## #### CHIEF COMPLAINT: Patient is here for the lower back pain, pain radiates to the middle back, and then to the right leg. Has numbness in the feet. Has this pain for years. In the last few months pain started to get worse. Level of the pain is at 6/10. HPI: see Discussion above History of bowel or bladder dysfunction (not IBS or constipation): Yes, Frequency History of previous spinal surgery: No History of spinal fracture: No Work Status: retired NON-OPERATIVE CARE: Medication(s): She has tried the following for relief of her symptoms: taking no medications for this problem Physical Therapy: She has had physical therapy for her current symptoms. Was not helping Spinal Injections: She has gotten prior spinal injections. Lumbar facet injections/MBBs 2017 Other: None Current Outpatient Medications Medication Sig Dispense Refill atorvastatin (LIPITOR) 40 mg tablet Take 1 tablet by mouth daily at bedtime. For cholesterol. 90 tablet 1 atenolol (TENORMIN) 25 mg tablet Take 1 tablet by mouth once daily. 90 tablet 3 ascorbic acid, vitamin C, (VITAMIN C) 500 mg tablet Take 1 tablet by mouth twice daily with meals for 28 doses. (Patient taking differently: Take 500 mg by mouth as needed.) 28 tablet 0 omeprazole (PRILOSEC) 20 mg capsule Take 1 capsule by mouth twice daily. (Patient taking differently: Take 20 mg by mouth as needed.) 180 capsule 3 fluticasone (FLONASE) 50 mcg/actuation nasal spray Use 2 Sprays in each nostril once daily. Rinse mouth after use. 11.1 mL 0 vits A,C,E/lutein/minerals (EYE HEALTH PLUS LUTEIN ORAL) Take 1 capsule by mouth once daily. Current Facility-Administered Medications Medication Dose Route Frequency Provider Last Rate Last Admin perflutren lipid microspheres 1.3 mL in NaCl (PF) 0.9% 10 mL injection (DEFINITY) INTRAVENOUS DIRECTED PRN Radha López, SQUILGEER.TIRE BUILDER sodium chloride 0.9 % (flush) 10 mL (BD POSIFLUSH) 10 mL INTRAVENOUS DIRECTED PRN Radha López, SQUILGEER.TIRE BUILDER Allergies: Dust and Mold PAST MEDICAL HISTORY Diagnosis Date Allergic rhinitis Benign neoplasm of colon Cervical radiculopathy due to intervertebral disc disorder 03/01/2012 Chronic kidney disease, stage 3a (HCC) 07/22/2022 Coronary artery disease Diverticulosis of colon (without mention of hemorrhage) Diverticulosis Essential hypertension, benign Heart attack (HCC) Hyperlipidemia LDL goal < 100 02/12/2010 Lichen sclerosus 03/10/2020 Lumbar disc disease with radiculopathy 05/08/2013 Mental disorder Osteoarthrosis, unspecified whether generalized or localized, unspecified site Other and unspecified hyperlipidemia Sacroiliac joint pain 07/05/[address] Type II or unspecified type diabetes mellitus without mention of complication, not stated as uncontrolled Vitiligo PAST SURGICAL HISTORY Procedure Laterality Date COLONOSCOPY FLX DX W/COLLJ SPEC WHEN PFRMD 05/16/2000 Colonoscopy COLONOSCOPY FLX DX W/COLLJ SPEC WHEN PFRMD 05/17/2011 Colonoscopy COLONOSCOPY W/BIOPSY SINGLE/MULTIPLE 11/14/07 HEMORRHOIDECTOMY XTRNL 2/> COLUMN/GROUP LEFT HEART CATH,PERCUTANEOUS 11/1999 PAST SURGICAL HISTORY OF 2003 R ureter surgery PAST SURGICAL HISTORY OF 2008 Cyst removal right index finger STRABISMUS RECESSION/RESCJ 1 [facility] Strabismus Surgery left eye Social History Tobacco Use Smoking status: Never Smokeless tobacco: Never Vaping Use Vaping Use: Never used Substance Use Topics Alcohol use: Yes Comment: Rarely Drug use: No FAMILY HISTORY Problem Relation Age of Onset Stroke Mother Coronary Artery Disease Father Stroke Maternal Grandmother REVIEW OF SYSTEMS: Constitutional: (-) Fever/Chills (+) Night Sweats (-) Weight Gain (-) Weight Loss (+) Fatigue Gastrointestinal: (-) Abdominal Pain (-) Diarrhea (+) Constipation (+) Nausea/Vomiting (-) Heart Burn Cardiovascular: (+) Chest Pain (+) Palpitations (+) Lightheadedness (-) Swelling of Ankles (-) Hx Heart Surgery/Stent Respiratory: (+) Short of Breath (-) Cough (-) Snoring Neurologic: (-) Headache (+) Blurry Vision (+) Fainting Skin: (-) Rashes (-) Itching (-) Other Lesions Psychiatric: (-) Depression (-) Anxiety (-) Suicidal Thoughts Genitourinary: (+) Frequency (-) Urgency Endocrine: (+) Thyroid Disorder (-) Diabetes Hematologic: (-) Prolonged Bleeding (-) Easy Bruising ################################## ################################## ################################## ########################### PHYSICAL EXAM: Blood pressure 133/57, pulse (!) 57, height 166.4 cm (5' 5.5 ), weight 76.4 kg (168 lb 8 oz), SpO2 96 %. Body mass index is 27.61 kg/m . General: Patient is a(n) average historian. The patient appears approximately the recorded age and is sitting comfortably in the examining room. The patient is short in stature and is average weight in appearance. This individual has difficulty arising from a sitting position and does have difficulty acquiring a full, upright position when standing. Station and Gait: flexed posture and antalgic gait leaning forward, favoring the right lower extremity, flexed posture and gait using a cane, and short strides The patient is unable to walk in a tandem gait. MENTAL STATUS EXAMINATION: The patient was neatly dressed and well groomed. The patient had good eye contact and rapport was average to establish. The patient appeared to be alert and oriented in all spheres. The patient's overall medical judgment appeared to be fair.The patient's motivation for treatment was judged based on today's encounter to be fair. SPINE: Lumbar Lordosis: Decreased/flattened Thoracic Kyphosis: Normal PALPATION TENDERNESS: Moderate tenderness at: lumbar region and posterior pelvis Hyperesthesia present: No Regional symptoms present: No Increased pain with axial loading: No Distraction: Normal Pain responses: appropriate NEUROLOGIC EXAM: MOTOR: Requires verbal cues to minimize cog-wheel or give-way resistance: No Hip Flexor R: -4/5 L: 5/5 Hip Abductor R: -4/5 L: 5/5 Hip Adductor R: 4/5 L: 5/5 Knee Extension R: -4/5 L: 5/5 Foot Dorsiflexion R: +4/5 L: 5/5 Foot Plantar Flexion R: 4/5 L: 5/5 Ext Hallicus Longus R: 5/5 L: 5/5 Toe Extensors R: 5/5 L: 5/5 SENSATION to Light Touch: Lumbar: L2-S1 symmetrically normal. REFLEXES: Lower Extremity: All Lower Extremity reflexes symmetrically normal. Clonus: R: 0 beats/Normal L: 0 beats/Normal Babinski Sign: Negative bilaterally. VASCULAR: Skin appearance: Right: Warm/pink Left: Warm/pink Capillary refill: Right: brisk Left: brisk ADDITIONAL MUSCULOSKELETAL EXAM: HIP/PELVIS EXAM: Tenderness over the PSIS: Right: Yes Left: Yes Greater Trochanteric pain: Right: No Left: No Motion restriction: Right: Yes Left: No Pain: Right: Yes Left: No SPECIAL TESTS: Straight Leg Raise: negative bilaterally Contralateral Straight Leg Raise: negative bilaterally IMAGING STUDIES: See discussion above documented in this encounter [facility] 10-04-2022 Note HNO ID: [id number] Author: Christen Lindo PA-C Service: ? Author Type: Physician School Bus Driver/Teacher Assistant Type: Progress Notes Filed: 10/04/2022 9:13 AM Note Text: Christen Lindo PA-C Department of Orthopaedics Orthopaedics [address] [place] [id number] Dept: [phone] Dept October 04, 2022 CHIEF COMPLAINT: Follow Up of the Right Knee and 10 weeks post visit OA right knee with injection given Ms. Garland Obando is a 82 year old female who presents with worsening right knee pain, pain is a constant 6 out of 10 deep aching along the lateral aspect of her knee. We did try a corticosteroid injection which only gave her a few weeks relief in her pain. She ambulates with the assistance of a cane. We have not started any type of an oral NSAID as she is currently being worked up for an episode of syncope as well as some abnormal blood proteins. She is status post right total hip arthroplasty with Dr. Heller in 2021. ASSESSMENT: M17.11 Primary osteoarthritis of right knee (primary encounter diagnosis) M25.561, G89.29 Chronic pain of right knee PLAN: We discussed getting her into see Dr. Heller to discuss right total hip arthroplasty, she has an appointment with cardiology to be worked up following her episode of syncope. I would like her to see cardiology before scheduling her with Dr. Heller. In the meantime we discussed trying a hinged knee brace to see if that gives her a little bit of stability helps with the knee pain. Unsure if she was to follow up again with hematology. Ms. Garland Obando was advised as to contrast therapies and/or to take analgesics/anti-inflammatories as needed and all contraindications were reviewed. OBJECTIVE: Ms. Garland Obando is a pleasant 82 year old in no apparent distress. Gen:There were no vitals taken for this visit. nl development, non obese, no deformities ENT: Normocephalic, normal hearing, moist mucosa CV: Pulses:DP/PT= 2+ and symmetric, capillary refill < 2 secs, no peripheral edema/varicosities Skin: no rash, bruising or lesions. Good turgor. Psych: cooperative and appropriate, alert and oriented x 3, good mood and affect. Musculoskeletal: KNEE EXAM: Right: Alignment: Valgus deformity, Partially Correctable Range of motion is lacking a few degrees secondary to tight hamstrings degrees in extension and 110 degrees of flexion. Extension La degrees Pain with ROM: Yes Effusion: Slight Tender to the palpation of Lateral femoral condyle and Lateral joint line Pain with patellar compression: No Stability: Anterior/Posterior stable and Varus/Valgus stable Hip Exam: flexion to 100+ degrees, full extension, internal/external rotation adequate, and no pain with log roll Neurovascular Status: Sensation Intact, Moves foot and ankle up AND down, and 2+ dorsalis pedis Imaging: IMPRESSION: Findings are suggestive of degenerative changes/osteoarthritis in the right knee with joint effusion. Crown And Bridge Technician: PSCB Transcribe Date/Time: Jul 28 2022 8:23A Dictated by : KAMERON CLARKE MD This examination was interpreted and the report reviewed and electronically signed by: KAMERON CLARKE MD on Jul 28 2022 8:27AM EST Results-Findings * * *Final Report* * * DATE OF EXAM: Jul 26 2022 1:02PM [id number] - XR KNEE 4V AP/PA BOTH+LAT/GAVIOTA RT / PROCEDURE REASON: Pain * * * * Physician Interpretation * * * * EXAM TITLE: XR KNEE 4V AP/PA BOTH+LAT/GAVIOTA RT EXAM DATE/TIME: 07/26/2022 1:02 PM COMPARISON: X-ray knee on 06/04/2021 CLINICAL INDICATION/HISTORY: Knee pain. TECHNIQUE: AP/PA, lateral and sunrise views of the right knee are presented. FINDINGS: No acute fractures or subluxations are noted. Bone on bone lateral compartmental joint space narrowing is demonstrated. There is valgus deformity. There is tricompartmental osteophyte formation. Cystic formation along the posterior aspect of the patella. There is small to moderate joint effusion. The bones are osteopenic. There is no significant soft tissue swelling. Others: Degenerative changes noted in the left knee. Supporting Subjective Information Below: Past Surgical History: PAST SURGICAL HISTORY Procedure Laterality Date COLONOSCOPY FLX DX W/COLLJ SPEC WHEN PFRMD 05/16/2000 Colonoscopy COLONOSCOPY FLX DX W/COLLJ SPEC WHEN PFRMD 05/17/2011 Colonoscopy COLONOSCOPY W/BIOPSY SINGLE/MULTIPLE 11/14/07 HEMORRHOIDECTOMY XTRNL 2/> COLUMN/GROUP LEFT HEART CATH,PERCUTANEOUS 11/1999 PAST SURGICAL HISTORY OF 2003 R ureter surgery PAST SURGICAL HISTORY OF 2008 Cyst removal right index finger STRABISMUS RECESSION/RESCJ 1 [facility] Strabismus Surgery left eye Medications: Current Outpatient Medications Medication Sig atorvastatin (LIPITOR) 40 mg tablet Take 1 tablet by mouth daily at bedtime. For cholesterol. atenolol (TENORMIN) 25 mg tablet Take 1 tablet by mouth once daily. ascorbic acid, vitamin C, (more content not included)... [facility] 10-04-2022 Miscellaneous Notes [employer] System[employer]art message sent to pt notifying her of results and recommendation from Provider. Cindy Lewis Ma ----- Message from No Cosme APRN.TIRE BUILDER sent at 10/04/2022 7:38 AM EDT ----- Significantly improved cholesterol. Continue current medication. No Cosme APRN.CNP documented in this encounter [facility] 10-04-2022 Note HNO ID: [id number] Author: Arleen Garcia Ma Service: ? Author Type: ? Type: Progress Notes Filed: 10/04/2022 9:13 AM Note Text: Patient presents with: Right Knee - Follow Up 10 weeks post visit OA right knee with injection given AMB ROOMING INTAKE FLOWSHEET DATA Pain Pain Location: Knee-Right Description: Sharp Frequency: Continuous (Worse with weight bearing) Intervention/Comfort measure: (None) Patient states she is continuing to have pain in her right knee. She has been using a quad cane or a walker to ambulate. Injection did not help. Taking no med's for the pain. PT ASSESSMENT - CASTING ROOM Garland presents for Application of brace. Applied DonJoy Hinged knee brace size large to Right knee. Patient tolerated well. Patient has been instructed in Care and proper application of brace. Patient signed PPA electronically for billing. Patient verbalized understanding. Arleen Garcia Ma [facility] 10-04-2022 History of Present illness Narrative Christen Lindo PA-C Department of Orthopaedics Orthopaedics [facility] [address] Dept: [phone] Dept October 04, 2022 CHIEF COMPLAINT: Follow Up of the Right Knee and 10 weeks post visit OA right knee with injection given Ms. Garland Obando is a 82 year old female who presents with worsening right knee pain, pain is a constant 6 out of 10 deep aching along the lateral aspect of her knee. We did try a corticosteroid injection which only gave her a few weeks relief in her pain. She ambulates with the assistance of a cane. We have not started any type of an oral NSAID as she is currently being worked up for an episode of syncope as well as some abnormal blood proteins. She is status post right total hip arthroplasty with Dr. Heller in 2021. ASSESSMENT: M17.11 Primary osteoarthritis of right knee (primary encounter diagnosis) M25.561, G89.29 Chronic pain of right knee PLAN: We discussed getting her into see Dr. Heller to discuss right total hip arthroplasty, she has an appointment with cardiology to be worked up following her episode of syncope. I would like her to see cardiology before scheduling her with Dr. Heller. In the meantime we discussed trying a hinged knee brace to see if that gives her a little bit of stability helps with the knee pain. Unsure if she was to follow up again with hematology. Ms. Garland Obando was advised as to contrast therapies and/or to take analgesics/anti-inflammatories as needed and all contraindications were reviewed. OBJECTIVE: Ms. Garland Obando is a pleasant 82 year old in no apparent distress. Gen:There were no vitals taken for this visit. nl development, non obese, no deformities ENT: Normocephalic, normal hearing, moist mucosa CV: Pulses:DP/PT= 2+ and symmetric, capillary refill < 2 secs, no peripheral edema/varicosities Skin: no rash, bruising or lesions. Good turgor. Psych: cooperative and appropriate, alert and oriented x 3, good mood and affect. Musculoskeletal: KNEE EXAM: Right: Alignment: Valgus deformity, Partially Correctable Range of motion is lacking a few degrees secondary to tight hamstrings degrees in extension and 110 degrees of flexion. Extension La degrees Pain with ROM: Yes Effusion: Slight Tender to the palpation of Lateral femoral condyle and Lateral joint line Pain with patellar compression: No Stability: Anterior/Posterior stable and Varus/Valgus stable Hip Exam: flexion to 100+ degrees, full extension, internal/external rotation adequate, and no pain with log roll Neurovascular Status: Sensation Intact, Moves foot and ankle up & down, and 2+ dorsalis pedis Imaging: IMPRESSION: Findings are suggestive of degenerative changes/osteoarthritis in the right knee with joint effusion. Crown And Bridge Technician: CELSO Transcribe Date/Time: Jul 28 2022 8:23A Dictated by : KAMERON CLARKE MD This examination was interpreted and the report reviewed and electronically signed by: KAMERON CLARKE MD on Jul 28 2022 8:27AM EST Results-Findings * * *Final Report* * * DATE OF EXAM: Jul 26 2022 1:02PM [id number] - XR KNEE 4V AP/PA BOTH+LAT/GAVIOTA RT / PROCEDURE REASON: Pain * * * * Physician Interpretation * * * * EXAM TITLE: XR KNEE 4V AP/PA BOTH+LAT/GAVIOTA RT EXAM DATE/TIME: 07/26/2022 1:02 PM COMPARISON: X-ray knee on 06/04/2021 CLINICAL INDICATION/HISTORY: Knee pain. TECHNIQUE: AP/PA, lateral and sunrise views of the right knee are presented. FINDINGS: No acute fractures or subluxations are noted. Bone on bone lateral compartmental joint space narrowing is demonstrated. There is valgus deformity. There is tricompartmental osteophyte formation. Cystic formation along the posterior aspect of the patella. There is small to moderate joint effusion. The bones are osteopenic. There is no significant soft tissue swelling. Others: Degenerative changes noted in the left knee. Supporting Subjective Information Below: Past Surgical History: PAST SURGICAL HISTORY Procedure Laterality Date COLONOSCOPY FLX DX W/COLLJ SPEC WHEN PFRMD 05/16/2000 Colonoscopy COLONOSCOPY FLX DX W/COLLJ SPEC WHEN PFRMD 05/17/2011 Colonoscopy COLONOSCOPY W/BIOPSY SINGLE/MULTIPLE 11/14/07 HEMORRHOIDECTOMY XTRNL 2/> COLUMN/GROUP LEFT HEART CATH,PERCUTANEOUS 11/1999 PAST SURGICAL HISTORY OF 2003 R ureter surgery PAST SURGICAL HISTORY OF 2008 Cyst removal right index finger [facility] Strabismus Surgery left eye Medications: Current Outpatient Medications Medication Sig atorvastatin (LIPITOR) 40 mg tablet Take 1 tablet by mouth daily at bedtime. For cholesterol. atenolol (TENORMIN) 25 mg tablet Take 1 tablet by mouth once daily. ascorbic acid, vitamin C, (VITAMIN C) 500 mg tablet Take 1 tablet by mouth twice daily with meals for 28 doses. (Patient taking differently: Take 500 mg by mouth as needed.) omeprazole (PRILOSEC) 20 mg capsule Take 1 capsule by mouth twice daily. (Patient taking differently: Take 20 mg by mouth as needed.) fluticasone (FLONASE) 50 mcg/actuation nasal spray Use 2 Sprays in each nostril once daily. Rinse mouth after use. vits A,C,E/lutein/minerals (EYE HEALTH PLUS LUTEIN ORAL) Take 1 capsule by mouth once daily. Current Facility-Administered Medications Medication Dose Route Frequency perflutren lipid microspheres 1.3 mL in NaCl (PF) 0.9% 10 mL injection (DEFINITY) INTRAVENOUS DIRECTED PRN sodium chloride 0.9 % (flush) 10 mL (BD POSIFLUSH) 10 mL INTRAVENOUS DIRECTED PRN Allergies: Dust, Mold, and No Known Drug Allergies ROS: General (negative for fatigue, malaise, weight loss/gain) HEENT (negative for headache, earache, recent vision changes, sinus pain, sore throat) Respiratory (no recent shortness of breath, hemoptysis) CV (negative for chest tightness, palpitations) Musculoskeletal (see HPI) Psych (no depression, anxiety) This note was partially generated using [employer] voice recognition system, and there may be some incorrect words, spellings, and punctuation that were not noted in checking the note before saving. Christen Lindo PA-C Patient presents with: Right Knee - Follow Up 10 weeks post visit OA right knee with injection given AMB ROOMING INTAKE FLOWSHEET DATA Pain Pain Location: Knee-Right Description: Sharp Frequency: Continuous (Worse with weight bearing) Intervention/Comfort measure: (None) Patient states she is continuing to have pain in her right knee. She has been using a quad cane or a walker to ambulate. Injection did not help. Taking no med's for the pain. PT ASSESSMENT - CASTING ROOM Garland presents for Application of brace. Applied DonJoy Hinged knee brace size large to Right knee. Patient tolerated well. Patient has been instructed in Care and proper application of brace. Patient signed PPA electronically for billing. Patient verbalized understanding. Arleen Garcia Ma documented in this encounter [facility] 10-01-2022 Note HNO ID: [id number] Author: No Cosme APRN.TIRE BUILDER Service: ? Author Type: Nurse Practitioner Type: Progress Notes Filed: 10/01/2022 1:56 PM Note Text: 10/01/2022 Patient presents with: Follow Up: 6 month follow up SUBJECTIVE: This is a 82 year old that is here today for Above Complaints. Since last office visit has been in good health without ER visits or hospitalizations. No falls since last office visit Since last office visit followed up with neurology for syncope. MRA carotid and brain, EEG and blood work completed and recommended follow-up in 1-2 months. Needs to reschedule cardiology as appointment got canceled Will be going Tuesday to see about knee replacement Prediabetes: stays active with gardening. Denies polyuria, polydipsia or visual changes HTN: Patient is compliant with meds Yes Monitors bp at home: No. Denies side effects: Yes. Chest pain: occasional chest pain but reports she has had for years and had testing completed for it. No change from her baseline Dyspnea: No. Edema: No. Palpitations: occasionally Syncope: No. Headache: No. Dizziness: No. HYPERLIPIDEMIA: Patient is taking medications: Yes. Patient is watching diet: Yes. Patient denies myalgias: Yes. Patient denies gi upset: Yes PAST MEDICAL HISTORY Diagnosis Date Allergic rhinitis Benign neoplasm of colon Cervical radiculopathy due to intervertebral disc disorder 03/01/2012 Chronic kidney disease, stage 3a (HCC) 07/22/2022 Coronary artery disease Diverticulosis of colon (without mention of hemorrhage) Diverticulosis Essential hypertension, benign Heart attack (HCC) Hyperlipidemia LDL goal < 100 02/12/2010 Lichen sclerosus 03/10/2020 Lumbar disc disease with radiculopathy 05/08/2013 Mental disorder Osteoarthrosis, unspecified whether generalized or localized, unspecified site Other and unspecified hyperlipidemia Sacroiliac joint pain 07/05/[address] Type II or unspecified type diabetes mellitus without mention of complication, not stated as uncontrolled Vitiligo ALLERGIES Dust, Mold, and No Known Drug Allergies MEDICATIONS Current Outpatient Medications Medication Sig atorvastatin (LIPITOR) 40 mg tablet Take 1 tablet by mouth daily at bedtime. For cholesterol. atenolol (TENORMIN) 25 mg tablet Take 1 tablet by mouth once daily. ascorbic acid, vitamin C, (VITAMIN C) 500 mg tablet Take 1 tablet by mouth twice daily with meals for 28 doses. (Patient taking differently: Take 500 mg by mouth as needed.) omeprazole (PRILOSEC) 20 mg capsule Take 1 capsule by mouth twice daily. (Patient taking differently: Take 20 mg by mouth as needed.) fluticasone (FLONASE) 50 mcg/actuation nasal spray Use 2 Sprays in each nostril once daily. Rinse mouth after use. vits A,C,E/lutein/minerals (EYE HEALTH PLUS LUTEIN ORAL) Take 1 capsule by mouth once daily. FOLIC ACID 400 MCG TAB Take 400 mcg by mouth once daily. Current Facility-Administered Medications Medication Dose Route Frequency perflutren lipid microspheres 1.3 mL in NaCl (PF) 0.9% 10 mL injection (DEFINITY) INTRAVENOUS DIRECTED PRN sodium chloride 0.9 % (flush) 10 mL (BD POSIFLUSH) 10 mL INTRAVENOUS DIRECTED PRN Medications and allergies reviewed by this provider. SOCIAL HISTORY Social History Tobacco Use Smoking status: Never Smokeless tobacco: Never Vaping Use Vaping Use: Never used Substance Use Topics Alcohol use: Yes Comment: Rarely Drug use: No REVIEW OF SYSTEMS All other reviewed and negative other than HPI. OBJECTIVE: BP 142/80 Pulse 80 Resp 16 Wt 76.5 kg (168 lb 9.6 oz) SpO2 96% BMI 28.96 kg/m? . Vital signs reviewed by this provider. APPEARANCE Well appearing, alert, in no acute distress, well-hydrated, well nourished. EYES PERRLA, conjunctiva and sclera normal. HEART RRR with normal S1 and S2, no murmurs, no gallops, no JVD appreciated LUNG clear to auscultation EXTREMITIES Extremities normal, No deformities, No skin discoloration, and No edema SKIN Skin color, texture, turgor normal, no suspicious rashes or lesions Component Latest Ref Rng AND Units 08/03/2022 WBC 3.70 - 11.00 k/uL 6.91 RBC 3.90 - 5.20 m/uL 4.31 Hemoglobin 11.5 - 15.5 g/dL 12.9 Hematocrit 36.0 - 46.0 % 40.0 MCV 80.0 - 100.0 fL 92.8 MCH 26.0 - 34.0 pg 29.9 MCHC 30.5 - 36.0 g/dL 32.3 RDW-CV 11.5 - 15.0 % 14.6 Platelet Count 150 - 400 k/uL 282 MPV 9.0 - 12.7 fL 11.2 Neut% % 62.8 Abs Neut (ANC) 1.45 - 7.50 k/uL 4.33 Lymph% % 23.4 Abs Lymph 1.00 - 4.00 k/uL 1.62 [place]% % 9.1 Abs [place] <0.87 k/uL 0.63 Eosin% % 3.9 Abs Eosin <0.46 k/uL 0.27 Baso% % 0.7 Abs Baso <0.11 k/uL 0.05 Immature Gran % % 0.1 IMMATURE GRANS (ABS) <0.10 k/uL <0.03 NRBC /100 WBC 0.0 Absolute nRBC <0.01 k/uL <0.01 DTYPE Auto Protein, Total 6.3 - 8.0 g/dL 6.8 Albumin 3.9 - 4.9 g/dL 4.3 Calcium 8.5 - 10.2 mg/dL 9.6 Bilirubin, Total 0.2 - 1.3 mg/dL 0.4 Alkalin (more content not included)... [facility] 10-01-2022 Instructions Podlogar, ROSSY Sarabia.[facility] - 10/01/2022 1:11 PM EDT You would benefit from general conditioning exercise programs such as those offered by recreation centers or the [facility]. WHAT YOU CAN DO TO PREVENT FALLS Many falls can be prevented. By making some changes, you can lower your chances of falling. Four things YOU can do to prevent falls for you* and your caregiver 1. Begin a regular exercise program Exercise is one of the most important ways to lower your chances of falling. It makes you stronger and helps you feel better. Exercises that improve balance and coordination (like Thony Chi) are the most helpful. Lack of exercise leads to weakness and increases your chances of falling. Ask your doctor or health care provider about the best type of exercise program for you. 2. Have your health care provider review your medicines Have your doctor or pharmacist review all the medicines you take, even [id number] medicines. As you get older, the way medicines work in your body can change. Some medicines, or combinations of medicines, can make you sleepy or dizzy and can cause you to fall. 3. Have your vision checked Have your eyes checked by an eye doctor at least once a year. You may be wearing the wrong glasses or have a condition like glaucoma or cataracts that limits your vision. Poor vision can increase your chances of falling. 4. Make your home safer About half of all falls happen at home. To make your home safer: Remove things you can trip over (like papers, books, clothes, and shoes) from stairs and places where you walk. Remove small throw rugs or use double-sided tape to keep the rugs from slipping. Keep items you use often in cabinets you can reach easily without using a step stool. Have grab bars put in next to your toilet and in the tub or shower. Use non-slip mats in the bathtub and on shower floors. Improve the lighting in your home. As you get older, you need brighter lights to see well. Hang light-weight curtains or shades to reduce glare. Have handrails and lights put in on all staircases. Wear shoes both inside and outside the house. Avoid going barefoot or wearing slippers. For more information, contact: Centers for Disease Control and Prevention www.cdc.gov/injury * This information may not apply if you have certain medical conditions. documented in this encounter [facility] 10-01-2022 History of Present illness Narrative 10/01/2022 Patient presents with: Follow Up: 6 month follow up SUBJECTIVE: This is a 82 year old that is here today for Above Complaints. Since last office visit has been in good health without ER visits or hospitalizations. No falls since last office visit Since last office visit followed up with neurology for syncope. MRA carotid and brain, EEG and blood work completed and recommended follow-up in 1-2 months. Needs to reschedule cardiology as appointment got canceled Will be going Tuesday to see about knee replacement Prediabetes: stays active with gardening. Denies polyuria, polydipsia or visual changes HTN: Patient is compliant with meds Yes Monitors bp at home: No. Denies side effects: Yes. Chest pain: occasional chest pain but reports she has had for years and had testing completed for it. No change from her baseline Dyspnea: No. Edema: No. Palpitations: occasionally Syncope: No. Headache: No. Dizziness: No. HYPERLIPIDEMIA: Patient is taking medications: Yes. Patient is watching diet: Yes. Patient denies myalgias: Yes. Patient denies gi upset: Yes PAST MEDICAL HISTORY Diagnosis Date Allergic rhinitis Benign neoplasm of colon Cervical radiculopathy due to intervertebral disc disorder 03/01/2012 Chronic kidney disease, stage 3a (HCC) 07/22/2022 Coronary artery disease Diverticulosis of colon (without mention of hemorrhage) Diverticulosis Essential hypertension, benign Heart attack (HCC) Hyperlipidemia LDL goal < 100 02/12/2010 Lichen sclerosus 03/10/2020 Lumbar disc disease with radiculopathy 05/08/2013 Mental disorder Osteoarthrosis, unspecified whether generalized or localized, unspecified site Other and unspecified hyperlipidemia Sacroiliac joint pain 07/05/[address] Type II or unspecified type diabetes mellitus without mention of complication, not stated as uncontrolled Vitiligo ALLERGIES Dust, Mold, and No Known Drug Allergies MEDICATIONS Current Outpatient Medications Medication Sig atorvastatin (LIPITOR) 40 mg tablet Take 1 tablet by mouth daily at bedtime. For cholesterol. atenolol (TENORMIN) 25 mg tablet Take 1 tablet by mouth once daily. ascorbic acid, vitamin C, (VITAMIN C) 500 mg tablet Take 1 tablet by mouth twice daily with meals for 28 doses. (Patient taking differently: Take 500 mg by mouth as needed.) omeprazole (PRILOSEC) 20 mg capsule Take 1 capsule by mouth twice daily. (Patient taking differently: Take 20 mg by mouth as needed.) fluticasone (FLONASE) 50 mcg/actuation nasal spray Use 2 Sprays in each nostril once daily. Rinse mouth after use. vits A,C,E/lutein/minerals (EYE HEALTH PLUS LUTEIN ORAL) Take 1 capsule by mouth once daily. FOLIC ACID 400 MCG TAB Take 400 mcg by mouth once daily. Current Facility-Administered Medications Medication Dose Route Frequency perflutren lipid microspheres 1.3 mL in NaCl (PF) 0.9% 10 mL injection (DEFINITY) INTRAVENOUS DIRECTED PRN sodium chloride 0.9 % (flush) 10 mL (BD POSIFLUSH) 10 mL INTRAVENOUS DIRECTED PRN Medications and allergies reviewed by this provider. SOCIAL HISTORY Social History Tobacco Use Smoking status: Never Smokeless tobacco: Never Vaping Use Vaping Use: Never used Substance Use Topics Alcohol use: Yes Comment: Rarely Drug use: No REVIEW OF SYSTEMS All other reviewed and negative other than HPI. OBJECTIVE: BP 142/80 Pulse 80 Resp 16 Wt 76.5 kg (168 lb 9.6 oz) SpO2 96% BMI 28.96 kg/m . Vital signs reviewed by this provider. APPEARANCE Well appearing, alert, in no acute distress, well-hydrated, well nourished. EYES PERRLA, conjunctiva and sclera normal. HEART RRR with normal S1 and S2, no murmurs, no gallops, no JVD appreciated LUNG clear to auscultation EXTREMITIES Extremities normal, No deformities, No skin discoloration, and No edema SKIN Skin color, texture, turgor normal, no suspicious rashes or lesions Component Latest Ref Rng & Units 08/03/2022 WBC 3.70 - 11.00 k/uL 6.91 RBC 3.90 - 5.20 m/uL 4.31 Hemoglobin 11.5 - 15.5 g/dL 12.9 Hematocrit 36.0 - 46.0 % 40.0 MCV 80.0 - 100.0 fL 92.8 MCH 26.0 - 34.0 pg 29.9 MCHC 30.5 - 36.0 g/dL 32.3 RDW-CV 11.5 - 15.0 % 14.6 Platelet Count 150 - 400 k/uL 282 MPV 9.0 - 12.7 fL 11.2 Neut% % 62.8 Abs Neut (ANC) 1.45 - 7.50 k/uL 4.33 Lymph% % 23.4 Abs Lymph 1.00 - 4.00 k/uL 1.62 [place]% % 9.1 Abs [place] <0.87 k/uL 0.63 Eosin% % 3.9 Abs Eosin <0.46 k/uL 0.27 Baso% % 0.7 Abs Baso <0.11 k/uL 0.05 Immature Gran % % 0.1 IMMATURE GRANS (ABS) <0.10 k/uL <0.03 NRBC /100 WBC 0.0 Absolute nRBC <0.01 k/uL <0.01 DTYPE Auto Protein, Total 6.3 - 8.0 g/dL 6.8 Albumin 3.9 - 4.9 g/dL 4.3 Calcium 8.5 - 10.2 mg/dL 9.6 Bilirubin, Total 0.2 - 1.3 mg/dL 0.4 Alkaline Phosphatase 34 - 123 U/L 114 AST 13 - 35 U/L 22 ALT 7 - 38 U/L 19 Glucose 74 - 99 mg/dL 96 BUN 7 - 21 mg/dL 13 Creatinine 0.58 - 0.96 mg/dL 0.82 Sodium 136 - 144 mmol/L 141 Potassium 3.7 - 5.1 mmol/L 4.3 Chloride 97 - 105 mmol/L 102 CO2 22 - 30 mmol/L 27 Anion Gap 9 - 18 mmol/L 12 eGFR >=60 mL/min/1.73m 72 Component Latest Ref Rng & Units 07/06/2022 Hemoglobin A1C 4.3 - 5.6 % 6.1 (H) Component Latest Ref Rng & Units 04/03/2021 Cholesterol, Total <200 mg/dL 262 (H) Triglyceride <150 mg/dL 98 HDL Cholesterol >39 mg/dL 58 LDL Cholesterol <100 mg/dL 184 (H) Non HDL Cholesterol <130 mg/dL 204 (H) Fasting Time hrs 12 VLDL Cholesterol <30 mg/dL 20 TC:HDL Ratio <5.10 4.52 LDL:HDL Ratio <2.54 3.17 (H) ASSESSMENT/PLAN: 1. Essential hypertension, benign - ICD9: 401.1, ICD10: I10 (primary diagnosis) - Controlled - Continue current medications - Recommend home blood pressure monitoring, to bring results to next visit - Encouraged sodium restriction, DASH or Mediterranean diet - Recommend regular aerobic exercise - Discussed need for and benefit of weight loss. BMI 28.96 kg/(m^2) - Follow up in 6 months for hypertension visit 2. Hyperlipidemia LDL goal <100 - ICD9: 272.4, ICD10: E78.5 - Control undetermined, due for labs - Continue current medications - Counseled on healthy diet and regular exercise - Discussed need for and benefit of weight loss. BMI 28.96 kg/(m^2) - Follow up in 6 months, sooner should any other issues arise. - LIPID PANEL BASIC 3. Abnormality of gait - ICD9: 781.2, ICD10: R26.9 - continue to use cane - FALLS RISK EDUCATION 4. Falling episodes - ICD9: 781.99, E888.9, ICD10: R29.6 FALLS RISK PLAN: Overall, she is doing very well. Appropriate for community-based exercise programs. List of local resources and falls prevention materials provided. - FALLS RISK EDUCATION 5. Chronic kidney disease, stage 3a (HCC) - ICD9: 585.3, ICD10: N18.31 - eGFR: Stable - Counseled on avoiding NSAIDs, adequate hydration - Counseled on low sodium diet - follow-up in 6 months, sooner if needed 6. Prediabetes - ICD9: 790.29, ICD10: R73.03 - continue low carbohydrate diet - aim for at least 150 minutes of exercise per week No Cosme APRN.TIRE BUILDER Prescription instructions reviewed with patient as applicable. Patient advised if symptoms do not improve or if symptoms worsen sooner, to contact their primary care physician. Potential red flag symptoms discussed with the patient. Reviewed appropriate action plan to take if red flag symptoms occur. Patient agreeable to treatment plan. I spent a total of 25 minutes on the date of the service which included preparing to see the patient, [id number] patient care, completing clinical documentation, obtaining and/or reviewing separately obtained history, performing a medically appropriate examination, counseling and educating the patient/family/caregiver, and ordering medications, tests, or procedures. documented in this encounter [facility] 09-21-2022 Note HNO ID: [id number] Author: Erickson Moss MD Service: ? Author Type: Physician Type: Progress Notes Filed: 09/21/2022 2:39 PM Note Text: UNIVERSAL PROTOCOL / SAFETY CHECKLIST Procedure to be Performed: EMG Sign In: A Moment of CARE was completed. Personnel directly involved with the procedure wore the appropriate PPE (Personal Protective Equipment). Patient/Surrogate Stated/Verified: PATIENT VERIFIED(optional for EMERGENT procedures): Patient name, Date of , Relevant allergies, and The intended procedure Time Out Communication: Intended patient and procedure match the source documents. Correct side/site marked and visible. Sign Out: SIGN OUT (optional for EMERGENT procedures): Post-procedure follow-up management communicated and Plan of Care Visit completed when applicable. Marisa Sanz [facility] Erickson Moss MD [facility] 09-07-2022 Note HNO ID: [id number] Author: Thu Ramos CT Service: Radiology Author Type: Technologist Type: Progress Notes Filed: 09/07/2022 7:45 AM Note Text: Radiology Service Progress Note DATE OF SERVICE: September 07, 2022 TIME: 7:43 AM PATIENT IDENTITY VERIFICATION COMPLETED USING TWO (2) STANDARD IDENTIFIERS: Name and Date of confirmed by patient verbally and Name and Date of confirmed by identification band. FALL SCREENING: Has the patient had 2 falls in the last year or 1 fall with injury or currently using an Ambulatory Assistive Device (Walker, Cane, Wheelchair, Crutches, etc.)? Yes, Patient High Risk for Falls What interventions were put in place to prevent falls during this visit? Yellow Falls Risk Wristband Applied and Increased Observations by Caregivers PATIENT GENDER DATA: Female. status: : No status: NO. PATIENT RELEVANT IMPLANT DATA REVIEWED: Yes ALLERGIES: Reviewed and unchanged CONTRAST ALLERGY: NO. EXAM: MRI - CONTRAST TYPE: GROUP II PERIPHERAL IV DATA: Ambulatory: A peripheral IV was started in the Left antecubital site with a Angio cath: 22 gauge. RADIOLOGY DEPARTMENT: MR; Exam(s) Completed: Head: Routine Brain [place] MRA Neck: Carotids MRA, bilateral SIGNATURE: MARQUISE Crystal PATIENT NAME: Garland Obando DATE: September 07, 2022 TIME: 7:43 AM [facility] 09-06-2022 Note HNO ID: [id number] Author: Rod Maxwell RT(R) Service: ? Author Type: Medical Review Specialist Type: Progress Notes Filed: 09/06/2022 4:24 PM Note Text: Radiology Service Progress Note PATIENT NAME: Garland Obando DATE OF SERVICE: September 06, 2022 TIME: 3:53 PM PATIENT IDENTITY VERIFICATION COMPLETED USING TWO (2) IDENTIFIERS: Name and Date of confirmed by patient verbally. FALL SCREENING: Has the patient had 2 falls in the last year or 1 fall with injury or currently using an Ambulatory Assistive Device (Walker, Cane, Wheelchair, Crutches, etc.)? Yes, Patient High Risk for Falls What interventions were put in place to prevent falls during this visit? Instructed Patient to Call for Help if Needed, Offered Assistance with Transfers/Clothing, Instructed Patient to Remain Seated (Not on Exam Table) Until Exam, and Increased Observations by Caregivers PATIENT GENDER DATA: Female. status: : No status: NO. PATIENT RELEVANT IMPLANT DATA REVIEWED: Yes RADIOLOGY DEPARTMENT: General X-ray: Exam(s) Completed: Bone Survey PERIPHERAL IV DATA: Not applicable SIGNED BY: RT Benji(R) September 06, 2022 3:53 PM [place] [id number] Note HNO ID: [id number] Author: Faustino Alves MD Service: ? 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 She feels well today, accompanied by her daughter. We reviewed findings, potential implication re possibility of myeloma. CLINICAL IMPRESSION: Monoclonal gammopathy. RECOMMENDATION/PLAN: 1. Additional labs, x rays as ordered 2. We'll follow up as results become available re likelihood of myeloma, need for marrow biopsy Written and verbal health teaching given to patient, patient verbalizes understanding and agrees with treatment plan. PAST MEDICAL HISTORY Diagnosis Date Allergic rhinitis Benign neoplasm of colon Cervical radiculopathy due to intervertebral disc disorder 03/01/2012 Chronic kidney disease, stage 3a (HCC) 07/22/2022 Coronary artery disease Diverticulosis of colon (without mention of hemorrhage) Diverticulosis Essential hypertension, benign Heart attack (HCC) Hyperlipidemia LDL goal < 100 02/12/2010 Lichen sclerosus 03/10/2020 Lumbar disc disease with radiculopathy 05/08/2013 Mental disorder Osteoarthrosis, unspecified whether generalized or localized, unspecified site Other and unspecified hyperlipidemia Sacroiliac joint pain 07/05/[address] Type II or unspecified type diabetes mellitus without mention of complication, not stated as uncontrolled Vitiligo PAST SURGICAL HISTORY Procedure Laterality Date COLONOSCOPY FLX DX W/COLLJ SPEC WHEN PFRMD 05/16/2000 Colonoscopy COLONOSCOPY FLX DX W/COLLJ SPEC WHEN PFRMD 05/17/2011 Colonoscopy COLONOSCOPY W/BIOPSY SINGLE/MULTIPLE 11/14/07 HEMORRHOIDECTOMY XTRNL 2/> COLUMN/GROUP LEFT HEART CATH,PERCUTANEOUS 11/1999 PAST SURGICAL HISTORY OF 2003 R ureter surgery PAST SURGICAL HISTORY OF 2008 Cyst removal right index finger STRABISMUS RECESSION/RESCJ 1 HRZNTL [facility] Strabismus Surgery left eye FAMILY HISTORY Problem Relation Age of Onset Stroke Mother Coronary Artery Disease Father Stroke Maternal Grandmother Social History Tobacco Use Smoking status: Never Smokeless tobacco: Never Vaping Use Vaping Use: Never used Substance Use Topics Alcohol use: Yes Comment: Rarely Drug use: No ALLERGIES: ALLERGIES Allergen Reactions Dust Mold No Known Drug Aller* CURRENT OUTPATIENT MEDICATIONS: atenolol (TENORMIN) 25 mg tabletTake 1 tablet by mouth once daily.Disp: 90 tabletRfl: 3 atorvastatin (LIPITOR) 40 mg tabletTake 1 tablet by mouth daily at bedtime. For cholesterol.Disp: 90 tabletRfl: 1 ascorbic acid, vitamin C, (VITAMIN C) 500 mg tabletTake 1 tablet by mouth twice daily with meals for 28 doses.Disp: 28 tabletRfl: 0 (Patient taking differently: Take 500 mg by mouth as needed.) omeprazole (PRILOSEC) 20 mg capsuleTake 1 capsule by mouth twice daily.Disp: 180 capsuleRfl: 3 (Patient taking differently: Take 20 mg by mouth as needed.) fluticasone (FLONASE) 50 mcg/actuation nasal sprayUse 2 Sprays in each nostril once daily. Rinse mouth after use.Disp: 11.1 mLRfl: 0 vits A,C,E/lutein/minerals (EYE HEALTH PLUS LUTEIN ORAL)Take 1 capsule by mouth once daily.Disp: Rfl: FOLIC ACID 400 MCG TABTake 400 mcg by mouth once daily.Disp: Rfl: 0 REVIEW OF SYSTEMS: GENERAL: No fever, night sweats, weight loss or malaise. All other reviewed and negative other than HPI. PHYSICAL EXAMINATION: VITAL SIGNS: BP 124/73 Pulse 82 Temp 98.9 Ht 5' 3.976 (1.63m) Wt 167 lb 8 oz (76.0kg) SpO2 96% BMI 28.77 kg/(m2). GENERAL APPEARANCE: Well appearing, in no acute distress, alert and oriented x3, well-hydrated, well nourished. I spent a total of 45 minutes on the date of the service which included preparing to see the patient, [id number] patient care, completing clinical documentation, obtaining and/or reviewing separately obtained history, counseling and educating the patient/family/caregiver, ordering medications, tests, or procedures, independently interpreting results (not separately reported), and communicating results to the patient/family/caregiver. Electronically Signed: Faustino Alves MD September 06, 2022 4:18 PM [facility] 08-18-2022 Miscellaneous Notes Patient already scheduled. Fannie Macario Next new. Luda Forrester LPN Patient has referral in Epic. Please review and advise for scheduling. Darby TC to pt on home phone. She is agreeable with the message. Please assist in scheduling with hematology. Cathryn Boucher LPN Patient's blood work does show a positive M protein which has unclear significance and I would like her to see hematology for their opinion and possible further work up for this. documented in this encounter [facility] 08-03-2022 Note HNO ID: [id number] Author: Luda Jay PA-C Service: ? Author Type: Physician School Bus Driver/Teacher Assistant Type: Progress Notes Filed: 08/03/2022 4:09 PM Note Text: Neurology Outpatient Clinic Date: August 03, 2022 Patient Name: Garland Obando Referring physician: Santos Nuñez [address] [phone] Consult requested for syncope by Dr. Nuñez. Recommendations will be communicated via shared medical record or US mail. Primary physician: Santos Nuñez [address] [place] [address] Reason for Evaluation: syncope Subjective HPI Garland Obando is a 82 year old female with history of HTN, HLD, CAD, valvular heart disease, CKD stage 3, DM 2, lumbar DDD who presents for evaluation of syncope. Dr. Nuñez is the referring physician. Dr. Santos Nuñez MD is the PCP. Chart review: 07/22/22- family med, had syncopal event on 07/17 where her daughter caught her. Had diaphoresis and respiratory distress. Cat bite appeared infected, went to ER, admitted. Discharged on augmentin. But also notes several syncopal episodes in the last year after covid. none since discharge, LH when standing. Possible ECHO 07/23/22? Saw spine 08/27 for lumbar issues. Had EMG of the upper extrmity showing carpal tunnel. Had hip replacement recently and is in PT walking with walker. Patient presents for evaluation of multiple episodes of syncope. Patient notes that since she had COVID 2 to 3 years ago she has had severe lightheadedness with 4-5 episodes of syncope. Currently gets episodes lightheadedness with standing or prolonged periods of standing, but can have occasional lightheadedness when she turns her head either direction. No that she will get lightheaded every day, but only presyncopal every few days. She is not lightheaded every time she stands up, but it does happen daily. Does not happen at a particular time of day, no other triggers noted. Notes that it acutely worsened after her hip replacement last year, notes that she had a UTI after this followed by multiple episodes of syncope from this infection. Patient also reports some neck pain, tension when turning the head to either side. No weakness, no frequent falls, no bowel bladder incontinence. Denies any head injuries or fractures secondary to any episodes of syncope. Patient did have an atypical episode of syncope on July 20, states that she was not doing well all day and went to brush her teeth. Was standing at the sink then felt nauseous followed by black spots in her vision, sat down but was not going way. At that point she called her daughter into the bathroom but by the time the daughter got there she was passed out. He believes her daughter later on the floor and she does not remember anything further. Per daughter, she appeared as if she stopped breathing, called EMS and was told to start CPR. On arrival, EMS noted she had a pulse and CPR was stopped at that time. Patient states that she woke up around the time EMS was there, remembers talking to them but does not remember what about. Notes that she was given fluids in route to the hospital, felt better with the fluids still felt as if she was in a daze. Patient notes history of heart attack 20 years ago as well as Takotsubo's cardiomyopathy. 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 Notes history of heart murmur, recent echo showed diastolic dysfunction with preserved ejection fraction. Patient also notes near daily palpitations as well. Notes that she does take her blood pressure at home and that it fluctuates often, recently taking off of lisinopril and feels much better off of this. Patient notes rare headaches, more right-sided neck pain and headache. Also denies any vision changes. Patient does report some paresthesias to the feet bilaterally, onset a few weeks ago. Notes that it is only to the toes, constant and unchanged. Last A1c was 6.1. Believes that this tingling is from her arthritis in her knees, was told that she needs a right knee replacement. Denies taking aspirin any longer, but does still take her Lipitor. Denies any vitamin B complex supplementation, no weakness or vegetarianism. No alcohol use in the past. Labs/Imaging ECHO 07/23/22 Medications: Current Outpatient Medications Medication Sig Dispense Refill atenolol (TENORMIN) 25 mg tablet Take 1 tablet by mouth once daily. 90 tablet 3 omeprazole (PRILOSEC) 20 mg capsule Take 1 capsule by mouth twice daily. 180 capsule 3 fluticasone (FLONASE) 50 mcg/actuation nasal spray Use 2 Sprays in each nostril once daily. Rinse mouth after use. 11.1 mL 0 vits A,C,E/lutein/minerals (EYE HEALTH PLUS LUTEIN ORAL) Take 1 capsule by mouth once daily. FOLIC ACID 400 MCG TAB one-half tablet once a day 0 iv contrast (will be provided with radiology t (more content not included)... [facility] 08-03-2022 Note HNO ID: [id number] Author: Vishal Gasca DO Service: ? Author Type: Physician Type: Procedures Filed: 09/02/2022 3:36 PM Note Text: Patient Name: Garland Obando : 1940 Ordering Provider: LUDA JAY Indication: R55 Syncope and collapse Type of Monitor: Extended Monitoring-Zio Patch Enrollment Dates: 08/08/2022-08/22/2022 Findings Prepared by DALLAS Corral 08/30/22 Final Interpretation Patient had a min HR of 47 bpm (0219), max HR of 171 bpm (5 beat SVT), and avg HR of 66 bpm. Predominant underlying rhythm was Sinus Rhythm. Slight P wave morphology changes were noted. 10 Supraventricular Tachycardia runs occurred, the run with the fastest interval lasting 4 beats with a max rate of 171 bpm, the longest lasting 11 beats with an avg rate of 140 bpm. Isolated SVEs were occasional (3.5%, 81995), SVE Couplets were rare (<1.0%, 2846), and SVE Triplets were rare (<1.0%, 713). No Isolated VEs, VE Couplets, or VE Triplets were present. No symptoms [facility] 08-03-2022 Instructions Luda Jay PA-C - 08/03/2022 3:18 PM EDT MRA of brain and neck, MRI of the brain EEG of the brain to rule out any seizure activity Zio monitor for heart rate, follow up with cardiology EMG of the lower extremity to rule out neuropathy Laboratory studies to look for abnormalities that can cause neuropathy Follow up after testing is complete documented in this encounter [facility] 08-03-2022 History of Present illness Narrative Images from the original note were not included. Neurology Outpatient Clinic Date: August 03, 2022 Patient Name: Garland Obando Referring physician: Santos Nuñez [address] [facility] [address] Consult requested for syncope by Dr. Nuñez. Recommendations will be communicated via shared medical record or US mail. Primary physician: Santos Nuñez [address] [place] [address] Reason for Evaluation: syncope Subjective HPI Garland Obando is a 82 year old female with history of HTN, HLD, CAD, valvular heart disease, CKD stage 3, DM 2, lumbar DDD who presents for evaluation of syncope. Dr. Nuñez is the referring physician. Dr. Santos Nuñez MD is the PCP. Chart review: 07/22/22- [facility], had syncopal event on 07/17 where her daughter caught her. Had diaphoresis and respiratory distress. Cat bite appeared infected, went to ER, admitted. Discharged on augmentin. But also notes several syncopal episodes in the last year after covid. none since discharge, LH when standing. Possible ECHO 07/23/22? Saw spine 08/27 for lumbar issues. Had EMG of the upper extrmity showing carpal tunnel. Had hip replacement recently and is in PT walking with walker. Patient presents for evaluation of multiple episodes of syncope. Patient notes that since she had COVID 2 to 3 years ago she has had severe lightheadedness with 4-5 episodes of syncope. Currently gets episodes lightheadedness with standing or prolonged periods of standing, but can have occasional lightheadedness when she turns her head either direction. No that she will get lightheaded every day, but only presyncopal every few days. She is not lightheaded every time she stands up, but it does happen daily. Does not happen at a particular time of day, no other triggers noted. Notes that it acutely worsened after her hip replacement last year, notes that she had a UTI after this followed by multiple episodes of syncope from this infection. Patient also reports some neck pain, tension when turning the head to either side. No weakness, no frequent falls, no bowel bladder incontinence. Denies any head injuries or fractures secondary to any episodes of syncope. Patient did have an atypical episode of syncope on July 20, states that she was not doing well all day and went to brush her teeth. Was standing at the sink then felt nauseous followed by black spots in her vision, sat down but was not going way. At that point she called her daughter into the bathroom but by the time the daughter got there she was passed out. He believes her daughter later on the floor and she does not remember anything further. Per daughter, she appeared as if she stopped breathing, called EMS and was told to start CPR. On arrival, EMS noted she had a pulse and CPR was stopped at that time. Patient states that she woke up around the time EMS was there, remembers talking to them but does not remember what about. Notes that she was given fluids in route to the hospital, felt better with the fluids still felt as if she was in a daze. Patient notes history of heart attack 20 years ago as well as Takotsubo's cardiomyopathy. 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 Notes history of heart murmur, recent echo showed diastolic dysfunction with preserved ejection fraction. Patient also notes near daily palpitations as well. Notes that she does take her blood pressure at home and that it fluctuates often, recently taking off of lisinopril and feels much better off of this. Patient notes rare headaches, more right-sided neck pain and headache. Also denies any vision changes. Patient does report some paresthesias to the feet bilaterally, onset a few weeks ago. Notes that it is only to the toes, constant and unchanged. Last A1c was 6.1. Believes that this tingling is from her arthritis in her knees, was told that she needs a right knee replacement. Denies taking aspirin any longer, but does still take her Lipitor. Denies any vitamin B complex supplementation, no weakness or vegetarianism. No alcohol use in the past. Labs/Imaging ECHO 07/23/22 Medications: Current Outpatient Medications Medication Sig Dispense Refill atenolol (TENORMIN) 25 mg tablet Take 1 tablet by mouth once daily. 90 tablet 3 omeprazole (PRILOSEC) 20 mg capsule Take 1 capsule by mouth twice daily. 180 capsule 3 fluticasone (FLONASE) 50 mcg/actuation nasal spray Use 2 Sprays in each nostril once daily. Rinse mouth after use. 11.1 mL 0 vits A,C,E/lutein/minerals (EYE HEALTH PLUS LUTEIN ORAL) Take 1 capsule by mouth once daily. FOLIC ACID 400 MCG TAB one-half tablet once a day 0 iv contrast (will be provided with radiology test) MRA Carotid WO/W Inject, intravenously, once for 1 dose. No IV access, insert saline lock prior to the beginning of sedation, infusion, injection of imaging exam. Discontinue saline lock post exam. If Pt. has a central line or IVAD, may access for administration according to line specific nursing protocol. Once exam is complete flush line and de-access according to line specific nursing protocol in the MR contrast administration guidelines link. 1 Each 0 atorvastatin (LIPITOR) 40 mg tablet Take 1 tablet by mouth daily at bedtime. For cholesterol. 90 tablet 1 ascorbic acid, vitamin C, (VITAMIN C) 500 mg tablet Take 1 tablet by mouth twice daily with meals for 28 doses. 28 tablet 0 Current Facility-Administered Medications Medication Dose Route Frequency Provider Last Rate Last Admin perflutren lipid microspheres 1.3 mL in NaCl (PF) 0.9% 10 mL injection (DEFINITY) INTRAVENOUS DIRECTED PRN Radha López APRN.CURTIS sodium chloride 0.9 % (flush) 10 mL (BD POSIFLUSH) 10 mL INTRAVENOUS DIRECTED PRN Radha López APRN.CURTIS ROS ROS: Her ROS was positive for that mentioned in the HPI. Otherwise a 10-point ROS was completed and was negative. ALLERGIES Allergen Reactions Dust Mold No Known Drug Aller* Past Medical History: PAST MEDICAL HISTORY Diagnosis Date Allergic rhinitis Benign neoplasm of colon Cervical radiculopathy due to intervertebral disc disorder 03/01/2012 Chronic kidney disease, stage 3a (HCC) 07/22/2022 Coronary artery disease Diverticulosis of colon (without mention of hemorrhage) Diverticulosis Essential hypertension, benign Heart attack (HCC) Hyperlipidemia LDL goal < 100 02/12/2010 Lichen sclerosus 03/10/2020 Lumbar disc disease with radiculopathy 05/08/2013 Mental disorder Osteoarthrosis, unspecified whether generalized or localized, unspecified site Other and unspecified hyperlipidemia Sacroiliac joint pain 07/05/[address] Type II or unspecified type diabetes mellitus without mention of complication, not stated as uncontrolled Vitiligo Family History: FAMILY HISTORY Problem Relation Age of Onset Stroke Mother Coronary Artery Disease Father Stroke Maternal Grandmother Also includes: . 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 Head: Normocephalic Pulm: Breathing comfortably Neck: Supple Psych: Cooperative, appropriate affect Neurological Examination: Mental Status: Alert and Oriented to Place, Person, Time and Situation and Patient follows commands.. Language: Is intact to Comprehension, Fluency and Repetition Cranial Nerves: CNII: Visual acuity normal, visual mast full to confrontation CNIII, IV, : Pupils equal, round and reactive to light, full extraoccular movements, without nystagmus. Noted choppy eye movements with EOM CN V: Facial sensation intact bilaterally to fine touch CN VII: Facial muscles symmetric and strong CN VIII: Hears finger rub well bilaterally CN IX: Gag Reflex not examined CN X: Palate elevates symmetrically CN XI: Full strength shoulder shrug bilaterally CN XII: Tongue protrusion full and midline Motor Exam: Tone - Normal Tone noted in all extremities Bulk - Normal bulk noted in all muscles tested. Inspection - Normal, no fasciculations or tremors noted. Power: MUSCLES Upper Extremity RIGHT LEFT Deltoid 5/5 5/5 Biceps 5/5 5/5 Triceps 5/5 5/5 Wrist Extension 5/5 5/5 Wrist Flexion 5/5 5/5 Finger Flexion 4+/5 5/5 Finger Extension 4+/5 5/5 Finger Abd 5/5 5/5 Finger Add 5/5 5/5 MUSCLES Lower Extremity RIGHT LEFT Hip Flexion 4/5 5/5 Hip Extension 4/5 5/5 BiFem (Knee Flex) 4/5 5/5 Quads (Knee Ext) 4/5 5/5 Gastroc (Plantflx) 5/5 5/5 TibAnt (Dorsiflx) 5/5 5/5 FlxHLong (Toe Flex) 5/5 5/5 ExtHLong (Toe Ext) 5/5 5/5 Sensory Examination Patient very unsure of sensory exam testing. Subjective decrease in temperature in the lower extremities throughout, did feel pinprick but denied feeling sharp throughout the lower extremities. Intact in the upper extremities. Mild decrease in temperature to the right hand, notes history of carpal tunnel. Decreased vibration in the right extremity throughout, improving proximally. Decreased vibration in the left great toe, intact at the ankle. Normal proprioception during Romberg in the lower extremities, normal proprioception in the upper extremities bilaterally Reflexes Right Left Bicep 2/4 2/4 Tricep 2/4 2/4 BrRad 2/4 2/4 Knee 2/4 2/4 Ankle 1+/4 1+/4 Preston Response Negative Negative Coordination: finger-to- nose-finger intact bilaterally and lako-im-fcog intact bilaterally. Gait: Patient's gait is guarded, walks with walker Romberg: Negative DATA REVIEWED Actual films/image/tracing reviewed and summarized as follows: cervical xr, ECHO, CT brain without 10/05- age related changes Old records reviewed and summarized as follows: admission, PCP Assessment/Plan Assessment & Plan: Garland Obando is a 82 year old female with a history of HTN, HLD, CAD, valvular heart disease, CKD stage 3, DM 2, lumbar DDD. Her examination demonstrates weakness on the right side including the hand and hip, sensory abnormalities worsening on the right side in the lower extremity. Negative Romberg, no signs of myelopathy. Orthostatics showed appropriate response of blood pressure, but did have slight decrease in heart rate when standing. Patient with multiple episodes of syncope, daily lightheadedness. Lightheadedness is brought on most commonly by position change, states that he is standing and prolonged periods of standing, but will, with sitting as well. Notes associated floaters, diaphoresis and nausea when symptoms are severe. Patient had 1 atypical episode on July 17 where she had a syncopal episode, daughter thought that she stopped breathing and perform CPR. EMS arrived and took her to the hospital, patient was admitted. Patient was admitted to [facility], records limited, it appears that echocardiogram showed mild systolic dysfunction with preserved ejection fraction, no imaging of the brain was obtained per chart review. 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 Continues to have near daily potation's, was told that she has a murmur but has not had a Holter monitor or event monitor in a very long time. Patient also describes episodes of lightheadedness followed by immediate sleep after she goes on to her bed, unclear this is passing out or if she just falls asleep. Due to persistent lightheadedness, altered level of consciousness, syncope, will obtain MRA head and neck, MRI of the brain. Additionally, patient also reporting palpitations, had decrease in heart rate when standing will obtain Zio monitor and follow-up with cardiology as she has significant cardiac history. Patient also with signs and symptoms of possible neuropathy in the lower extremity, notes recent hip surgery 1 year ago and still persistent weakness on the lower extremity. Patient history of diabetes, notes paresthesias beginning 2 to 3 weeks ago in the toes been constant and unchanged. Does have possible signs of small and large fiber involvement, but patient states she is very unsure of what she was feeling during sensory exam. We will obtain EMG of the lower extremity to evaluate for any signs of neuropathy that could be contributing to an orthostatic cause of patient's symptoms. We will also obtain laboratory evaluation to assess for common causes of neuropathy. Recent A1c was 6.1. Finally, as patient had altered level of consciousness, many of the events were unwitnessed, will obtain EEG to evaluate for any signs of epileptiform changes. At this time, have low suspicion for seizure. Discussed red flag signs and symptoms that would warrant emergent evaluation in the emergency department, she agrees and understands. Patient agreeable to treatment plan of care at this time, all questions were answered. Patient to follow-up in 2 weeks following the completion of her testing. Garland was seen today for new patient evaluation. Diagnoses and all orders for this visit: Syncope and collapse - EPIL EEG ROUTINE; Future - OUTSIDE VENDOR CARDIAC OUTPATIENT EXTENDED RHYTHM RECORDING (WITHOUT TELEMETRY) - MRA BRAIN WO IVCON; Future - MRA CAROTID WO/W IVCON; Future - MRI BRAIN WO IVCON; Future - CONSULT TO CARDIOLOGY; Future - TSH BLD; Future Syncope, unspecified syncope type - CONSULT TO NEUROLOGY - EPIL EEG ROUTINE; Future - OUTSIDE VENDOR CARDIAC OUTPATIENT EXTENDED RHYTHM RECORDING (WITHOUT TELEMETRY) Palpitations - OUTSIDE VENDOR CARDIAC OUTPATIENT EXTENDED RHYTHM RECORDING (WITHOUT TELEMETRY) - CONSULT TO CARDIOLOGY; Future - TSH BLD; Future Lower extremity numbness Neuropathy - METHYLMALONIC ACID; Future - VITAMIN B12 BLOOD; Future - C-REACTIVE PROTEIN (CRP); Future - SED RATE WESTERGREN; Future - COMP METABOLIC PANEL; Future - CBC + DIFF; Future - ERICA BY IFA WITH REFLEX; Future - IMMUNOFIXATION SCREEN, SERUM; Future - TSH BLD; Future - EMG(NEURO/NI); Future Other orders - iv contrast (will be provided with radiology test); MRA Carotid WO/W Inject, intravenously, once for 1 dose. No IV access, insert saline lock prior to the beginning of sedation, infusion, injection of imaging exam. Discontinue saline lock post exam. If Pt. has a central line or IVAD, may access for administration according to line specific nursing protocol. Once exam is complete flush line and de-access according to line specific nursing protocol in the MR contrast administration guidelines link. She should return to see me in 1-2 months. I spent a total of 55 minutes on the date of the service which included preparing to see the patient, [id number] patient care, completing clinical documentation, obtaining and/or reviewing separately obtained history, performing a medically appropriate examination, counseling and educating the patient/family/caregiver, and ordering medications, tests, or procedures. Luda Jay PA-C [facility] Neurology This document has been created with the use of voice recognition technology. It may contain inaccuracies: (e.g. misspellings, inaccurate syntax or word sense) that have escaped review. documented in this encounter [facility] 07-26-2022 Note HNO ID: [id number] Author: Christen Lindo PA-C Service: ? 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 Garland Obando is a 81 year old female who presents with worsening pain along the lateral aspect of her right knee, pain has been getting worse over the past several months. She feels as though her knee is going to give out. Pain is a 4 out of 10 sharp aching, she feels like there is a band around her calf muscle. She is a status post right total hip arthroplasty with Dr. Heller in 2021, she is very happy with the outcome of the surgery. She is not taking any type of an oral anti-inflammatory, she tells me that she is seeing neurology, she had a couple episodes of syncope recently. She is also just finishing up an oral antibiotic, she was bit on her right foot when her cat was accidentally trapped in her door. The patient is still very active, she enjoys working, she works at [employer] with her daughter. She would like to continue to be active. ASSESSMENT: M17.11 Primary osteoarthritis of right knee (primary encounter diagnosis) M25.561, G89.29 Chronic pain of right knee PLAN: The patient has right knee lateral compartment osteoarthritis. We discussed trying a corticosteroid injection to see if helps with some of her discomfort. We also briefly discussed trying a hinged knee brace to help with the stability while she is working. Patient would like to try the corticosteroid injection first. We decided to not try an oral anti-inflammatory as the patient would like to be worked up for syncope before starting any new medications. We also briefly discussed the patient's surgical option as far as total knee arthroplasty. Ms. Garland Obando was advised as to contrast therapies and/or to take analgesics/anti-inflammatories as needed and all contraindications were reviewed. OBJECTIVE: Ms. Garland Obando is a pleasant 81 year old in no apparent distress. Gen:There were no vitals taken for this visit. nl development, non obese, no deformities ENT: Normocephalic, normal hearing, moist mucosa CV: Pulses:DP/PT= 2+ and symmetric, capillary refill < 2 secs, no peripheral edema/varicosities Skin: no rash, bruising or lesions. Good turgor. Psych: cooperative and appropriate, alert and oriented x 3, good mood and affect. Musculoskeletal: KNEE EXAM: Right: Alignment: Valgus deformity, Partially Correctable Range of motion is lacking a few degrees secondary to tight hamstrings degrees in extension and 110 degrees of flexion. Extension La degrees Pain with ROM: Yes Effusion: Slight Tender to the palpation of Posterior Knee, Lateral femoral condyle, and Lateral joint line Pain with patellar compression: No Stability: Anterior/Posterior stable and Varus/Valgus stable Hip Exam: flexion to 100+ degrees, full extension, internal/external rotation adequate, and no pain with log roll Neurovascular Status: Sensation Intact, Moves foot and ankle up AND down, and 2+ dorsalis pedis Large Joint Arthro/Inj 07/26/2022 3:07 PM Large Joint Arthro/Inj: R knee joint Informed Consent Consent Obtained: Verbal Albin Protocol A moment to CARE was completed. SIGN IN Sign in communication not applicable due to emergent procedure. Personnel directly involved with the procedure wore the appropriate PPE. Special Equipment: N/A Patient/Surrogate Stated/Verified: Patient name, Date of , Relevant allergies and Intended procedure TIME OUT Intended patient and procedure match the source document(s). Consent documented and matches the intended procedure. Relevant labs, photos, and/or imaging studies have been reviewed. Correct side/site marked and visible. Medications required for procedure verified. No fire risk assessment and interventions applicable. No implant(s) inserted. 07/26/2022 7:20 AM The procedure site was prepped in the usual sterile fashion. Site: R knee joint Medications: 6 mg betamethasone acetate-betamethasone sodium phosphate 6 mg/mL Anesthetics: 5 mL lidocaine (PF) 10 mg/mL (1 %) Outcome: Tolerated well, no immediate complications Post-injection instructions were reviewed with the patient and the patient voiced understanding of these instructions. SIGN OUT All instruments, equipment, possible retained foreign bodies accounted for. Imaging: * * *Final Report* * * DATE OF EXAM: Jul 26 2022 1:02PM [id number] - XR KNEE 4V AP/PA BOTH+LAT/GAVIOTA RT / PROCEDURE REASON: Pain * * * * Physician Interpretation * * * * EXAM TITLE: XR KNEE 4V AP/PA BOTH+LAT/GAVIOTA RT EXAM DATE/TIME: 07/26/2022 1:02 PM COMPARISON: X-ray knee on 06/04/2021 (more content not included)... [facility] 07-26-2022 Note HNO ID: [id number] Author: Arleen Garcia Ma Service: ? Author Type: ? Type: Progress Notes Filed: 07/28/2022 11:35 AM Note Text: Patient presents with: Right Knee - Knee Pain, Established Patient AMB ROOMING INTAKE FLOWSHEET DATA Pain Pain Level: (4-10) Pain Location: Knee-Right Description: Sharp Duration Amount of Time: 6 Duration Units: Months Frequency: Continuous Intervention/Comfort measure: Medication Patient states she is having pain in the lateral aspect os her left knee. Patient states the pain started after she had her hip replacement. States her pain is gradually getting worse. She feels her knee is going to give out on her. Her knee has been locking. She has fallen a few times and landed on her knees or is able to catch herself. Patient states on 07/17 she had passed out and was in the hospital for 2 days. On Tuesday night 07/16 she was bitten by her cat on her right foot. She was treated with an antibiotic. She is still having some swelling in her foot. Patient had some bruising on the top of her foot from river stones that fell on her foot.Taking Tylenol at night for the pain. X-rays done today. Daughter with patient today. [facility] 07-26-2022 History of Present illness Narrative Associated Order(s): Large Joint Arthro/Inj: R knee joint Post-Procedure Diagnose(s): Primary osteoarthritis of right knee; Chronic pain of right knee Christen Lindo PA-C Department of Orthopaedics Orthopaedics [address] [facility] [address] Dept: [phone] Dept July 26, 2022 CHIEF COMPLAINT: Knee Pain and Established Patient of the Right Knee Ms. Garland Obando is a 81 year old female who presents with worsening pain along the lateral aspect of her right knee, pain has been getting worse over the past several months. She feels as though her knee is going to give out. Pain is a 4 out of 10 sharp aching, she feels like there is a band around her calf muscle. She is a status post right total hip arthroplasty with Dr. Heller in 2021, she is very happy with the outcome of the surgery. She is not taking any type of an oral anti-inflammatory, she tells me that she is seeing neurology, she had a couple episodes of syncope recently. She is also just finishing up an oral antibiotic, she was bit on her right foot when her cat was accidentally trapped in her door. The patient is still very active, she enjoys working, she works at [employer] with her daughter. She would like to continue to be active. ASSESSMENT: M17.11 Primary osteoarthritis of right knee (primary encounter diagnosis) M25.561, G89.29 Chronic pain of right knee PLAN: The patient has right knee lateral compartment osteoarthritis. We discussed trying a corticosteroid injection to see if helps with some of her discomfort. We also briefly discussed trying a hinged knee brace to help with the stability while she is working. Patient would like to try the corticosteroid injection first. We decided to not try an oral anti-inflammatory as the patient would like to be worked up for syncope before starting any new medications. We also briefly discussed the patient's surgical option as far as total knee arthroplasty. Ms. Garland Obando was advised as to contrast therapies and/or to take analgesics/anti-inflammatories as needed and all contraindications were reviewed. OBJECTIVE: Ms. Garland Obando is a pleasant 81 year old in no apparent distress. Gen:There were no vitals taken for this visit. nl development, non obese, no deformities ENT: Normocephalic, normal hearing, moist mucosa CV: Pulses:DP/PT= 2+ and symmetric, capillary refill < 2 secs, no peripheral edema/varicosities Skin: no rash, bruising or lesions. Good turgor. Psych: cooperative and appropriate, alert and oriented x 3, good mood and affect. Musculoskeletal: KNEE EXAM: Right: Alignment: Valgus deformity, Partially Correctable Range of motion is lacking a few degrees secondary to tight hamstrings degrees in extension and 110 degrees of flexion. Extension La degrees Pain with ROM: Yes Effusion: Slight Tender to the palpation of Posterior Knee, Lateral femoral condyle, and Lateral joint line Pain with patellar compression: No Stability: Anterior/Posterior stable and Varus/Valgus stable Hip Exam: flexion to 100+ degrees, full extension, internal/external rotation adequate, and no pain with log roll Neurovascular Status: Sensation Intact, Moves foot and ankle up & down, and 2+ dorsalis pedis Large Joint Arthro/Inj: R knee joint Informed Consent Consent Obtained: Verbal Albin Protocol A moment to CARE was completed. SIGN IN Sign in communication not applicable due to emergent procedure. Personnel directly involved with the procedure wore the appropriate PPE. Special Equipment: N/A Patient/Surrogate Stated/Verified: Patient name, Date of , Relevant allergies and Intended procedure TIME OUT Intended patient and procedure match the source document(s). Consent documented and matches the intended procedure. Relevant labs, photos, and/or imaging studies have been reviewed. Correct side/site marked and visible. Medications required for procedure verified. No fire risk assessment and interventions applicable. No implant(s) inserted. 07/26/2022 3:07 PM The procedure site was prepped in the usual sterile fashion. Site: R knee joint Medications: 6 mg betamethasone acetate-betamethasone sodium phosphate 6 mg/mL Anesthetics: 5 mL lidocaine (PF) 10 mg/mL (1 %) Outcome: Tolerated well, no immediate complications Post-injection instructions were reviewed with the patient and the patient voiced understanding of these instructions. SIGN OUT All instruments, equipment, possible retained foreign bodies accounted for. Imaging: * * *Final Report* * * DATE OF EXAM: Jul 26 2022 1:02PM [id number] [id number] - XR KNEE 4V AP/PA BOTH+LAT/GAVIOTA RT / PROCEDURE REASON: Pain * * * * Physician Interpretation * * * * EXAM TITLE: XR KNEE 4V AP/PA BOTH+LAT/GAVIOTA RT EXAM DATE/TIME: 07/26/2022 1:02 PM COMPARISON: X-ray knee on 06/04/2021 CLINICAL INDICATION/HISTORY: Knee pain. TECHNIQUE: AP/PA, lateral and sunrise views of the right knee are presented. FINDINGS: No acute fractures or subluxations are noted. Bone on bone lateral compartmental joint space narrowing is demonstrated. There is valgus deformity. There is tricompartmental osteophyte formation. Cystic formation along the posterior aspect of the patella. There is small to moderate joint effusion. The bones are osteopenic. There is no significant soft tissue swelling. Others: Degenerative changes noted in the left knee. IMPRESSION IMPRESSION: Findings are suggestive of degenerative changes/osteoarthritis in the right knee with joint effusion. Crown And Bridge Technician: CELSO Transcribe Date/Time: Jul 28 2022 8:23A Dictated by : KAMERON CLARKE MD This examination was interpreted and the report reviewed and electronically signed by: KAMERON CLARKE MD on Jul 28 2022 8:27AM EST Supporting Subjective Information Below: Past Surgical History: PAST SURGICAL HISTORY Procedure Laterality Date COLONOSCOPY FLX DX W/COLLJ SPEC WHEN PFRMD 05/16/2000 Colonoscopy COLONOSCOPY FLX DX W/COLLJ SPEC WHEN PFRMD 05/17/2011 Colonoscopy COLONOSCOPY W/BIOPSY SINGLE/MULTIPLE 11/14/07 HEMORRHOIDECTOMY XTRNL 2/> COLUMN/GROUP LEFT HEART CATH,PERCUTANEOUS 11/1999 PAST SURGICAL HISTORY OF 2003 R ureter surgery PAST SURGICAL HISTORY OF 2008 Cyst removal right index finger STRABISMUS RECESSION/RESCJ 1 [facility] Strabismus Surgery left eye Medications: Current Outpatient Medications Medication Sig atenolol (TENORMIN) 25 mg tablet Take 1 tablet by mouth once daily. atorvastatin (LIPITOR) 40 mg tablet Take 1 tablet by mouth daily at bedtime. For cholesterol. omeprazole (PRILOSEC) 20 mg capsule Take 1 capsule by mouth twice daily. fluticasone (FLONASE) 50 mcg/actuation nasal spray Use 2 Sprays in each nostril once daily. Rinse mouth after use. vits A,C,E/lutein/minerals (EYE HEALTH PLUS LUTEIN ORAL) Take 1 capsule by mouth once daily. FOLIC ACID 400 MCG TAB one-half tablet once a day aspirin, enteric coated (ASPIRIN, ENTERIC COATED) 81 mg EC tablet Take 1 tablet by mouth twice daily for 28 days. (Patient not taking: Reported on 05/24/2022) ascorbic acid, vitamin C, (VITAMIN C) 500 mg tablet Take 1 tablet by mouth twice daily with meals for 28 doses. Current Facility-Administered Medications Medication Dose Route Frequency perflutren lipid microspheres 1.3 mL in NaCl (PF) 0.9% 10 mL injection (DEFINITY) INTRAVENOUS DIRECTED PRN sodium chloride 0.9 % (flush) 10 mL (BD POSIFLUSH) 10 mL INTRAVENOUS DIRECTED PRN Allergies: Dust, Mold, and No Known Drug Allergies ROS: General (negative for fatigue, malaise, weight loss/gain) HEENT (negative for headache, earache, recent vision changes, sinus pain, sore throat) Respiratory (no recent shortness of breath, hemoptysis) CV (negative for chest tightness, palpitations) Musculoskeletal (see HPI) Psych (no depression, anxiety) This note was partially generated using [employer] voice recognition system, and there may be some incorrect words, spellings, and punctuation that were not noted in checking the note before saving. Christen Lindo PA-C Patient presents with: Right Knee - Knee Pain, Established Patient AMB ROOMING INTAKE FLOWSHEET DATA Pain Pain Level: (4-10) Pain Location: Knee-Right Description: Sharp Duration Amount of Time: 6 Duration Units: Months Frequency: Continuous Intervention/Comfort measure: Medication Patient states she is having pain in the lateral aspect os her left knee. Patient states the pain started after she had her hip replacement. States her pain is gradually getting worse. She feels her knee is going to give out on her. Her knee has been locking. She has fallen a few times and landed on her knees or is able to catch herself. Patient states on 07/17 she had passed out and was in the hospital for 2 days. On Tuesday night 07/16 she was bitten by her cat on her right foot. She was treated with an antibiotic. She is still having some swelling in her foot. Patient had some bruising on the top of her foot from river stones that fell on her foot.Taking Tylenol at night for the pain. X-rays done today. Daughter with patient today. documented in this encounter [facility] 07-22-2022 Note HNO ID: [id number] Author: Santos Nuñez MD Service: ? Author Type: Physician Type: Progress Notes Filed: 07/22/2022 12:38 PM Note Text: Chief Complaint Patient presents with: Hospital F/U: Was bit by cat Fri/sat HS and then passed out Sat night 630-7p- denies pain but reports weakness HPI Garland Obando is a 81 year old female who presents here today for hospital Follow Up. Accompanied today by daughter. Patient evaluated at [facility] ED on 07/17 for evaluation after synocpal episode vs respiratory arrest. Had cat bite to foot night before and had not been feeling well. Went to restroom and called for her daughter who found her drenched in sweat and patient collapsed in her arms. Called 911. Developed agonal breathing and was told to start chest compressions. EMS took over on arrival and had pulse and was breathing on her own at that time. Upon arrival to the ED, patient appeared weak with stable Foot exam consistent with cellulitis from cat bite and WBC up to 12.7. Given IV fluids and Unasyn while in the ED. Admitted until 07/19 and had troponins cycled which were normal and echo which showed pulmonary artery pressure of 36 mmHg, but othewrise normal. Discharged home with rx for Augmentin x 5 days. Recommended she hold her lisinopril/HCTZ until appointment with us today. Also noted she had had several syncopal episodes in the last 12 months and wanted her to follow up with neurology for workup of possible autonomic dysfunction. Since discharge, patient has been taking Augmentin as prescribed for cellulitis and thinks that the redness and swelling is improving. Admits to TTP and pain with walking. Denies fever/chills, purulent drainage. No further syncopal episodes. Holding her BP medication as recommended and BP is low normal today. States that she has had a couple of weak moments but is able to sit down and feels better. Checking BP at home with readings 120's/60-70's. Tolerating PO diet and drinking 6-12 oz bottles per day. Past medical history, appointments, medications, allergies reviewed. Previous Medical History PAST MEDICAL HISTORY Diagnosis Date Allergic rhinitis Benign neoplasm of colon Cervical radiculopathy due to intervertebral disc disorder 03/01/2012 Coronary artery disease Diverticulosis of colon (without mention of hemorrhage) Diverticulosis Essential hypertension, benign Heart attack (HCC) Hyperlipidemia LDL goal < 100 02/12/2010 Lichen sclerosus 03/10/2020 Lumbar disc disease with radiculopathy 05/08/2013 Mental disorder Osteoarthrosis, unspecified whether generalized or localized, unspecified site Other and unspecified hyperlipidemia Sacroiliac joint pain 07/05/[address] Type II or unspecified type diabetes mellitus without mention of complication, not stated as uncontrolled Vitiligo Previous Surgical History PAST SURGICAL HISTORY Procedure Laterality Date COLONOSCOPY FLX DX W/COLLJ SPEC WHEN PFRMD 05/16/2000 Colonoscopy COLONOSCOPY FLX DX W/COLLJ SPEC WHEN PFRMD 05/17/2011 Colonoscopy COLONOSCOPY W/BIOPSY SINGLE/MULTIPLE 11/14/07 HEMORRHOIDECTOMY XTRNL 2/> COLUMN/GROUP LEFT HEART CATH,PERCUTANEOUS 11/1999 PAST SURGICAL HISTORY OF 2003 R ureter surgery PAST SURGICAL HISTORY OF 2008 Cyst removal right index finger STRABISMUS RECESSION/RESCJ 1 [facility]L [facility] Strabismus Surgery left eye Family History FAMILY HISTORY Problem Relation Age of Onset Stroke Mother Coronary Artery Disease Father Stroke Maternal Grandmother Patient Allergies ALLERGIES Allergen Reactions Dust Mold No Known Drug Aller* Current Medications Current Outpatient Medications on File Prior to Visit Medication Sig atenolol (TENORMIN) 25 mg tablet Take 1 tablet by mouth once daily. lisinopril-hydroCHLOROthiazide (ZESTORETIC) 20-12.5 mg per tablet Take 1 tablet by mouth once daily. meloxicam (MOBIC) 15 mg tablet TAKE ONE TABLET BY MOUTH EVERY DAY atorvastatin (LIPITOR) 40 mg tablet Take 1 tablet by mouth daily at bedtime. For cholesterol. senna-docusate (SENNA-S) 8.6-50 mg per tablet Take 2 tablets by mouth once daily. aspirin, enteric coated (ASPIRIN, ENTERIC COATED) 81 mg EC tablet Take 1 tablet by mouth twice daily for 28 days. (Patient not taking: Reported on 05/24/2022) ascorbic acid, vitamin C, (VITAMIN C) 500 mg tablet Take 1 tablet by mouth twice daily with meals for 28 doses. omeprazole (PRILOSEC) 20 mg capsule Take 1 capsule by mouth twice daily. fluticasone (FLONASE) 50 mcg/actuation nasal spray Use 2 Sprays in each nostril once daily. Rinse mouth after use. vits A,C,E/lutein/minerals (EYE HEALTH PLUS LUTEIN ORAL) Take 1 capsule by mouth once daily. FOLIC ACID 400 MCG TAB one-half tablet once a day Current Facility-Administered Medications on File Prior to Visit Medication perflutren lipid microspheres 1.3 mL in NaCl (PF) 0.9% 10 mL injection (DEFINITY) sodium chloride 0.9 (more content not included)... [facility] 07-09-2022 Note HNO ID: [id number] Author: Theresa Pizarro DO Service: ? Author Type: Physician Type: Progress Notes Filed: 07/09/2022 4:36 PM Note Text: UNIVERSAL PROTOCOL / SAFETY CHECKLIST Procedure to be Performed: EMG Sign In: A Moment of CARE was completed. Personnel directly involved with the procedure wore the appropriate PPE (Personal Protective Equipment). Patient/Surrogate Stated/Verified: PATIENT VERIFIED(optional for EMERGENT procedures): Patient name, Date of , Relevant allergies, and The intended procedure Time Out Communication: Intended patient and procedure match the source documents. Correct side/site marked and visible. Sign Out: SIGN OUT (optional for EMERGENT procedures): Post-procedure follow-up management communicated and Plan of Care Visit completed when applicable. Cady Ricketts, EMG Tech Theresa Pizarro DO [facility] 06-08-2022 Note Patient Outreach (IN TMMN) GARLAND OBANDO ([id number]) 1940 F Date Time Provider Department 06/08/22 SANTOS NUÑEZ During your visit today, we recorded the following information about you: Allergies As of Date: 06/08/2022 Noted Allergy Reaction DUST 11/14/2007 MOLD 11/14/2007 NO KNOWN DRUG ALLERGIES 10/27/2004 Date Reviewed: 05/07/2022 Reviewed by: Vivi Warner LPN - Fully Assessed Visit Diagnosis:Diabetes mellitus type 2, controlled, without complications (HCC) [E11.9] Order(s):HGB A1C [[id number]] Order #: [id number] FUTURE Prescriptions as of 06/11/2022 - meloxicam (MOBIC) 15 mg tablet TAKE ONE TABLET BY MOUTH EVERY DAY - atorvastatin (LIPITOR) 40 mg tablet Take 1 tablet by mouth daily at bedtime. For cholesterol. - senna-docusate (SENNA-S) 8.6-50 mg per tablet Take 2 tablets by mouth once daily. - lisinopril-hydroCHLOROthiazide (PRINZIDE,ZESTORETIC) 20-12.5 mg per tablet Take 1 tablet by mouth once daily. - aspirin, enteric coated (ASPIRIN, ENTERIC COATED) 81 mg EC tablet Take 1 tablet by mouth twice daily for 28 days. - ascorbic acid, vitamin C, (VITAMIN C) 500 mg tablet Take 1 tablet by mouth twice daily with meals for 28 doses. - omeprazole (PRILOSEC) 20 mg capsule Take 1 capsule by mouth twice daily. - atenolol (TENORMIN) 25 mg tablet Take 1 tablet by mouth once daily. - fluticasone (FLONASE) 50 mcg/actuation nasal spray Use 2 Sprays in each nostril once daily. Rinse mouth after use. - vits A,C,E/lutein/minerals (EYE HEALTH PLUS LUTEIN ORAL) Take 1 capsule by mouth once daily. - FOLIC ACID 400 MCG TAB one-half tablet once a day Facility-Administered Medications as of 06/11/2022 - perflutren lipid microspheres 1.3 mL in NaCl (PF) 0.9% 10 mL injection (DEFINITY) - sodium chloride 0.9 % (flush) 10 mL (BD POSIFLUSH) Problem List As Of Date 06/08/2022 Noted Resolved Unspecified hemorrhoids without mention of comp* 07/09/2014 BENIGN HYPERTENSION [I10] Pain in joint, ankle and foot [M25.579] 04/15/2005 07/09/2014 ESOPHAGEAL REFLUX [K21.9] 06/21/2007 BENIGN NEOPLASM LG BOWEL [D12.6] Internal hemorrhoids without mention of complic*11/14/2007 07/09/2014 External hemorrhoids without mention of complic*11/14/2007 07/09/2014 Hematuria [R31.9] 02/26/2010 02/26/2019 Cervical radiculopathy due to intervertebral di*03/01/2012 02/26/2019 Lumbar disc disease with radiculopathy [M51.16] 05/08/2013 02/26/2019 Situational depression [F43.21] 06/21/2013 Lumbosacral neuritis [M54.17] 07/05/2013 02/26/2019 Lumbar spondylosis [M47.816] 07/05/2013 Lumbar degenerative disc disease [M51.36] 07/05/2013 Sacroiliac joint pain [M53.3] 07/05/2013 02/26/2019 Diabetes mellitus type 2, controlled, without c*07/09/2014 Hyperlipidemia LDL goal <100 [E78.5] 02/19/2015 Acute right-sided low back pain with right-side*08/20/2015 02/26/2019 Personal history of colonic polyps [Z86.010] 09/08/2016 Hip osteoarthritis [M16.9] 11/19/2016 Lumbar facet joint syndrome (HCC) [M47.816] 01/04/2017 Plantar fasciitis [M72.2] 02/26/2019 Rotator cuff syndrome of right shoulder [M75.10*02/26/2019 Coronary artery disease involving [place] and [place]*11/04/2021 History of 2019 novel coronavirus disease (COVI*11/04/2021 Valvular heart disease [I38] 11/04/2021 History of syncope [Z87.898] 11/04/2021 Post-operative state [Z98.890] 11/20/2021 Encounter Status:Closed by EPIC, PRODUSER on 06/11/22 [facility] 05-24-2022 Note HNO ID: [id number] Author: SUNIL Mercer Service: ? Author Type: Physician School Bus Driver/Teacher Assistant Type: Progress Notes Filed: 05/24/2022 11:08 AM Note Text: This note was created using [employer]Pingriter. Subjective Garland Obando is a 81 year old female. HPI 81-year-old female presents for cough, sinus congestion, headache x8 to 9 days. Patient states she has had runny nose, sinus congestion and headache for the past 8 to 9 days. She states she thought she might be getting better, but then over the weekend she got worse. She states that she has a lot of pressure in her head and headaches. Her nose is constantly running. She has been using Flonase with minimal improvement. She does have mild cough that started last night. She did have some low-grade fevers last week. She has not tested herself for COVID. No vomiting or diarrhea. Still able to eat and drink. PAST MEDICAL HISTORY Diagnosis Date Allergic rhinitis Benign neoplasm of colon Cervical radiculopathy due to intervertebral disc disorder 03/01/2012 Coronary artery disease Diverticulosis of colon (without mention of hemorrhage) Diverticulosis Essential hypertension, benign Heart attack (HCC) Hyperlipidemia LDL goal < 100 02/12/2010 Lichen sclerosus 03/10/2020 Lumbar disc disease with radiculopathy 05/08/2013 Mental disorder Osteoarthrosis, unspecified whether generalized or localized, unspecified site Other and unspecified hyperlipidemia Sacroiliac joint pain 07/05/[address] Type II or unspecified type diabetes mellitus without mention of complication, not stated as uncontrolled Vitiligo PAST SURGICAL HISTORY Procedure Laterality Date COLONOSCOPY FLX DX W/COLLJ SPEC WHEN PFRMD 05/16/2000 Colonoscopy COLONOSCOPY FLX DX W/COLLJ SPEC WHEN PFRMD 05/17/2011 Colonoscopy COLONOSCOPY W/BIOPSY SINGLE/MULTIPLE 11/14/07 HEMORRHOIDECTOMY XTRNL 2/> COLUMN/GROUP LEFT HEART CATH,PERCUTANEOUS 11/1999 PAST SURGICAL HISTORY OF 2003 R ureter surgery PAST SURGICAL HISTORY OF 2009 Cyst removal right index finger STRABISMUS RECESSION/RESCJ 1 [facility]NTL [facility] Strabismus Surgery left eye ALLERGIES Dust, Mold, and No Known Drug Allergies MEDICATIONS meloxicam (MOBIC) 15 mg tabletTAKE ONE TABLET BY MOUTH EVERY DAYDisp: 30 tabletRfl: 2 atorvastatin (LIPITOR) 40 mg tabletTake 1 tablet by mouth daily at bedtime. For cholesterol.Disp: 90 tabletRfl: 1 senna-docusate (SENNA-S) 8.6-50 mg per tabletTake 2 tablets by mouth once daily.Disp: Rfl: lisinopril-hydroCHLOROthiazide (PRINZIDE,ZESTORETIC) 20-12.5 mg per tabletTake 1 tablet by mouth once daily.Disp: 90 tabletRfl: 3 ascorbic acid, vitamin C, (VITAMIN C) 500 mg tabletTake 1 tablet by mouth twice daily with meals for 28 doses.Disp: 28 tabletRfl: 0 omeprazole (PRILOSEC) 20 mg capsuleTake 1 capsule by mouth twice daily.Disp: 180 capsuleRfl: 3 atenolol (TENORMIN) 25 mg tabletTake 1 tablet by mouth once daily.Disp: 90 tabletRfl: 3 fluticasone (FLONASE) 50 mcg/actuation nasal sprayUse 2 Sprays in each nostril once daily. Rinse mouth after use.Disp: 11.1 mLRfl: 0 vits A,C,E/lutein/minerals (EYE HEALTH PLUS LUTEIN ORAL)Take 1 capsule by mouth once daily.Disp: Rfl: FOLIC ACID 400 MCG TABone-half tablet once a dayDisp: Rfl: 0 doxycycline monohydrate 100 mg tabletTake 1 tablet by mouth twice daily for 5 days.Disp: 10 tabletRfl: 0 aspirin, enteric coated (ASPIRIN, ENTERIC COATED) 81 mg EC tabletTake 1 tablet by mouth twice daily for 28 days.Disp: 56 tabletRfl: 0 (Patient not taking: Reported on 05/24/2022) FAMILY HISTORY Problem Relation Age of Onset Stroke Mother Coronary Artery Disease Father Stroke Maternal Grandmother Social History Tobacco Use Smoking status: Never Smokeless tobacco: Never Vaping Use Vaping Use: Never used Substance Use Topics Alcohol use: Yes Comment: Rarely Drug use: No Review of Systems Constitutional: Positive for fatigue. Negative for chills and fever. HENT: Positive for congestion, rhinorrhea, sinus pressure and sinus pain. Negative for ear pain and sore throat. Respiratory: Positive for cough. Negative for shortness of breath. Cardiovascular: Negative for chest pain. Gastrointestinal: Negative for diarrhea and vomiting. Neurological: Positive for headaches. Objective BP 132/70 Pulse 118 Temp 37.5 ?C (99.5 ?F) Resp 18 Wt 74.4 kg (164 lb) SpO2 96% BMI 26.88 kg/m? Physical Exam Vitals and nursing note reviewed. Constitutional: General: She is not in acute distress. Appearance: Normal appearance. She is not toxic-appearing. HENT: Right Ear: Tympanic membrane and ear canal normal. Left Ear: Tympanic membrane and ear canal normal. Nose: Mucosal edema and congestion present. Right Sinus: Frontal sinus tenderness present. Left Sinus: Frontal sinus tenderness present. Mouth/Throat: Mouth: Mucous membranes are moist. Pharynx: No oropharyngeal exudate or posterior oropharyngea (more content not included)... [facility] 05-24-2022 History of Present illness Narrative This note was created using [employer]. Subjective Garland Obando is a 81 year old female. HPI 81-year-old female presents for cough, sinus congestion, headache x8 to 9 days. Patient states she has had runny nose, sinus congestion and headache for the past 8 to 9 days. She states she thought she might be getting better, but then over the weekend she got worse. She states that she has a lot of pressure in her head and headaches. Her nose is constantly running. She has been using Flonase with minimal improvement. She does have mild cough that started last night. She did have some low-grade fevers last week. She has not tested herself for COVID. No vomiting or diarrhea. Still able to eat and drink. PAST MEDICAL HISTORY Diagnosis Date Allergic rhinitis Benign neoplasm of colon Cervical radiculopathy due to intervertebral disc disorder 03/01/2012 Coronary artery disease Diverticulosis of colon (without mention of hemorrhage) Diverticulosis Essential hypertension, benign Heart attack (HCC) Hyperlipidemia LDL goal < 100 02/12/2010 Lichen sclerosus 03/10/2020 Lumbar disc disease with radiculopathy 05/08/2013 Mental disorder Osteoarthrosis, unspecified whether generalized or localized, unspecified site Other and unspecified hyperlipidemia Sacroiliac joint pain 07/05/[address] Type II or unspecified type diabetes mellitus without mention of complication, not stated as uncontrolled Vitiligo PAST SURGICAL HISTORY Procedure Laterality Date COLONOSCOPY FLX DX W/COLLJ SPEC WHEN PFRMD 05/16/2000 Colonoscopy COLONOSCOPY FLX DX W/COLLJ SPEC WHEN PFRMD 05/17/2011 Colonoscopy COLONOSCOPY W/BIOPSY SINGLE/MULTIPLE 11/14/07 HEMORRHOIDECTOMY XTRNL 2/> COLUMN/GROUP LEFT HEART CATH,PERCUTANEOUS 11/1999 PAST SURGICAL HISTORY OF 2003 R ureter surgery PAST SURGICAL HISTORY OF 2008 Cyst removal right index finger STRABISMUS RECESSION/RESCJ 1 [facility]NTL [facility] [place] Strabismus Surgery left eye ALLERGIES Dust, Mold, and No Known Drug Allergies MEDICATIONS meloxicam (MOBIC) 15 mg tablet^TAKE ONE TABLET BY MOUTH EVERY DAY^Disp: 30 tablet^Rfl: 2 atorvastatin (LIPITOR) 40 mg tablet^Take 1 tablet by mouth daily at bedtime. For cholesterol.^Disp: 90 tablet^Rfl: 1 senna-docusate (SENNA-S) 8.6-50 mg per tablet^Take 2 tablets by mouth once daily.^Disp: ^Rfl: lisinopril-hydroCHLOROthiazide (PRINZIDE,ZESTORETIC) 20-12.5 mg per tablet^Take 1 tablet by mouth once daily.^Disp: 90 tablet^Rfl: 3 ascorbic acid, vitamin C, (VITAMIN C) 500 mg tablet^Take 1 tablet by mouth twice daily with meals for 28 doses.^Disp: 28 tablet^Rfl: 0 omeprazole (PRILOSEC) 20 mg capsule^Take 1 capsule by mouth twice daily.^Disp: 180 capsule^Rfl: 3 atenolol (TENORMIN) 25 mg tablet^Take 1 tablet by mouth once daily.^Disp: 90 tablet^Rfl: 3 fluticasone (FLONASE) 50 mcg/actuation nasal spray^Use 2 Sprays in each nostril once daily. Rinse mouth after use.^Disp: 11.1 mL^Rfl: 0 vits A,C,E/lutein/minerals (EYE HEALTH PLUS LUTEIN ORAL)^Take 1 capsule by mouth once daily.^Disp: ^Rfl: FOLIC ACID 400 MCG TAB^one-half tablet once a day^Disp: ^Rfl: 0 doxycycline monohydrate 100 mg tablet^Take 1 tablet by mouth twice daily for 5 days.^Disp: 10 tablet^Rfl: 0 aspirin, enteric coated (ASPIRIN, ENTERIC COATED) 81 mg EC tablet^Take 1 tablet by mouth twice daily for 28 days.^Disp: 56 tablet^Rfl: 0 (Patient not taking: Reported on 05/24/2022) FAMILY HISTORY Problem Relation Age of Onset Stroke Mother Coronary Artery Disease Father Stroke Maternal Grandmother Social History Tobacco Use Smoking status: Never Smokeless tobacco: Never Vaping Use Vaping Use: Never used Substance Use Topics Alcohol use: Yes Comment: Rarely Drug use: No Review of Systems Constitutional: Positive for fatigue. Negative for chills and fever. HENT: Positive for congestion, rhinorrhea, sinus pressure and sinus pain. Negative for ear pain and sore throat. Respiratory: Positive for cough. Negative for shortness of breath. Cardiovascular: Negative for chest pain. Gastrointestinal: Negative for diarrhea and vomiting. Neurological: Positive for headaches. Objective BP 132/70 Pulse 118 Temp 37.5 C (99.5 F) Resp 18 Wt 74.4 kg (164 lb) SpO2 96% BMI 26.88 kg/m Physical Exam Vitals and nursing note reviewed. Constitutional: General: She is not in acute distress. Appearance: Normal appearance. She is not toxic-appearing. HENT: Right Ear: Tympanic membrane and ear canal normal. Left Ear: Tympanic membrane and ear canal normal. Nose: Mucosal edema and congestion present. Right Sinus: Frontal sinus tenderness present. Left Sinus: Frontal sinus tenderness present. Mouth/Throat: Mouth: Mucous membranes are moist. Pharynx: No oropharyngeal exudate or posterior oropharyngeal erythema. Eyes: Conjunctiva/sclera: Conjunctivae normal. Cardiovascular: Rate and Rhythm: Regular rhythm. Tachycardia present. Pulmonary: Effort: Pulmonary effort is normal. Breath sounds: Normal breath sounds. Neurological: Mental Status: She is alert. Assessment and Plan ASSESSMENT/PLAN: 1. Acute non-recurrent sinusitis, unspecified location - ICD9: 461.9, ICD10: J01.90 - Will begin treatment with Doxycycline. Patient's last kidney function was in December and eGFR was only in the 40s. Therefore, we will use doxycycline. - The patient should also be given OTC decongestants prn for the first 5-7 days of treatment. -She may continue Flonase - Supportive care with plenty of fluids, rest, and analgesia prn. -Declines COVID/flu swab as symptoms have been for 8 to 9 days. Out of treatment window. Diagnosis and treatment plan were discussed and questions were answered to the patient's satisfaction. Pt acknowledged understanding of concepts and follow up plan. Specific signs and symptoms that would indicate the need for higher level of care were discussed in detail warranting prompt ER evaluation. SUNIL Mercer documented in this encounter [facility] 05-12-2022 Miscellaneous Notes Patient notified of results, verbalizes understanding of instructions. Heidi Levine LPN Please call patient and let her know her xrays shows degenerative (aging )changes. I recommend she complete the EMG testing and try physical therapy- if not improvement can refer her to pain management or spine institute. No Cosme APRN.CURTIS documented in this encounter [facility] 05-07-2022 Note HNO ID: [id number] Author: RT Na(R) Service: Nuclear Medicine Author Type: Technologist Type: Progress Notes Filed: 05/07/2022 2:13 PM Note Text: Radiology Service Progress Note PATIENT NAME: Garland Obando DATE OF SERVICE: May 07, 2022 TIME: 1:59 PM PATIENT IDENTITY VERIFICATION COMPLETED USING TWO (2) IDENTIFIERS: Name and Date of confirmed by patient verbally. FALL SCREENING: Has the patient had 2 falls in the last year or 1 fall with injury or currently using an Ambulatory Assistive Device (Walker, Cane, Wheelchair, Crutches, etc.)? No PATIENT GENDER DATA: Female. status: : No status: NO. PATIENT RELEVANT IMPLANT DATA REVIEWED: Not Applicable RADIOLOGY DEPARTMENT: General X-ray: Exam(s) Completed: Spine X-Ray(s): Cervical AP / LAT / OBL PERIPHERAL IV DATA: Not applicable SIGNED BY: RT Na(R) May 07, 2022 1:59 PM [facility] 05-07-2022 Note HNO ID: [id number] Author: No Cosme APRN.TIRE BUILDER Service: ? Author Type: Nurse Practitioner Type: Progress Notes Filed: 05/08/2022 10:45 AM Note Text: 05/07/2022 Patient presents with: Pain: Right hand pain/numbness SUBJECTIVE: This is a 81 year old that is here today for Above Complaints.. ONSET: quite a while, gradually worse LOCATION: right hand but also moves around into forearm and upper arm DURATION: gradually worse CHARACTERISTICS: numbness and tingling AGGRAVATING FEATURES: using it a lot or certain movements ALLEVIATING FEATURES: shaking head RADIATION: reports it can be her whole arm at times- moves around Right hand dominant Admits she has neck pain. Has hx of cervical radiculopathy. Thinks arm is weaker than left. Denies past neck, shoulder arm, hand wrist injury or surgery, dropping objects, saddle anaesthesia, urinary/bowel incontinence or inability. ONSET: gradually worsening LOCATION: right knee lateral aspect DURATION: constant CHARACTERISTICS: feels like a tight band AGGRAVATING FEATURES: standing for long time ALLEVIATING FEATURES: sitting RADIATION: right lower leg Sometimes feels weak at times like it' going to give out on her. She reports she has seen ortho for this and had an xray in the past. Had right hip replacement last year and feel the knee is now worse. Denies any recent/past injury, redness, warmth or swelling PAST MEDICAL HISTORY Diagnosis Date Allergic rhinitis Benign neoplasm of colon Cervical radiculopathy due to intervertebral disc disorder 03/01/2012 Coronary artery disease Diverticulosis of colon (without mention of hemorrhage) Diverticulosis Essential hypertension, benign Heart attack (HCC) Hyperlipidemia LDL goal < 100 02/12/2010 Lichen sclerosus 03/10/2020 Lumbar disc disease with radiculopathy 05/08/2013 Mental disorder Osteoarthrosis, unspecified whether generalized or localized, unspecified site Other and unspecified hyperlipidemia Sacroiliac joint pain 07/05/[address] Type II or unspecified type diabetes mellitus without mention of complication, not stated as uncontrolled Vitiligo ALLERGIES Dust, Mold, and No Known Drug Allergies MEDICATIONS Current Outpatient Medications Medication Sig meloxicam (MOBIC) 15 mg tablet TAKE ONE TABLET BY MOUTH EVERY DAY atorvastatin (LIPITOR) 40 mg tablet Take 1 tablet by mouth daily at bedtime. For cholesterol. senna-docusate (SENNA-S) 8.6-50 mg per tablet Take 2 tablets by mouth once daily. lisinopril-hydroCHLOROthiazide (PRINZIDE,ZESTORETIC) 20-12.5 mg per tablet Take 1 tablet by mouth once daily. aspirin, enteric coated (ASPIRIN, ENTERIC COATED) 81 mg EC tablet Take 1 tablet by mouth twice daily for 28 days. ascorbic acid, vitamin C, (VITAMIN C) 500 mg tablet Take 1 tablet by mouth twice daily with meals for 28 doses. omeprazole (PRILOSEC) 20 mg capsule Take 1 capsule by mouth twice daily. atenolol (TENORMIN) 25 mg tablet Take 1 tablet by mouth once daily. fluticasone (FLONASE) 50 mcg/actuation nasal spray Use 2 Sprays in each nostril once daily. Rinse mouth after use. vits A,C,E/lutein/minerals (EYE HEALTH PLUS LUTEIN ORAL) Take 1 capsule by mouth once daily. FOLIC ACID 400 MCG TAB one-half tablet once a day Current Facility-Administered Medications Medication Dose Route Frequency perflutren lipid microspheres 1.3 mL in NaCl (PF) 0.9% 10 mL injection (DEFINITY) INTRAVENOUS DIRECTED PRN sodium chloride 0.9 % (flush) 10 mL (BD POSIFLUSH) 10 mL INTRAVENOUS DIRECTED PRN Medications and allergies reviewed by this provider. SOCIAL HISTORY Social History Tobacco Use Smoking status: Never Smokeless tobacco: Never Vaping Use Vaping Use: Never used Substance Use Topics Alcohol use: Yes Comment: Rarely Drug use: No REVIEW OF SYSTEMS All other reviewed and negative other than HPI. OBJECTIVE: BP 104/78 Pulse 61 Resp 16 Wt 73.9 kg (163 lb) SpO2 96% BMI 26.71 kg/m? . Vital signs reviewed by this provider. APPEARANCE Well appearing, alert, in no acute distress, well-hydrated, well nourished. NECK Supple, FROM. No TTP. Negative Spurling RIGHT ARM: No obvious deformity, erythema, swelling or TTP. Some difficulty discriminating between sharp and dull sensation in comparison to left. Hand grasp seem a little weaker than the left. 2+ radial pulse. cap refill WNL No muscle wasting observed. Negative Phalen's and Tinel's RIGHT KNEE: Gait antalgic. Using quad cane No obvious deformity redness, warmth or swelling. TTP right lateral knee. Patient seems to be in discomfort with all ROM SHINGRIX VACCINE(2 of 3) due on 11/18/2010 DTAP,TDAP,TD(3 - Tdap) due on 09/23/2020 COVID-19 VACCINE(3 - Booster for Moderna series) due on 01/23/2021 DIABETIC FOOT EXAM due on 09/12/2021 ADVANCE DIRECTIVE DISCUSSION Never done DILATED RETINAL EXAM due on 02/16/2022 LDL CHOLESTEROL due on 04/03/2022 (more content not included)... [facility] 05-07-2022 Instructions No Cosme APRN.CNP - 05/07/2022 1:42 PM EDT Follow-up pending testing documented in this encounter [facility] 05-07-2022 History of Present illness Narrative 05/07/2022 Patient presents with: Pain: Right hand pain/numbness SUBJECTIVE: This is a 81 year old that is here today for Above Complaints.. ONSET: quite a while, gradually worse LOCATION: right hand but also moves around into forearm and upper arm DURATION: gradually worse CHARACTERISTICS: numbness and tingling AGGRAVATING FEATURES: using it a lot or certain movements ALLEVIATING FEATURES: shaking head RADIATION: reports it can be her whole arm at times- moves around Right hand dominant Admits she has neck pain. Has hx of cervical radiculopathy. Thinks arm is weaker than left. Denies past neck, shoulder arm, hand wrist injury or surgery, dropping objects, saddle anaesthesia, urinary/bowel incontinence or inability. ONSET: gradually worsening LOCATION: right knee lateral aspect DURATION: constant CHARACTERISTICS: feels like a tight band AGGRAVATING FEATURES: standing for long time ALLEVIATING FEATURES: sitting RADIATION: right lower leg Sometimes feels weak at times like it' going to give out on her. She reports she has seen ortho for this and had an xray in the past. Had right hip replacement last year and feel the knee is now worse. Denies any recent/past injury, redness, warmth or swelling PAST MEDICAL HISTORY Diagnosis Date Allergic rhinitis Benign neoplasm of colon Cervical radiculopathy due to intervertebral disc disorder 03/01/2012 Coronary artery disease Diverticulosis of colon (without mention of hemorrhage) Diverticulosis Essential hypertension, benign Heart attack (HCC) Hyperlipidemia LDL goal < 100 02/12/2010 Lichen sclerosus 03/10/2020 Lumbar disc disease with radiculopathy 05/08/2013 Mental disorder Osteoarthrosis, unspecified whether generalized or localized, unspecified site Other and unspecified hyperlipidemia Sacroiliac joint pain 07/05/[address] Type II or unspecified type diabetes mellitus without mention of complication, not stated as uncontrolled Vitiligo ALLERGIES Dust, Mold, and No Known Drug Allergies MEDICATIONS Current Outpatient Medications Medication Sig meloxicam (MOBIC) 15 mg tablet TAKE ONE TABLET BY MOUTH EVERY DAY atorvastatin (LIPITOR) 40 mg tablet Take 1 tablet by mouth daily at bedtime. For cholesterol. senna-docusate (SENNA-S) 8.6-50 mg per tablet Take 2 tablets by mouth once daily. lisinopril-hydroCHLOROthiazide (PRINZIDE,ZESTORETIC) 20-12.5 mg per tablet Take 1 tablet by mouth once daily. aspirin, enteric coated (ASPIRIN, ENTERIC COATED) 81 mg EC tablet Take 1 tablet by mouth twice daily for 28 days. ascorbic acid, vitamin C, (VITAMIN C) 500 mg tablet Take 1 tablet by mouth twice daily with meals for 28 doses. omeprazole (PRILOSEC) 20 mg capsule Take 1 capsule by mouth twice daily. atenolol (TENORMIN) 25 mg tablet Take 1 tablet by mouth once daily. fluticasone (FLONASE) 50 mcg/actuation nasal spray Use 2 Sprays in each nostril once daily. Rinse mouth after use. vits A,C,E/lutein/minerals (EYE HEALTH PLUS LUTEIN ORAL) Take 1 capsule by mouth once daily. FOLIC ACID 400 MCG TAB one-half tablet once a day Current Facility-Administered Medications Medication Dose Route Frequency perflutren lipid microspheres 1.3 mL in NaCl (PF) 0.9% 10 mL injection (DEFINITY) INTRAVENOUS DIRECTED PRN sodium chloride 0.9 % (flush) 10 mL (BD POSIFLUSH) 10 mL INTRAVENOUS DIRECTED PRN Medications and allergies reviewed by this provider. SOCIAL HISTORY Social History Tobacco Use Smoking status: Never Smokeless tobacco: Never Vaping Use Vaping Use: Never used Substance Use Topics Alcohol use: Yes Comment: Rarely Drug use: No REVIEW OF SYSTEMS All other reviewed and negative other than HPI. OBJECTIVE: BP 104/78 Pulse 61 Resp 16 Wt 73.9 kg (163 lb) SpO2 96% BMI 26.71 kg/m . Vital signs reviewed by this provider. APPEARANCE Well appearing, alert, in no acute distress, well-hydrated, well nourished. NECK Supple, FROM. No TTP. Negative Spurling RIGHT ARM: No obvious deformity, erythema, swelling or TTP. Some difficulty discriminating between sharp and dull sensation in comparison to left. Hand grasp seem a little weaker than the left. 2+ radial pulse. cap refill WNL No muscle wasting observed. Negative Phalen's and Tinel's RIGHT KNEE: Gait antalgic. Using quad cane No obvious deformity redness, warmth or swelling. TTP right lateral knee. Patient seems to be in discomfort with all ROM SHINGRIX VACCINE(2 of 3) due on 11/18/2010 DTAP,TDAP,TD(3 - Tdap) due on 09/23/2020 COVID-19 VACCINE(3 - Booster for Moderna series) due on 01/23/2021 DIABETIC FOOT EXAM due on 09/12/2021 ADVANCE DIRECTIVE DISCUSSION Never done DILATED RETINAL EXAM due on 02/16/2022 LDL CHOLESTEROL due on 04/03/2022 HBA1C due on 05/04/2022 INFLUENZA(1) due on 08/13/2022 URINE ALBUMIN:CREATININE RATIO due on 12/02/2022 ANNUAL PCP TEAM CHRONIC DISEASE VISIT due on 05/08/2023 BP CONTROLLED (<130/80) due on 05/08/2023 BONE DENSITY Completed PNEUMOCOCCAL: 65+ Completed ASSESSMENT/PLAN: 1. Numbness and tingling of right arm - ICD9: 782.0, ICD10: R20.0, R20.2 (primary diagnosis) - possible related to cervical radiculopathy - no red flag symptoms or exam findings - red flag symptoms discussed, verbalizes understanding - XR CERV OTHER 4V AP/LAT/OBL - EMG(NEURO/NI) - CONSULT TO PHYSICAL THERAPY - follow-up pending xray and testing to ER with red flag symptoms 2. Chronic pain of right knee - ICD9: 719.46, 338.29, ICD10: M25.561, G89.29 - had xray last year showed osteoarthrosis with probable bone on bone - would recommend she discuss with ortho. Would recommend she start PT for strengthening - may use OTC oral and topical pain relievers as directed on packaging - CONSULT TO PHYSICAL THERAPY 3. Neck pain - ICD9: 723.1, ICD10: M54.2 - has hx of cervical spondylosis - no red flag symptoms or exam findings - red flag symptoms discussed - XR CERV OTHER 4V AP/LAT/OBL - EMG(NEURO/NI) - CONSULT TO PHYSICAL THERAPY - may use OTC oral and topical pain relievers as directed on packaging , may use heat for 15 minutes at at [facility] - if not improving would recommend she see spine, to ER with red flag symptoms No Cosme APRN.CNP Prescription instructions reviewed with patient as applicable. Patient advised if symptoms do not improve or if symptoms worsen sooner, to contact their primary care physician. Potential red flag symptoms discussed with the patient. Reviewed appropriate action plan to take if red flag symptoms occur. Patient agreeable to treatment plan. I spent a total of 30 minutes on the date of the service which included preparing to see the patient, [id number] patient care, completing clinical documentation, obtaining and/or reviewing separately obtained history, performing a medically appropriate examination, counseling and educating the patient/family/caregiver, and ordering medications, tests, or procedures. documented in this encounter [facility] 04-02-2022 Note HNO ID: [id number] Author: No Cosme APRN.CNP Service: ? Author Type: Nurse Practitioner Type: Progress Notes Filed: 04/02/2022 2:52 PM Note Text: 04/02/2022 Patient presents with: F/U 3 Month SUBJECTIVE: This is a 81 year old that is here today for Above Complaints. Since last office visit has been in good health without ER visits or hospitalizations. Prediabetes: stays active working in her yard. Works five days a week at [employer]. Admits to frequent urination which is not new. Denies visual changes and polydipsia HTN: Patient is compliant with meds Yes Monitors bp at home: Yes. 120-130/70-80 Denies side effects: Yes. Chest pain: No. Dyspnea: No. Edema: No. Palpitations: No. Syncope: No. Headache: No. Dizziness: Yes at times HYPERLIPIDEMIA: Patient is taking medications: Yes. Patient is watching diet: Yes. Patient denies myalgias: Yes. Patient denies gi upset: Yes Scheduled for COVID-19 booster Tuesday at [employer] PAST MEDICAL HISTORY Diagnosis Date Allergic rhinitis Benign neoplasm of colon Cervical radiculopathy due to intervertebral disc disorder 03/01/2012 Coronary artery disease Diverticulosis of colon (without mention of hemorrhage) Diverticulosis Essential hypertension, benign Heart attack (HCC) Hyperlipidemia LDL goal < 100 02/12/2010 Lichen sclerosus 03/10/2020 Lumbar disc disease with radiculopathy 05/08/2013 Mental disorder Osteoarthrosis, unspecified whether generalized or localized, unspecified site Other and unspecified hyperlipidemia Sacroiliac joint pain 07/05/[address] Type II or unspecified type diabetes mellitus without mention of complication, not stated as uncontrolled Vitiligo ALLERGIES Dust, Mold, and No Known Drug Allergies MEDICATIONS Current Outpatient Medications Medication Sig meloxicam (MOBIC) 15 mg tablet TAKE ONE TABLET BY MOUTH EVERY DAY atorvastatin (LIPITOR) 40 mg tablet Take 1 tablet by mouth daily at bedtime. For cholesterol. senna-docusate (SENNA-S) 8.6-50 mg per tablet Take 2 tablets by mouth once daily. lisinopril-hydroCHLOROthiazide (PRINZIDE,ZESTORETIC) 20-12.5 mg per tablet Take 1 tablet by mouth once daily. aspirin, enteric coated (ASPIRIN, ENTERIC COATED) 81 mg EC tablet Take 1 tablet by mouth twice daily for 28 days. ascorbic acid, vitamin C, (VITAMIN C) 500 mg tablet Take 1 tablet by mouth twice daily with meals for 28 doses. omeprazole (PRILOSEC) 20 mg capsule Take 1 capsule by mouth twice daily. atenolol (TENORMIN) 25 mg tablet Take 1 tablet by mouth once daily. fluticasone (FLONASE) 50 mcg/actuation nasal spray Use 2 Sprays in each nostril once daily. Rinse mouth after use. vits A,C,E/lutein/minerals (EYE HEALTH PLUS LUTEIN ORAL) Take 1 capsule by mouth once daily. FOLIC ACID 400 MCG TAB one-half tablet once a day Current Facility-Administered Medications Medication Dose Route Frequency perflutren lipid microspheres 1.3 mL in NaCl (PF) 0.9% 10 mL injection (DEFINITY) INTRAVENOUS DIRECTED PRN sodium chloride 0.9 % (flush) 10 mL (BD POSIFLUSH) 10 mL INTRAVENOUS DIRECTED PRN Medications and allergies reviewed by this provider. SOCIAL HISTORY Social History Tobacco Use Smoking status: Never Smokeless tobacco: Never Vaping Use Vaping Use: Never used Substance Use Topics Alcohol use: Yes Comment: Rarely Drug use: No REVIEW OF SYSTEMS All other reviewed and negative other than HPI. OBJECTIVE: BP 126/78 Pulse 67 Resp 16 Wt 75 kg (165 lb 6.4 oz) SpO2 96% BMI 27.11 kg/m? . Vital signs reviewed by this provider. APPEARANCE Well appearing, alert, in no acute distress, well-hydrated, well nourished. EYES conjunctiva and sclera normal. HEART RRR with normal S1 and S2, no murmurs, no gallops, no JVD appreciated LUNG clear to auscultation. No wheezes, rhonchi or rales EXTREMITIES Extremities normal, No deformities, No skin discoloration, and No edema SKIN Skin color, texture, turgor normal, no suspicious rashes or lesions to exposed skin Component Latest Ref Rng AND Units 12/30/2021 WBC 3.70 - 11.00 k/uL 8.83 RBC 3.90 - 5.20 m/uL 4.05 Hemoglobin 11.5 - 15.5 g/dL 11.7 Hematocrit 36.0 - 46.0 % 36.9 MCV 80.0 - 100.0 fL 91.1 MCH 26.0 - 34.0 pg 28.9 MCHC 30.5 - 36.0 g/dL 31.7 RDW-CV 11.5 - 15.0 % 14.4 Platelet Count 150 - 400 k/uL 284 MPV 9.0 - 12.7 fL 12.2 Neut% % 70.9 Abs Neut (ANC) 1.45 - 7.50 k/uL 6.26 Lymph% % 18.7 Abs Lymph 1.00 - 4.00 k/uL 1.65 [place]% % 7.6 Abs [place] <0.87 k/uL 0.67 Eosin% % 1.7 Abs Eosin <0.46 k/uL 0.15 Baso% % 0.8 Abs Baso <0.11 k/uL 0.07 Immature Gran % % 0.3 IMMATURE GRANS (ABS) <0.10 k/uL 0.03 NRBC /100 WBC 0.0 Absolute nRBC <0.01 k/uL <0.01 DTYPE Auto Protein, Total 6.3 - 8.0 g/dL 7.3 Albumin 3.9 - 4.9 g/dL 4.5 Calcium 8.5 - 10.2 mg/dL 10.3 (H) Bilirubin, Total 0.2 - 1.3 mg/dL 0.3 Alkaline Phosphatase 34 - 123 U/L 145 (H) AST 13 - 35 U/L 28 (more content not included)... [facility] 02-22-2022 History of Present illness Narrative Skinny Heller MD Department of Orthopaedics Orthopaedics [address] [place] [facility] [address] Dept: [phone] Dept February 22, 2022 CHIEF COMPLAINT: Post Op of the Right Hip and 13 weeks 5 days post op Right AMRIT. HPI Patient states she is still having some soreness in her hip. She is back to work. She feels at times her feels her right knee wants to buckle. She has fallen a couple of times and was able to catch herself. She has a quad cane to carries with her for security if needed. Taking no med's for the pain. X-rays done on 02/18/22. ASSESSMENT: Z96.641 Status post right hip replacement (primary encounter diagnosis) SUMMARY/PLAN: She's doing well. Soreness is normal. She'll continue strengthening. Back working. Exam: NV exam is intact. Walking well. Healed incision. Imaging: IMPRESSION: Unremarkable right total hip arthroplasty. Crown And Bridge Technician: CELSO Transcribe Date/Time: Feb 19 2022 1:09P Dictated by : LILY PLATT MD This examination was interpreted and the report reviewed and electronically signed by: LILY PLATT MD on Feb 19 2022 1:12PM EST Results-Findings * * *Final Report* * * DATE OF EXAM: Feb 18 2022 12:41PM WOX [id number] - XR HIP 3V PELV+ AP/LAT RT / PROCEDURE REASON: multiple diagnoses * * * * Physician Interpretation * * * * HISTORY: right hip replacement done in November 2021. Primary osteoarthritis of right hip Status post right hip replacement . TECHNIQUE: XR HIP 3V PELV+ AP/LAT RT Laterality: RIGHT Number of different views (projections): 3 COMPARISON: None RESULT: Right total hip arthroplasty remains in good alignment. No fracture or progressive periprosthetic radiolucency identified. The bony pelvis is intact. Supporting Information Below: Medications: Current Outpatient Medications Medication Sig atorvastatin (LIPITOR) 40 mg tablet Take 1 tablet by mouth daily at bedtime. For cholesterol. meloxicam (MOBIC) 15 mg tablet Take 1 tablet by mouth once daily. senna-docusate (SENNA-S) 8.6-50 mg per tablet Take 2 tablets by mouth once daily. lisinopril-hydroCHLOROthiazide (PRINZIDE,ZESTORETIC) 20-12.5 mg per tablet Take 1 tablet by mouth once daily. omeprazole (PRILOSEC) 20 mg capsule Take 1 capsule by mouth twice daily. atenolol (TENORMIN) 25 mg tablet Take 1 tablet by mouth once daily. fluticasone (FLONASE) 50 mcg/actuation nasal spray Use 2 Sprays in each nostril once daily. Rinse mouth after use. vits A,C,E/lutein/minerals (EYE HEALTH PLUS LUTEIN ORAL) Take 1 capsule by mouth once daily. FOLIC ACID 400 MCG TAB one-half tablet once a day aspirin, enteric coated (ASPIRIN, ENTERIC COATED) 81 mg EC tablet Take 1 tablet by mouth twice daily for 28 days. ascorbic acid, vitamin C, (VITAMIN C) 500 mg tablet Take 1 tablet by mouth twice daily with meals for 28 doses. Current Facility-Administered Medications Medication Dose Route Frequency perflutren lipid microspheres 1.3 mL in NaCl (PF) 0.9% 10 mL injection (DEFINITY) INTRAVENOUS DIRECTED PRN sodium chloride 0.9 % (flush) 10 mL (BD POSIFLUSH) 10 mL INTRAVENOUS DIRECTED PRN Allergies: Dust, Mold, and No Known Drug Allergies Skinny Heller MD documented in this encounter [facility] 01-12-2022 Miscellaneous Notes Patient has been identified by name and date of : Yes Pharmacy phones for refill(s): Requested Prescriptions Pending Prescriptions Disp Refills atorvastatin (LIPITOR) 40 mg tablet 90 tablet 1 Sig: Take 1 tablet by mouth daily at bedtime. For cholesterol. Date of last office visit in primary care: 12/30/21 Future visit: 04/02/22 Last 2 Encounter Wt Readings: Date: Wt: 12/30/2021 71.9 kg (158 lb 9.6 oz) 11/27/2021 0 kg () Previous labs/tests for medication: Cholesterol: HDL Cholesterol (mg/dL) Date Value 04/03/2021 58 LDL Cholesterol (mg/dL) Date Value 04/03/2021 184 ALT (U/L) Date Value 12/30/2021 22 04/03/2021 16 Non HDL Cholesterol (mg/dL) Date Value 04/03/2021 204 Please advise. Thank you. Nina Rodriguez, RN documented in this encounter [facility] 01-08-2022 Miscellaneous Notes Patient returned call and went over results, notes from No Cosme EXECUTIVE RECEPTIONIST with understanding. documented in this encounter [facility] 01-06-2022 Miscellaneous Notes Pt notified of results via GI-View. Rosalinda Ivory Ma 2nd attempt at reaching patient. Left message to call office back for update. Vivi Warner LPN Message left for patient to call back for update. Vivi Warner LPN Please call patient and let her know her kidney function is down some. Alkaline phos slightly elevated possibly due to hip surgery. Recommend we recheck in one month. Stay well hydrate with water, eat low salt diet and avoid NSAID products. No Cosme APRN.CURTIS documented in this encounter [facility] 12-11-2021 Miscellaneous Notes SITUATION: only patient present during today's visit. patient reports the following since the last homecare visit: medications/allergies--no changes, no fall. patient reports she is doing really good. . BACKGROUND: Diagnoses (reason for Home Care): RTHR Weight Bearing/Precaution Changes: no changes ASSESSMENT: Focus of visit: reassessment /discharge Physical therapy discharged: goals achieved. Functional performance at discharge - bed mobility independent, transfers independent, ambulation independent and stairs independent. Plan of care, goals, and discharge reviewed and agreed upon with patient and/or caregiver. RECOMMENDATION: Patient discharged from home health services. Instructions to include:home exercise program as directed See intervention summary for intervention/education details. documented in this encounter [facility] 12-08-2021 Miscellaneous Notes SITUATION: only patient present during today's visit. patient reports the following since the last homecare visit: medications/allergies--no changes, no fall. patient reports she is doing really good. . BACKGROUND: Diagnoses (reason for Home Care): RTHR Weight Bearing/Precaution Changes: no changes ASSESSMENT: Focus of visit issued NOMNC gait traiining w/ QC and progression of standing exercises for HEP. Plan of care, goals, and visit frequency reviewed and agreed upon with patient and/or caregiver. Current Discharge Plan: independent with home exercise program Anticipate discharge by 12/10/21 RECOMMENDATION: Next visit to focus on PT to see for possible DC See intervention summary for intervention/education details. documented in this encounter [facility] 12-04-2021 Miscellaneous Notes Pt called and is notified of providers results. Pt voices understanding. Nina Rodriguez RN Vm left with patient to contact office for results Nancy Dorsey Ma Please call patient and let her know her urine culture does not show any bacterial infection. No Cosme APRN.CURTIS documented in this encounter [facility] 12-03-2021 Miscellaneous Notes SITUATION: only patient present during today's visit. patient reports the following since the last homecare visit: medications/allergies--no changes, no fall. patient reports she went to yesterday for blood work and repeat urine sample. No results yet. BACKGROUND: Diagnoses (reason for Home Care): RTHR Weight Bearing/Precaution Changes: no changes ASSESSMENT: Focus of visit progression of reps and to standing exercises for HEP. gait training w/ walker. Patient only has QC and plans to get standard cane this weekend . Patient requested to wait for cane training until next week when she has new cane. Plan of care, goals, and visit frequency reviewed and agreed upon with patient and/or caregiver. Current Discharge Plan: independent with home exercise program Anticipate discharge by 12/11/21 RECOMMENDATION: Next visit to focus on cane trainiong nomnc See intervention summary for intervention/education details. documented in this encounter [facility] 12-02-2021 Miscellaneous Notes Reviewed. No Cosme APRN.TIRE BUILDER Call placed to steven Maxwell. Providers message given, appointment scheduled with No at 2pm. Vivi Warner LPN Call placed to Alissa with no answer. Message left to call back and ask for a nurse to receive message. Anitra Luna RN Recommend she finish abx, push PO fluids, and schedule OV for tomorrow to recheck symptoms and UA C&S. Daughter (Alissa) calls to report that patient was treated on 11/27/2021 in for a UTI. Symptoms are improving but patient only has one day left of antibiotics and is asking if provider would send in one more round of antibiotics. Afebrile. Patient continues to have frequency. Treated with macrobid 100 mg BID x 5 days. Completed 4 days of treatment. Daughter asking for call back at [phone]. Please review and advise, Anitra Luna RN documented in this encounter [facility] 12-01-2021 Miscellaneous Notes SITUATION: only patient present during today's visit. patient reports the following since the last homecare visit: medications/allergies--no changes, no fall. patient reports she saw yesterday and is now able to increase to WBAT. BACKGROUND: Diagnoses (reason for Home Care): RTHA Weight Bearing/Precaution Changes: WBAT, notified CHRISTIANE Contreras of [facility] ASSESSMENT: Focus of visit reviewed and performed supine exercises for HEP, gait training w/w walker w/ emphasis on progressing to WBAT good recall of hip precautions Plan of care, goals, and visit frequency reviewed and agreed upon with patient and/or caregiver. Current Discharge Plan: independent with home exercise program Anticipate discharge by 12/10/21 RECOMMENDATION: Next visit to focus on add standing heel raises, and hamstring curls See intervention summary for intervention/education details. documented in this encounter [facility] 11-30-2021 History of Present illness Narrative Radiology Service Progress Note PATIENT NAME: Garland Obando DATE OF SERVICE: November 30, 2021 TIME: 1:55 PM PATIENT IDENTITY VERIFICATION COMPLETED USING TWO (2) IDENTIFIERS: Name and Date of confirmed by patient verbally. FALL SCREENING: Has the patient had 2 falls in the last year or 1 fall with injury or currently using an Ambulatory Assistive Device (Walker, Cane, Wheelchair, Crutches, etc.)? No PATIENT GENDER DATA: Female. status: : No status: NO. PATIENT RELEVANT IMPLANT DATA REVIEWED: Yes RADIOLOGY DEPARTMENT: General X-ray: Exam(s) Completed: Pelvis X-Ray: Pelvis with Hip Right PERIPHERAL IV DATA: Not applicable SIGNED BY: RT Luke(R) November 30, 2021 1:55 PM documented in this encounter [facility] 11-30-2021 Miscellaneous Notes Pt notified of provider message. Pt voiced understanding. Pt reports she has an appt today with a provider. Pt reports she does not think the atb is helping much and will discuss it at appt. Beverley Shrestha LPN Left message for patient to return call. Marli Sullivan Left message for pt to call back. Katiana Richards MA Please notify patient that urine culture showed mixture of bacteria which suggests possible contamination upon collection. Advise her to finish the antibiotic if it is helping her symptoms but if not, then she will need to return to provide another specimen. Thank you. Jolynn Riddle APRN.CURTIS documented in this encounter [facility] 11-25-2021 Miscellaneous Notes SITUATION: No one present during today's visit. patient reports she had a rough night . Admits that her son got addicted to pain meds from an accident and she refuses to take narcotics and only tylenol BACKGROUND: Diagnoses (reason for Home Care): R THR 11/18- Past Medical History: cervical radiculopathy , CAD, HTN, DM, vertigoGERD Weight Bearing or Surgical Precautions: 40-50Lb wt bearing dressing change POD 7 (11/25/21) follow up 11/30 ASSESSMENT: Focus of visit LE strengthening ex's. transfers and gait Plan of care, goals, and visit frequency reviewed and agreed upon with patient and/or caregiver. Current Discharge Plan: independent with home exercise program Anticipate discharge by 12/12/21 RECOMMENDATION: Next visit to focus on increase ther ex as tolerated, transfers and gait , steps to exit for MD appt on Thursday 11/30 See intervention summary for intervention/education details. documented in this encounter [facility] 11-23-2021 History of Present illness Narrative TCM Home Visit Referral Source of Stratification: [facility] Admission Status: Discharged Readmission Risk Score: 11 BRODY Score: 1 Patient meets program referral criteria: No Vane Tompkins RN November 23, 2021 12:18 PM TRANSITIONAL CARE MANAGEMENT (TCM) COMMUNITY MONITORING PROGRAM Provider Action/FYI: Pt states she just completed a good therapy session with [facility] Rates pain at this time as a 5 , states she had been at a 2 Dressing clean, dry and intact Using a walker when ambulating States she has not been eating well but has been drinking plenty of fluids Has not had a bowel movement since surgery. Is passing gas, taking medications as prescribed. States her daughter will be picking up some peach nectar which normally works for her. States stomach is not uncomfortable or bloated. Advised to contact provider if she does not have a bowel movement today SOC with [facility] completed today Confirmed Ortho follow up scheduled 11/30 Declined PCP appt at this time Encouraged to contact PCP with questions/concerns or Ortho for surgery related questions SUMMARY: Pt discharged from [facility] on 11/21/21. Admitted for: Right total hip arthroplasty Contact made with patient: Yes Hi my name is Vane Tompkins RN and I am calling from the [facility] on behalf of your PCP, Santos Nuñez MD I understand you were recently in the hospital so I am calling to check in with you to ensure you are feeling well now that you're home. May I ask you a few questions related to your hospital stay and well-being? Yes Contact with patient post discharge, spoke to patient. Patient identified by name and . Do you feel your health is BETTER, WORSE, or the SAME since leaving the hospital? Better ACTION TAKEN: Patient indicated symptoms are better or same, no action required. Continue outreach. MEDICATIONS: Many patients have questions or concerns about their medications once they are home. Do you have any questions about taking your medications or which medication you should be on? No Do you need any medication refills at this time, including any of the medications you might take only when needed? No ACTION TAKEN: No action required For RNs or Pharmacy completing outreach ONLY, was a medication review completed? Medications reviewed with [facility] today SOCIAL: We would like to make sure you have what you need so that your basics needs are met - including your personal safety, food, housing and medications. Would you like to speak with a social work steam brush operator to help give you support for any of these needs? No It can be normal to feel anxious or down during a time like this. Would you like to talk to a mental health professional about how you have been feeling? No ACTION TAKEN: No action taken DISCHARGE INTRUCTIONS: Your discharge instructions / After Visit Summary (AVS) are important in guiding you through the recovery process. Do you have any questions related to your discharge instructions? No Do you have all the necessary equipment and supplies at home? Yes ACTION TAKEN: No action required I would like to help you schedule a hospital follow-up virtual or telephone visit with your PCP. This is a great way for you to connect with your provider to ensure you have safely transitioned home. If you are agreeable, I will send your request to a assistant front desk manager who will contact and assist you with that appointment. This will give you an opportunity to ask any questions or address any concerns you may have with your PCP. Inform the patient that if they have any questions or concerns prior to that appointment, to call their PCP's office right away. ACTION TAKEN: No action required, patient declines appointment. Your doctor would like us to remind you of the recommendations regarding the coronavirus (Covid19) outbreak: Avoid public places as much as possible. Avoid close contact (within 6 feet) with others you don t live with, especially if they are sick. Stay home if you are sick. Wash your hands regularly for at least 20 seconds with soap and water. Wear a cloth mask in public places to help reduce community spread. Do not go to your Doctor s office unless instructed to do so. For any non-emergency symptoms, call your Doctor s office to get instructions on how to manage (we might recommend a telephone or virtual visit). For emergency symptoms, proceed to Emergency Department as usual but inform them of cough and fever symptoms VOLODYMYR if present (or call on the way if possible). Vane Tompkins RN, BSN Primary Care Primer Press Operator [facility] [phone] documented in this encounter [facility] 11-23-2021 Miscellaneous Notes SITUATION: daughter present during today's visit. patient reports im doing pretty good . Pain has been tolerable . BACKGROUND: Diagnoses (reason for Home Care): R THR 5- Past Medical History: cervical radiculopathy , CAD, HTN, DM, vertigoGERD Weight Bearing or Surgical Precautions: 40-50Lb wt bearing dressing change POD 7 (11/25/21) follow up 11/30 ASSESSMENT: Patient evaluated by [facility] physical therapy. Reviewed and explained homecare services. Plan of care, goals, and visit frequency developed, reviewed, and agreed upon with patient and/or caregiver. Patient Goal: walk without pain go back to work Patient will benefit from continued physical therapy to address the following deficits: strength, balance, gait, endurance, transfers, stair negotiation and bed mobility. Current Discharge Plan: independent with home exercise program. Anticipate discharge by 12/12/21. RECOMMENDATION: Next visit to focus on review HEP , gait, balance Agreeable to PT See intervention summary for intervention/education details. documented in this encounter [facility] 11-19-2021 Miscellaneous Notes Welcome Home Call: a. Date and Time: 11:27 AM 11/19/2021 N/A in room or cell. Left req a c/b to schedule Welcome Home Call: a. Date and Time: 11:43 AM 11/19/2021 b. Contact name/relationship: patient c. Have you been active with any Home Care company in the last 60 days(such as help with bathing, filling medications, checking your blood pressure) ? No. d. Was patient given Flu shot this Season (After Oct,): No: Patient wants at next PCP visit e. [facility] will be providing your care, are you agreeable to starting these services? yes (yes or no) f. Do you have any upcoming appointments in the next few days, or restrictions to your schedule? No g. Caregiver: Patient is able to manage care independently Please keep our your medications both over the counter and prescribed out for the home care to review, your hospital discharge instructions and write down any questions you might have. In order to maintain a safe environment for our caregivers, [facility] requires any animals or weapons present in the home be located in a secured location. Our clinicians will call you the night before or the morning of the appointment. Their # may come up restricted but they'll leave a VM for you. In case you have any questions or concerns in the meantime, our # is [phone], option 1 Thank you for your time and have a great day. - Patient states No travel and was COVID + 10/11/21, resolved 10/29/2021 and no symptoms and has a walker, cane, commode AYANNA Ta documented in this encounter [facility] 11-18-2021 Miscellaneous Notes Welcome Home Call: a. Date and Time: 2:11 PM 11/18/2021 with PT documented in this encounter [facility] 11-04-2021 Miscellaneous Notes Called and left message for patient reminding her to complete lab work and echo. Cathryn Roberto LPN Please call and remind pt she needs to complete pre-op lab work and schedule pre-op echo. documented in this encounter [facility] 11-03-2021 Miscellaneous Notes TOTAL JOINT COMPLETE CARE PROGRAM PRE-OPERATIVE TEACHING Service Date: 11/03/2021 Service Time: 10:11 AM Date of : 1940 Gender: female Date of Surgery: 11/18/21 Procedure: Right Total Hip Replacement Complete Care Program was discussed with the patient: Barrel Charrer Helper Identification: Patient identified a customer care representative to help when discharged to home: daughter lives with her Home Environment: Home Layout: 2 story, Entry Steps: 3 with grab bar, Bedroom Location: 1st floor, Bathroom Location: 1st floor, and tub shower with handicap tub. Pt owns walker, crutches, cane, raised toilet seat. Discussed with patient importance of attending joint education class and provided date and times of class: YES paper copy. Patient received Joint Education Binder: Yes Patient plans discharge home with [facility] with [facility] with Natacha who her daughter had last year. SIGNATURE: AYANNA Post PATIENT NAME: Garland Obando DATE: November 03, 2021 TIME: 12:02 PM documented in this encounter [facility] 11-02-2021 Instructions Radha López APRN.TIRE BUILDER - 11/02/2021 3:41 PM EDT PATIENT PREOPERATIVE INSTRUCTIONS Skinny Heller MD has scheduled you for your procedure at this surgery center: [facility]: [phone] -- [address] [address]. Please read below carefully for your personalized instructions. Dietary Restrictions: - No solid food after midnight. - You may have 12 ounces of clear liquids (water, clear juices such as apple juice or gatorade, carbonated beverages, clear tea, black coffee, jello) until 2 hours before scheduled arrival at facility. Medications: Unless instructed differently below, stay on all of your medications until your surgery. Approved medications to take the morning of surgery with a sip of water: Atenolol, Atorvastatin, Omeprazole DO NOT TAKE YOUR Lisinopril or Hydrochlorothiazide THE NIGHT BEFORE OR MORNING OF SURGERY If you start any new medications after today's visit, please contact the surgeon's office. Blood Thinning Medications: - Stop NSAIDS (Ibuprofen, Advil, Aleve, Motrin, Celebrex, Mobic, etc.) 7 days before surgery, as directed by your surgeon. - Stop Aspirin 7 days before surgery, as directed by your surgeon. - Stop Vitamin E, ALL multi-vitamins, herbals and dietary supplements 7 days before surgery. - You may take Tylenol (Acetaminophen) or any of your pain medications that do not contain aspirin or NSAIDS as needed. Important Reminders: - If you use CPAP/BIPAP, bring the machine with you to the surgery center. - If you are prescribed inhalers for breathing, continue using them. - Candy, mints, and tobacco products are NOT permitted the morning of surgery. - Hearing aids, dentures and glasses may be worn the morning of surgery. - NO jewelry, body piercings, makeup, hairpins or contacts are to be worn the day of surgery. If you develop symptoms such as a fever, cold, or flu, or have other changes to your health within TWO DAYS of scheduled surgery or the morning of surgery, please contact the surgery center above. Personal Belongings: -Please have photo ID and insurance cards. -If you do not have a copy of advance directives on file with us, please bring a copy with you on the day of surgery. - Leave ALL valuables and money at home or with family members. For Outpatient Procedures: - YOU MUST HAVE A RESPONSIBLE UPPER TIER TAKE YOU HOME. A [facility] [facility] [employer]M CONSULTANT CANNOT BE MADE A RESPONSIBLE UPPER TIER. - We recommend that a responsible person stays with you overnight to take care of you. - You cannot stay in a hotel alone after outpatient surgery. You will not be permitted to have your surgery, if you do not have someone to take care of you. Arrival Time for Surgery: - The Surgery Center or hospital where you are having surgery will call the afternoon before surgery (or Tuesday for Tuesday surgery) with a scheduled arrival time. - If you have not heard by 4 pm, please contact the surgery center above. Please be aware that emergency situations arise, which may delay or change your surgical time. If this happens, we will notify you as soon as possible and regret any inconvenience. If you already have an Advance Directive, please fax a copy to [phone] or email to for it to be added to your chart. If you do not have an Advance Directive, you can find the appropriate form and more information at [email or web address]. We recommend that you complete the Advance Directive form found on the website and bring it with you the day of your surgery. It can be witnessed and scanned into your chart that day. Radha López APRN.CNP documented in this encounter [facility] 11-02-2021 History and physical note HISTORY AND PHYSICAL EXAMINATION SERVICE DATE: 11/02/2021 SERVICE TIME: 3:34 PM PRIMARY CARE PHYSICIAN: Santos Nuñez MD REASON FOR VISIT: Garland Obando is a 81 year old female who is scheduled for Procedure(s): ARTHROPLASTY REPLACE JOINT TOTAL HIP (Right) at the request of Dr. Skinny Heller for consultation. My final recommendation will be communicated back to the requesting physician by way of shared medical record or letter. Subjective The patient has the following: ACTIVE PROBLEM LIST Essential Hypertension, Benign Esophageal Reflux Benign Neoplasm of Colon Situational Depression Lumbar Spondylosis Lumbar Degenerative Disc Disease Diabetes Mellitus Type 2, Controlled, Without Complications (Hcc) Hyperlipidemia Ldl Goal <100 Personal History of Colonic Polyps Hip Osteoarthritis Lumbar Facet Joint Syndrome Plantar Fasciitis Rotator Cuff Syndrome of Right Shoulder Coronary Artery Disease Involving [place] Coronary Artery of [place] Heart Without Angina Pectoris History of 2019 Novel Coronavirus Disease (Covid-19) Valvular Heart Disease History of Syncope COVID-19 Immunization Status Overdue - COVID-19 VACCINE (3 - Booster for Moderna series) Overdue since 04/28/2021 11/28/2020 Imm Admin: COVID-19 vaccine, full dose (MODERNA) 10/29/2020 Imm Admin: COVID-19 vaccine, full dose (MODERNA) CHIEF COMPLAINT: Pre-op exam HPI: PT is a 81 yo seen for PAC due to scheduled above surgery because of hip pain. 09/28/2021 Dr. Skinny Heller Garland Obando is a 81 year old patient here for evaluation and management of Right hip pain.Garland Obando has had progressive problems with the hip(s) most of the day over the past 12 month(s) interfering with activities which include gardening, enjoying hobbies, rising from a sitting position, getting in and out of a car, and climbing stairs. The problem began limiting activities 7-12 months ago. Currently the pain in the joint is rated at 6 out of 10 with minimal activity. The pain is constant and is located in the right hip and groin. The pain is described as aching and sharp. Relieving factors include rest. There is no specific incident that brought about this pain. Garland Obando also complains of knee/leg pain. FUNCTIONAL STATUS: Do yardwork, such as raking leaves, weeding,or pushing a power mower (4.50 METs) Total Joint Arthroplasty: Risk Calculator Garland Obando has a 42% chance of NOT returning home at discharge for a Primary total Hip replacement. Garland's estimated Length of Stay is 2 days. Garland's 30 day chance of readmission is 2.69%. Readmission Probability 2.69 % (within 30 days following surgery) Estimated LOS 2 days Discharge Disposition Probability D/C to Home 58 % D/C to SNF 42 % These calculations are based on the following factors: - 81 years of age - sex is not male - BMI of 27.5 kg/m2 - NarxCare score of 0 - 0 hospitalizations in the last 12 months - no history of heart disease - history of diabetes - no history of COPD - no history of anemia - preoperative ambulation: impaired community distances - 3 step(s) to enter home - bed location is on the first floor - bath location is on the first floor - caregiver is consistent - home is not more than 150 miles away - PROMIS-10 Mental Health T score 41-49 - Marital status: single PREVIOUS TREATMENTS: Medical: RX NSAIDS for 3 Months or Greater (meloxicam (Mobic)) Physical Therapy: Activities Modified REVIEW OF SYSTEMS: PAIN ASSESSMENT: See HPI. MUSCULOSKELETAL: See HPI. Risk Factors for Total Joint Arthroplasty (TJA) Obesity Unknown Risk High: BMI > 40 Moderate: BMI 30-40 Normal: BMI < 30 Diabetes Moderate Risk High: A1C > 8 Moderate: A1C 7-8 Normal: A1C < 7 Smoking normal High: Current smoker Normal: Non smoker Anemia normal High: Hgb < 11.5 (women) N/A: Hgb >= 11.5 (women) Nutritional Status normal High: Alb<3.4, or prealb<15, or serum transferrin<200, or total lymphocyte count<1500 Normal: normal labs COPD normal High: dx of COPD Normal: no dx of COPD MRSA normal High: dx of MRSA or positive lab test Normal: no MRSA CKD normal High: eGFR<60 Moderate: eGFR 60-89 Normal: eGFR>90 Hx of DVT / PE normal High: dx of DVT / PE Normal: no dx of DVT / PE Narcotics Use normal High:NarxCare >=300 Moderate: 100-299 Normal: 0-99 BRITTON normal High: dx of BRITTON N/A: no dx of BRITTON Coagulation normal High:PT Sec>13, or PT INR>1.3, or APTT>32.4, or Plt ct<150k Moderate: on anticoag but none of the above Normal: none Obesity: height and/or weight are out of date (There is no height and/or weight reading in the past 365 days, so the below BMI readings may be inaccurate) BMI Readings from Last 3 Encounters: 07/31/21 : 27.50 kg/m 04/03/21 : 27.79 kg/m 03/12/21 : 28.08 kg/m Diabetes: Well controlled Hemoglobin A1C (%) Date Value 04/03/2021 6.4 08/12/2020 6.1 Other Risk Factors None REVIEW OF SYSTEMS: General: No weight loss, malaise or fevers. Neurological: No history of TIA's, stroke, AIR BRAKE OPERATOR tumor, impaired sensorium, hemiplegia, paraplegia or quadraplegia. No neurological symptoms or problems. Respiratory: +COVID. No history of current cough or dyspnea, or pneumonia in the past 6 weeks. No history of respiratory/pulmonary symptoms or problems. Cardiovascular: +h/o syncope while sick with COVID Positive for: CAD (non-obstructing), hyperlipidemia (on rx), hypertension (on rx) and murmur/valvular heart disease Patient's last office visit The following tests and/or procedures were not performed: cardiac stents. Negative for: anticoagulation therapy, arrhythmia, atrial fibrillation, chest pain, CHF, congenital heart defect, DVT/PE, recent [place], open heart surgery and valve surgery. GI: Positive for: GERD (on rx) Negative for: abdominal pain, dysphagia, hepatitis, irritable bowel syndrome, inflammatory bowel disease, liver disease, nausea, pancreatitis, vomiting and ETOH >2 drinks/day. : Positive for: urinary incontinence (MALIK). 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 Endocrine: Positive for: diabetes mellitus. Patient's diabetes mellitus is controlled by diet. Negative for: hypothyroidism. Hematology: No history of bleeding or clotting disorder. Patient is not taking anti-coagulation or platelet medications. No history of hematological symptoms or problems. Oncology: No history of CA metastasis, chemo within 30 days, or radiotherapy within 90 days. No history of oncological symptoms or problems. Psych: No history of psychiatric symptoms or problems. Musculoskeletal: See HPI. Skin: Negative for lesions, rash and itching. PAST MEDICAL HISTORY Diagnosis Date Allergic rhinitis Benign neoplasm of colon Cervical radiculopathy due to intervertebral disc disorder 03/01/2012 Coronary artery disease Diverticulosis of colon (without mention of hemorrhage) Diverticulosis Essential hypertension, benign Heart attack (HCC) Hyperlipidemia LDL goal < 100 02/12/2010 Lichen sclerosus 03/10/2020 Lumbar disc disease with radiculopathy 05/08/2013 Mental disorder Osteoarthrosis, unspecified whether generalized or localized, unspecified site Other and unspecified hyperlipidemia Sacroiliac joint pain 07/05/[address] Type II or unspecified type diabetes mellitus without mention of complication, not stated as uncontrolled Vitiligo PAST SURGICAL HISTORY Procedure Laterality Date COLONOSCOPY FLX DX W/COLLJ SPEC WHEN PFRMD 05/16/2000 Colonoscopy COLONOSCOPY FLX DX W/COLLJ SPEC WHEN PFRMD 05/17/2011 Colonoscopy COLONOSCOPY W/BIOPSY SINGLE/MULTIPLE 11/14/07 HEMORRHOIDECTOMY XTRNL COLUMN/GROUP LEFT HEART CATH,PERCUTANEOUS 11/1999 PAST SURGICAL HISTORY OF 2003 R ureter surgery PAST SURGICAL HISTORY OF 2008 Cyst removal right index finger STRABISMUS RECESSION/RESCJ 1 HRZNTL [facility] Strabismus Surgery left eye FAMILY HISTORY Problem Relation Age of Onset Stroke Mother Coronary Artery Disease Father Stroke Maternal Grandmother Social History Tobacco Use Smoking status: Never Smokeless tobacco: Never Vaping Use Vaping Use: Never used Substance Use Topics Alcohol use: Yes Comment: Rarely Drug use: No Prior to Admission medications as of 11/02/21 1529 Medication Sig Last Dose Taking omeprazole (PRILOSEC) 20 mg capsule Take 1 capsule by mouth twice daily. Taking Yes atenolol (TENORMIN) 25 mg tablet Take 1 tablet by mouth once daily. Taking Yes lisinopril-hydroCHLOROthiazide (PRINZIDE,ZESTORETIC) 20-12.5 mg per tablet Take 1 tablet by mouth once daily. Taking Yes atorvastatin (LIPITOR) 40 mg tablet Take 1 tablet by mouth daily at bedtime. For cholesterol. Taking Yes fluticasone (FLONASE) 50 mcg/actuation nasal spray Use 2 Sprays in each nostril once daily. Rinse mouth after use. Patient taking differently: Use 2 Sprays in each nostril as needed. Rinse mouth after use. Taking Yes vits A,C,E/lutein/minerals (EYE HEALTH PLUS LUTEIN ORAL) Take 1 capsule by mouth once daily. Taking Yes FOLIC ACID 400 MCG TAB one-half tablet once a day Taking Yes meloxicam (MOBIC) 15 mg tablet TAKE ONE TABLET BY MOUTH ONCE DAILY Patient not taking: Reported on 11/02/2021 Not Taking etodolac (LODINE) 400 mg tablet Take 1 tablet by mouth twice daily. Patient not taking: No sig reported clobetasol (TEMOVATE) 0.05 % ointment Apply 1 application to affected area twice daily. for 6 weeks then decrease to once daily for 4 weeks then 1-2 times per week for maintenance. Patient not taking: Reported on 11/02/2021 Not Taking No medication comments found. ALLERGIES Allergen Reactions Dust Mold No Known Drug Aller* Objective PHYSICAL EXAM: General: alert and oriented (x3) and healthy appearance. Pertinent negatives noted - not distressed. Skin: normal color, no rash or lesions. HEENT: EOM intact and pupils equal round. Pertinent negatives noted - no carotid bruit. Cardiovascular: regular rate and rhythm, normal S1 and S2, no rub, murmurs, or gallop. Respiratory: normal breath sounds, no wheezes or crackles. No chest wall deformity or tenderness. Abdomen: soft. Pertinent negatives noted - not tender. Extremities: no deformity, no edema or tenderness, no joint swelling or clubbing. Neurological: normal cognition and motor skills. Gait normal. No weakness or sensory deficit. PAIN ASSESSMENT: Pain Pain Level: 7 Pain Location: Hip-Right Description: Sharp;Throbbing Duration Amount of Time: 3 Duration Units: Months Frequency: Continuous Intervention/Comfort measure: Medication VITALS: BP 112/78 Pulse 70 Temp (Src) 98.6 (Temporal) Resp 16 Ht 5' 5.5 (1.66m) Wt 169 lb (76.7kg) SpO2 97% BMI 27.69 kg/(m^2). Diagnostic tests reviewed for today's visit: Lab Value Units Date High Low HB No results within date range. HCT No results within date range. WBC No results within date range. PLT No results within date range. NA No results within date range. K No results within date range. GLUC No results within date range. BUN No results within date range. CREAT No results within date range. PTSEC No results within date range. INR No results within date range. APTT No results within date range. ALT No results within date range. AST No results within date range. TBILI No results within date range. TSH No results within date range. Lab Value Units Date High Low HCGQT No results within date range. UHCG No results within date range. HCG, BODY* No results within date range. Lab Value Units Date High Low ABORHD No results within date range. ABSCREEN No results within date range. Hemoglobin A1C (%) Date Value 04/03/2021 6.4 08/12/2020 6.1 02/29/2020 6.2 09/07/2018 6.2 07/22/2017 6.3 No results found for this or any previous visit (from the past 8760 hour(s)). No results found for this or any previous visit (from the past 07028 hour(s)). Assessment BENIGN HYPERTENSION Assessment: controlled on rx Last 14 BP Last 14 Encounter BP Readings: Date: BP: 11/02/2021 112/78 10/20/2021 132/80 10/09/2021 126/72 07/31/2021 130/66 04/03/2021 120/80 03/12/2021 102/60 12/09/2020 110/64 09/12/2020 120/76 08/12/2020 118/62 03/04/2020 116/64 02/29/2020 114/64 02/29/2020 106/72 02/26/2019 129/84 01/15/2019 132/82 Hyperlipidemia LDL goal <100 Assessment: c/w statin Coronary artery disease involving [place] coronary artery of [place] heart without angina pectoris Assessment: non-obstructing ESOPHAGEAL REFLUX Assessment: controlled on rx Diabetes mellitus type 2, controlled, without complications (HCC) Assessment: diet controlled Hemoglobin A1C (%) Date Value 04/03/2021 6.4 Situational depression Assessment: hx, no current tx History of 2019 novel coronavirus disease (COVID-19) Assessment: +10/10/2021, mild symptoms, resolved Valvular heart disease Assessment: +murmur, trivial 2016 echo, will update echo prior to surgery History of syncope Assessment: 1 remote episode with 2 near syncope episodes while sick with COVID 10/10/2021, evaluated at [facility], records scanned into epic. All CT's of chest/abd/head/neck were negative. No recurrence. Pt does have hx of trivial valvular heart disease that I will update echo prior to surgery as well. Diamond Activity Status Index: METS: Climb a flight of stairs or walk up a hill (5.50 METs) DASI Score: 5.5 Patient denies any chest pain or undue shortness of breath with the above physical activity. Clinical Frailty Scale: 3. Well, with treated comorbid disease STOP-Bang Score: Patient over 50 years old Denies snoring loudly Denies feeling tired, fatigued, or sleepy during the daytime Has not been observed to stop breathing or choking/gasping during sleep Denies having high blood pressure BMI less than or equal to 35 kg/m^2 Does not have a large neck Non-male patient STOP-Bang Score: 1 [id number] Score: Age: >=75 Sex: female CHF history: No Hypertension history: Yes Stroke/TIA/thromboembolism history: No Vascular disease history: Yes Diabetes history: Yes [id number] Score: 6 ARISCAT Score: Age: 51-80 Preoperative SpO2: >=96% Respiratory infection in the last month: Yes Preoperative anemia: No Surgical incision: peripheral Duration of surgery: 2-3 hrs Emergency procedure: No ARISCAT Score: 36 ASA Class: 3 ANESTHESIA FINDINGS: Intubation History: No history of difficult intubation Significant Anesthesia Considerations: none Airway History: No history of difficult airway I - PHYSICAL EVALUATION AIRWAYTracheostomy tube not present Mallampati: II. TM distance: >3 FB. Neck ROM: full ROM without neurological symptoms. Mouth opening: adequate. Short neck: no. Thick neck: no DENTAL Dental findings: teeth intact. Dentures, upper: partial. II - ANESTHESIA PLAN ASA Score: 3 Anesthetic Plan: other Anesthetic plan additional comments: *PACC/TCI - anesthesia choice. Informed Consent Anesthetic risks, benefits, alternatives, personnel and consent discussed: yes. Patient / Responsible Libertarian agrees to proceed: yes Patient / Surrogate agrees to blood products: Yes Prepared for Surgery: optimally prepared for surgery, pending [see comment]. Labs and echo Recent EKG requested CONSULTS: Patient does not require consults for optimization at this time Planned Anesthetic: other anesthesia choice The Following Tests/Procedures Have Been Initiated: Orders Placed This Encounter >CBC + AUTO DIFF Standing Status: Future Standing Expiration Date: 01/02/2022 >CMP Standing Status: Future Standing Expiration Date: 01/02/2022 >HGB A1c Standing Status: Future Standing Expiration Date: 01/02/2022 Type and Screen, 30 day Standing Status: Future Standing Expiration Date: 01/02/2022 Order Specific Question: Hospital of Planned Surgery or Procedure: Answer: [facility] Confirm Blood Type Standing Status: Future Standing Expiration Date: 01/02/2022 Order Specific Question: Did Blood Bank direct you to place this order: Answer: No - Presurgical Workflow Instructions Given to Patient: Instructions located in the after visit summary. Patient given verbal and written preop instructions and voices comprehension and compliance. SIGNATURE: Radha López APRN.CNP PATIENT NAME: Garland Obando DATE: November 02, 2021 TIME: 3:34 PM PAGER/CONTACT #: documented in this encounter [facility] 10-27-2021 Miscellaneous Notes I called and left a message for patient to contact office back. Patient does not need to see Dr. Heller, but it is required that she have pre admission testing, which she already has scheduled on 11/02/2021. Patient called to see if she needs to schedule a pre op appointment prior to her surgery with Dr. Heller on 11/18/21. Please contact patient to advise. documented in this encounter [facility] 10-20-2021 History of Present illness Narrative 10/20/2021 Patient presents with: ED Follow-up SUBJECTIVE: This is a 81 year old that is here today for Above Complaints. HOSPITAL/ER FOLLOW UP: Reason for visit: syncope, lightheadedness, cervical strain, chest wall pain and COVID-19 Which facility: [facility] Date of visit: 10/10/2021 Diagnosis: syncope, lightheadedness Testing done: CT brain, CTA of chest, CXR, CT cervical spine, CT angiography of chest with and without contrast, and blood work Treatment given: IV fluids and prescription for Zofran Still with some tenderness to right ribs, forehead, nose, cough and fatigue. Denies fevers, chills, rhinorrhea, nasal congestion, sore throat, SOB, dyspnea, orthopnea, chest pain, palpitations, nausea, vomiting or diarrhea ER records reviewed PAST MEDICAL HISTORY Diagnosis Date Allergic rhinitis Benign neoplasm of colon Cervical radiculopathy due to intervertebral disc disorder 03/01/2012 Coronary artery disease Diverticulosis of colon (without mention of hemorrhage) Diverticulosis Essential hypertension, benign Heart attack (HCC) Hyperlipidemia LDL goal < 100 02/12/2010 Lichen sclerosus 03/10/2020 Lumbar disc disease with radiculopathy 05/08/2013 Mental disorder Osteoarthrosis, unspecified whether generalized or localized, unspecified site Other and unspecified hyperlipidemia Sacroiliac joint pain 07/05/[address] Type II or unspecified type diabetes mellitus without mention of complication, not stated as uncontrolled Vitiligo ALLERGIES Dust, Mold, and No Known Drug Allergies MEDICATIONS Current Outpatient Medications Medication Sig meloxicam (MOBIC) 15 mg tablet TAKE ONE TABLET BY MOUTH ONCE DAILY omeprazole (PRILOSEC) 20 mg capsule Take 1 capsule by mouth twice daily. atenolol (TENORMIN) 25 mg tablet Take 1 tablet by mouth once daily. lisinopril-hydroCHLOROthiazide (PRINZIDE,ZESTORETIC) 20-12.5 mg per tablet Take 1 tablet by mouth once daily. atorvastatin (LIPITOR) 40 mg tablet Take 1 tablet by mouth daily at bedtime. For cholesterol. etodolac (LODINE) 400 mg tablet Take 1 tablet by mouth twice daily. (Patient not taking: No sig reported) fluticasone (FLONASE) 50 mcg/actuation nasal spray Use 2 Sprays in each nostril once daily. Rinse mouth after use. vits A,C,E/lutein/minerals (EYE HEALTH PLUS LUTEIN ORAL) Take 1 capsule by mouth once daily. clobetasol (TEMOVATE) 0.05 % ointment Apply 1 application to affected area twice daily. for 6 weeks then decrease to once daily for 4 weeks then 1-2 times per week for maintenance. FOLIC ACID 400 MCG TAB one-half tablet once a day No current facility-administered medications for this visit. Medications and allergies reviewed by this provider. SOCIAL HISTORY Social History Tobacco Use Smoking status: Never Smokeless tobacco: Never Vaping Use Vaping Use: Never used Substance Use Topics Alcohol use: Yes Comment: Rarely Drug use: No REVIEW OF SYSTEMS All other reviewed and negative other than HPI. OBJECTIVE: BP 132/80 Pulse 79 Temp 36.7 C (98 F) Resp 18 Wt 76.5 kg (168 lb 9.6 oz) SpO2 97% BMI 27.21 kg/m . Vital signs reviewed by this provider. APPEARANCE Well appearing, alert, in no acute distress, well-hydrated, well nourished. EYES conjunctiva and sclera normal. HEART RRR with normal S1 and S2, no murmurs, no gallops, no JVD appreciated LUNG clear to auscultation EXTREMITIES Extremities normal, No deformities, No skin discoloration, No edema, SKIN Skin color, texture, turgor normal, no suspicious rashes or lesions to exposed skin SHINGRIX VACCINE(2 of 3) due on 11/18/2010 ADVANCE DIRECTIVE DISCUSSION Never done URINE ALBUMIN:CREATININE RATIO due on 02/28/2021 COVID-19 VACCINE(3 - Booster for Moderna series) due on 04/28/2021 DIABETIC FOOT EXAM due on 09/12/2021 HBA1C due on 10/01/2021 INFLUENZA(1) due on 10/15/2021 DTAP,TDAP,TD(3 - Tdap) due on 12/09/2021 DILATED RETINAL EXAM due on 02/16/2022 LDL CHOLESTEROL due on 04/03/2022 BP CONTROLLED (<130/80) due on 04/03/2022 ANNUAL PCP TEAM CHRONIC DISEASE VISIT due on 10/20/2022 BONE DENSITY Completed PNEUMOCOCCAL: 65+ Completed ASSESSMENT/PLAN: 1. COVID-19 virus infection - ICD9: 079.89, ICD10: U07.1 (primary diagnosis) - improving slowly - discussed course of COVID-19 - follow-up if symptoms fail to resolve 2. Syncope, unspecified syncope type - ICD9: 780.2, ICD10: R55 - no more incidents since ER - no red flag symptoms or exam findings - red flag symptoms discussed, verbalizes understanding - to ER if has another episode 3. Fatigue, unspecified type - ICD9: 780.79, ICD10: R53.83 - still recovering from COVID-19 - continue to stay hydrated and rest as needed - follow-up if persists No Podlogar, SQUILGEER.TIRE BUILDER Prescription instructions reviewed with patient as applicable. Patient advised if symptoms do not improve or if symptoms worsen sooner, to contact their primary care physician. Potential red flag symptoms discussed with the patient. Reviewed appropriate action plan to take if red flag symptoms occur. Patient agreeable to treatment plan. I spent a total of 35 minutes on the date of the service which included preparing to see the patient, [id number] patient care, completing clinical documentation, obtaining and/or reviewing separately obtained history, performing a medically appropriate examination, counseling and educating the patient/family/caregiver, and ordering medications, tests, or procedures. documented in this encounter [facility] 10-11-2021 Miscellaneous Notes Agree with ER evaluation. Please obtain records. Daughter phoned for covid results and given results. Daughter asking if patient qualifies for paxlovid. Offered to send note to EC provider with this question. Daughter reports patient informed her she passed out and hit her head. Daughter reports she spoke to patient on the phone today, and patient is in bed and coherent. Patient informed daughter her chest hurt and her head hurts. Daughter reports patient is on blood thinners. Advised daughter patient should be seen in ER after falling and hitting her head since she c/o CORBETT and is on blood thinners. Daughter agreeable and states she will take patient to ER. documented in this encounter [facility] 10-06-2021 Miscellaneous Notes Patient notified. Saadia Moralez LPN Left message for patient to call office. Chlorhexidine cloth wipes have come in and patient can pick up and delivery driver at her convenience. Patient scheduled for Right [facility] on 11/18/21. Surgical request completed. Post op appointments scheduled and mailed to patient. E-mail sent to Mitul Fowler and Gold Freeman and Galdino Ferrera documented in this encounter [facility] 09-28-2021 History of Present illness Narrative AMB ROOMING INTAKE FLOWSHEET DATA CONSULT ORTHOPAEDIC: HIP PRIMARY CARE PHYSICIAN: Santos Nuñez MD REFERRING PROVIDER: SELF ASSESSMENT & PLAN: Impression: Right Hip Severe Degenerative Osteoarthritis, Primary Risk Screening Do you have concerns about personal safety or safety in the home?: No Pain Pain Level: 3 Pain Location: Hip-Right Description: Other: See comment (patient states it just hurts, I m tired of it ) Duration Amount of Time: (patient states several months ) Duration Units: Months Frequency: Continuous Intervention/Comfort measure: Reposition, Relaxation Patient presents with: Right Hip - Follow Up, Pain Patient continues with R hip pain. She is using cane and states that helps some. Pain really bothersome at night. Garland Obando has radiograph and physical exam evidence of degenerative joint disease and wishes to pursue surgery. This patient appears to have sufficient symptoms to warrant surgical intervention and is an appropriate candidate for right Primary Total Hip Arthroplasty as evidenced by six months of unsuccessful non-operative treatment as outlined in the HPI below and progressive symptoms. Progressive symptoms include: Pain worsened by weight bearing Pain effecting living situation Pain limiting ability to stay fit and healthy Unable to ambulate 2 blocks without significant pain and dysfunction. We had a lengthy discussion regarding the risk and benefit of surgery, the alternatives, limitations and personnel involved. These included but were not limited to infection, persistent pain, instability, nerve injury, blood clots, and medical complications. We also discussed the pre-operative course, surgery itself and rehabilitation. Pooja-operative blood management and transfusion issues were discussed, and options clearly outlined. The patient has consented to the use of the banked allogenic blood if medically necessary. The patient has elected to schedule surgery at this time or intends to call the office with a surgical date. Shared decision making occurred while obtaining informed consent. The patient will be scheduled for a pre-operative education class at which time they will have their nasal swab completed and will be given CHG cloths along with the verbal and written instructions for their use. Patient has been instructed and has been scheduled or will call to schedule attendence in one of the total joint perioperative classes offered prior to proceeding with AMRIT.. The patient has been ordered: No orders placed today. CONSULTS: Patient does not require consults for optimization at this time. ACTIVE PROBLEM LIST Essential Hypertension, Benign Esophageal Reflux Benign Neoplasm of Colon Situational Depression Lumbar Spondylosis Lumbar Degenerative Disc Disease Diabetes Mellitus Type 2, Controlled, Without Complications (Hcc) Hyperlipidemia Ldl Goal <100 Personal History of Colonic Polyps Hip Osteoarthritis Lumbar Facet Joint Syndrome Plantar Fasciitis Rotator Cuff Syndrome of Right Shoulder SUBJECTIVE CHIEF COMPLAINT: Hip Pain HPI: Garland Obando is a 81 year old patient here for evaluation and management of Right hip pain.Garland Obando has had progressive problems with the hip(s) most of the day over the past 12 month(s) interfering with activities which include gardening, enjoying hobbies, rising from a sitting position, getting in and out of a car, and climbing stairs. The problem began limiting activities 7-12 months ago. Currently the pain in the joint is rated at 6 out of 10 with minimal activity. The pain is constant and is located in the right hip and groin. The pain is described as aching and sharp. Relieving factors include rest. There is no specific incident that brought about this pain. Garland Obando also complains of knee/leg pain. FUNCTIONAL STATUS: Do yardwork, such as raking leaves, weeding,or pushing a power mower (4.50 METs) Total Joint Arthroplasty: Risk Calculator Garland Obando has a 42% chance of NOT returning home at discharge for a Primary total Hip replacement. Garland's estimated Length of Stay is 2 days. Garland's 30 day chance of readmission is 2.69%. Readmission Probability 2.69 % (within 30 days following surgery) Estimated LOS 2 days Discharge Disposition Probability D/C to Home 58 % D/C to SNF 42 % These calculations are based on the following factors: - 81 years of age - sex is not male - BMI of 27.5 kg/m2 - NarxCare score of 0 - 0 hospitalizations in the last 12 months - no history of heart disease - history of diabetes - no history of COPD - no history of anemia - preoperative ambulation: impaired community distances - 3 step(s) to enter home - bed location is on the first floor - bath location is on the first floor - caregiver is consistent - home is not more than 150 miles away - PROMIS-10 Mental Health T score 41-49 - Marital status: single PREVIOUS TREATMENTS: Medical: RX NSAIDS for 3 Months or Greater (meloxicam (Mobic)) Physical Therapy: Activities Modified REVIEW OF SYSTEMS: PAIN ASSESSMENT: See HPI. MUSCULOSKELETAL: See HPI. Risk Factors for Total Joint Arthroplasty (TJA) Obesity Unknown Risk High: BMI > 40 Moderate: BMI 30-40 Normal: BMI < 30 Diabetes Moderate Risk High: A1C > 8 Moderate: A1C 7-8 Normal: A1C < 7 Smoking normal High: Current smoker Normal: Non smoker Anemia normal High: Hgb < 11.5 (women) N/A: Hgb >= 11.5 (women) Nutritional Status normal High: Alb<3.4, or prealb<15, or serum transferrin<200, or total lymphocyte count<1500 Normal: normal labs COPD normal High: dx of COPD Normal: no dx of COPD MRSA normal High: dx of MRSA or positive lab test Normal: no MRSA CKD normal High: eGFR<60 Moderate: eGFR 60-89 Normal: eGFR>90 Hx of DVT / PE normal High: dx of DVT / PE Normal: no dx of DVT / PE Narcotics Use normal High:NarxCare >=300 Moderate: 100-299 Normal: 0-99 BRITTON normal High: dx of BRITTON N/A: no dx of BRITTON Coagulation normal High:PT Sec>13, or PT INR>1.3, or APTT>32.4, or Plt ct<150k Moderate: on anticoag but none of the above Normal: none Obesity: height and/or weight are out of date (There is no height and/or weight reading in the past 365 days, so the below BMI readings may be inaccurate) BMI Readings from Last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 documented as of this encounter (statuses as of 06/15/2021) [facility] History of Past illness Narrative* Problem Noted Date Resolved Date Acute right-sided low back pain with right-sided sciatica 08/20/2015 02/26/2019 Lumbosacral neuritis 07/05/2013 02/26/2019 Sacroiliac joint pain 07/05/2013 02/26/2019 Lumbar disc disease with radiculopathy 4 02/26/2019 Cervical radiculopathy due to intervertebral dis c disorder 03/01/2012 02/26/2019 Hematuria 02/26/2010 02/26/2019 Internal hemorrhoids without mention of complica tion 11/14/2007 07/09/2014 External hemorrhoids without mention of complica tion 11/14/2007 07/09/2014 Pain in joint, ankle and foot 04/15/2005 Unspecified hemorrhoids without mention of compl ication 07/09/2014 documented as of this encounter (statuses as of 06/18/2021) [facility] History of Past illness Narrative* Problem Noted Date Resolved Date Acute right-sided low back pain with right-sided sciatica 08/20/2015 02/26/2019 Lumbosacral neuritis 07/05/2013 02/26/2019 Sacroiliac joint pain 07/05/2013 02/26/2019 Lumbar disc disease with radiculopathy 4 02/26/2019 Cervical radiculopathy due to intervertebral dis c disorder 03/01/2012 02/26/2019 Hematuria 02/26/2010 02/26/2019 Internal hemorrhoids without mention of complica tion 11/14/2007 07/09/2014 External hemorrhoids without mention of complica tion 11/14/2007 07/09/2014 Pain in joint, ankle and foot 04/15/2005 Unspecified hemorrhoids without mention of compl ication 07/09/2014 documented as of this encounter (statuses as of 07/31/2021) [facility] History of Past illness Narrative* Problem Noted Date Resolved Date Acute right-sided low back pain with right-sided sciatica 08/20/2015 02/26/2019 Lumbosacral neuritis 07/05/2013 02/26/2019 Sacroiliac joint pain 07/05/2013 02/26/2019 Lumbar disc disease with radiculopathy 4 02/26/2019 Cervical radiculopathy due to intervertebral dis c disorder 03/01/2012 02/26/2019 Hematuria 02/26/2010 02/26/2019 Internal hemorrhoids without mention of complica tion 11/14/2007 07/09/2014 External hemorrhoids without mention of complica tion 11/14/2007 07/09/2014 Pain in joint, ankle and foot 04/15/2005 Unspecified hemorrhoids without mention of compl ication 07/09/2014 documented as of this encounter (statuses as of 08/06/2021) [facility] History of Past illness Narrative* Problem Noted Date Resolved Date Acute right-sided low back pain with right-sided sciatica 08/20/2015 02/26/2019 Lumbosacral neuritis 07/05/2013 02/26/2019 Sacroiliac joint pain 07/05/2013 02/26/2019 Lumbar disc disease with radiculopathy 4 02/26/2019 Cervical radiculopathy due to intervertebral dis c disorder 03/01/2012 02/26/2019 Hematuria 02/26/2010 02/26/2019 Internal hemorrhoids without mention of complica tion 11/14/2007 07/09/2014 External hemorrhoids without mention of complica tion 11/14/2007 07/09/2014 Pain in joint, ankle and foot 04/15/2005 Unspecified hemorrhoids without mention of compl ication 07/09/2014 documented as of this encounter (statuses as of 08/11/2021) [facility] History of Past illness Narrative* Problem Noted Date Resolved Date Acute right-sided low back pain with right-sided sciatica 08/20/2015 02/26/2019 Lumbosacral neuritis 07/05/2013 02/26/2019 Sacroiliac joint pain 07/05/2013 02/26/2019 Lumbar disc disease with radiculopathy 4 02/26/2019 Cervical radiculopathy due to intervertebral dis c disorder 03/01/2012 02/26/2019 Hematuria 02/26/2010 02/26/2019 Internal hemorrhoids without mention of complica tion 11/14/2007 07/09/2014 External hemorrhoids without mention of complica tion 11/14/2007 07/09/2014 Pain in joint, ankle and foot 04/15/2005 Unspecified hemorrhoids without mention of compl ication 07/09/2014 documented as of this encounter (statuses as of 09/01/2021) [facility] History of Past illness Narrative* Problem Noted Date Resolved Date Acute right-sided low back pain with right-sided sciatica 08/20/2015 02/26/2019 Lumbosacral neuritis 07/05/2013 02/26/2019 Sacroiliac joint pain 07/05/2013 02/26/2019 Lumbar disc disease with radiculopathy 4 02/26/2019 Cervical radiculopathy due to intervertebral dis c disorder 03/01/2012 02/26/2019 Hematuria 02/26/2010 02/26/2019 Internal hemorrhoids without mention of complica tion 11/14/2007 07/09/2014 External hemorrhoids without mention of complica tion 11/14/2007 07/09/2014 Pain in joint, ankle and foot 04/15/2005 Unspecified hemorrhoids without mention of compl ication 07/09/2014 documented as of this encounter (statuses as of 10/06/2021) [facility] History of Past illness Narrative* Problem Noted Date Resolved Date Acute right-sided low back pain with right-sided sciatica 08/20/2015 02/26/2019 Lumbosacral neuritis 07/05/2013 02/26/2019 Sacroiliac joint pain 07/05/2013 02/26/2019 Lumbar disc disease with radiculopathy 4 02/26/2019 Cervical radiculopathy due to intervertebral dis c disorder 03/01/2012 02/26/2019 Hematuria 02/26/2010 02/26/2019 Internal hemorrhoids without mention of complica tion 11/14/2007 07/09/2014 External hemorrhoids without mention of complica tion 11/14/2007 07/09/2014 Pain in joint, ankle and foot 04/15/2005 Unspecified hemorrhoids without mention of compl ication 07/09/2014 documented as of this encounter (statuses as of 10/10/2021) [facility] History of Past illness Narrative* Problem Noted Date Resolved Date Acute right-sided low back pain with right-sided sciatica 08/20/2015 02/26/2019 Lumbosacral neuritis 07/05/2013 02/26/2019 Sacroiliac joint pain 07/05/2013 02/26/2019 Lumbar disc disease with radiculopathy 4 02/26/2019 Cervical radiculopathy due to intervertebral dis c disorder 03/01/2012 02/26/2019 Hematuria 02/26/2010 02/26/2019 Internal hemorrhoids without mention of complica tion 11/14/2007 07/09/2014 External hemorrhoids without mention of complica tion 11/14/2007 07/09/2014 Pain in joint, ankle and foot 04/15/2005 Unspecified hemorrhoids without mention of compl ication 07/09/2014 documented as of this encounter (statuses as of 10/20/2021) [facility] History of Past illness Narrative* Problem Noted Date Resolved Date Acute right-sided low back pain with right-sided sciatica 08/20/2015 02/26/2019 Lumbosacral neuritis 07/05/2013 02/26/2019 Sacroiliac joint pain 07/05/2013 02/26/2019 Lumbar disc disease with radiculopathy 4 02/26/2019 Cervical radiculopathy due to intervertebral dis c disorder 03/01/2012 02/26/2019 Hematuria 02/26/2010 02/26/2019 Internal hemorrhoids without mention of complica tion 11/14/2007 07/09/2014 External hemorrhoids without mention of complica tion 11/14/2007 07/09/2014 Pain in joint, ankle and foot 04/15/2005 Unspecified hemorrhoids without mention of compl ication 07/09/2014 documented as of this encounter (statuses as of 10/26/2021) [facility] History of Past illness Narrative* Problem Noted Date Resolved Date Acute right-sided low back pain with right-sided sciatica 08/20/2015 02/26/2019 Lumbosacral neuritis 07/05/2013 02/26/2019 Sacroiliac joint pain 07/05/2013 02/26/2019 Lumbar disc disease with radiculopathy 4 02/26/2019 Cervical radiculopathy due to intervertebral dis c disorder 03/01/2012 02/26/2019 Hematuria 02/26/2010 02/26/2019 Internal hemorrhoids without mention of complica tion 11/14/2007 07/09/2014 External hemorrhoids without mention of complica tion 11/14/2007 07/09/2014 Pain in joint, ankle and foot 04/15/2005 Unspecified hemorrhoids without mention of compl ication 07/09/2014 documented as of this encounter (statuses as of 10/29/2021) [facility] History of Past illness Narrative* Problem Noted Date Resolved Date Acute right-sided low back pain with right-sided sciatica 08/20/2015 02/26/2019 Lumbosacral neuritis 07/05/2013 02/26/2019 Sacroiliac joint pain 07/05/2013 02/26/2019 Lumbar disc disease with radiculopathy 4 02/26/2019 Cervical radiculopathy due to intervertebral dis c disorder 03/01/2012 02/26/2019 Hematuria 02/26/2010 02/26/2019 Internal hemorrhoids without mention of complica tion 11/14/2007 07/09/2014 External hemorrhoids without mention of complica tion 11/14/2007 07/09/2014 Pain in joint, ankle and foot 04/15/2005 Unspecified hemorrhoids without mention of compl ication 07/09/2014 documented as of this encounter (statuses as of 11/04/2021) [facility] History of Past illness Narrative* Problem Noted Date Resolved Date Acute right-sided low back pain with right-sided sciatica 08/20/2015 02/26/2019 Lumbosacral neuritis 07/05/2013 02/26/2019 Sacroiliac joint pain 07/05/2013 02/26/2019 Lumbar disc disease with radiculopathy 4 02/26/2019 Cervical radiculopathy due to intervertebral dis c disorder 03/01/2012 02/26/2019 Hematuria 02/26/2010 02/26/2019 Internal hemorrhoids without mention of complica tion 11/14/2007 07/09/2014 External hemorrhoids without mention of complica tion 11/14/2007 07/09/2014 Pain in joint, ankle and foot 04/15/2005 Unspecified hemorrhoids without mention of compl ication 07/09/2014 documented as of this encounter (statuses as of 11/04/2021) [facility] History of Past illness Narrative* Problem Noted Date Resolved Date Acute right-sided low back pain with right-sided sciatica 08/20/2015 02/26/2019 Lumbosacral neuritis 07/05/2013 02/26/2019 Sacroiliac joint pain 07/05/2013 02/26/2019 Lumbar disc disease with radiculopathy 4 02/26/2019 Cervical radiculopathy due to intervertebral dis c disorder 03/01/2012 02/26/2019 Hematuria 02/26/2010 02/26/2019 Internal hemorrhoids without mention of complica tion 11/14/2007 07/09/2014 External hemorrhoids without mention of complica tion 11/14/2007 07/09/2014 Pain in joint, ankle and foot 04/15/2005 Unspecified hemorrhoids without mention of compl ication 07/09/2014 documented as of this encounter (statuses as of 11/18/2021) [facility] History of Past illness Narrative* Problem Noted Date Resolved Date Acute right-sided low back pain with right-sided sciatica 08/20/2015 02/26/2019 Lumbosacral neuritis 07/05/2013 02/26/2019 Sacroiliac joint pain 07/05/2013 02/26/2019 Lumbar disc disease with radiculopathy 4 02/26/2019 Cervical radiculopathy due to intervertebral dis c disorder 03/01/2012 02/26/2019 Hematuria 02/26/2010 02/26/2019 Internal hemorrhoids without mention of complica tion 11/14/2007 07/09/2014 External hemorrhoids without mention of complica tion 11/14/2007 07/09/2014 Pain in joint, ankle and foot 04/15/2005 Unspecified hemorrhoids without mention of compl ication 07/09/2014 documented as of this encounter (statuses as of 11/19/2021) [facility] History of Past illness Narrative* Problem Noted Date Resolved Date Acute right-sided low back pain with right-sided sciatica 08/20/2015 02/26/2019 Lumbosacral neuritis 07/05/2013 02/26/2019 Sacroiliac joint pain 07/05/2013 02/26/2019 Lumbar disc disease with radiculopathy 4 02/26/2019 Cervical radiculopathy due to intervertebral dis c disorder 03/01/2012 02/26/2019 Hematuria 02/26/2010 02/26/2019 Internal hemorrhoids without mention of complica tion 11/14/2007 07/09/2014 External hemorrhoids without mention of complica tion 11/14/2007 07/09/2014 Pain in joint, ankle and foot 04/15/2005 Unspecified hemorrhoids without mention of compl ication 07/09/2014 documented as of this encounter (statuses as of 11/23/2021) [facility] History of Past illness Narrative* Problem Noted Date Resolved Date Acute right-sided low back pain with right-sided sciatica 08/20/2015 02/26/2019 Lumbosacral neuritis 07/05/2013 02/26/2019 Sacroiliac joint pain 07/05/2013 02/26/2019 Lumbar disc disease with radiculopathy 4 02/26/2019 Cervical radiculopathy due to intervertebral dis c disorder 03/01/2012 02/26/2019 Hematuria 02/26/2010 02/26/2019 Internal hemorrhoids without mention of complica tion 11/14/2007 07/09/2014 External hemorrhoids without mention of complica tion 11/14/2007 07/09/2014 Pain in joint, ankle and foot 04/15/2005 Unspecified hemorrhoids without mention of compl ication 07/09/2014 documented as of this encounter (statuses as of 11/24/2021) [facility] History of Past illness Narrative* Problem Noted Date Resolved Date Acute right-sided low back pain with right-sided sciatica 08/20/2015 02/26/2019 Lumbosacral neuritis 07/05/2013 02/26/2019 Sacroiliac joint pain 07/05/2013 02/26/2019 Lumbar disc disease with radiculopathy 4 02/26/2019 Cervical radiculopathy due to intervertebral dis c disorder 03/01/2012 02/26/2019 Hematuria 02/26/2010 02/26/2019 Internal hemorrhoids without mention of complica tion 11/14/2007 07/09/2014 External hemorrhoids without mention of complica tion 11/14/2007 07/09/2014 Pain in joint, ankle and foot 04/15/2005 Unspecified hemorrhoids without mention of compl ication 07/09/2014 documented as of this encounter (statuses as of 11/25/2021) [facility] History of Past illness Narrative* Problem Noted Date Resolved Date Acute right-sided low back pain with right-sided sciatica 08/20/2015 02/26/2019 Lumbosacral neuritis 07/05/2013 02/26/2019 Sacroiliac joint pain 07/05/2013 02/26/2019 Lumbar disc disease with radiculopathy 4 02/26/2019 Cervical radiculopathy due to intervertebral dis c disorder 03/01/2012 02/26/2019 Hematuria 02/26/2010 02/26/2019 Internal hemorrhoids without mention of complica tion 11/14/2007 07/09/2014 External hemorrhoids without mention of complica tion 11/14/2007 07/09/2014 Pain in joint, ankle and foot 04/15/2005 Unspecified hemorrhoids without mention of compl ication 07/09/2014 documented as of this encounter (statuses as of 11/25/2021) [facility] History of Past illness Narrative* Problem Noted Date Resolved Date Acute right-sided low back pain with right-sided sciatica 08/20/2015 02/26/2019 Lumbosacral neuritis 07/05/2013 02/26/2019 Sacroiliac joint pain 07/05/2013 02/26/2019 Lumbar disc disease with radiculopathy 4 02/26/2019 Cervical radiculopathy due to intervertebral dis c disorder 03/01/2012 02/26/2019 Hematuria 02/26/2010 02/26/2019 Internal hemorrhoids without mention of complica tion 11/14/2007 07/09/2014 External hemorrhoids without mention of complica tion 11/14/2007 07/09/2014 Pain in joint, ankle and foot 04/15/2005 Unspecified hemorrhoids without mention of compl ication 07/09/2014 documented as of this encounter (statuses as of 11/28/2021) [facility] History of Past illness Narrative* Problem Noted Date Resolved Date Acute right-sided low back pain with right-sided sciatica 08/20/2015 02/26/2019 Lumbosacral neuritis 07/05/2013 02/26/2019 Sacroiliac joint pain 07/05/2013 02/26/2019 Lumbar disc disease with radiculopathy 4 02/26/2019 Cervical radiculopathy due to intervertebral dis c disorder 03/01/2012 02/26/2019 Hematuria 02/26/2010 02/26/2019 Internal hemorrhoids without mention of complica tion 11/14/2007 07/09/2014 External hemorrhoids without mention of complica tion 11/14/2007 07/09/2014 Pain in joint, ankle and foot 04/15/2005 Unspecified hemorrhoids without mention of compl ication 07/09/2014 documented as of this encounter (statuses as of 11/30/2021) [facility] History of Past illness Narrative* Problem Noted Date Resolved Date Acute right-sided low back pain with right-sided sciatica 08/20/2015 02/26/2019 Lumbosacral neuritis 07/05/2013 02/26/2019 Sacroiliac joint pain 07/05/2013 02/26/2019 Lumbar disc disease with radiculopathy 4 02/26/2019 Cervical radiculopathy due to intervertebral dis c disorder 03/01/2012 02/26/2019 Hematuria 02/26/2010 02/26/2019 Internal hemorrhoids without mention of complica tion 11/14/2007 07/09/2014 External hemorrhoids without mention of complica tion 11/14/2007 07/09/2014 Pain in joint, ankle and foot 04/15/2005 Unspecified hemorrhoids without mention of compl ication 07/09/2014 documented as of this encounter (statuses as of 12/01/2021) [facility] of Past illness Narrative* Problem Noted Date Resolved Date Acute right-sided low back pain with right-sided sciatica 08/20/2015 02/26/2019 Lumbosacral neuritis 07/05/2013 02/26/2019 Sacroiliac joint pain 07/05/2013 02/26/2019 Lumbar disc disease with radiculopathy 4 02/26/2019 Cervical radiculopathy due to intervertebral dis c disorder 03/01/2012 02/26/2019 Hematuria 02/26/2010 02/26/2019 Internal hemorrhoids without mention of complica tion 11/14/2007 07/09/2014 External hemorrhoids without mention of complica tion 11/14/2007 07/09/2014 Pain in joint, ankle and foot 04/15/2005 Unspecified hemorrhoids without mention of compl ication 07/09/2014 documented as of this encounter (statuses as of 12/01/2021) [facility] of Past illness Narrative* Problem Noted Date Resolved Date Acute right-sided low back pain with right-sided sciatica 08/20/2015 02/26/2019 Lumbosacral neuritis 07/05/2013 02/26/2019 Sacroiliac joint pain 07/05/2013 02/26/2019 Lumbar disc disease with radiculopathy 4 02/26/2019 Cervical radiculopathy due to intervertebral dis c disorder 03/01/2012 02/26/2019 Hematuria 02/26/2010 02/26/2019 Internal hemorrhoids without mention of complica tion 11/14/2007 07/09/2014 External hemorrhoids without mention of complica tion 11/14/2007 07/09/2014 Pain in joint, ankle and foot 04/15/2005 Unspecified hemorrhoids without mention of compl ication 07/09/2014 documented as of this encounter (statuses as of 12/02/2021) [facility] of Past illness Narrative* Problem Noted Date Resolved Date Acute right-sided low back pain with right-sided sciatica 08/20/2015 02/26/2019 Lumbosacral neuritis 07/05/2013 02/26/2019 Sacroiliac joint pain 07/05/2013 02/26/2019 Lumbar disc disease with radiculopathy 4 02/26/2019 Cervical radiculopathy due to intervertebral dis c disorder 03/01/2012 02/26/2019 Hematuria 02/26/2010 02/26/2019 Internal hemorrhoids without mention of complica tion 11/14/2007 07/09/2014 External hemorrhoids without mention of complica tion 11/14/2007 07/09/2014 Pain in joint, ankle and foot 04/15/2005 Unspecified hemorrhoids without mention of compl ication 07/09/2014 documented as of this encounter (statuses as of 12/03/2021) [facility] History of Past illness Narrative* Problem Noted Date Resolved Date Acute right-sided low back pain with right-sided sciatica 08/20/2015 02/26/2019 Lumbosacral neuritis 07/05/2013 02/26/2019 Sacroiliac joint pain 07/05/2013 02/26/2019 Lumbar disc disease with radiculopathy 4 02/26/2019 Cervical radiculopathy due to intervertebral dis c disorder 03/01/2012 02/26/2019 Hematuria 02/26/2010 02/26/2019 Internal hemorrhoids without mention of complica tion 11/14/2007 07/09/2014 External hemorrhoids without mention of complica tion 11/14/2007 07/09/2014 Pain in joint, ankle and foot 04/15/2005 Unspecified hemorrhoids without mention of compl ication 07/09/2014 documented as of this encounter (statuses as of 12/04/2021) [facility] History of Past illness Narrative* Problem Noted Date Resolved Date Acute right-sided low back pain with right-sided sciatica 08/20/2015 02/26/2019 Lumbosacral neuritis 07/05/2013 02/26/2019 Sacroiliac joint pain 07/05/2013 02/26/2019 Lumbar disc disease with radiculopathy 4 02/26/2019 Cervical radiculopathy due to intervertebral dis c disorder 03/01/2012 02/26/2019 Hematuria 02/26/2010 02/26/2019 Internal hemorrhoids without mention of complica tion 11/14/2007 07/09/2014 External hemorrhoids without mention of complica tion 11/14/2007 07/09/2014 Pain in joint, ankle and foot 04/15/2005 Unspecified hemorrhoids without mention of compl ication 07/09/2014 documented as of this encounter (statuses as of 12/08/2021) [facility] History of Past illness Narrative* Problem Noted Date Resolved Date Acute right-sided low back pain with right-sided sciatica 08/20/2015 02/26/2019 Lumbosacral neuritis 07/05/2013 02/26/2019 Sacroiliac joint pain 07/05/2013 02/26/2019 Lumbar disc disease with radiculopathy 4 02/26/2019 Cervical radiculopathy due to intervertebral dis c disorder 03/01/2012 02/26/2019 Hematuria 02/26/2010 02/26/2019 Internal hemorrhoids without mention of complica tion 11/14/2007 07/09/2014 External hemorrhoids without mention of complica tion 11/14/2007 07/09/2014 Pain in joint, ankle and foot 04/15/2005 Unspecified hemorrhoids without mention of compl ication 07/09/2014 documented as of this encounter (statuses as of 12/11/2021) [facility] History of Past illness Narrative* Problem Noted Date Resolved Date Acute right-sided low back pain with right-sided sciatica 08/20/2015 02/26/2019 Lumbosacral neuritis 07/05/2013 02/26/2019 Sacroiliac joint pain 07/05/2013 02/26/2019 Lumbar disc disease with radiculopathy 4 02/26/2019 Cervical radiculopathy due to intervertebral dis c disorder 03/01/2012 02/26/2019 Hematuria 02/26/2010 02/26/2019 Internal hemorrhoids without mention of complica tion 11/14/2007 07/09/2014 External hemorrhoids without mention of complica tion 11/14/2007 07/09/2014 Pain in joint, ankle and foot 04/15/2005 Unspecified hemorrhoids without mention of compl ication 07/09/2014 documented as of this encounter (statuses as of 01/06/2022) [facility] History of Past illness Narrative* Problem Noted Date Resolved Date Acute right-sided low back pain with right-sided sciatica 08/20/2015 02/26/2019 Lumbosacral neuritis 07/05/2013 02/26/2019 Sacroiliac joint pain 07/05/2013 02/26/2019 Lumbar disc disease with radiculopathy 4 02/26/2019 Cervical radiculopathy due to intervertebral dis c disorder 03/01/2012 02/26/2019 Hematuria 02/26/2010 02/26/2019 Internal hemorrhoids without mention of complica tion 11/14/2007 07/09/2014 External hemorrhoids without mention of complica tion 11/14/2007 07/09/2014 Pain in joint, ankle and foot 04/15/2005 Unspecified hemorrhoids without mention of compl ication 07/09/2014 documented as of this encounter (statuses as of 01/08/2022) [facility] History of Past illness Narrative* Problem Noted Date Resolved Date Acute right-sided low back pain with right-sided sciatica 08/20/2015 02/26/2019 Lumbosacral neuritis 07/05/2013 02/26/2019 Sacroiliac joint pain 07/05/2013 02/26/2019 Lumbar disc disease with radiculopathy 4 02/26/2019 Cervical radiculopathy due to intervertebral dis c disorder 03/01/2012 02/26/2019 Hematuria 02/26/2010 02/26/2019 Internal hemorrhoids without mention of complica tion 11/14/2007 07/09/2014 External hemorrhoids without mention of complica tion 11/14/2007 07/09/2014 Pain in joint, ankle and foot 04/15/2005 Unspecified hemorrhoids without mention of compl ication 07/09/2014 documented as of this encounter (statuses as of 01/12/2022) [facility] History of Past illness Narrative* Problem Noted Date Resolved Date Acute right-sided low back pain with right-sided sciatica 08/20/2015 02/26/2019 Lumbosacral neuritis 07/05/2013 02/26/2019 Sacroiliac joint pain 07/05/2013 02/26/2019 Lumbar disc disease with radiculopathy 4 02/26/2019 Cervical radiculopathy due to intervertebral dis c disorder 03/01/2012 02/26/2019 Hematuria 02/26/2010 02/26/2019 Internal hemorrhoids without mention of complica tion 11/14/2007 07/09/2014 External hemorrhoids without mention of complica tion 11/14/2007 07/09/2014 Pain in joint, ankle and foot 04/15/2005 Unspecified hemorrhoids without mention of compl ication 07/09/2014 documented as of this encounter (statuses as of 01/12/2022) [facility] History of Past illness Narrative* Problem Noted Date Resolved Date Acute right-sided low back pain with right-sided sciatica 08/20/2015 02/26/2019 Lumbosacral neuritis 07/05/2013 02/26/2019 Sacroiliac joint pain 07/05/2013 02/26/2019 Lumbar disc disease with radiculopathy 4 02/26/2019 Cervical radiculopathy due to intervertebral dis c disorder 03/01/2012 02/26/2019 Hematuria 02/26/2010 02/26/2019 Internal hemorrhoids without mention of complica tion 11/14/2007 07/09/2014 External hemorrhoids without mention of complica tion 11/14/2007 07/09/2014 Pain in joint, ankle and foot 04/15/2005 Unspecified hemorrhoids without mention of compl ication 07/09/2014 documented as of this encounter (statuses as of 01/21/2022) [facility] History of Past illness Narrative* Problem Noted Date Resolved Date Acute right-sided low back pain with right-sided sciatica 08/20/2015 02/26/2019 Lumbosacral neuritis 07/05/2013 02/26/2019 Sacroiliac joint pain 07/05/2013 02/26/2019 Lumbar disc disease with radiculopathy 4 02/26/2019 Cervical radiculopathy due to intervertebral dis c disorder 03/01/2012 02/26/2019 Hematuria 02/26/2010 02/26/2019 Internal hemorrhoids without mention of complica tion 11/14/2007 07/09/2014 External hemorrhoids without mention of complica tion 11/14/2007 07/09/2014 Pain in joint, ankle and foot 04/15/2005 Unspecified hemorrhoids without mention of compl ication 07/09/2014 documented as of this encounter (statuses as of 02/03/2022) [facility] History of Past illness Narrative* Problem Noted Date Resolved Date Acute right-sided low back pain with right-sided sciatica 08/20/2015 02/26/2019 Lumbosacral neuritis 07/05/2013 02/26/2019 Sacroiliac joint pain 07/05/2013 02/26/2019 Lumbar disc disease with radiculopathy 4 02/26/2019 Cervical radiculopathy due to intervertebral dis c disorder 03/01/2012 02/26/2019 Hematuria 02/26/2010 02/26/2019 Internal hemorrhoids without mention of complica tion 11/14/2007 07/09/2014 External hemorrhoids without mention of complica tion 11/14/2007 07/09/2014 Pain in joint, ankle and foot 04/15/2005 Unspecified hemorrhoids without mention of compl ication 07/09/2014 documented as of this encounter (statuses as of 03/08/2022) [facility] History of Past illness Narrative* Problem Noted Date Resolved Date Acute right-sided low back pain with right-sided sciatica 08/20/2015 02/26/2019 Lumbosacral neuritis 07/05/2013 02/26/2019 Sacroiliac joint pain 07/05/2013 02/26/2019 Lumbar disc disease with radiculopathy 4 02/26/2019 Cervical radiculopathy due to intervertebral dis c disorder 03/01/2012 02/26/2019 Hematuria 02/26/2010 02/26/2019 Internal hemorrhoids without mention of complica tion 11/14/2007 07/09/2014 External hemorrhoids without mention of complica tion 11/14/2007 07/09/2014 Pain in joint, ankle and foot 04/15/2005 Unspecified hemorrhoids without mention of compl ication 07/09/2014 documented as of this encounter (statuses as of 03/09/2022) [facility] History of Past illness Narrative* Problem Noted Date Resolved Date Acute right-sided low back pain with right-sided sciatica 08/20/2015 02/26/2019 Lumbosacral neuritis 07/05/2013 02/26/2019 Sacroiliac joint pain 07/05/2013 02/26/2019 Lumbar disc disease with radiculopathy 4 02/26/2019 Cervical radiculopathy due to intervertebral dis c disorder 03/01/2012 02/26/2019 Hematuria 02/26/2010 02/26/2019 Internal hemorrhoids without mention of complica tion 11/14/2007 07/09/2014 External hemorrhoids without mention of complica tion 11/14/2007 07/09/2014 Pain in joint, ankle and foot 04/15/2005 Unspecified hemorrhoids without mention of compl ication 07/09/2014 documented as of this encounter (statuses as of 05/08/2022) [facility] History of Past illness Narrative* Problem Noted Date Resolved Date Acute right-sided low back pain with right-sided sciatica 08/20/2015 02/26/2019 Lumbosacral neuritis 07/05/2013 02/26/2019 Sacroiliac joint pain 07/05/2013 02/26/2019 Lumbar disc disease with radiculopathy 4 02/26/2019 Cervical radiculopathy due to intervertebral dis c disorder 03/01/2012 02/26/2019 Hematuria 02/26/2010 02/26/2019 Internal hemorrhoids without mention of complica tion 11/14/2007 07/09/2014 External hemorrhoids without mention of complica tion 11/14/2007 07/09/2014 Pain in joint, ankle and foot 04/15/2005 Unspecified hemorrhoids without mention of compl ication 07/09/2014 documented as of this encounter (statuses as of 05/12/2022) [facility] History of Past illness Narrative* Problem Noted Date Resolved Date Acute right-sided low back pain with right-sided sciatica 08/20/2015 02/26/2019 Lumbosacral neuritis 07/05/2013 02/26/2019 Sacroiliac joint pain 07/05/2013 02/26/2019 Lumbar disc disease with radiculopathy 4 02/26/2019 Cervical radiculopathy due to intervertebral dis c disorder 03/01/2012 02/26/2019 Hematuria 02/26/2010 02/26/2019 Internal hemorrhoids without mention of complica tion 11/14/2007 07/09/2014 External hemorrhoids without mention of complica tion 11/14/2007 07/09/2014 Pain in joint, ankle and foot 04/15/2005 Unspecified hemorrhoids without mention of compl ication 07/09/2014 documented as of this encounter (statuses as of 05/19/2022) [facility] History of Past illness Narrative* Problem Noted Date Resolved Date Acute right-sided low back pain with right-sided sciatica 08/20/2015 02/26/2019 Lumbosacral neuritis 07/05/2013 02/26/2019 Sacroiliac joint pain 07/05/2013 02/26/2019 Lumbar disc disease with radiculopathy 4 02/26/2019 Cervical radiculopathy due to intervertebral dis c disorder 03/01/2012 02/26/2019 Hematuria 02/26/2010 02/26/2019 Internal hemorrhoids without mention of complica tion 11/14/2007 07/09/2014 External hemorrhoids without mention of complica tion 11/14/2007 07/09/2014 Pain in joint, ankle and foot 04/15/2005 Unspecified hemorrhoids without mention of compl ication 07/09/2014 documented as of this encounter (statuses as of 05/24/2022) [facility] History of Past illness Narrative* Problem Noted Date Resolved Date Acute right-sided low back pain with right-sided sciatica 08/20/2015 02/26/2019 Lumbosacral neuritis 07/05/2013 02/26/2019 Sacroiliac joint pain 07/05/2013 02/26/2019 Lumbar disc disease with radiculopathy 4 02/26/2019 Cervical radiculopathy due to intervertebral dis c disorder 03/01/2012 02/26/2019 Hematuria 02/26/2010 02/26/2019 Internal hemorrhoids without mention of complica tion 11/14/2007 07/09/2014 External hemorrhoids without mention of complica tion 11/14/2007 07/09/2014 Pain in joint, ankle and foot 04/15/2005 Unspecified hemorrhoids without mention of compl ication 07/09/2014 documented as of this encounter (statuses as of 07/28/2022) [facility] History of Past illness Narrative* Problem Noted Date Resolved Date Acute right-sided low back pain with right-sided sciatica 08/20/2015 02/26/2019 Lumbosacral neuritis 07/05/2013 02/26/2019 Sacroiliac joint pain 07/05/2013 02/26/2019 Lumbar disc disease with radiculopathy 4 02/26/2019 Cervical radiculopathy due to intervertebral dis c disorder 03/01/2012 02/26/2019 Hematuria 02/26/2010 02/26/2019 Internal hemorrhoids without mention of complica tion 11/14/2007 07/09/2014 External hemorrhoids without mention of complica tion 11/14/2007 07/09/2014 Pain in joint, ankle and foot 04/15/2005 Unspecified hemorrhoids without mention of compl ication 07/09/2014 documented as of this encounter (statuses as of 08/04/2022) [facility] History of Past illness Narrative* Problem Noted Date Resolved Date Acute right-sided low back pain with right-sided sciatica 08/20/2015 02/26/2019 Lumbosacral neuritis 07/05/2013 02/26/2019 Sacroiliac joint pain 07/05/2013 02/26/2019 Lumbar disc disease with radiculopathy 4 02/26/2019 Cervical radiculopathy due to intervertebral dis c disorder 03/01/2012 02/26/2019 Hematuria 02/26/2010 02/26/2019 Internal hemorrhoids without mention of complica tion 11/14/2007 07/09/2014 External hemorrhoids without mention of complica tion 11/14/2007 07/09/2014 Pain in joint, ankle and foot 04/15/2005 Unspecified hemorrhoids without mention of compl ication 07/09/2014 documented as of this encounter (statuses as of 08/19/2022) [facility] History of Past illness Narrative* Problem Noted Date Diagnosed Date Resolved Date Acute right-sided low back p ain with right-sided sciatica 08/20/2015 02/26/2019 Lumbosacral neuritis 07/05/2013 020 Sacroiliac joint pain 07/05/20132019 Lumbar disc disease with radiculopathy 05/08/2013 02/26/2019 Cervical radiculopathy due t o intervertebral disc disorder 03/01/2012 02/26/2019 Hematuria 02/26/2010 02/26/2019 Internal hemorrhoids without mention of complication 11/14/2007 07/09/2014 External hemorrhoids without mention of complication 11/14/2007 07/09/2014 Pain in joint, ankle and foot 04/15/2005 07/09/2014 Unspecified hemorrhoids with out mention of complication 07/09/2014 documented as of this encounter (statuses as of 10/01/2022) [facility] History of Past illness Narrative* Problem Noted Date Diagnosed Date Resolved Date Acute right-sided low back p ain with right-sided sciatica 08/20/2015 02/26/2019 Lumbosacral neuritis 07/05/2013 020 Sacroiliac joint pain 07/05/20132019 Lumbar disc disease with radiculopathy 05/08/2013 02/26/2019 Cervical radiculopathy due t o intervertebral disc disorder 03/01/2012 02/26/2019 Hematuria 02/26/2010 02/26/2019 Internal hemorrhoids without mention of complication 11/14/2007 07/09/2014 External hemorrhoids without mention of complication 11/14/2007 07/09/2014 Pain in joint, ankle and foot 04/15/2005 07/09/2014 Unspecified hemorrhoids with out mention of complication 07/09/2014 documented as of this encounter (statuses as of 10/04/2022) [facility] History of Past illness Narrative* Problem Noted Date Diagnosed Date Resolved Date Acute right-sided low back p ain with right-sided sciatica 08/20/2015 02/26/2019 Lumbosacral neuritis 07/05/2013 020 Sacroiliac joint pain 07/05/20132019 Lumbar disc disease with radiculopathy 05/08/2013 02/26/2019 Cervical radiculopathy due t o intervertebral disc disorder 03/01/2012 02/26/2019 Hematuria 02/26/2010 02/26/2019 Internal hemorrhoids without mention of complication 11/14/2007 07/09/2014 External hemorrhoids without mention of complication 11/14/2007 07/09/2014 Pain in joint, ankle and foot 04/15/2005 07/09/2014 Unspecified hemorrhoids with out mention of complication 07/09/2014 documented as of this encounter (statuses as of 10/04/2022) [facility] History of Past illness Narrative* Problem Noted Date Diagnosed Date Resolved Date Acute right-sided low back p ain with right-sided sciatica 08/20/2015 02/26/2019 Lumbosacral neuritis 07/05/2013 020 Sacroiliac joint pain 07/05/20132019 Lumbar disc disease with radiculopathy 05/08/2013 02/26/2019 Cervical radiculopathy due t o intervertebral disc disorder 03/01/2012 02/26/2019 Hematuria 02/26/2010 02/26/2019 Internal hemorrhoids without mention of complication 11/14/2007 07/09/2014 External hemorrhoids without mention of complication 11/14/2007 07/09/2014 Pain in joint, ankle and foot 04/15/2005 07/09/2014 Unspecified hemorrhoids with out mention of complication 07/09/2014 documented as of this encounter (statuses as of 10/14/2022) [facility] History of Past illness Narrative* Problem Noted Date Diagnosed Date Resolved Date Acute right-sided low back p ain with right-sided sciatica 08/20/2015 02/26/2019 Lumbosacral neuritis 07/05/2013 020 Sacroiliac joint pain 07/05/20132019 Lumbar disc disease with radiculopathy 05/08/2013 02/26/2019 Cervical radiculopathy due t o intervertebral disc disorder 03/01/2012 02/26/2019 Hematuria 02/26/2010 02/26/2019 Internal hemorrhoids without mention of complication 11/14/2007 07/09/2014 External hemorrhoids without mention of complication 11/14/2007 07/09/2014 Pain in joint, ankle and foot 04/15/2005 07/09/2014 Unspecified hemorrhoids with out mention of complication 07/09/2014 documented as of this encounter (statuses as of 11/03/2022) [facility] History of Past illness Narrative* Problem Noted Date Diagnosed Date Resolved Date Acute right-sided low back p ain with right-sided sciatica 08/20/2015 02/26/2019 Lumbosacral neuritis 07/05/2013 020 Sacroiliac joint pain 07/05/20132019 Lumbar disc disease with radiculopathy 05/08/2013 02/26/2019 Cervical radiculopathy due t o intervertebral disc disorder 03/01/2012 02/26/2019 Hematuria 02/26/2010 02/26/2019 Internal hemorrhoids without mention of complication 11/14/2007 07/09/2014 External hemorrhoids without mention of complication 11/14/2007 07/09/2014 Pain in joint, ankle and foot 04/15/2005 07/09/2014 Unspecified hemorrhoids with out mention of complication 07/09/2014 documented as of this encounter (statuses as of 11/13/2022) [facility] History of Past illness Narrative* Problem Noted Date Diagnosed Date Resolved Date Acute right-sided low back p ain with right-sided sciatica 08/20/2015 02/26/2019 Lumbosacral neuritis 07/05/2013 020 Sacroiliac joint pain 07/05/20132019 Lumbar disc disease with radiculopathy 05/08/2013 02/26/2019 Cervical radiculopathy due t o intervertebral disc disorder 03/01/2012 02/26/2019 Hematuria 02/26/2010 02/26/2019 Internal hemorrhoids without mention of complication 11/14/2007 07/09/2014 External hemorrhoids without mention of complication 11/14/2007 07/09/2014 Pain in joint, ankle and foot 04/15/2005 07/09/2014 Unspecified hemorrhoids with out mention of complication 07/09/2014 documented as of this encounter (statuses as of 11/13/2022) [facility] History of Past illness Narrative* Problem Noted Date Diagnosed Date Resolved Date Acute right-sided low back p ain with right-sided sciatica 08/20/2015 02/26/2019 Lumbosacral neuritis 07/05/2013 020 Sacroiliac joint pain 07/05/20132019 Lumbar disc disease with radiculopathy 05/08/2013 02/26/2019 Cervical radiculopathy due t o intervertebral disc disorder 03/01/2012 02/26/2019 Hematuria 02/26/2010 02/26/2019 Internal hemorrhoids without mention of complication 11/14/2007 07/09/2014 External hemorrhoids without mention of complication 11/14/2007 07/09/2014 Pain in joint, ankle and foot 04/15/2005 07/09/2014 Unspecified hemorrhoids with out mention of complication 07/09/2014 documented as of this encounter (statuses as of 11/26/2022) [facility] History of Past illness Narrative* Problem Noted Date Diagnosed Date Resolved Date Acute right-sided low back p ain with right-sided sciatica 08/20/2015 02/26/2019 Lumbosacral neuritis 07/05/2013 020 Sacroiliac joint pain 07/05/20132019 Lumbar disc disease with radiculopathy 05/08/2013 02/26/2019 Cervical radiculopathy due t o intervertebral disc disorder 03/01/2012 02/26/2019 Hematuria 02/26/2010 02/26/2019 Internal hemorrhoids without mention of complication 11/14/2007 07/09/2014 External hemorrhoids without mention of complication 11/14/2007 07/09/2014 Pain in joint, ankle and foot 04/15/2005 07/09/2014 Unspecified hemorrhoids with out mention of complication 07/09/2014 documented as of this encounter (statuses as of 12/02/2022) [facility] History of Past illness Narrative* Problem Noted Date Diagnosed Date Resolved Date Acute right-sided low back p ain with right-sided sciatica 08/20/2015 02/26/2019 Lumbosacral neuritis 07/05/2013 020 Sacroiliac joint pain 07/05/20132019 Lumbar disc disease with radiculopathy 05/08/2013 02/26/2019 Cervical radiculopathy due t o intervertebral disc disorder 03/01/2012 02/26/2019 Hematuria 02/26/2010 02/26/2019 Internal hemorrhoids without mention of complication 11/14/2007 07/09/2014 External hemorrhoids without mention of complication 11/14/2007 07/09/2014 Pain in joint, ankle and foot 04/15/2005 07/09/2014 Unspecified hemorrhoids with out mention of complication 07/09/2014 documented as of this encounter (statuses as of 12/03/2022) [facility] History of Past illness Narrative* Problem Noted Date Diagnosed Date Resolved Date Acute right-sided low back p ain with right-sided sciatica 08/20/2015 02/26/2019 Lumbosacral neuritis 07/05/2013 020 Sacroiliac joint pain 07/05/20132019 Lumbar disc disease with radiculopathy 05/08/2013 02/26/2019 Cervical radiculopathy due t o intervertebral disc disorder 03/01/2012 02/26/2019 Hematuria 02/26/2010 02/26/2019 Internal hemorrhoids without mention of complication 11/14/2007 07/09/2014 External hemorrhoids without mention of complication 11/14/2007 07/09/2014 Pain in joint, ankle and foot 04/15/2005 07/09/2014 Unspecified hemorrhoids with out mention of complication 07/09/2014 documented as of this encounter (statuses as of 12/03/2022) [facility] History of Past illness Narrative* Problem Noted Date Diagnosed Date Resolved Date Acute right-sided low back p ain with right-sided sciatica 08/20/2015 02/26/2019 Lumbosacral neuritis 07/05/2013 020 Sacroiliac joint pain 07/05/20132019 Lumbar disc disease with radiculopathy 05/08/2013 02/26/2019 Cervical radiculopathy due t o intervertebral disc disorder 03/01/2012 02/26/2019 Hematuria 02/26/2010 02/26/2019 Internal hemorrhoids without mention of complication 11/14/2007 07/09/2014 External hemorrhoids without mention of complication 11/14/2007 07/09/2014 Pain in joint, ankle and foot 04/15/2005 07/09/2014 Unspecified hemorrhoids with out mention of complication 07/09/2014 documented as of this encounter (statuses as of 12/19/2022) [facility] History of Past illness Narrative* Problem Noted Date Diagnosed Date Resolved Date Acute right-sided low back p ain with right-sided sciatica 08/20/2015 02/26/2019 Lumbosacral neuritis 07/05/2013 020 Sacroiliac joint pain 07/05/20132019 Lumbar disc disease with radiculopathy 05/08/2013 02/26/2019 Cervical radiculopathy due t o intervertebral disc disorder 03/01/2012 02/26/2019 Hematuria 02/26/2010 02/26/2019 Internal hemorrhoids without mention of complication 11/14/2007 07/09/2014 External hemorrhoids without mention of complication 11/14/2007 07/09/2014 Pain in joint, ankle and foot 04/15/2005 07/09/2014 Unspecified hemorrhoids with out mention of complication 07/09/2014 documented as of this encounter (statuses as of 12/24/2022) [facility] History of Past illness Narrative* Problem Noted Date Diagnosed Date Resolved Date Acute right-sided low back p ain with right-sided sciatica 08/20/2015 02/26/2019 Lumbosacral neuritis 07/05/2013 020 Sacroiliac joint pain 07/05/20132019 Lumbar disc disease with radiculopathy 05/08/2013 02/26/2019 Cervical radiculopathy due t o intervertebral disc disorder 03/01/2012 02/26/2019 Hematuria 02/26/2010 02/26/2019 Internal hemorrhoids without mention of complication 11/14/2007 07/09/2014 External hemorrhoids without mention of complication 11/14/2007 07/09/2014 Pain in joint, ankle and foot 04/15/2005 07/09/2014 Unspecified hemorrhoids with out mention of complication 07/09/2014 documented as of this encounter (statuses as of 01/03/2023) [facility] History of Past illness Narrative* Problem Noted Date Diagnosed Date Resolved Date Acute right-sided low back p ain with right-sided sciatica 08/20/2015 02/26/2019 Lumbosacral neuritis 07/05/2013 020 Sacroiliac joint pain 07/05/20132019 Lumbar disc disease with radiculopathy 05/08/2013 02/26/2019 Cervical radiculopathy due t o intervertebral disc disorder 03/01/2012 02/26/2019 Hematuria 02/26/2010 02/26/2019 Internal hemorrhoids without mention of complication 11/14/2007 07/09/2014 External hemorrhoids without mention of complication 11/14/2007 07/09/2014 Pain in joint, ankle and foot 04/15/2005 07/09/2014 Unspecified hemorrhoids with out mention of complication 07/09/2014 documented as of this encounter (statuses as of 01/29/2023) [facility] Right knee pain, unspecified chronicity- Primary [facility] Diagnosis Right knee pain, unspecified chronicity [facility] Chronic pain of right knee- Primary Primary osteoarthritis of right knee Primary localized osteoarthrosis, lower leg [facility] Diagnosis Chronic pain of right knee- Primary Osteoarthritis of right knee, unspecified osteoarthritis type Synovial cyst of right popliteal space Synovial cyst of popliteal space [facility] Diagnosis Intervertebral disc disorder with radiculopathy of lumbar region- Primary Thoracic or lumbosacral neuritis or radiculitis, unspecified Primary osteoarthritis of right hip Primary localized osteoarthrosis, pelvic region and thigh Chronic pain of right knee [facility] Diagnosis Hip pain- Primary Pain in joint, pelvic region and thigh Primary osteoarthritis of right hip Primary localized osteoarthrosis, pelvic region and thigh Hip pain Pain in joint, pelvic region and thigh Primary osteoarthritis of right hip Primary localized osteoarthrosis, pelvic region and thigh [facility] Diagnosis COVID-19 virus infection- Primary Syncope, unspecified syncope type Fatigue, unspecified type Hip pain Pain in joint, pelvic region and thigh Primary osteoarthritis of right hip Primary localized osteoarthrosis, pelvic region and thigh documented in this encounter [facility] note* Diagnosis Hip pain- Primary Pain in joint, pelvic region and thigh Primary osteoarthritis of right hip Primary localized osteoarthrosis, pelvic region and thigh Intervertebral disc disorder with radiculopathy of lumbar region Thoracic or lumbosacral neuritis or radiculitis, unspecified Hip pain Pain in joint, pelvic region and thigh Primary osteoarthritis of right hip Primary localized osteoarthrosis, pelvic region and thigh documented in this encounter [facility] note* Diagnosis Pre-operative examination- Primary Preoperative examination, unspecified Valvular heart disease Endocarditis, valve unspecified, unspecified cause Essential hypertension, benign Hyperlipidemia LDL goal <100 Other and unspecified hyperlipidemia Coronary artery disease involving [place] coronary artery of [place] heart without angina pectoris Controlled type 2 diabetes mellitus without complication, without long-term current use of insulin (HCC) Gastroesophageal reflux disease with esophagitis, unspecified whether hemorrhage Situational depression Adjustment disorder with depressed mood History of 2019 novel coronavirus disease (COVID-19) History of syncope Other specified personal history presenting hazards to health Hip pain Pain in joint, pelvic region and thigh Primary osteoarthritis of right hip Primary localized osteoarthrosis, pelvic region and thigh [facility] Diagnosis Primary osteoarthritis of right hip- Primary Primary localized osteoarthrosis, pelvic region and thigh Status post total hip replacement, right [facility] Diagnosis Primary osteoarthritis of right hip Primary localized osteoarthrosis, pelvic region and thigh Status post total hip replacement, right [facility] Elevated alkaline phosphatase level- Primary Other nonspecific abnormal serum enzyme levels Function kidney decreased Unspecified disorder of kidney and ureter [facility] Diagnosis Primary osteoarthritis of right hip- Primary Primary localized osteoarthrosis, pelvic region and thigh Status post right hip replacement Hip joint replacement by other means [facility] Diagnosis Hip pain Pain in joint, pelvic region and thigh [facility] Diagnosis Status post right hip replacement- Primary Hip joint replacement by other means [facility] Diagnosis Numbness and tingling of right arm- Primary Disturbance of skin sensation Chronic pain of right knee Neck pain Cervicalgia [facility] Diagnosis Acute non-recurrent sinusitis, unspecified location- Primary [facility] Diagnosis Primary osteoarthritis of right knee- Primary Primary localized osteoarthrosis, lower leg Chronic pain of right knee [facility] Diagnosis Syncope and collapse- Primary Syncope, unspecified syncope type Palpitations Lower extremity numbness Disturbance of skin sensation Neuropathy Mononeuritis of unspecified site [facility] Diagnosis Gammopathy, monoclonal- Primary Monoclonal paraproteinemia [facility] Diagnosis Essential hypertension, benign- Primary Hyperlipidemia LDL goal <100 Other and unspecified hyperlipidemia Abnormality of gait Falling episodes Lack of coordination Chronic kidney disease, stage 3a (HCC) Prediabetes Other abnormal glucose [facility] Diagnosis Primary osteoarthritis of right knee- Primary Primary localized osteoarthrosis, lower leg Chronic pain of right knee [facility] Diagnosis Degeneration of lumbar or lumbosacral intervertebral disc- Primary Chronic bilateral low back pain without sciatica [facility] Diagnosis Syncope and collapse- Primary Palpitations FIGUEROA (dyspnea on exertion) Other dyspnea and respiratory abnormality Coronary artery disease involving [place] coronary artery of [place] heart without angina pectoris Essential hypertension, benign Hyperlipidemia LDL goal <100 Other and unspecified hyperlipidemia Takotsubo cardiomyopathy Takotsubo syndrome Prediabetes Other abnormal glucose [facility] Diagnosis Syncope and collapse Palpitations Coronary artery disease involving [place] coronary artery of [place] heart without angina pectoris Essential hypertension, benign Hyperlipidemia LDL goal <100 Other and unspecified hyperlipidemia FIGUEROA (dyspnea on exertion) Other dyspnea and respiratory abnormality [facility] Pain- Primary Generalized pain Skin infection Unspecified local infection of skin and subcutaneous tissue [facility] Diagnosis Hand pain, left- Primary Pain in limb [facility] Diagnosis Left wrist pain- Primary Pain in joint, forearm [facility] Diagnosis Syncope and collapse- Primary Takotsubo cardiomyopathy Takotsubo syndrome Essential hypertension, benign Palpitations Hyperlipidemia LDL goal <100 Other and unspecified hyperlipidemia [facility] Pain Generalized pain [facility] Diagnosis Gammopathy, monoclonal Monoclonal paraproteinemia [facility] Diagnosis Primary osteoarthritis of right knee- Primary Primary localized osteoarthrosis, lower leg Chronic pain of right knee [facility] Diagnosis Primary osteoarthritis of right knee Primary localized osteoarthrosis, lower leg Chronic pain of right knee Pre-op testing Preoperative examination, unspecified Primary osteoarthritis of right knee Primary localized osteoarthrosis, lower leg documented in this encounter [facility] Plan of care note* Visit Details Visit Type -PT SOC Discipline -Physical Therapy Problems Problem Description Start Date Status Goals Interve ntions Medication Education Disciplines: Skilled Services 11/23/2021 Active 1 goal linked to scheduled/documen arsenio intervention 1 goal intervention scheduled/document ed in this visit Sepsis Disciplines: Skilled Services 11/23/2021 Active 1 goal linked to scheduled/documen arsenio intervention 1 goal intervention scheduled/document ed in this visit Physician Specific Parameters Disciplines: Skilled Services 11/23/2021 Active 1 goal linked to scheduled/documen arsenio intervention 1 goal intervention scheduled/document ed in this visit Risk for Falls Disciplines: Skilled Services 11/23/2021 Active 1 goal linked to scheduled/documen arsenio intervention 1 goal intervention scheduled/document ed in this visit Pain Disciplines: Skilled Services 11/23/2021 Active 1 goal linked to scheduled/documen arsenio intervention 1 goal intervention scheduled/document ed in this visit Diabetic Foot Care Disciplines: Skilled Services 11/23/2021 Active 1 goal linked to scheduled/documen arsenio intervention 1 goal intervention scheduled/document ed in this visit High Risk Medications Disciplines: Skilled Services 11/23/2021 Active 1 goal linked to scheduled/documen arsenio intervention 1 goal intervention scheduled/document ed in this visit Advance Directives Disciplines: Skilled Services 11/23/2021 Resolved on 11/23/2021 1 goal linked to scheduled/documen arsenio intervention 1 goal intervention scheduled/document ed in this visit PT Impaired muscle performance and/or ROM Disciplines: PT 11/23/2021 Active 1 goal linked to scheduled/documen arsenio intervention 1 goal intervention scheduled/document ed in this visit PT Orthopedic Condition Disciplines: PT 11/23/2021 Active 1 goal linked to scheduled/documen arsenio intervention 3 goal interventions scheduled/document ed in this visit PT Learning Assessment Disciplines: PT 11/23/2021 Active 1 goal linked to scheduled/documen arsenio intervention 1 goal intervention scheduled/document ed in this visit Goals Goal Associated Problem Outcome Goal Met? Visit Notes Patient/caregiver will demonstrate ability to obtain, store, identify and administer ordered medications, keep accurate medication list in home, and adhere to medication schedule Description: Patient/caregiver will demonstrate ability to obtain, store, identify and administer ordered medications, keep accurate medication list in home, and adhere to medication schedule by 01/21/22. . Medication Education No Patient/caregiver will be able to identify and report symptoms of sepsis Description: Patient/caregiver will be able to identify signs/symptoms of sepsis infection and will verbalize actions to take if suspected by 01/21/22. . Sepsis No Patient to maintain parameters within physician-specified ranges throughout certification period Physician Specific Parameters No Manage Risk for falls Description: Patient/caregiver will verbalize knowledge of individualized fall prevention strategies by 01/21/22. . Risk for Falls No Manage Pain Description: Patient/caregiver will verbalize knowledge and understanding of appropriate techniques to control pain, including pain medication and non-pharmacological techniques. Patient will verbalize or demonstrate an acceptable level of pain as evidenced by a pain score of <5/10 and improvement in ability to perform activities of daily living to be achieved by 01/21/22. . Pain No Manage diabetic foot care Description: Patient/caregiver will demonstrate basic understanding of and compliance with diabetic self-care management as evidenced by verbalizing purpose of daily foot care and assessment by 01/21/22. Diabetic Foot Care No Patient/caregiver will teach back high risk medication side effect and precaution education High Risk Medications No Patient/caregiver will make healthcare providers aware of and any changes to Advance Directives throughout certification period Advance Directives Completed Yes Improved Muscle Performance and/or ROM Description: LTG: Patient will demonstrate improved muscle performance to meet functional goals as evidenced by ability to tolerate 10 min of standing activity, to be achieved by 12/12/21. . STG: Patient and/or caregiver will verbalize/demonstrate independence with home exercise program, to improve functional mobility, to be achieved by 11/28/21. PT Impaired muscle performance and/or ROM No Manage Orthopedic Condition Description: Improve patient and/or caregiver understanding of post surgical and/or non-surgical orthopedic intervention management as evidenced by patient and/or caregiver able to verbalize, demonstrate, and teach back instruction, to be achieved by 12/12/21. . PT Orthopedic Condition No Demonstrate understanding of education Description: Patient and/or caregiver will understand educational instruction to be achieved by 12/12/21. . PT Learning Assessment No Interventions Intervention Associated Problem/Goal Status Variance Visit Notes Medication Education Description: Evaluate/instruct patient/caregiver on obtaining, storing, identifying and administering ordered medications as well as keeping accurate medication list in the home and adhereing to medication schedule Problem:Medication Education Goal:Patient/caregive r will demonstrate ability to obtain, store, identify and administer ordered medications, keep accurate medication list in home, and adhere to medication schedule Completed Patient instructed on importance of keeping accurate medication list in home and adhering to medication schedule. Risk of Sepsis Description: Patient is at risk for sepsis. Monitor closely for s/s of sepsis. Problem:Sepsis Goal:Patient/caregive r will be able to identify and report symptoms of sepsis Completed SPO2 Description: Notify Dr. Heller if pulse ox is <92% at rest. Problem:Physician Specific Parameters Goal:Patient to maintain parameters within physician-specified ranges throughout certification period Completed Instruct on individual fall risk factors and strategies to prevent falls and injuries caused by falls. Problem:Risk for Falls Goal:Manage Risk for falls Completed PT: Patient instructed on Eliminating Environmental Hazards: Keep pathways clear, Keep pets out of pathways, Remove unsafe rugs and Move furniture from pathways Managing Impaired Functional Mobility: Use assistive device(s): standard walker Managing Pain Instruct on pain and instruct on strategies to control pain Problem:Pain Goal:Manage Pain Completed patient instructed on techniques to control pain including Pharmacological measures and Non-Pharmacological measures; rest, positioning/elevation and use of thermal modalities, apply ice to affected area . Monitor lower extremities for skin lesions and educate on proper foot care Problem:Diabetic Foot Care Goal:Manage diabetic foot care Completed patient instructed on diabetic foot care including daily skin inspection and wearing proper footwear/avoiding going barefoot. Opioids- Instruct on high risk medication Problem:High Risk Medications Goal:Patient/caregive r will teach back high risk medication side effect and precaution education Completed patient instructed on the following: Possible side effects of opioid medication including sedation, decreased rate of breathing, and constipation. Instructed on reporting over sedation to prescribing physician, practice deep breathing techniques every hour while awake, and prevention of constipation by increasing water and fiber intake, increase activity as tolerated, and use stool softener as prescribed. Only take opioids as prescribed, do not share your medications, and take proper precautions in storing and properly disposing of opioids once no longer needed. Follow providers guidelines for driving and weaning from prescribed opioid. Determine patient's Advance Directive Status Description: Patient does have advance directives. Patient's Advance Directives determined to be available in Home and EMR Healthcare DPOA and Living Will. Problem:Advance Directives Goal:Patient/caregive r will make healthcare providers aware of and any changes to Advance Directives throughout certification period Completed Discussed Advance Directives with Patient and/or Caregiver. Referred patient to Home Care handbook for further information on Healthcare DPOA & Living Will. Physical Therapy Therapeutic Exercises Problem:PT Impaired muscle performance and/or ROM Goal:Improved Muscle Performance and/or ROM Completed patient instructed on strengthening exercises including Supine : GS,QS,HS, HIPADD, HIP BD, HEEL SLIDES, SAQ, X 10 with verbal, tactile and written cues for technique/reps/frequen cy . patient instructed to perform home exercise program twice a day which included hourly ambulation . Instruct on orthopedic precautions and weight bearing restrictions Description: Orthopedic precautions including right posterior hip: no hip flexion > 90 degrees, no adduction and no IR/ER rotation of involved extermity. Weight bearing restrictions include: 40-50LB PWB of involved extremity. Problem:PT Orthopedic Condition Goal:Manage Orthopedic Condition Completed patient instructed on orthopedic precautions and weight bearing restrictions. Instruct on management of edema Problem:PT Orthopedic Condition Goal:Manage Orthopedic Condition Completed Instruct patient on management of edema including elevation of RLE above the level of the heart and ice. Instruct on self-management of post surgical and/or non-surgical orthopedic intervention Problem:PT Orthopedic Condition Goal:Manage Orthopedic Condition Completed patient instructed on managagement of orthopedic condition, staying well hydrated, eating foods with high protein, signs and symptoms of infection, signs and symptoms of DVT/PE, follow provider guidance for showering and instructed on when to call provider. Instruct and educate on knowledge deficits Problem:PT Learning Assessment Goal:Demonstrate understanding of education Completed patient verbalize and/or demonstrate understanding of physical therapy education including orthopedic condition management, weight bearing precautions, surgical precautions, pain management, fall prevention strategies, home safety, functional activity and home exercise program. Education methods include: verbal cues and written instructions. Further education required to improve knowledge and compliance with orthopedic condition management, weight bearing precautions, surgical precautions, pain management, fall prevention strategies, home safety, functional activity and home exercise program. [facility] Visit Details Visit Type -PT ROUTINE Discipline -Physical Therapy Problems Problem Description Start Date Status Goals Interve ntions Medication Education Disciplines: Skilled Services 11/23/2021 Active 1 goal linked to scheduled/document ed intervention 1 goal intervention scheduled/document ed in this visit Sepsis Disciplines: Skilled Services 11/23/2021 Active 1 goal linked to scheduled/document ed intervention 1 goal intervention scheduled/document ed in this visit Physician Specific Parameters Disciplines: Skilled Services 11/23/2021 Active 1 goal linked to scheduled/document ed intervention 1 goal intervention scheduled/document ed in this visit Risk for Falls Disciplines: Skilled Services 11/23/2021 Active 1 goal linked to scheduled/document ed intervention 1 goal intervention scheduled/document ed in this visit Pain Disciplines: Skilled Services 11/23/2021 Active 1 goal linked to scheduled/document ed intervention 1 goal intervention scheduled/document ed in this visit Diabetic Foot Care Disciplines: Skilled Services 11/23/2021 Active 1 goal linked to scheduled/document ed intervention 1 goal intervention scheduled/document ed in this visit PT Impaired muscle performance and/or ROM Disciplines: PT 11/23/2021 Active 1 goal linked to scheduled/document ed intervention 1 goal intervention scheduled/document ed in this visit PT Impaired mobility Disciplines: PT 11/23/2021 Active 1 goal linked to scheduled/document ed intervention 1 goal intervention scheduled/document ed in this visit PT Impaired gait Disciplines: PT 11/23/2021 Active 1 goal linked to scheduled/document ed intervention 1 goal intervention scheduled/document ed in this visit PT Orthopedic Condition Disciplines: PT 11/23/2021 Active 1 goal linked to scheduled/document ed intervention 4 goal interventions scheduled/document ed in this visit PT Learning Assessment Disciplines: PT 11/23/2021 Active 1 goal linked to scheduled/document ed intervention 1 goal intervention scheduled/document ed in this visit Goals Goal Associated Problem Outcome Goal Met? Visit Notes Patient/caregiver will demonstrate ability to obtain, store, identify and administer ordered medications, keep accurate medication list in home, and adhere to medication schedule Description: Patient/caregiver will demonstrate ability to obtain, store, identify and administer ordered medications, keep accurate medication list in home, and adhere to medication schedule by 01/21/22. . Medication Education No Patient/caregiver will be able to identify and report symptoms of sepsis Description: Patient/caregiver will be able to identify signs/symptoms of sepsis infection and will verbalize actions to take if suspected by 01/21/22. . Sepsis No Patient to maintain parameters within physician-specified ranges throughout certification period Physician Specific Parameters No Manage Risk for falls Description: Patient/caregiver will verbalize knowledge of individualized fall prevention strategies by 01/21/22. . Risk for Falls No Manage Pain Description: Patient/caregiver will verbalize knowledge and understanding of appropriate techniques to control pain, including pain medication and non-pharmacological techniques. Patient will verbalize or demonstrate an acceptable level of pain as evidenced by a pain score of <5/10 and improvement in ability to perform activities of daily living to be achieved by 01/21/22. . Pain No Manage diabetic foot care Description: Patient/caregiver will demonstrate basic understanding of and compliance with diabetic self-care management as evidenced by verbalizing purpose of daily foot care and assessment by 01/21/22. Diabetic Foot Care No Improved Muscle Performance and/or ROM Description: LTG: Patient will demonstrate improved muscle performance to meet functional goals as evidenced by ability to tolerate 10 min of standing activity, to be achieved by 12/12/21. . STG: Patient and/or caregiver will verbalize/demonstrate independence with home exercise program, to improve functional mobility, to be achieved by 11/28/21. PT Impaired muscle performance and/or ROM No Improved Transfers Description: LTG: Patient will demonstrate safe transfers to/from bed, chair, toilet, shower/tub and car independently with AD, to be achieved by 12/12/21. PT Impaired mobility No Improved Gait Description: STG: Patient will demonstrate improved gait ability as evidenced by ambulation 100 feet with front wheeled walker independently with AD, in order to manuever throughout home, to be achieved by 11/28/21. LTG: Patient will demonstrate improved gait ability as evidenced by ambulation 150 feet with single point cane independently with AD, to return to safe household and community ambulation,, to be achieved by 12/12/21. . PT Impaired gait No Manage Orthopedic Condition Description: Improve patient and/or caregiver understanding of post surgical and/or non-surgical orthopedic intervention management as evidenced by patient and/or caregiver able to verbalize, demonstrate, and teach back instruction, to be achieved by 12/12/21. . PT Orthopedic Condition No Demonstrate understanding of education Description: Patient and/or caregiver will understand educational instruction to be achieved by 12/12/21. . PT Learning Assessment No Interventions Intervention Associated Problem/Goal Status Variance Visit Notes Medication Education Description: Evaluate/instruct patient/caregiver on obtaining, storing, identifying and administering ordered medications as well as keeping accurate medication list in the home and adhereing to medication schedule Problem:Medication Education Goal:Patient/caregive r will demonstrate ability to obtain, store, identify and administer ordered medications, keep accurate medication list in home, and adhere to medication schedule Completed Patient instructed on importance of keeping accurate medication list in home and adhering to medication schedule. Risk of Sepsis Description: Patient is at risk for sepsis. Monitor closely for s/s of sepsis. Problem:Sepsis Goal:Patient/caregive r will be able to identify and report symptoms of sepsis Completed SPO2 Description: Notify Dr. Heller if pulse ox is <92% at rest. Problem:Physician Specific Parameters Goal:Patient to maintain parameters within physician-specified ranges throughout certification period Completed Instruct on individual fall risk factors and strategies to prevent falls and injuries caused by falls. Problem:Risk for Falls Goal:Manage Risk for falls Completed PT: Patient instructed on Eliminating Environmental Hazards: Keep pathways clear, Remove unsafe rugs and Move furniture from pathways Managing Impaired Functional Mobility: Use assistive device(s): standard walker Managing Pain Instruct on pain and instruct on strategies to control pain Problem:Pain Goal:Manage Pain Completed patient instructed on techniques to control pain including Pharmacological measures and Non-Pharmacological measures; rest, positioning/elevation and use of thermal modalities, apply ice to affected area . Monitor lower extremities for skin lesions and educate on proper foot care Problem:Diabetic Foot Care Goal:Manage diabetic foot care Completed patient instructed on diabetic foot care including daily skin inspection. Physical Therapy Therapeutic Exercises Problem:PT Impaired muscle performance and/or ROM Goal:Improved Muscle Performance and/or ROM Completed patient instructed on strengthening exercises including Supine : GS,QS,HS, HIPADD, HIP BD, HEEL SLIDES, SAQ, X 10 with verbal, tactile and written cues for technique/reps/frequen cy . patient instructed to perform home exercise program twice a day which included hourly ambulation . Physical Therapy Transfer Training Problem:PT Impaired mobility Goal:Improved Transfers Completed Transfer training and instruction to patient on safe transfers to and from bed and chair with supervision and verbal cues for technique . Physical Therapy Gait Training Problem:PT Impaired gait Goal:Improved Gait Completed Gait training and instruction to patient on safe ambulation with standard walker for 40' x 2 feet with supervision, with verbal cues for corrections of gait deviations including sequencing pt wants to go R-walker-[id number] instead of Walker-R-L. Instruct on orthopedic precautions and weight bearing restrictions Description: Orthopedic precautions including right posterior hip: no hip flexion > 90 degrees, no adduction and no IR/ER rotation of involved extermity. Weight bearing restrictions include: 40-50LB PWB of involved extremity. Problem:PT Orthopedic Condition Goal:Manage Orthopedic Condition Completed patient instructed on orthopedic precautions and weight bearing restrictions. Instruct on management of edema Problem:PT Orthopedic Condition Goal:Manage Orthopedic Condition Completed Instruct patient on management of edema including elevation of RLE above the level of the heart and ice. Physical therapy to perform surgical incision/wound management Description: Removal of post-op dressing on pod 7 ( 11/25/21). If no drainage is present, leave open to air; if drainage is present, cover with clean dressing and contact provider. Problem:PT Orthopedic Condition Goal:Manage Orthopedic Condition Completed Intervention completed this date. with pts permission a photo was uploaded to [facility] for MD to review Instruct on self-management of post surgical and/or non-surgical orthopedic intervention Problem:PT Orthopedic Condition Goal:Manage Orthopedic Condition Completed patient instructed on managagement of orthopedic condition, eating foods with high protein, signs and symptoms of infection, signs and symptoms of DVT/PE, follow provider guidance for showering and instructed on when to call provider. Instruct and educate on knowledge deficits Problem:PT Learning Assessment Goal:Demonstrate understanding of education Completed patient verbalize and/or demonstrate understanding of physical therapy education including orthopedic condition management, weight bearing precautions, surgical precautions and pain management. Education methods include: verbal cues. Further education required to improve knowledge and compliance with orthopedic condition management, weight bearing precautions, surgical precautions, pain management and home exercise program. [facility] Visit Details Visit Type -PT UNMADE VISIT Discipline -Physical Therapy Problems Problem Description Start Date Status Goals Interve ntions Sepsis Disciplines: Skilled Services 11/23/2021 Active 1 goal linked to scheduled/document ed intervention 1 goal intervention scheduled/documente d in this visit Physician Specific Parameters Disciplines: Skilled Services 11/23/2021 Active 1 goal linked to scheduled/document ed intervention 1 goal intervention scheduled/documente d in this visit PT Learning Assessment Disciplines: PT 11/23/2021 Active 1 goal linked to scheduled/document ed intervention 1 goal intervention scheduled/documente d in this visit Goals Goal Associated Problem Outcome Goal Met? Visit Notes Patient/caregiver will be able to identify and report symptoms of sepsis Description: Patient/caregiver will be able to identify signs/symptoms of sepsis infection and will verbalize actions to take if suspected by 01/21/22. . Sepsis No Patient to maintain parameters within physician-specified ranges throughout certification period Physician Specific Parameters No Demonstrate understanding of education Description: Patient and/or caregiver will understand educational instruction to be achieved by 12/12/21. . PT Learning Assessment No Interventions Intervention Associated Problem/Goal Status Variance Visit Notes Risk of Sepsis Description: Patient is at risk for sepsis. Monitor closely for s/s of sepsis. Problem:Sepsis Goal:Patient/caregiver will be able to identify and report symptoms of sepsis Completed SPO2 Description: Notify Dr. Heller if pulse ox is <92% at rest. Problem:Physician Specific Parameters Goal:Patient to maintain parameters within physician-specified ranges throughout certification period Completed Instruct and educate on knowledge deficits Problem:PT Learning Assessment Goal:Demonstrate understanding of education Completed patient and caregiver verbalize and/or demonstrate understanding of physical therapy education including instr to seek medical attention for her symptoms today . Education methods include: verbal cues. [facility] Visit Details Visit Type -HEEL TRIMMER ROUTINE Discipline -Physical Therapy Problems Problem Description Start Date Status Goals Interve ntions Medication Education Disciplines: Skilled Services 11/23/2021 Active 1 goal linked to scheduled/document ed intervention 1 goal intervention scheduled/document ed in this visit Sepsis Disciplines: Skilled Services 11/23/2021 Active 1 goal linked to scheduled/document ed intervention 1 goal intervention scheduled/document ed in this visit Physician Specific Parameters Disciplines: Skilled Services 11/23/2021 Active 1 goal linked to scheduled/document ed intervention 1 goal intervention scheduled/document ed in this visit Risk for Falls Disciplines: Skilled Services 11/23/2021 Active 1 goal linked to scheduled/document ed intervention 1 goal intervention scheduled/document ed in this visit Pain Disciplines: Skilled Services 11/23/2021 Active 1 goal linked to scheduled/document ed intervention 1 goal intervention scheduled/document ed in this visit Diabetic Foot Care Disciplines: Skilled Services 11/23/2021 Active 1 goal linked to scheduled/document ed intervention 1 goal intervention scheduled/document ed in this visit Discharge Disciplines: Skilled Services 11/23/2021 Active 1 goal linked to scheduled/document ed intervention 1 goal intervention scheduled/document ed in this visit PT Impaired muscle performance and/or ROM Disciplines: PT 11/23/2021 Active 1 goal linked to scheduled/document ed intervention 1 goal intervention scheduled/document ed in this visit PT Impaired mobility Disciplines: PT 11/23/2021 Active 1 goal linked to scheduled/document ed intervention 1 goal intervention scheduled/document ed in this visit PT Impaired gait Disciplines: PT 11/23/2021 Active 1 goal linked to scheduled/document ed intervention 1 goal intervention scheduled/document ed in this visit PT Orthopedic Condition Disciplines: PT 11/23/2021 Active 1 goal linked to scheduled/document ed intervention 3 goal interventions scheduled/document ed in this visit Goals Goal Associated Problem Outcome Goal Met? Visit Notes Patient/caregiver will demonstrate ability to obtain, store, identify and administer ordered medications, keep accurate medication list in home, and adhere to medication schedule Description: Patient/caregiver will demonstrate ability to obtain, store, identify and administer ordered medications, keep accurate medication list in home, and adhere to medication schedule by 01/21/22. . Medication Education No Patient/caregiver will be able to identify and report symptoms of sepsis Description: Patient/caregiver will be able to identify signs/symptoms of sepsis infection and will verbalize actions to take if suspected by 01/21/22. . Sepsis No Patient to maintain parameters within physician-specified ranges throughout certification period Physician Specific Parameters No Manage Risk for falls Description: Patient/caregiver will verbalize knowledge of individualized fall prevention strategies by 01/21/22. . Risk for Falls No Manage Pain Description: Patient/caregiver will verbalize knowledge and understanding of appropriate techniques to control pain, including pain medication and non-pharmacological techniques. Patient will verbalize or demonstrate an acceptable level of pain as evidenced by a pain score of <5/10 and improvement in ability to perform activities of daily living to be achieved by 01/21/22. . Pain No Manage diabetic foot care Description: Patient/caregiver will demonstrate basic understanding of and compliance with diabetic self-care management as evidenced by verbalizing purpose of daily foot care and assessment by 01/21/22. Diabetic Foot Care No Manage discharge planning Description: Patient/caregiver will verbalize understanding of ongoing discharge plan provided related to disease management, arrangements for outpatient and/or community services, obtaining medications, supplies, and DME, as needed throughout certification period. Discharge No Improved Muscle Performance and/or ROM Description: LTG: Patient will demonstrate improved muscle performance to meet functional goals as evidenced by ability to tolerate 10 min of standing activity, to be achieved by 12/12/21. . STG: Patient and/or caregiver will verbalize/demonstrate independence with home exercise program, to improve functional mobility, to be achieved by 11/28/21. PT Impaired muscle performance and/or ROM No Improved Bed Mobility Description: STG: Patient will demonstrate improved bed mobility, ability to position self and supine <> sit independently to be achieved by 12/05/21. . PT Impaired mobility No Improved Gait Description: STG: Patient will demonstrate improved gait ability as evidenced by ambulation 100 feet with front wheeled walker independently with AD, in order to manuever throughout home, to be achieved by 11/28/21. LTG: Patient will demonstrate improved gait ability as evidenced by ambulation 150 feet with single point cane independently with AD, to return to safe household and community ambulation,, to be achieved by 12/12/21. . PT Impaired gait No Manage Orthopedic Condition Description: Improve patient and/or caregiver understanding of post surgical and/or non-surgical orthopedic intervention management as evidenced by patient and/or caregiver able to verbalize, demonstrate, and teach back instruction, to be achieved by 12/12/21. . PT Orthopedic Condition No Interventions Intervention Associated Problem/Goal Status Variance Visit Notes Medication Education Description: Evaluate/instruct patient/caregiver on obtaining, storing, identifying and administering ordered medications as well as keeping accurate medication list in the home and adhereing to medication schedule Problem:Medication Education Goal:Patient/caregive r will demonstrate ability to obtain, store, identify and administer ordered medications, keep accurate medication list in home, and adhere to medication schedule Completed Patient instructed on importance of keeping accurate medication list in home and adhering to medication schedule. Risk of Sepsis Description: Patient is at risk for sepsis. Monitor closely for s/s of sepsis. Problem:Sepsis Goal:Patient/caregive r will be able to identify and report symptoms of sepsis Completed SPO2 Description: Notify Dr. Hleler if pulse ox is <92% at rest. Problem:Physician Specific Parameters Goal:Patient to maintain parameters within physician-specified ranges throughout certification period Completed Instruct on individual fall risk factors and strategies to prevent falls and injuries caused by falls. Problem:Risk for Falls Goal:Manage Risk for falls Completed PT: Patient instructed on Managing Impaired Functional Mobility: Use assistive device(s): front wheeled walker Instruct on pain and instruct on strategies to control pain Problem:Pain Goal:Manage Pain Completed patient instructed on techniques to control pain including Pharmacological measures and Non-Pharmacological measures; positioning/elevation and use of thermal modalities, apply ice to affected area for the following prescribed frequency: prn. Monitor lower extremities for skin lesions and educate on proper foot care Problem:Diabetic Foot Care Goal:Manage diabetic foot care Completed patient instructed on diabetic foot care including wearing proper footwear/avoiding going barefoot. Instruct on ongoing discharge plan Problem:Discharge Goal:Manage discharge planning Completed Ongoing Discharge plan: Discharge plan discussed with patient including frequency and duration for home PT and plan for transition to: live independently at home without ongoing services. Physical Therapy Therapeutic Exercises Problem:PT Impaired muscle performance and/or ROM Goal:Improved Muscle Performance and/or ROM Completed patient instructed on strengthening exercises including ankle pumps, quad and glut sets, hip abd and adduction, saq and heel slides x's 10 each with verbal and written cues for correct form and pace. patient instructed to perform home exercise program twice a day which included above exercises. Physical Therapy Bed Mobility Training Problem:PT Impaired mobility Goal:Improved Bed Mobility Completed Bed mobility training and instruction to patient, including supine<>sit with supervision and verbal cues for maintaining hip precautions. Physical Therapy Gait Training Problem:PT Impaired gait Goal:Improved Gait Completed Gait training and instruction to patient on safe ambulation with walker for 2x's 50 feet with stand by assist, with verbal cues for corrections of gait deviations including increased step length. Instruct on orthopedic precautions and weight bearing restrictions Description: Orthopedic precautions including right posterior hip: no hip flexion > 90 degrees, no adduction and no IR/ER rotation of involved extermity. Weight bearing restrictions include: 40-50LB PWB of involved extremity. Problem:PT Orthopedic Condition Goal:Manage Orthopedic Condition Completed patient instructed on orthopedic precautions and weight bearing restrictions. Instruct on management of edema Problem:PT Orthopedic Condition Goal:Manage Orthopedic Condition Completed Instruct patient on management of edema including elevation of RLE above the level of the heart and ice. Instruct on self-management of post surgical and/or non-surgical orthopedic intervention Problem:PT Orthopedic Condition Goal:Manage Orthopedic Condition Completed patient instructed on signs and symptoms of infection, signs and symptoms of DVT/PE, instructed on when to call provider and instructed on when to call 911. documented in this encounter [facility] Plan of care note* Visit Details Visit Type -HEEL TRIMMER ROUTINE Discipline -Physical Therapy Problems Problem Description Start Date Status Goals Interve ntions Medication Education Disciplines: Skilled Services 11/23/2021 Active 1 goal linked to scheduled/document ed intervention 1 goal intervention scheduled/document ed in this visit Sepsis Disciplines: Skilled Services 11/23/2021 Active 1 goal linked to scheduled/document ed intervention 1 goal intervention scheduled/document ed in this visit Physician Specific Parameters Disciplines: Skilled Services 11/23/2021 Active 1 goal linked to scheduled/document ed intervention 1 goal intervention scheduled/document ed in this visit Risk for Falls Disciplines: Skilled Services 11/23/2021 Active 1 goal linked to scheduled/document ed intervention 1 goal intervention scheduled/document ed in this visit Pain Disciplines: Skilled Services 11/23/2021 Active 1 goal linked to scheduled/document ed intervention 1 goal intervention scheduled/document ed in this visit Discharge Disciplines: Skilled Services 11/23/2021 Active 1 goal linked to scheduled/document ed intervention 1 goal intervention scheduled/document ed in this visit PT Impaired muscle performance and/or ROM Disciplines: PT 11/23/2021 Active 1 goal linked to scheduled/document ed intervention 1 goal intervention scheduled/document ed in this visit PT Impaired mobility Disciplines: PT 11/23/2021 Active 1 goal linked to scheduled/document ed intervention 1 goal intervention scheduled/document ed in this visit PT Impaired gait Disciplines: PT 11/23/2021 Active 1 goal linked to scheduled/document ed intervention 1 goal intervention scheduled/document ed in this visit PT Impaired balance Disciplines: PT 11/23/2021 Active 1 goal linked to scheduled/document ed intervention 1 goal intervention scheduled/document ed in this visit PT Orthopedic Condition Disciplines: PT 11/23/2021 Active 1 goal linked to scheduled/document ed intervention 3 goal interventions scheduled/document ed in this visit PT Learning Assessment Disciplines: PT 11/23/2021 Active 1 goal linked to scheduled/document ed intervention 1 goal intervention scheduled/document ed in this visit Goals Goal Associated Problem Outcome Goal Met? Visit Notes Patient/caregiver will demonstrate ability to obtain, store, identify and administer ordered medications, keep accurate medication list in home, and adhere to medication schedule Description: Patient/caregiver will demonstrate ability to obtain, store, identify and administer ordered medications, keep accurate medication list in home, and adhere to medication schedule by 01/21/22. . Medication Education No Patient/caregiver will be able to identify and report symptoms of sepsis Description: Patient/caregiver will be able to identify signs/symptoms of sepsis infection and will verbalize actions to take if suspected by 01/21/22. . Sepsis No Patient to maintain parameters within physician-specified ranges throughout certification period Physician Specific Parameters No Manage Risk for falls Description: Patient/caregiver will verbalize knowledge of individualized fall prevention strategies by 01/21/22. . Risk for Falls No Manage Pain Description: Patient/caregiver will verbalize knowledge and understanding of appropriate techniques to control pain, including pain medication and non-pharmacological techniques. Patient will verbalize or demonstrate an acceptable level of pain as evidenced by a pain score of <5/10 and improvement in ability to perform activities of daily living to be achieved by 01/21/22. . Pain No Manage discharge planning Description: Patient/caregiver will verbalize understanding of ongoing discharge plan provided related to disease management, arrangements for outpatient and/or community services, obtaining medications, supplies, and DME, as needed throughout certification period. Discharge No Improved Muscle Performance and/or ROM Description: LTG: Patient will demonstrate improved muscle performance to meet functional goals as evidenced by ability to tolerate 10 min of standing activity, to be achieved by 12/12/21. . STG: Patient and/or caregiver will verbalize/demonstrate independence with home exercise program, to improve functional mobility, to be achieved by 11/28/21. PT Impaired muscle performance and/or ROM No Improved Bed Mobility Description: STG: Patient will demonstrate improved bed mobility, ability to position self and supine <> sit independently to be achieved by 12/05/21. . PT Impaired mobility No Improved Gait Description: STG: Patient will demonstrate improved gait ability as evidenced by ambulation 100 feet with front wheeled walker independently with AD, in order to manuever throughout home, to be achieved by 11/28/21. LTG: Patient will demonstrate improved gait ability as evidenced by ambulation 150 feet with single point cane independently with AD, to return to safe household and community ambulation,, to be achieved by 12/12/21. . PT Impaired gait No Improved Balance Description: LTG: Patient will demonstrate improved standing balance to meet functional goals as evidenced by TUG score of <25 to be achieved by 12/12/21. PT Impaired balance No Manage Orthopedic Condition Description: Improve patient and/or caregiver understanding of post surgical and/or non-surgical orthopedic intervention management as evidenced by patient and/or caregiver able to verbalize, demonstrate, and teach back instruction, to be achieved by 12/12/21. . PT Orthopedic Condition No Demonstrate understanding of education Description: Patient and/or caregiver will understand educational instruction to be achieved by 12/12/21. . PT Learning Assessment No Interventions Intervention Associated Problem/Goal Status Variance Visit Notes Medication Education Description: Evaluate/instruct patient/caregiver on obtaining, storing, identifying and administering ordered medications as well as keeping accurate medication list in the home and adhereing to medication schedule Problem:Medication Education Goal:Patient/caregive r will demonstrate ability to obtain, store, identify and administer ordered medications, keep accurate medication list in home, and adhere to medication schedule Completed Patient instructed on importance of keeping accurate medication list in home. Risk of Sepsis Description: Patient is at risk for sepsis. Monitor closely for s/s of sepsis. Problem:Sepsis Goal:Patient/caregive r will be able to identify and report symptoms of sepsis Completed SPO2 Description: Notify Dr. Heller if pulse ox is <92% at rest. Problem:Physician Specific Parameters Goal:Patient to maintain parameters within physician-specified ranges throughout certification period Completed Instruct on individual fall risk factors and strategies to prevent falls and injuries caused by falls. Problem:Risk for Falls Goal:Manage Risk for falls Completed PT: Patient instructed on Managing Impaired Functional Mobility: Use assistive device(s): walker Instruct on pain and instruct on strategies to control pain Problem:Pain Goal:Manage Pain Completed patient instructed on techniques to control pain including Pharmacological measures and Non-Pharmacological measures; positioning/elevation and use of thermal modalities, apply ice to affected area for the following prescribed frequency: prn. Instruct on ongoing discharge plan Problem:Discharge Goal:Manage discharge planning Completed Ongoing Discharge plan: Discharge plan discussed with patient including frequency and duration for home PT and plan for transition to: live independently at home without ongoing services. Physical Therapy Therapeutic Exercises Problem:PT Impaired muscle performance and/or ROM Goal:Improved Muscle Performance and/or ROM Completed patient instructed on strengthening exercises including ankle pumps, quad and glut sets, hip abd w/ manual assist, saq and heel slides x's 15each. standing: calf raises, hip abd and hamstring curls x's 10 each with verbal, visual and written cues for correct form. patient instructed to perform home exercise program twice a day which included above exercises. Physical Therapy Bed Mobility Training Problem:PT Impaired mobility Goal:Improved Bed Mobility Completed Bed mobility training and instruction to patient, including supine<>sit with supervision and verbal cues for maintaining hip precautions. Physical Therapy Gait Training Problem:PT Impaired gait Goal:Improved Gait Completed Gait training and instruction to patient on safe ambulation with front wheeled walker for 2x's 80 feet with supervision, with verbal cues for corrections of gait deviations including increased step length. Physical Therapy Balance Training Problem:PT Impaired balance Goal:Improved Balance Completed Developed, implemented, and instructed patient on standing balance exercises including standing exercises w/ naveen UE support. Instruct on orthopedic precautions and weight bearing restrictions Description: Orthopedic precautions including right posterior hip: no hip flexion > 90 degrees, no adduction and no IR/ER rotation of involved extermity. Weight bearing restrictions include: 40-50LB PWB of involved extremity. Problem:PT Orthopedic Condition Goal:Manage Orthopedic Condition Completed patient instructed on orthopedic precautions. Instruct on management of edema Problem:PT Orthopedic Condition Goal:Manage Orthopedic Condition Completed Instruct patient on management of edema including elevation of RLE above the level of the heart and ice. Instruct on self-management of post surgical and/or non-surgical orthopedic intervention Problem:PT Orthopedic Condition Goal:Manage Orthopedic Condition Completed patient instructed on signs and symptoms of infection, signs and symptoms of DVT/PE, instructed on when to call provider and instructed on when to call 911. Instruct and educate on knowledge deficits Problem:PT Learning Assessment Goal:Demonstrate understanding of education Completed patient verbalize and/or demonstrate understanding of physical therapy education including surgical precautions and home exercise program. Education methods include: verbal cues. Further education required to improve knowledge and compliance with home exercise program. [facility] Visit Details Visit Type -HEEL TRIMMER ROUTINE Discipline -Physical Therapy Problems Problem Description Start Date Status Goals Interve ntions Medication Education Disciplines: Skilled Services 11/23/2021 Active 1 goal linked to scheduled/document ed intervention 1 goal intervention scheduled/document ed in this visit Sepsis Disciplines: Skilled Services 11/23/2021 Active 1 goal linked to scheduled/document ed intervention 1 goal intervention scheduled/document ed in this visit Physician Specific Parameters Disciplines: Skilled Services 11/23/2021 Active 1 goal linked to scheduled/document ed intervention 1 goal intervention scheduled/document ed in this visit Risk for Falls Disciplines: Skilled Services 11/23/2021 Active 1 goal linked to scheduled/document ed intervention 1 goal intervention scheduled/document ed in this visit Pain Disciplines: Skilled Services 11/23/2021 Active 1 goal linked to scheduled/document ed intervention 1 goal intervention scheduled/document ed in this visit Discharge Disciplines: Skilled Services 11/23/2021 Active 1 goal linked to scheduled/document ed intervention 2 goal interventions scheduled/document ed in this visit PT Impaired muscle performance and/or ROM Disciplines: PT 11/23/2021 Active 1 goal linked to scheduled/document ed intervention 1 goal intervention scheduled/document ed in this visit PT Impaired gait Disciplines: PT 11/23/2021 Active 2 goals linked to scheduled/document ed interventions 2 goal interventions scheduled/document ed in this visit PT Impaired balance Disciplines: PT 11/23/2021 Active 1 goal linked to scheduled/document ed intervention 1 goal intervention scheduled/document ed in this visit PT Orthopedic Condition Disciplines: PT 11/23/2021 Active 1 goal linked to scheduled/document ed intervention 3 goal interventions scheduled/document ed in this visit PT Learning Assessment Disciplines: PT 11/23/2021 Active 1 goal linked to scheduled/document ed intervention 1 goal intervention scheduled/document ed in this visit Goals Goal Associated Problem Outcome Goal Met? Visit Notes Patient/caregiver will demonstrate ability to obtain, store, identify and administer ordered medications, keep accurate medication list in home, and adhere to medication schedule Description: Patient/caregiver will demonstrate ability to obtain, store, identify and administer ordered medications, keep accurate medication list in home, and adhere to medication schedule by 01/21/22. . Medication Education No Patient/caregiver will be able to identify and report symptoms of sepsis Description: Patient/caregiver will be able to identify signs/symptoms of sepsis infection and will verbalize actions to take if suspected by 01/21/22. . Sepsis No Patient to maintain parameters within physician-specified ranges throughout certification period Physician Specific Parameters No Manage Risk for falls Description: Patient/caregiver will verbalize knowledge of individualized fall prevention strategies by 01/21/22. . Risk for Falls No Manage Pain Description: Patient/caregiver will verbalize knowledge and understanding of appropriate techniques to control pain, including pain medication and non-pharmacological techniques. Patient will verbalize or demonstrate an acceptable level of pain as evidenced by a pain score of <5/10 and improvement in ability to perform activities of daily living to be achieved by 01/21/22. . Pain No Manage discharge planning Description: Patient/caregiver will verbalize understanding of ongoing discharge plan provided related to disease management, arrangements for outpatient and/or community services, obtaining medications, supplies, and DME, as needed throughout certification period. Discharge No Improved Muscle Performance and/or ROM Description: LTG: Patient will demonstrate improved muscle performance to meet functional goals as evidenced by ability to tolerate 10 min of standing activity, to be achieved by 12/12/21. . STG: Patient and/or caregiver will verbalize/demonstrate independence with home exercise program, to improve functional mobility, to be achieved by 11/28/21. PT Impaired muscle performance and/or ROM No Improved Stair Climbing Description: LTG: Patient will demonstrate improved stair negotiation as evidenced by ascend/descend 3 steps with railing and with cane independently, to safely access community and exit home, to be achieved by 12/12/21. . PT Impaired gait No Improved Gait Description: STG: Patient will demonstrate improved gait ability as evidenced by ambulation 100 feet with front wheeled walker independently with AD, in order to manuever throughout home, to be achieved by 11/28/21. LTG: Patient will demonstrate improved gait ability as evidenced by ambulation 150 feet with single point cane independently with AD, to return to safe household and community ambulation,, to be achieved by 12/12/21. . PT Impaired gait No Improved Balance Description: LTG: Patient will demonstrate improved standing balance to meet functional goals as evidenced by TUG score of <25 to be achieved by 12/12/21. PT Impaired balance No Manage Orthopedic Condition Description: Improve patient and/or caregiver understanding of post surgical and/or non-surgical orthopedic intervention management as evidenced by patient and/or caregiver able to verbalize, demonstrate, and teach back instruction, to be achieved by 12/12/21. . PT Orthopedic Condition No Demonstrate understanding of education Description: Patient and/or caregiver will understand educational instruction to be achieved by 12/12/21. . PT Learning Assessment No Interventions Intervention Associated Problem/Goal Status Variance Visit Notes Medication Education Description: Evaluate/instruct patient/caregiver on obtaining, storing, identifying and administering ordered medications as well as keeping accurate medication list in the home and adhereing to medication schedule Problem:Medication Education Goal:Patient/caregive r will demonstrate ability to obtain, store, identify and administer ordered medications, keep accurate medication list in home, and adhere to medication schedule Completed Patient instructed on importance of keeping accurate medication list in home. Risk of Sepsis Description: Patient is at risk for sepsis. Monitor closely for s/s of sepsis. Problem:Sepsis Goal:Patient/caregive r will be able to identify and report symptoms of sepsis Completed SPO2 Description: Notify Dr. Heller if pulse ox is <92% at rest. Problem:Physician Specific Parameters Goal:Patient to maintain parameters within physician-specified ranges throughout certification period Completed Instruct on individual fall risk factors and strategies to prevent falls and injuries caused by falls. Problem:Risk for Falls Goal:Manage Risk for falls Completed PT: Patient instructed on Managing Impaired Functional Mobility: Use assistive device(s): front wheeled walker Instruct on pain and instruct on strategies to control pain Problem:Pain Goal:Manage Pain Completed patient instructed on techniques to control pain including Pharmacological measures and Non-Pharmacological measures; positioning/elevation and use of thermal modalities, apply ice to affected area for the following prescribed frequency: prn. Deliver [facility] Problem:Discharge Goal:Manage discharge planning Completed Delivered [facility] on 12/08/21 for discharge date of 12/10/21. Patient denies questions/concerns w/ form. Instruct on ongoing discharge plan Problem:Discharge Goal:Manage discharge planning Completed Ongoing Discharge plan: Discharge plan discussed with patient including frequency and duration for home PT and plan for transition to: live independently at home without ongoing services. Physical Therapy Therapeutic Exercises Problem:PT Impaired muscle performance and/or ROM Goal:Improved Muscle Performance and/or ROM Completed patient instructed on strengthening exercises including standing: heel raises, hamstring curls, sle, hip abd and flexion x's 10 each with verbal, visual and written cues for correct form and pace. patient instructed to perform home exercise program twice a day which included above exercises. Physical Therapy Stair Training Problem:PT Impaired gait Goal:Improved Stair Climbing Completed Stair training and instruction to patient on safe stair climbing, ascend/descend 2 steps, without railing and with cane with stand by assist and verbal cues for safety and correct step pattern. Physical Therapy Gait Training Problem:PT Impaired gait Goal:Improved Gait Completed Gait training and instruction to patient on safe ambulation with front wheeled walker for 2x's 80 feet with supervision, with verbal cues for corrections of gait deviations including posture and increased step length. with qaud cane 2x's 40feet w/ sba and verbal and visual cues for correct cane use Physical Therapy Balance Training Problem:PT Impaired balance Goal:Improved Balance Completed Developed, implemented, and instructed patient on standing balance exercises including naveen standing exercises. Instruct on orthopedic precautions and weight bearing restrictions Description: Orthopedic precautions including right posterior hip: no hip flexion > 90 degrees, no adduction and no IR/ER rotation of involved extermity. Weight bearing restrictions include: 40-50LB PWB of involved extremity. Problem:PT Orthopedic Condition Goal:Manage Orthopedic Condition Completed patient instructed on orthopedic precautions. Good recall of hip precautions Instruct on management of edema Problem:PT Orthopedic Condition Goal:Manage Orthopedic Condition Completed Instruct patient on management of edema including elevation of RLE above the level of the heart and ice. Instruct on self-management of post surgical and/or non-surgical orthopedic intervention Problem:PT Orthopedic Condition Goal:Manage Orthopedic Condition Completed patient instructed on signs and symptoms of infection, signs and symptoms of DVT/PE, instructed on when to call provider and instructed on when to call 911. Instruct and educate on knowledge deficits Problem:PT Learning Assessment Goal:Demonstrate understanding of education Completed patient verbalize and/or demonstrate understanding of physical therapy education including home exercise program. Education methods include: verbal cues. Further education required to improve knowledge and compliance with home exercise program. [facility] Visit Details Visit Type -PT AGENCY DC W V ISIT Discipline -Physical Therapy Problems Problem Description Start Date Status Goals Interve ntions Medication Education Disciplines: Skilled Services 11/23/2021 Resolved on 12/11/2021 1 goal linked to scheduled/document ed intervention 1 goal intervention scheduled/document ed in this visit Sepsis Disciplines: Skilled Services 11/23/2021 Resolved on 12/11/2021 1 goal linked to scheduled/document ed intervention 1 goal intervention scheduled/document ed in this visit Physician Specific Parameters Disciplines: Skilled Services 11/23/2021 Resolved on 12/11/2021 1 goal linked to scheduled/document ed intervention 1 goal intervention scheduled/document ed in this visit Risk for Falls Disciplines: Skilled Services 11/23/2021 Resolved on 12/11/2021 1 goal linked to scheduled/document ed intervention 1 goal intervention scheduled/document ed in this visit Pain Disciplines: Skilled Services 11/23/2021 Resolved on 12/11/2021 1 goal linked to scheduled/document ed intervention 1 goal intervention scheduled/document ed in this visit Diabetic Foot Care Disciplines: Skilled Services 11/23/2021 Resolved on 12/11/2021 1 goal linked to scheduled/document ed intervention 1 goal intervention scheduled/document ed in this visit High Risk Medications Disciplines: Skilled Services 11/23/2021 Resolved on 12/11/2021 1 goal linked to scheduled/document ed intervention Discharge Disciplines: Skilled Services 11/23/2021 Resolved on 12/11/2021 1 goal linked to scheduled/document ed intervention PT Impaired muscle performance and/or ROM Disciplines: PT 11/23/2021 Resolved on 12/11/2021 1 goal linked to scheduled/document ed intervention 1 goal intervention scheduled/document ed in this visit PT Impaired mobility Disciplines: PT 11/23/2021 Resolved on 12/11/2021 2 goals linked to scheduled/document ed interventions 2 goal interventions scheduled/document ed in this visit PT Impaired gait Disciplines: PT 11/23/2021 Resolved on 12/11/2021 2 goals linked to scheduled/document ed interventions 2 goal interventions scheduled/document ed in this visit PT Impaired balance Disciplines: PT 11/23/2021 Resolved on 12/11/2021 1 goal linked to scheduled/document ed intervention 1 goal intervention scheduled/document ed in this visit PT Orthopedic Condition Disciplines: PT 11/23/2021 Resolved on 12/11/2021 1 goal linked to scheduled/document ed intervention 3 goal interventions scheduled/document ed in this visit PT Learning Assessment Disciplines: PT 11/23/2021 Resolved on 12/11/2021 1 goal linked to scheduled/document ed intervention 1 goal intervention scheduled/document ed in this visit Goals Goal Associated Problem Outcome Goal Met? Visit Notes Patient/caregiver will demonstrate ability to obtain, store, identify and administer ordered medications, keep accurate medication list in home, and adhere to medication schedule Description: Patient/caregiver will demonstrate ability to obtain, store, identify and administer ordered medications, keep accurate medication list in home, and adhere to medication schedule by 01/21/22. . Medication Education Completed Yes Patient/caregiver will be able to identify and report symptoms of sepsis Description: Patient/caregiver will be able to identify signs/symptoms of sepsis infection and will verbalize actions to take if suspected by 01/21/22. . Sepsis Completed Yes Patient to maintain parameters within physician-specified ranges throughout certification period Physician Specific Parameters Completed Yes Manage Risk for falls Description: Patient/caregiver will verbalize knowledge of individualized fall prevention strategies by 01/21/22. . Risk for Falls Completed Yes Manage Pain Description: Patient/caregiver will verbalize knowledge and understanding of appropriate techniques to control pain, including pain medication and non-pharmacological techniques. Patient will verbalize or demonstrate an acceptable level of pain as evidenced by a pain score of <5/10 and improvement in ability to perform activities of daily living to be achieved by 01/21/22. . Pain Completed Yes Manage diabetic foot care Description: Patient/caregiver will demonstrate basic understanding of and compliance with diabetic self-care management as evidenced by verbalizing purpose of daily foot care and assessment by 01/21/22. Diabetic Foot Care Completed Yes Patient/caregiver will teach back high risk medication side effect and precaution education High Risk Medications Completed Yes Manage discharge planning Description: Patient/caregiver will verbalize understanding of ongoing discharge plan provided related to disease management, arrangements for outpatient and/or community services, obtaining medications, supplies, and DME, as needed throughout certification period. Discharge Completed Yes Improved Muscle Performance and/or ROM Description: LTG: Patient will demonstrate improved muscle performance to meet functional goals as evidenced by ability to tolerate 10 min of standing activity, to be achieved by 12/12/21. . STG: Patient and/or caregiver will verbalize/demonstrate independence with home exercise program, to improve functional mobility, to be achieved by 11/28/21. PT Impaired muscle performance and/or ROM Completed Yes Improved Transfers Description: LTG: Patient will demonstrate safe transfers to/from bed, chair, toilet, shower/tub and car independently with AD, to be achieved by 12/12/21. PT Impaired mobility Completed Yes Improved Bed Mobility Description: STG: Patient will demonstrate improved bed mobility, ability to position self and supine <> sit independently to be achieved by 12/05/21. . PT Impaired mobility Completed Yes Improved Stair Climbing Description: LTG: Patient will demonstrate improved stair negotiation as evidenced by ascend/descend 3 steps with railing and with cane independently, to safely access community and exit home, to be achieved by 12/12/21. . PT Impaired gait Completed Yes Improved Gait Description: STG: Patient will demonstrate improved gait ability as evidenced by ambulation 100 feet with front wheeled walker independently with AD, in order to manuever throughout home, to be achieved by 11/28/21. LTG: Patient will demonstrate improved gait ability as evidenced by ambulation 150 feet with single point cane independently with AD, to return to safe household and community ambulation,, to be achieved by 12/12/21. . PT Impaired gait Completed Yes Improved Balance Description: LTG: Patient will demonstrate improved standing balance to meet functional goals as evidenced by TUG score of <25 to be achieved by 12/12/21. PT Impaired balance Completed Yes Manage Orthopedic Condition Description: Improve patient and/or caregiver understanding of post surgical and/or non-surgical orthopedic intervention management as evidenced by patient and/or caregiver able to verbalize, demonstrate, and teach back instruction, to be achieved by 12/12/21. . PT Orthopedic Condition Completed Yes Demonstrate understanding of education Description: Patient and/or caregiver will understand educational instruction to be achieved by 12/12/21. . PT Learning Assessment Completed Yes Interventions Intervention Associated Problem/Goal Status Variance Visit Notes Medication Education Description: Evaluate/instruct patient/caregiver on obtaining, storing, identifying and administering ordered medications as well as keeping accurate medication list in the home and adhereing to medication schedule Problem:Medication Education Goal:Patient/caregive r will demonstrate ability to obtain, store, identify and administer ordered medications, keep accurate medication list in home, and adhere to medication schedule Completed Patient instructed on importance of keeping accurate medication list in home and adhering to medication schedule. Risk of Sepsis Description: Patient is at risk for sepsis. Monitor closely for s/s of sepsis. Problem:Sepsis Goal:Patient/caregive r will be able to identify and report symptoms of sepsis Completed SPO2 Description: Notify Dr. Heller if pulse ox is <92% at rest. Problem:Physician Specific Parameters Goal:Patient to maintain parameters within physician-specified ranges throughout certification period Completed Instruct on individual fall risk factors and strategies to prevent falls and injuries caused by falls. Problem:Risk for Falls Goal:Manage Risk for falls Completed PT: Patient instructed on Eliminating Environmental Hazards: Keep pathways clear, Keep pets out of pathways, Remove unsafe rugs and Move furniture from pathways Managing Impaired Functional Mobility: Use assistive device(s): front wheeled walker/ cane Managing Pain Instruct on pain and instruct on strategies to control pain Problem:Pain Goal:Manage Pain Completed patient instructed on techniques to control pain including Pharmacological measures and Non-Pharmacological measures; rest, positioning/elevation and use of thermal modalities, apply ice to affected area . Monitor lower extremities for skin lesions and educate on proper foot care Problem:Diabetic Foot Care Goal:Manage diabetic foot care Completed patient instructed on diabetic foot care including daily skin inspection and wearing proper footwear/avoiding going barefoot. Physical Therapy Therapeutic Exercises Problem:PT Impaired muscle performance and/or ROM Goal:Improved Muscle Performance and/or ROM Completed patient instructed on strengthening exercises including standing: heel raises, hamstring curls, sle, hip abd and flexion x's 10 each with verbal, visual and written cues for correct form and pace. patient instructed to perform home exercise program twice a day which included above exercises. Physical Therapy Transfer Training Problem:PT Impaired mobility Goal:Improved Transfers Completed MAYO transfers with safe/proper technique Physical Therapy Bed Mobility Training Problem:PT Impaired mobility Goal:Improved Bed Mobility Completed MAYO bed mobility Physical Therapy Stair Training Problem:PT Impaired gait Goal:Improved Stair Climbing Completed Stair training and instruction to patient on safe stair climbing, ascend/descend 2 steps, with railing with supervision Physical Therapy Gait Training Problem:PT Impaired gait Goal:Improved Gait Completed Indep amb with WW household distances/surfaces. Amb with sbqc ( pt does not like it and plans to get a st cane ) with step together and slowly developing a recip pattern Physical Therapy Balance Training Problem:PT Impaired balance Goal:Improved Balance Completed pt demonstrates a TUG of 26 Instruct on orthopedic precautions and weight bearing restrictions Description: Orthopedic precautions including right posterior hip: no hip flexion > 90 degrees, no adduction and no IR/ER rotation of involved extermity. Weight bearing restrictions include: 40-50LB PWB of involved extremity. Problem:PT Orthopedic Condition Goal:Manage Orthopedic Condition Completed patient instructed on orthopedic precautions and weight bearing restrictions. Instruct on management of edema Problem:PT Orthopedic Condition Goal:Manage Orthopedic Condition Completed Instruct patient on management of edema including elevation of RLE above the level of the heart and ice. Instruct on self-management of post surgical and/or non-surgical orthopedic intervention Problem:PT Orthopedic Condition Goal:Manage Orthopedic Condition Completed patient instructed on managagement of orthopedic condition, eating foods with high protein, signs and symptoms of infection, signs and symptoms of DVT/PE and instructed on when to call provider. Instruct and educate on knowledge deficits Problem:PT Learning Assessment Goal:Demonstrate understanding of education Completed patient verbalize and/or demonstrate understanding of physical therapy education including orthopedic condition management, surgical precautions, pain management, functional activity and home exercise program. Education methods include: verbal cues. documented in this encounter [facility] for referral (narrative)* Diagnostic Procedure Only (Routine) - Pending Review Specialty Diagnoses / Procedures Referred By Mary Lou mckenzie Referred To Contact XR IMAGING Diagnoses Right knee pain, unspecified chronicity Procedures XR KNEE GENERAL 4V AP BOTH/PA BOTH/LAT/MERC RIGHT RADIOLOGIC EXAM KNEE COMPLETE 4/MORE VIEWS Skinny Heller MD [address] [place] [address] Xr Imaging Referral ID Status Reason Start Date Expiration Date Visits Requested Visits Authorized [id number] Pending Review Auto-Generat ed Referral 05/14/2021 06/13/2022 1 1 [facility] for referral (narrative)* Diagnostic Procedure Only (Routine) - Closed Specialty Diagnoses / Procedures Referred By Mary Lou mckenzie Referred To Contact XR IMAGING Diagnoses Right knee pain, unspecified chronicity Procedures XR KNEE GENERAL 4V AP BOTH/PA BOTH/LAT/MERC RIGHT RADIOLOGIC EXAM KNEE COMPLETE 4/MORE VIEWS Skinny Heller MD [address] [place] [address] Xr Imaging Referral ID Status Reason Start Date Expiration Date V isits Requested Visits Authorized [id number] Closed Auto-Generate d Referral 05/14/2021 06/13/2022 1 1 [facility] for referral (narrative)* Diagnostic Procedure Only (Routine) - Authorized Specialty Diagnoses / Procedures Referred By Contac t Referred To Contact US IMAGING Diagnoses Chronic pain of right knee Osteoarthritis of right knee, unspecified osteoarthritis type Synovial cyst of right popliteal space Procedures US EXTREMITY MASS/FLUID COLLECTION RT Santos Nuñez MD [address] [place] [address] Us Imaging Referral ID Status Reason Start Date Expiration Date Visits Requested Visits Authorized [id number] Authorized Auto-Generat ed Referral 07/31/2021 08/30/2022 1 1 [facility] for referral (narrative)* Outpatient Procedure (Routine) - Pending Review Specialty Diagnoses / Procedures Referred By Contac t Referred To Contact [facility] Diagnoses Pre-operative examination Valvular heart disease Procedures ECHO ECHO TTHRC R-T 2D W/WOM-MODE COMPL SPEC&COLR D Radha López APRN.CNP [address] [place] [address] [facility] [address] [place] [address] Referral ID Status Reason Start Date Expiration Date Visits Requested Visits Authorized [id number] Pending Review Auto-Generat ed Referral 11/02/2021 11/02/2022 1 1 [facility] for referral (narrative)* Diagnostic Procedure Only (Routine) - Pending Review Specialty Diagnoses / Procedures Referred By Contac t Referred To Contact XR IMAGING Diagnoses Primary osteoarthritis of right hip Status post total hip replacement, right Procedures XR HIP GENERAL 3V PELV/AP/LAT RIGHT RADEX HIP UNILATERAL WITH PELVIS 2-3 VIEWS Christen Lindo PA-C [address] [place] [address] Xr Imaging Referral ID Status Reason Start Date Expiration Date Visits Requested Visits Authorized [id number] Pending Review Auto-Generat ed Referral 2 12/25/2022 1 1 [facility] for referral (narrative)* Diagnostic Procedure Only (Routine) - Closed Specialty Diagnoses / Procedures Referred By Contac t Referred To Contact XR IMAGING Diagnoses Primary osteoarthritis of right hip Status post total hip replacement, right Procedures XR HIP GENERAL 3V PELV/AP/LAT RIGHT RADEX HIP UNILATERAL WITH PELVIS 2-3 VIEWS Christen Lindo PA-C [address] [place] [address] Xr Imaging Referral ID Status Reason Start Date Expiration Date V isits Requested Visits Authorized [id number] Closed Auto-Generate d Referral 11/25/2021 12/25/2022 [facility] Diagnostic Procedure Only (Routine) - Pending Review Specialty Diagnoses / Procedures Referred By Contac t Referred To Contact XR IMAGING Diagnoses Primary osteoarthritis of right hip Status post right hip replacement Procedures XR HIP GENERAL 3V PELV/AP/LAT RIGHT RADEX HIP UNILATERAL WITH PELVIS 2-3 VIEWS Skinny Heller MD [address] [place] [address] Xr Imaging Referral ID Status Reason Start Date Expiration Date Visits Requested Visits Authorized [id number] Pending Review Auto-Generat ed Referral 2 03/05/2023 1 1 [facility] for referral (narrative)* Outpatient Procedure (Routine) - Authorized Specialty Diagnoses / Procedures Referred By Contac t Referred To Contact [facility] Diagnoses Neuropathy Procedures EMG(NEURO/NI) NERVE CONDUCTION STUDIES 9-10 STUDIES Luda Jay PA-C [address] [place] [address] [facility] [address] [place], [place] [id number] Referral ID Status Reason Start Date Expiration Date Visits Requested Visits Authorized [id number] Authorized Auto-Generat ed Referral 08/03/2022 08/04/2023 1 1 * Consult, Test, Treat (Routine) - Authorized Specialty Diagnoses / Procedures Referred By Contac t Referred To Contact Cardiology Diagnoses Syncope and collapse Palpitations Procedures CONSULT TO CARDIOLOGY OFFICE/OUTPATIENT [facility] 60-74 MINUTES Luda Jay PA-C [address] [place] [address] Referral ID Status Reason Start Date Expiration Date Visits Requested Visits Authorized [id number] Authorized PCP Requested Referral 08/03/2022 08/03/2023 1 1 * MRI/CT (Routine) - Authorized Specialty Diagnoses / Procedures Referred By Contac t Referred To Contact MR IMAGING Diagnoses Syncope and collapse Procedures MRI BRAIN WO IVCON MRI BRAIN BRAIN STEM W/O CONTRAST MATERIAL Luda Jay PA-C [address] [place] [address] Mr Imaging Referral ID Status Reason Start Date Expiration Date Visits Requested Visits Authorized [id number] Authorized Auto-Generat ed Referral 08/03/2022 09/02/2023 1 1 * MRI/CT (Routine) - Authorized Specialty Diagnoses / Procedures Referred By Contac t Referred To Contact MR IMAGING Diagnoses Syncope and collapse Procedures MRA CAROTID WO/W IVCON MRA,NECK; W/WO CONTRAST Luda Jay PA-C [address] [place] [address] Mr Imaging Referral ID Status Reason Start Date Expiration Date Visits Requested Visits Authorized [id number] Authorized Auto-Generat ed Referral 08/03/2022 09/02/2023 1 1 * MRI/CT (Routine) - Authorized Specialty Diagnoses / Procedures Referred By Contac t Referred To Contact MR IMAGING Diagnoses Syncope and collapse Procedures MRA BRAIN WO IVCON MRA, HEAD W/O CONTRAST Luda Jay PA-C [address] [place] [address] Mr Imaging Referral ID Status Reason Start Date Expiration Date Visits Requested Visits Authorized [id number] Authorized Auto-Generat ed Referral 08/03/2022 09/02/2023 1 1 * Outpatient Procedure (Routine) - Authorized Specialty Diagnoses / Procedures Referred By Contac t Referred To Contact [facility] Diagnoses Syncope, unspecified syncope type Syncope and collapse Procedures EPIL EEG ROUTINE ELECTROENCEPHALOGRAM REC COMA/SLEEP ONLY Luda Jay PA-C [address] [place] [address] [facility] [address] [place] [address] Referral ID Status Reason Start Date Expiration Date Visits Requested Visits Authorized [id number] Authorized Auto-Generat ed Referral 08/03/2022 08/04/2023 1 1 [facility] for referral (narrative)* - Authorized Specialty Diagnoses / Procedures Referred By Contac t Referred To Contact Physical Therapy Diagnoses Degeneration of lumbar or lumbosacral intervertebral disc Chronic bilateral low back pain without sciatica Procedures CONSULT TO PHYSICAL THERAPY Gracie Gandhi PA-C [address] [place] [address] Referral ID Status Reason Start Date Expiration Date V isits Requested Visits Authorized [id number] Authorized 10/14/2022 01/12/2023 99 99 * Diagnostic Procedure Only (Routine) - Pending Review Specialty Diagnoses / Procedures Referred By Contac t Referred To Contact XR IMAGING Diagnoses Degeneration of lumbar or lumbosacral intervertebral disc Chronic bilateral low back pain without sciatica Procedures XR LUMBAR MOTION 4V AP/LAT/ FLEX/EXT RADEX SPINE LUMBOSACRAL MINIMUM 4 VIEWS Gracie Gandhi PA-C [address] [place] [address] Xr Imaging [place] [address] Referral ID Status Reason Start Date Expiration Date Visits Requested Visits Authorized [id number] Pending Review Auto-Generat ed Referral 10/14/2022 11/13/2023 1 1 [facility] for referral (narrative)* Diagnostic Procedure Only (Routine) - Authorized Specialty Diagnoses / Procedures Referred By Contact Referred To Contact MOLECULAR [facility] FUNCTIONAL IMAGING Diagnoses Syncope and collapse Palpitations Coronary artery disease involving ass[place] and [place] tribes coronary artery of ass[place] and [place] tribes heart without angina pectoris Essential hypertension, benign Hyperlipidemia LDL goal <100 FIGUEROA (dyspnea on exertion) Procedures NM CARDIAC PERF STRESS/PHARM MYOCARDIAL SPECT MULTIPLE STUDIES Wes Quispe DO [address] [place] [address] Molecular [facility] Functional [facility] [address] [place] [address] Referral ID Status Reason Start Date Expiration Date Visits Requested Visits Authorized [id number] Authorized Auto-Generat ed Referral 11/02/2022 12/02/2023 1 1 [facility] for referral (narrative)* Diagnostic Procedure Only (Routine) - Closed Specialty Diagnoses / Procedures Referred By Contact Referred To Contact MOLECULAR [facility] FUNCTIONAL IMAGING Diagnoses Syncope and collapse Palpitations Coronary artery disease involving [place] and [place] tribes coronary artery of [place] and [place] tribes heart without angina pectoris Essential hypertension, benign Hyperlipidemia LDL goal <100 FIGUEROA (dyspnea on exertion) Procedures NM CARDIAC PERF STRESS/PHARM MYOCARDIAL SPECT MULTIPLE STUDIES Wes Quispe DO [address] [place] [id number] [facility] [address] [place] [address] Referral ID Status Reason Start Date Expiration Date V isits Requested Visits Authorized [id number] Closed Auto-Generate d Referral 11/02/2022 12/02/2023 1 1 [facility] for referral (narrative)* Diagnostic Procedure Only (Urgent) - Closed Specialty Diagnoses / Procedures Referred By Contac t Referred To Contact XR IMAGING Diagnoses Pain Procedures XR SHOULDER GENERAL 3V OR MORE AP/TRUE AP/OTHER LEFT RADEX SHOULDER COMPLETE MINIMUM 2 VIEWS Rajni Martinez APRN.[employer]DER [address] [place] [address] [place] [address] Referral ID Status Reason Start Date Expiration Date V isits Requested Visits Authorized [id number] Closed Auto-Generate d Referral 11/26/2022 12/26/2023 1 1 [facility] for referral (narrative)* Diagnostic Procedure Only (Routine) - Closed Specialty Diagnoses / Procedures Referred By Contac t Referred To Contact XR IMAGING Diagnoses Pain Procedures XR KNEE GENERAL 4V AP BOTH/PA BOTH/LAT/MERC RIGHT RADIOLOGIC EXAM KNEE COMPLETE 4/MORE VIEWS Christen Lindo PA-C [address] [place] [address] [place] [address] Referral ID Status Reason Start Date Expiration Date V isits Requested Visits Authorized [id number] Closed Auto-Generate d Referral 05/14/2022 06/13/2023 1 1 [facility] for referral (narrative)* Diagnostic Procedure Only (Routine) - Closed Specialty Diagnoses / Procedures Referred By Contac t Referred To Contact XR IMAGING Diagnoses Gammopathy, monoclonal Procedures XR BONE SURVEY ROUTINE RADIOLOGIC EXAMINATION [place] [address] [place] [address] [place] [address] Referral ID Status Reason Start Date Expiration Date V isits Requested Visits Authorized [id number] Closed Auto-Generate d Referral 09/06/2022 10/06/2023 1 1 [facility] for visit Narrative* Diagnostic Procedure Only (Routine) - Closed Specialty Diagnoses / Procedures Referred By Contac t Referred To Contact XR IMAGING Diagnoses Right knee pain, unspecified chronicity Procedures XR KNEE GENERAL 4V AP BOTH/PA BOTH/LAT/MERC RIGHT RADIOLOGIC EXAM KNEE COMPLETE 4/MORE VIEWS Skinny Heller MD [address] [place] [address] Xr Imaging Referral ID Status Reason Start Date Expiration Date V isits Requested Visits Authorized [id number] Closed Auto-Generate d Referral 05/14/2021 06/13/2022 1 1 [facility] for visit Narrative* Diagnostic Procedure Only (Routine) - Closed Specialty Diagnoses / Procedures Referred By Contac t Referred To Contact XR IMAGING Diagnoses Primary osteoarthritis of right hip Status post total hip replacement, right Procedures XR HIP GENERAL 3V PELV/AP/LAT RIGHT RADEX HIP UNILATERAL WITH PELVIS 2-3 VIEWS Christen Lindo PA-C [address] [place] [address] Xr Imaging Referral ID Status Reason Start Date Expiration Date V isits Requested Visits Authorized [id number] Closed Auto-Generate d Referral 11/25/2021 12/25/2022 1 1 [facility] for visit Narrative* Diagnostic Procedure Only (Routine) - Closed Specialty Diagnoses / Procedures Referred By Contact Referred To Contact MOLECULAR [facility] FUNCTIONAL IMAGING Diagnoses Syncope and collapse Palpitations Coronary artery disease involving ass[place] and [place] tribes coronary artery of [place] and [place] heart without angina pectoris Essential hypertension, benign Hyperlipidemia LDL goal <100 IFGUEROA (dyspnea on exertion) Procedures NM CARDIAC PERF STRESS/PHARM MYOCARDIAL SPECT MULTIPLE STUDIES Wes Quispe, [address] [place] [address] [facility] [address] [place] [address] Referral ID Status Reason Start Date Expiration Date V isits Requested Visits Authorized [id number] Closed Auto-Generate d Referral 11/02/2022 12/02/2023 1 1 [facility] for visit Narrative* Diagnostic Procedure Only (Routine) - Closed Specialty Diagnoses / Procedures Referred By Contac t Referred To Contact XR IMAGING Diagnoses Pain Procedures XR KNEE GENERAL 4V AP BOTH/PA BOTH/LAT/MERC RIGHT RADIOLOGIC EXAM KNEE COMPLETE 4/MORE VIEWS Christen Lindo PA-C [address] [place] [address] [place] [address] Referral ID Status Reason Start Date Expiration Date V isits Requested Visits Authorized [id number] Closed Auto-Generate d Referral 05/14/2022 06/13/2023 1 1 [facility] for visit Narrative* Diagnostic Procedure Only (Routine) - Closed Specialty Diagnoses / Procedures Referred By Contac t Referred To Contact XR IMAGING Diagnoses Gammopathy, monoclonal Procedures XR BONE SURVEY ROUTINE RADIOLOGIC EXAMINATION [place]SEOUS [place] [address] [place] [address] [place] [address] Referral ID Status Reason Start Date Expiration Date V isits Requested Visits Authorized [id number] Closed Auto-Generate d Referral 09/06/2022 10/06/2023 1 1 [facility] Advance Directives No Advanced Directives Records FoundDocuments on File 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 Date 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 Advance Directive(s) Advance Directive(s) 01/11/2017 8:55 AM Advance Directive(s) 11/26/2016 12:59 PM Advance Directive(s) 11/23/2016 8:38 AM Advance Directive(s) 11/19/2016 9:05 AM Advance Directive(s) 11/03/2015 9:35 AM Documents on File 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 Date 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 Advance 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(s) Advance Directive(s) 01/11/2017 8:55 AM Advance Directive(s) 11/26/2016 12:59 PM Advance Directive(s) 11/23/2016 8:38 AM Advance Directive(s) 11/19/2016 9:05 AM Advance Directive(s) 11/03/2015 9:35 AM Latest Code Status on File Code Status Date Activated Date Inactivated Comments Full Code 11/23/2021 10:57 AM Latest Code Status on File Code Status Date Activated Date Inactivated Comments Full Code 11/23/2021 10:57 AM Latest Code Status on File Code Status Date Activated Date Inactivated Comments Full Code 11/23/2021 10:57 AM Latest Code Status on File Code Status Date Activated Date Inactivated Comments Full Code 11/23/2021 10:57 AM Reason for Referral Specialty Diagnoses / Procedures Referred By Contac t Referred To Contact Pain Management Diagnoses Intervertebral disc disorder with radiculopathy of lumbar region Procedures CONSULT TO PAIN MGT OFFICE/OUTPATIENT NEW HIGH MDM 60-74 MINUTES Skinny Heller MD [address] [place] [address] Referral ID Status Reason Start Date Expiration Date Visits Requested Visits Authorized [id number] Authorized PCP Requested Referral 08/13/2021 08/13/2022 1 1 Specialty Diagnoses / Procedures Referred By Contac t Referred To Contact [facility] Diagnoses Numbness and tingling of right arm Chronic pain of right knee Neck pain Procedures CONSULT TO PHYSICAL THERAPY PHYSICAL THERAPY EVALUATION HIGH COMPLEX 45 MINS Podlogar, COLETTE SarabiaN.TIRE BUILDER [address] [place] [address] [facility] [address] [place] [address] Referral ID Status Reason Start Date Expiration Date Visits Requested Visits Authorized [id number] Authorized PCP Requested Referral Auto-Generate d Referral 05/07/2022 05/07/2023 99 99 Specialty Diagnoses / Procedures Referred By Contac t Referred To Contact [facility] Diagnoses Numbness and tingling of right arm Neck pain Procedures EMG(NEURO/NI) NERVE CONDUCTION STUDIES 9-10 STUDIES PodlogarNo APRN.TIRE BUILDER [address] [place] [address] [facility] [address] [place] [address] Referral ID Status Reason Start Date Expiration Date Visits Requested Visits Authorized [id number] Pending Review Auto-Generat ed Referral 05/07/2022 05/08/2023 1 1 Specialty Diagnoses / Procedures Referred By Contac t Referred To Contact XR IMAGING Diagnoses Numbness and tingling of right arm Neck pain Procedures XR CERV OTHER 4V AP/LAT/OBL RADEX SPINE CERVICAL 4 OR 5 VIEWS PodlogarNo APRN.TIRE BUILDER [address] [place] [address] Xr Imaging Referral ID Status Reason Start Date Expiration Date V isits Requested Visits Authorized [id number] Closed Auto-Generate d Referral 05/07/2022 06/06/2023 1 1 Specialty Diagnoses / Procedures Referred By Mary Lou t Referred To Contact Diagnoses Gammopathy, monoclonal Procedures CONSULT TO HEMATOLOGY/ONCOLOGY OFFICE/OUTPATIENT [facility] 60-74 MINUTES Luda Jay PA-C [address] [place] [address] Referral ID Status Reason Start Date Expiration Date Visits Requested Visits Authorized [id number] Authorized PCP Requested Referral 08/18/2022 08/18/2023 1 1 Health Concerns Infection Onset Date Last Indicated Resolved Time COVID-19 Rule-Out 10/09/2021 10/09/2021 10/10/2021 12:18 AM EDT COVID-19 Confirmed 10/09/2021 10/09/2021 Infection Onset Date Last Indicated Resolved Time COVID-19 Confirmed 10/09/2021 10/09/2021 Infection Onset Date Last Indicated Resolved Time COVID-19 Rule-Out 10/09/2021 10/09/2021 10/10/2021 12:18 AM EDT COVID-19 Confirmed 10/09/2021 10/09/2021 8:51 PM EDT Problem Noted Date Diagnosed Date Total Knee Replacement [place]ako Kura [place] 01/26/2023 Medications Administered Section Inactive Administered Medications - up to 3 most recent administrations Medication Order MAR Action Action Date Dose Rate Site betamethasone acetate-betamethasone sodium phosphate 6 mg injection (CELESTONE) 6 mg, Injection - FOR ORTHO USE ONLY, ONE TIME INJECTION, 1 dose, Starting on Tue07/26/22 at 1507, Until Tue07/26/22 at 1507 Given 07/26/2022 3:07 PM EDT 6 mg Kn ee, Right lidocaine (PF) 10 mg/mL (1 %) 5 mL injection (XYLOCAINE) 5 mL, Injection - FOR ORTHO USE ONLY, ONE TIME INJECTION, 1 dose, Starting on 07/26/22 at 1507, Until Tue07/26/22 at 1507 Given 07/26/2022 3:07 PM EDT 5 mL Kn ee, Right Summary Purpose Family History No Family History Records FoundNo Family History Records Found Additional Source Comments Source Comments (unrecognize d section and content) In the event this informatio n is protected by the Federal Confidentiality of Alcohol and Drug Abuse Patient Records regulations: The Federal rules restrict any use of the information to criminally investigate or prosecute any alcohol or drug abuse patient.[facility] event this information is protected by the Federal Confidentiality of Alcohol and Drug Abuse Patient Records regulations: The Federal rules restrict any use of the information to criminally investigate or prosecute any alcohol or drug abuse patient.[facility] the event this information is protected by the Federal Confidentiality of Alcohol and Drug Abuse Patient Records regulations: The Federal rules restrict any use of the information to criminally investigate or prosecute any alcohol or drug abuse patient.[facility] the event this information is protected by the Federal Confidentiality of Alcohol and Drug Abuse Patient Records regulations: The Federal rules restrict any use of the information to criminally investigate or prosecute any alcohol or drug abuse patient.[facility] the event this information is protected by the Federal Confidentiality of Alcohol and Drug Abuse Patient Records regulations: The Federal rules restrict any use of the information to criminally investigate or prosecute any alcohol or drug abuse patient.[facility] the event this information is protected by the Federal Confidentiality of Alcohol and Drug Abuse Patient Records regulations: The Federal rules restrict any use of the information to criminally investigate or prosecute any alcohol or drug abuse patient.[facility] the event this information is protected by the Federal Confidentiality of Alcohol and Drug Abuse Patient Records regulations: The Federal rules restrict any use of the information to criminally investigate or prosecute any alcohol or drug abuse patient.[facility] HospitalIn the event this information is protected by the Federal Confidentiality of Alcohol and Drug Abuse Patient Records regulations: The Federal rules restrict any use of the information to criminally investigate or prosecute any alcohol or drug abuse patient.[facility] HospitalIn the event this information is protected by the Federal Confidentiality of Alcohol and Drug Abuse Patient Records regulations: The Federal rules restrict any use of the information to criminally investigate or prosecute any alcohol or drug abuse patient.[facility] HospitalIn the event this information is protected by the Federal Confidentiality of Alcohol and Drug Abuse Patient Records regulations: The Federal rules restrict any use of the information to criminally investigate or prosecute any alcohol or drug abuse patient.[facility] HospitalIn the event this information is protected by the Federal Confidentiality of Alcohol and Drug Abuse Patient Records regulations: The Federal rules restrict any use of the information to criminally investigate or prosecute any alcohol or drug abuse patient.[facility] HospitalIn the event this information is protected by the Federal Confidentiality of Alcohol and Drug Abuse Patient Records regulations: The Federal rules restrict any use of the information to criminally investigate or prosecute any alcohol or drug abuse patient.[facility] HospitalIn the event this information is protected by the Federal Confidentiality of Alcohol and Drug Abuse Patient Records regulations: The Federal rules restrict any use of the information to criminally investigate or prosecute any alcohol or drug abuse patient.[facility] HospitalIn the event this information is protected by the Federal Confidentiality of Alcohol and Drug Abuse Patient Records regulations: The Federal rules restrict any use of the information to criminally investigate or prosecute any alcohol or drug abuse patient.[facility] HospitalIn the event this information is protected by the Federal Confidentiality of Alcohol and Drug Abuse Patient Records regulations: The Federal rules restrict any use of the information to criminally investigate or prosecute any alcohol or drug abuse patient.[facility] HospitalIn the event this information is protected by the Federal Confidentiality of Alcohol and Drug Abuse Patient Records regulations: The Federal rules restrict any use of the information to criminally investigate or prosecute any alcohol or drug abuse patient.[facility] HospitalIn the event this information is protected by the Federal Confidentiality of Alcohol and Drug Abuse Patient Records regulations: The Federal rules restrict any use of the information to criminally investigate or prosecute any alcohol or drug abuse patient.[facility] HospitalIn the event this information is protected by the Federal Confidentiality of Alcohol and Drug Abuse Patient Records regulations: The Federal rules restrict any use of the information to criminally investigate or prosecute any alcohol or drug abuse patient.[facility] HospitalIn the event this information is protected by the Federal Confidentiality of Alcohol and Drug Abuse Patient Records regulations: The Federal rules restrict any use of the information to criminally investigate or prosecute any alcohol or drug abuse patient.[facility] HospitalIn the event this information is protected by the Federal Confidentiality of Alcohol and Drug Abuse Patient Records regulations: The Federal rules restrict any use of the information to criminally investigate or prosecute any alcohol or drug abuse patient.[facility] HospitalIn the event this information is protected by the Federal Confidentiality of Alcohol and Drug Abuse Patient Records regulations: The Federal rules restrict any use of the information to criminally investigate or prosecute any alcohol or drug abuse patient.[facility] HospitalIn the event this information is protected by the Federal Confidentiality of Alcohol and Drug Abuse Patient Records regulations: The Federal rules restrict any use of the information to criminally investigate or prosecute any alcohol or drug abuse patient.[facility] HospitalIn the event this information is protected by the Federal Confidentiality of Alcohol and Drug Abuse Patient Records regulations: The Federal rules restrict any use of the information to criminally investigate or prosecute any alcohol or drug abuse patient.[facility] HospitalIn the event this information is protected by the Federal Confidentiality of Alcohol and Drug Abuse Patient Records regulations: The Federal rules restrict any use of the information to criminally investigate or prosecute any alcohol or drug abuse patient.[facility] HospitalIn the event this information is protected by the Federal Confidentiality of Alcohol and Drug Abuse Patient Records regulations: The Federal rules restrict any use of the information to criminally investigate or prosecute any alcohol or drug abuse patient.[facility] HospitalIn the event this information is protected by the Federal Confidentiality of Alcohol and Drug Abuse Patient Records regulations: The Federal rules restrict any use of the information to criminally investigate or prosecute any alcohol or drug abuse patient.[facility] HospitalIn the event this information is protected by the Federal Confidentiality of Alcohol and Drug Abuse Patient Records regulations: The Federal rules restrict any use of the information to criminally investigate or prosecute any alcohol or drug abuse patient.[facility] HospitalIn the event this information is protected by the Federal Confidentiality of Alcohol and Drug Abuse Patient Records regulations: The Federal rules restrict any use of the information to criminally investigate or prosecute any alcohol or drug abuse patient.[facility] HospitalIn the event this information is protected by the Federal Confidentiality of Alcohol and Drug Abuse Patient Records regulations: The Federal rules restrict any use of the information to criminally investigate or prosecute any alcohol or drug abuse patient.[facility] HospitalIn the event this information is protected by the Federal Confidentiality of Alcohol and Drug Abuse Patient Records regulations: The Federal rules restrict any use of the information to criminally investigate or prosecute any alcohol or drug abuse patient.[facility] HospitalIn the event this information is protected by the Federal Confidentiality of Alcohol and Drug Abuse Patient Records regulations: The Federal rules restrict any use of the information to criminally investigate or prosecute any alcohol or drug abuse patient.[facility] HospitalIn the event this information is protected by the Federal Confidentiality of Alcohol and Drug Abuse Patient Records regulations: The Federal rules restrict any use of the information to criminally investigate or prosecute any alcohol or drug abuse patient.[facility] HospitalIn the event this information is protected by the Federal Confidentiality of Alcohol and Drug Abuse Patient Records regulations: The Federal rules restrict any use of the information to criminally investigate or prosecute any alcohol or drug abuse patient.[facility] HospitalIn the event this information is protected by the Federal Confidentiality of Alcohol and Drug Abuse Patient Records regulations: The Federal rules restrict any use of the information to criminally investigate or prosecute any alcohol or drug abuse patient.[facility] HospitalIn the event this information is protected by the Federal Confidentiality of Alcohol and Drug Abuse Patient Records regulations: The Federal rules restrict any use of the information to criminally investigate or prosecute any alcohol or drug abuse patient.[facility] HospitalIn the event this information is protected by the Federal Confidentiality of Alcohol and Drug Abuse Patient Records regulations: The Federal rules restrict any use of the information to criminally investigate or prosecute any alcohol or drug abuse patient.[facility] HospitalIn the event this information is protected by the Federal Confidentiality of Alcohol and Drug Abuse Patient Records regulations: The Federal rules restrict any use of the information to criminally investigate or prosecute any alcohol or drug abuse patient.[facility] HospitalIn the event this information is protected by the Federal Confidentiality of Alcohol and Drug Abuse Patient Records regulations: The Federal rules restrict any use of the information to criminally investigate or prosecute any alcohol or drug abuse patient.[facility] HospitalIn the event this information is protected by the Federal Confidentiality of Alcohol and Drug Abuse Patient Records regulations: The Federal rules restrict any use of the information to criminally investigate or prosecute any alcohol or drug abuse patient.[facility] HospitalIn the event this information is protected by the Federal Confidentiality of Alcohol and Drug Abuse Patient Records regulations: The Federal rules restrict any use of the information to criminally investigate or prosecute any alcohol or drug abuse patient.[facility] HospitalIn the event this information is protected by the Federal Confidentiality of Alcohol and Drug Abuse Patient Records regulations: The Federal rules restrict any use of the information to criminally investigate or prosecute any alcohol or drug abuse patient.[facility] HospitalIn the event this information is protected by the Federal Confidentiality of Alcohol and Drug Abuse Patient Records regulations: The Federal rules restrict any use of the information to criminally investigate or prosecute any alcohol or drug abuse patient.[facility] HospitalIn the event this information is protected by the Federal Confidentiality of Alcohol and Drug Abuse Patient Records regulations: The Federal rules restrict any use of the information to criminally investigate or prosecute any alcohol or drug abuse patient.[facility] HospitalIn the event this information is protected by the Federal Confidentiality of Alcohol and Drug Abuse Patient Records regulations: The Federal rules restrict any use of the information to criminally investigate or prosecute any alcohol or drug abuse patient.[facility] HospitalIn the event this information is protected by the Federal Confidentiality of Alcohol and Drug Abuse Patient Records regulations: The Federal rules restrict any use of the information to criminally investigate or prosecute any alcohol or drug abuse patient.[facility] HospitalIn the event this information is protected by the Federal Confidentiality of Alcohol and Drug Abuse Patient Records regulations: The Federal rules restrict any use of the information to criminally investigate or prosecute any alcohol or drug abuse patient.[facility] HospitalIn the event this information is protected by the Federal Confidentiality of Alcohol and Drug Abuse Patient Records regulations: The Federal rules restrict any use of the information to criminally investigate or prosecute any alcohol or drug abuse patient.[facility] HospitalIn the event this information is protected by the Federal Confidentiality of Alcohol and Drug Abuse Patient Records regulations: The Federal rules restrict any use of the information to criminally investigate or prosecute any alcohol or drug abuse patient.[facility] HospitalIn the event this information is protected by the Federal Confidentiality of Alcohol and Drug Abuse Patient Records regulations: The Federal rules restrict any use of the information to criminally investigate or prosecute any alcohol or drug abuse patient.[facility] HospitalIn the event this information is protected by the Federal Confidentiality of Alcohol and Drug Abuse Patient Records regulations: The Federal rules restrict any use of the information to criminally investigate or prosecute any alcohol or drug abuse patient.[facility] HospitalIn the event this information is protected by the Federal Confidentiality of Alcohol and Drug Abuse Patient Records regulations: The Federal rules restrict any use of the information to criminally investigate or prosecute any alcohol or drug abuse patient.[facility] HospitalIn the event this information is protected by the Federal Confidentiality of Alcohol and Drug Abuse Patient Records regulations: The Federal rules restrict any use of the information to criminally investigate or prosecute any alcohol or drug abuse patient.[facility] HospitalIn the event this information is protected by the Federal Confidentiality of Alcohol and Drug Abuse Patient Records regulations: The Federal rules restrict any use of the information to criminally investigate or prosecute any alcohol or drug abuse patient.[facility] HospitalIn the event this information is protected by the Federal Confidentiality of Alcohol and Drug Abuse Patient Records regulations: The Federal rules restrict any use of the information to criminally investigate or prosecute any alcohol or drug abuse patient.[facility] HospitalIn the event this information is protected by the Federal Confidentiality of Alcohol and Drug Abuse Patient Records regulations: The Federal rules restrict any use of the information to criminally investigate or prosecute any alcohol or drug abuse patient.[facility] HospitalIn the event this information is protected by the Federal Confidentiality of Alcohol and Drug Abuse Patient Records regulations: The Federal rules restrict any use of the information to criminally investigate or prosecute any alcohol or drug abuse patient.[facility] HospitalIn the event this information is protected by the Federal Confidentiality of Alcohol and Drug Abuse Patient Records regulations: The Federal rules restrict any use of the information to criminally investigate or prosecute any alcohol or drug abuse patient.[facility] HospitalIn the event this information is protected by the Federal Confidentiality of Alcohol and Drug Abuse Patient Records regulations: The Federal rules restrict any use of the information to criminally investigate or prosecute any alcohol or drug abuse patient.[facility] HospitalIn the event this information is protected by the Federal Confidentiality of Alcohol and Drug Abuse Patient Records regulations: The Federal rules restrict any use of the information to criminally investigate or prosecute any alcohol or drug abuse patient.[facility] HospitalIn the event this information is protected by the Federal Confidentiality of Alcohol and Drug Abuse Patient Records regulations: The Federal rules restrict any use of the information to criminally investigate or prosecute any alcohol or drug abuse patient.[facility] HospitalIn the event this information is protected by the Federal Confidentiality of Alcohol and Drug Abuse Patient Records regulations: The Federal rules restrict any use of the information to criminally investigate or prosecute any alcohol or drug abuse patient.[facility] Care Teams (unrecognized sec tion and content) Detector Car Operator Relationship Specialty Start Date End Date Santos Nuñez MD [address] [place] [address] PCP - General Family Practice 09/12/20 Detector Car Operator Relationship Specialty Start Date End Date Santos Nuñez MD [address] [place] [address] PCP - General Family Practice 09/12/20 Detector Car Operator Relationship Specialty Start Date End Date Santos Nuñez MD [address] [place] [address] PCP - General Family Practice 09/12/20 Detector Car Operator Relationship Specialty Start Date End Date Santos Nuñez MD [facility] [place] [address] PCP - General Family Practice 09/12/20 Detector Car Operator Relationship Specialty Start Date End Date Santos Nuñez MD [address] [place] [address] PCP - General Family Practice 09/12/20 Detector Car Operator Relationship Specialty Start Date End Date Santos Nuñez MD [address] [place] [address] PCP - General Family Practice 09/12/20 Detector Car Operator Relationship Specialty Start Date End Date Santos Nuñez MD [address] [place] [address] PCP - General Family Practice 09/12/20 Detector Car Operator Relationship Specialty Start Date End Date Santos Nuñez MD [address] [place] [address] PCP - General Family Practice 09/12/20 [facility]ino Ferrera [facility] [address] [place] [address] Specialty Green Pl[facility] Orthopedics 09/30/21 12/29/21 Detector Car Operator Relationship Specialty Start Date End Date Santos Nuñez MD [address] [place] [address] PCP - General Family Practice 09/12/20 Sissen, Galdino, [facility] [address] [place] [address] Specialty Green Plumber Orthopedics 09/30/21 12/29/21 Detector Car Operator Relationship Specialty Start Date End Date Santos Nuñez MD [address] [place] [address] PCP - General Family Practice 09/12/20 Detector Car Operator Relationship Specialty Start Date End Date Santos Nuñez MD [address] [place] [address] PCP - General Family Practice 09/12/20 Sissen, Galdino, [facility] [address] [place] [address] Specialty Green Plumber Orthopedics 09/30/21 12/29/21 Detector Car Operator Relationship Specialty Start Date End Date Santos Nuñez MD [address] [place] [address] PCP - General Family Medicine 09/12/20 Sissen, Galdino, [facility] [address] [place] [address] Specialty Green Plumber Orthopedics 09/30/21 12/29/21 Detector Car Operator Relationship Specialty Start Date End Date Santos Nuñez MD [address] [place] [address] PCP - General Family Medicine 09/12/20 Sissen, Galdino, [facility] [address] [place] [address] Specialty Green Plumber Orthopedics 09/30/21 12/29/21 Detector Car Operator Relationship Specialty Start Date End Date Santos Nuñez MD [address] [place] [address] PCP - General Family Medicine 09/12/20 Galdino Ferrera, [facility] [address] [place] [address] Specialty Green Plumber Orthopedics 09/30/21 12/29/21 Detector Car Operator Relationship Specialty Start Date End Date Santos Nuñez MD [address] [place] [address] PCP - General Family Medicine 09/12/20 Galdino Ferrera, [facility] [address] [place] [address] Specialty Green Plumber Orthopedics 09/30/21 12/29/21 Skinny Heller MD [address] [facility] [place] [address] Home Care Provider Orthopedics 11/19/21 Josiah Salas PA-C [address] [place] [address] Referring Orthopedics 11/19/21 Detector Car Operator Relationship Specialty Start Date End Date Santos Nuñez MD [address] [place], [place] [address] PCP - General Family Medicine 09/12/20 Galdino Ferrera, [facility] [address] [place] [address] Specialty Green Plumber Orthopedics 09/30/21 12/29/21 Skinny Heller MD [address] [facility] [place] [address] Home Care Provider Orthopedics 11/19/21 Josiah Salas PA-C [address] [place] [address] Referring Orthopedics 11/19/21 Diane Sher, PT [address] [place] [address] Supervisor Dry Paste Post Acute Care 11/21/21 Detector Car Operator Relationship Specialty Start Date End Date Santos Nuñez MD [address] [place] [address] PCP - General Family Medicine 09/12/20 [facility], [facility] [address] [place] [address] Specialty Green Plumber Orthopedics 09/30/21 12/29/21 Skinny Heller MD [address] [facility] [place] [address] Home Care Provider Orthopedics 11/19/21 Josiah Salas PA-C [address] [place] [address] Referring Orthopedics 11/19/21 Diane Sher, PT [address] [place] [address] Supervisor Dry Paste Post Acute Care 11/21/21 Detector Car Operator Relationship Specialty Start Date End Date Santos Nuñez MD [address] [place] [address] PCP - General Family Medicine 09/12/20 Galdino Ferrera, [facility] [address] [place] [address] Specialty Green Plumber Orthopedics 09/30/21 12/29/21 Skinny Heller MD [address] [place] [address] Home Care Provider Orthopedics 11/19/21 Josiah Salas PA-C [address] [place] [address] Referring Orthopedics 11/19/21 Diane Sher, PT [address] [place] [address] Supervisor Dry Paste Post Acute Care 11/21/21 Detector Car Operator Relationship Specialty Start Date End Date Santos Nuñez MD [address] [place] [address] PCP - General Family Medicine 09/12/20 Galdino Ferrera, [facility] [address] [place] [address] Specialty Green Plumber Orthopedics 09/30/21 12/29/21 Skinny Heller MD [address] [place] [address] Home Care Provider Orthopedics 11/19/21 Josiah Salas PA-C [address] [place] [address] Referring Orthopedics 11/19/21 Diane Sher, PT [address] [place] [address] Supervisor Dry Paste Post Acute Care 11/21/21 Detector Car Operator Relationship Specialty Start Date End Date Santos Nuñez MD [address] [place] [address] PCP - General Family Medicine 09/12/20 Galdino Ferrera, [facility] [address] [place] [address] Specialty Green Plumber Orthopedics 09/30/21 12/29/21 Skinny Heller MD [address] [place] [address] Home Care Provider Orthopedics 11/19/21 Josiah Salas PA-C [address] [place] [address] Referring Orthopedics 11/19/21 Diane Sher, PT [address] [place] [address] Supervisor Dry Paste Post Acute Care 11/21/21 Detector Car Operator Relationship Specialty Start Date End Date Santos Nuñez MD [address] [place] [address] PCP - General Family Medicine 09/12/20 Galdino Ferrera, [facility] [address] [place] [address] Specialty Green Plumber Orthopedics 09/30/21 12/29/21 Skinny Heller MD [address] [place] [address] Home Care Provider Orthopedics 11/19/21 Josiah Salas PA-C [address] [place] [address] Referring Orthopedics 11/19/21 Diane Sher, PT [address] [place] [address] Supervisor Dry Paste Post Acute Care 11/21/21 Detector Car Operator Relationship Specialty Start Date End Date Santos Nuñez MD [address] [place] [address] PCP - General Family Medicine 09/12/20 Galdino Ferrera, [facility] [address] [place] [address] Specialty Green Plumber Orthopedics 09/30/21 12/29/21 Skinny Heller MD [address] [facility] [place] [address] Home Care Provider Orthopedics 11/19/21 Josiah Salas PA-C [address] [place] [address] Referring Orthopedics 11/19/21 Diane Sher, PT [address] [place] [address] Supervisor Dry Paste Post Acute Care 11/21/21 Detector Car Operator Relationship Specialty Start Date End Date Santos Nuñez MD [address] [place] [address] PCP - General Family Medicine 09/12/20 Galdino Ferrera, [facility] [address] [place] [address] Specialty Green Plumber Orthopedics 09/30/21 12/29/21 Skinny Heller MD [address] [facility] [place] [place] [address] Home Care Provider Orthopedics 11/19/21 Josiah Salas PA-C [address] [place] [address] Referring Orthopedics 11/19/21 Diane Sher, PT [address] [place] [address] Supervisor Dry Paste Post Acute Care 11/21/21 Detector Car Operator Relationship Specialty Start Date End Date Santos Nuñez MD [address] [place] [address] PCP - General Family Medicine 09/12/20 Galdino Ferrera [facility] [address] [place] [address] Specialty Green Plumber Orthopedics 09/30/21 12/29/21 Skinny Heller MD [address] [facility] [place] [address] Home Care Provider Orthopedics 11/19/21 Josiah Salas PA-C [address] [place] [address] Referring Orthopedics 11/19/21 Diane Sher, PT [address] [place] [address] Supervisor Dry Paste Post Acute Care 11/21/21 Detector Car Operator Relationship Specialty Start Date End Date Santos Nuñez MD [address] [place] [address] PCP - General Family Medicine 09/12/20 Skinny Heller MD [address] [place] [address] Home Care Provider Orthopedics 11/19/21 Josiah Salas PA-C [address] [place] [address] Referring Orthopedics 11/19/21 Diane Sher, PT [address] [place] [address] Supervisor Dry Paste Post Acute Care 11/21/21 Detector Car Operator Relationship Specialty Start Date End Date Santos Nuñez MD [address] [facility] [place] [address] PCP - General Family Medicine 09/12/20 Skinny Heller MD [address] [place] [place] [address] Home Care Provider Orthopedics 11/19/21 Josiah Salas PA-C [address] [place] [address] Referring Orthopedics 11/19/21 Diane Sher, PT [address] [place] [address] Supervisor Dry Paste Post Acute Care 11/21/21 Detector Car Operator Relationship Specialty Start Date End Date Santos Nuñez MD [address] [facility] [place] [address] PCP - General Family Medicine 09/12/20 Skinny Heller MD [address] [facility] [place] [address] Home Care Provider Orthopedics 11/19/21 Josiah Salas PA-C [address] [place] [address] Referring Orthopedics 11/19/21 Diane Sher, PT [address] [place] [address] Supervisor Dry Paste Post Acute Care 11/21/21 Detector Car Operator Relationship Specialty Start Date End Date Santos Nuñez MD [address] [facility] [place] [address] PCP - General Family Medicine 09/12/20 Skinny Heller MD [address] [facility] [place] [address] Home Care Provider Orthopedics 11/19/21 Josiah Salas PA-C [address] [place] [address] Referring Orthopedics 11/19/21 Diane Sher, PT [address] [place] [address] Supervisor Dry Paste Post Acute Care 11/21/21 Detector Car Operator Relationship Specialty Start Date End Date Santos Nuñez MD [address] [place] [address] PCP - General Family Medicine 09/12/20 Galdino Ferrera [facility] [address] [place] [address] Specialty Green Plumber Orthopedics 09/30/21 12/29/21 Skinny Heller MD [address] [place] [address] Home Care Provider Orthopedics 11/19/21 Josiah Salas PA-C [address] [place] [address] Referring Orthopedics 11/19/21 Josiah Salas PA-C [address] [place] [address] Referring Orthopedics 11/19/21 11/19/21 Diane Sher, PT [address] [place] [address] Supervisor Dry Paste Post Acute Care 11/21/21 Detector Car Operator Relationship Specialty Start Date End Date Santos Nuñez MD [address] [place] [address] PCP - General Family Medicine 09/12/20 Skinny Heller MD [address] [facility] [address] Home Care Provider Orthopedics 11/19/21 Josiah Salas PA-C [address] [place] [address] Referring Orthopedics 11/19/21 Diane Sher, PT [address] [place] [address] Supervisor Dry Paste Post Acute Care 11/21/21 Detector Car Operator Relationship Specialty Start Date End Date Santos Nuñez MD [address] [place] [address] PCP - General Family Medicine 09/12/20 Skinny Heller MD [address] [facility] [address] Home Care Provider Orthopedics 11/19/21 Josiah Salas PA-C [address] [place] [address] Referring Orthopedics 11/19/21 Diane Sher, PT [address] [place] [address] Supervisor Dry Paste Post Acute Care 11/21/21 Detector Car Operator Relationship Specialty Start Date End Date Santos Nuñez MD [address] [place] [address] PCP - General Family Medicine 09/12/20 Skinny Heller MD [address] [facility] [address] Home Care Provider Orthopedics 11/19/21 Josiah Salas PA-C [address] [place] [address] Referring Orthopedics 11/19/21 Diane Sher, PT [address] [place] [address] Supervisor Dry Paste Post Acute Care 11/21/21 Detector Car Operator Relationship Specialty Start Date End Date Santos Nuñez MD [address] [facility] [address] PCP - General Family Medicine 09/12/20 Skinny Heller MD [address] [place] [address] Home Care Provider Orthopedics 11/19/21 Josiah Salas PA-C [address] [place] [address] Referring Orthopedics 11/19/21 Diane Sher, PT [address] [place] [address] Supervisor Dry Paste Post Acute Care 11/21/21 Detector Car Operator Relationship Specialty Start Date End Date Santos Nuñez MD [address] [facility] [address] PCP - General Family Medicine 09/12/20 Skinny Heller MD [address] [facility] [address] Home Care Provider Orthopedics 11/19/21 Josiah Salas PA-C [address] [place] [address] Referring Orthopedics 11/19/21 Diane Sher, PT [address] [place] [address] Supervisor Dry Paste Post Acute Care 11/21/21 Detector Car Operator Relationship Specialty Start Date End Date Santos Nuñez MD [address] [facility] [address] PCP - General Family Medicine 09/12/20 Skinny Heller MD [address] [place] [address] Home Care Provider Orthopedics 11/19/21 Josiah Salas PA-C [address] [place] [address] Referring Orthopedics 11/19/21 Diane Sher, PT [address] [place] [address] Supervisor Dry Paste Post Acute Care 11/21/21 Detector Car Operator Relationship Specialty Start Date End Date Santos Nuñez MD [address] [place] [address] PCP - General Family Medicine 09/12/20 Skinny Heller MD [address] [place] [address] Home Care Provider Orthopedics 11/19/21 Josiah Salas PA-C [address] [place] [address] Referring Orthopedics 11/19/21 Diane Sher, PT [address] [place] [address] Supervisor Dry Paste Post Acute Care 11/21/21 Detector Car Operator Relationship Specialty Start Date End Date Santos Nuñez MD [address] [place] [address] PCP - General Family Medicine 09/12/20 Skinny Heller MD [address] [place] [address] Home Care Provider Orthopedics 11/19/21 Josiah Salas PA-C [address] [place] [address] Referring Orthopedics 11/19/21 Diane Sher, PT [address] [place] [address] Supervisor Dry Paste Post Acute Care 11/21/21 Faustino Alves MD [address] [place] [address] Hematology/Oncology 09/22/22 Detector Car Operator Relationship Specialty Start Date End Date Santos Nuñez MD [address] [facility] [address] PCP - General Family Medicine 09/12/20 Skinny Heller MD [address] [place] [address] Home Care Provider Orthopedics 11/19/21 Josiah Salas PA-C [address] [place] [address] Referring Orthopedics 11/19/21 Diane Sher, PT [address] [place] [address] Supervisor Dry Paste Post Acute Care 11/21/21 aFustino Alves MD [address] [place] [address] Hematology/Oncology 09/22/22 Detector Car Operator Relationship Specialty Start Date End Date Santos Nuñez MD [address] [facility] [address] PCP - General Family Medicine 09/12/20 Skinny Heller MD [address] [place] [address] Home Care Provider Orthopedics 11/19/21 Josiah Salas PA-C [address] [place] [address] Referring Orthopedics 11/19/21 Diane Sher, PT [address] [place] [address] Supervisor Dry Paste Post Acute Care 11/21/21 Faustino Alves MD [address] [place] [address] Hematology/Oncology 09/22/22 Detector Car Operator Relationship Specialty Start Date End Date Santos Nuñez MD [address] [place] [address] PCP - General Family Medicine 09/12/20 Skinny Heller MD [address] [place] [address] Home Care Provider Orthopedics 11/19/21 Josiah Salas PA-C [address] [place] [address] Referring Orthopedics 11/19/21 Diane Sher, PT [address] [place] [address] Supervisor Dry Paste Post Acute Care 11/21/21 Faustino Alves MD [address] [place] [place] [address] Hematology/Oncology 09/22/22 Detector Car Operator Relationship Specialty Start Date End Date Santos Nuñez MD [address] [place] [address] PCP - General Family Medicine 09/12/20 Skinny Heller MD [address], [place] [address] Home Care Provider Orthopedics 11/19/21 Josiah Salas PA-C [address] [place] [address] Referring Orthopedics 11/19/21 Diane Sher, PT [address] [place] [address] Supervisor Dry Paste Post Acute Care 11/21/21 Faustino Alves MD [address] [place] [address] Hematology/Oncology 09/22/22 Detector Car Operator Relationship Specialty Start Date End Date Santos Nuñez MD [address] [facility] [address] PCP - General Family Medicine 09/12/20 Skinny Heller MD [address] [place] [address] Home Care Provider Orthopedics 11/19/21 Josiah Salas PA-C [address] [place] [address] Referring Orthopedics 11/19/21 Diane Sher, PT [address] [place] [address] Supervisor Dry Paste Post Acute Care 11/21/21 Faustino Alves MD [address] [place] [address] Hematology/Oncology 09/22/22 Detector Car Operator Relationship Specialty Start Date End Date Santos Nuñez MD [address] [place] [address] PCP - General Family Medicine 09/12/20 Skinny Heller MD [address] [place] [address] Home Care Provider Orthopedics 11/19/21 Josiah Salas PA-C [address] [place] [phone] Referring Orthopedics 11/19/21 Diane Sher, PT [address] [place], [place] [id number] Supervisor Dry Paste Post Acute Care 11/21/21 Faustino Alves MD [address] [place] [address] Hematology/Oncology 09/22/22 Detector Car Operator Relationship Specialty Start Date End Date Santos Nuñez MD [address] [place] [address] PCP - General Family Medicine 09/12/20 Skinny Heller MD [address] [place] [address] Home Care Provider Orthopedics 11/19/21 Josiah Salas PA-C [address] [place] [address] Referring Orthopedics 11/19/21 Diane Sher, PT [address] [place], [place] [phone] Supervisor Dry Paste Post Acute Care 11/21/21 Faustino Alves MD [address] [place] [address] Hematology/Oncology 09/22/22 Detector Car Operator Relationship Specialty Start Date End Date Santos Nuñez MD [address] [place] [address] PCP - General Family Medicine 09/12/20 Skinny Heller MD [address] [place] [address] Home Care Provider Orthopedics 11/19/21 Josiah Salas PA-C [address] [place] [phone] Referring Orthopedics 11/19/21 Diane Sher, PT [address] [place] [address] Supervisor Dry Paste Post Acute Care 11/21/21 Faustino Alves MD [address] [place] [address] Hematology/Oncology 09/22/22 Detector Car Operator Relationship Specialty Start Date End Date Santos Nuñez MD [address] [place] [address] PCP - General Family Medicine 09/12/20 Skinny Heller MD [address] [place] [address] Home Care Provider Orthopedics 11/19/21 Josiah Salas PA-C [address] [place] [phone] Referring Orthopedics 11/19/21 Diane Sher, PT [address] [place] [address] Supervisor Dry Paste Post Acute Care 11/21/21 Faustino Alves MD [address] [place] [address] Hematology/Oncology 09/22/22 Detector Car Operator Relationship Specialty Start Date End Date Santos Nuñez MD [address] [facility] [address] PCP - General Family Medicine 09/12/20 Skinny Heller MD [address] [address] Home Care Provider Orthopedics 11/19/21 Josiah Salas PA-C [address] [place] [address] Referring Orthopedics 11/19/21 Diane Sher, PT [address] [place] [address] Supervisor Dry Paste Post Acute Care 11/21/21 Faustino Alves MD [address] [place] [address] Hematology/Oncology 09/22/22 Detector Car Operator Relationship Specialty Start Date End Date Santos Nuñez MD [address] [facility] [place] [address] PCP - General Family Medicine 09/12/20 Skinny Heller MD [address] [place] [address] Home Care Provider Orthopedics 11/19/21 Josiah Salas PA-C [address] [place] [address] Referring Orthopedics 11/19/21 Diane Sher, PT [address] [place] [address] Supervisor Dry Paste Post Acute Care 11/21/21 Detector Car Operator Relationship Specialty Start Date End Date Santos Nuñez MD [address] [place], [place] [phone] PCP - General Family Medicine 09/12/20 Skinny Heller MD [address] [place] [address] Home Care Provider Orthopedics 11/19/21 Josiah Salas PA-C [address] [place] [address] Referring Orthopedics 11/19/21 Diane Sher, PT [address] [place] [address] Supervisor Dry Paste Post Acute Care 11/21/21 Faustino Alves MD [address] [place] [address] Hematology/Oncology 09/22/22 Detector Car Operator Relationship Specialty Start Date End Date Santos Nuñez MD [address] [place] [address] PCP - General Family Medicine 09/12/20 Galdino Ferrera, [facility] [address] [place] [address] Specialty Green Plumber Orthopedics 09/30/21 03/26/23 Skinny Heller MD [address] [place], [place] [address] Home Care Provider Orthopedics 11/19/21 Josiah Salas PA-C [address] [place] [address] Referring Orthopedics 11/19/21 Diane Sher, PT [address] [place] [address] Supervisor Dry Paste Post Acute Care 11/21/21 Faustino Alves MD [address] [place] [address] Hematology/Oncology 09/22/22 Reason for Visit (unrecogniz ed section and content) Reason Comments Knee Pain Reason Comments Pain right lower leg Reason Comments Results Reason Comments Refill Request Reason Comments 10 weeks post visit right knee pain Pain worsening - US done on 08/03/21 Follow Up Reason Comments Schedule Surgery Reason Onset Date Comments Opened In Error 10/10/2021 Reason Comments ED Follow-up Reason Comments Follow Up Pain Specialty Diagnoses / Procedures Referred By Mary Lou t Referred To Contact Pain Management Diagnoses Intervertebral disc disorder with radiculopathy of lumbar region Procedures CONSULT TO PAIN MGT OFFICE/OUTPATIENT NEW HIGH MDM 60-74 MINUTES Skinny Heller MD [address] [facility] [place] [address] Referral ID Status Reason Start Date Expiration Date V isits Requested Visits Authorized [id number] Closed PCP Requested Referral 08/13/2021 08/13/2022 1 1 Reason Comments Patient Question Reason Comments Pre-Op Teaching Reason Comments Consult Reason Comments Home Care Confirmation Call (A ttempt) Reason Comments Home Care Confirmation Call Reason Onset Date Comments Transition Of Care 11/23/2021 TCM Initial O utreach; D/C [facility] 11/21/21: Right total hip arthroplasty Reason Comments error Reason Onset Date Comments Refill Request 01/12/2022 Reason Comments Patient Update Pre-op labs and echo Reason Comments Post Op 13 weeks 5 days post op Right AMRIT Reason Comments Pain Right hand pain/numb ness Reason Comments Daughter concern Reason Comments Sinus Problem sinus pressure, head ache, fatigue and cough x 8 days Reason Comments Knee Pain Established Patient Reason Comments New Patient Evaluation Specialty Diagnoses / Procedures Referred By Contac t Referred To Contact Neurology Diagnoses Syncope, unspecified syncope type Procedures CONSULT TO NEUROLOGY OFFICE/OUTPATIENT [facility] 60-74 MINUTES Santos Nuñez MD [address] [place] [address] Referral ID Status Reason Start Date Expiration Date V isits Requested Visits Authorized [id number] Closed PCP Requested Referral 07/22/2022 07/22/2023 1 1 Reason Comments Follow Up 6 month follow up Reason Comments Follow Up 10 weeks post visit OA right knee with i njection given Reason Comments New Patient Low Back Pain Leg Pain Right Reason Comments New Patient New Pt: Neuro for sy ncope and collapseZio 08/30/22ECHO 07/23/22EKG 11/20/21Room 13Pt hasn't had anymore episodes of syncope. She does report episodes of chest tightness and SOB rarely. Episodes last about a minute. Specialty Diagnoses / Procedures Referred By Contac t Referred To Contact Cardiology Diagnoses Syncope and collapse Palpitations Procedures CONSULT TO CARDIOLOGY OFFICE/OUTPATIENT [facility] 60-74 MINUTES Luda Jay PA-C [address] [place] [address] Referral ID Status Reason Start Date Expiration Date V isits Requested Visits Authorized [id number] Closed PCP Requested Referral 08/03/2022 08/03/2023 1 1 Reason Comments Pain Left shoulder pain x 4 days Reason Comments left arm and hand pain X 1 week-started after raking leaves Reason Comments Recheck [facility] follow up; left arm pain and swelling Reason Comments Follow Up Reason Comments Established Patient 13 weeks post visit OA right knee Follow Up 13 weeks post visit OA right knee Specialty Diagnoses / Procedures Referred By Contac t Referred To Contact CT IMAGING Diagnoses Primary osteoarthritis of right knee Chronic pain of right knee Pre-op testing Procedures CT KNEE WO IVCON RIGHT CT LOWER EXTREMITY W/O CONTRAST MATERIAL Christen Lindo PA-C [address] [place] [address] [place] [address] Referral ID Status Reason Start Date Expiration Date V isits Requested Visits Authorized [id number] Closed Auto-Generate d Referral 01/04/2023 02/03/2024 1 1 INFORMATION SOURCE (unrecogn ized section and content) DATE CREATED AUTHOR AUTHOR'S ORGANIZ ATION 03/02/2023 [facility] FOR RECORDS PERTAINING TO PATIENTS WHO ARE OR HAVE BEEN ENROLLED IN A CHEMICAL DEPENDENCY/SUBSTANCEABUSE PROGRAM, SOME INFORMATION MAY BE OMITTED. This clinical summary was aggregated from multiple sources. Caution should be exercised in using it in the provision of clinical care. This summary normalizes information from multiple sources, and as a consequence, information in this document may materially change the coding, format and clinical context of patient data. In addition, data may be omitted in some cases. CLINICAL DECISIONS SHOULD BE BASED ON THE PRIMARY CLINICAL RECORDS. [employer] provides no warranty or guarantee of the accuracy or completeness of information in this document.
[2023-03-10 12:27] LABS: Absolute Lymphocyte Count 1.63 X10^3/uL (0.83-4.51); Absolute Neutrophil Count 8.5 X10^3/uL (2.0-7.7); Basophil# 0.07 X10^3/uL; Basophil% 0.6 % (0-1); Eosinophil# 0.16 X10^3/uL; Eosinophils% 1.4 % (0-5); Hematocrit 37.8 % (37-47); Hemoglobin 12.2 g/dL (12.0-15.0); Lymphocyte # 1.63 X10^3/ul (0.83-4.51); Lymphocyte % 14.1 % (19-41); Mean Corp Hgb Conc 32.3 g/dL (32-36); Mean Corpuscular Hgb 28.8 pg (27.0-32.0); Mean Corpuscular Volume 89.2 fL (81-99); Mean Platelet Vol. 10.5 fl (6.2-12.0); Monocyte# 1.18 X10^3/uL; Monocyte% 10.2 % (0-10); NRBC Flagged by Analyzer 0 % (0-5); Neutrophil # 8.51 X10^3/uL (2.7-7.7); Neutrophil % 73.4 % (47-70); Platelet Count 396 K/mm3 (150-450); RBC Distribution Width CV 14.6 % (11.6-14.6); Red Blood Count 4.24 M/mm3 (4.2-5.4); White Blood Count 11.6 K/mm3 (4.4-11.0)
[2023-03-10 12:44] LABS: Anion Gap 4 (5-15); BUN 13 mg/dL (7-18); BUN/Creat Ratio 15.1 RATIO (10-20); Calcium,Total 9.3 mg/dL (8.5-10.1); Chloride 103 mmol/L (98-107); Creatinine, Serum 0.86 mg/dL (0.55-1.02); EST Glomerular Filtration Rate 67 mL/min (>60); Est Glom Filt Rate - Afr Amer 81 mL/min (>60); Estimated Creatinine Clearance 54.21 ml/min; Glucose 106 mg/dL (74-106); Potassium 3.8 mmol/L (3.5-5.1); Sodium Level 137 mmol/L (136-145); Troponin-I HS 10 pg/mL (3.0-54.0)
[2023-03-10 15:10] VITALS: BP 132/68; PULSE 87; RESP 20; O2SAT 97
[2023-03-10 15:11] LABS: Bacteria 0 SEEN /hpf (None Seen); Mucous, Urine 0 SEEN /hpf (<or=2+); Red Blood Cells-Urine 0 SEEN /hpf (0-5)
[2023-03-10 16:03] LABS: Color, Urine Yellow (Yellow); Glucose, Dipstick Normal (Normal); Ketone-Dipstick 5 mg/dl (Negative); Leukocyte Esterase-Dipstick Negative /ul (Negative); Nitrite-Dipstick Negative (Negative); Occult Blood-Urine Negative /ul (Negative); Protein-Dipstick 15 mg/dl (Negative); Urine Bilirubin Dipstick Negative (Negative); Urine Clarity Clear (Clear); Urine Urobilinogen 1 mg/dl (Normal)
[2023-03-10 16:20] LABS: Squamous Epithelial Cells - UA 0-5 SEEN /hpf (5-10); White Blood Cells 0-5 SEEN /hpf (0-5)
== END 2023-03-10 17:18 | disposition home or self-care (01) ==
PROVIDERS: Emergency Provider Emergency Medicine; PCP Family Medicine; Visit Provider Emergency Medicine
DX: R53.1 Weakness (principal); E11.9 Type 2 diabetes mellitus without complications; R35.0 Frequency of micturition; Z96.651 Presence of right artificial knee joint; I25.10 Atherosclerotic heart disease of native coronary artery without angina pectoris; E78.5 Hyperlipidemia, unspecified; I10 Essential (primary) hypertension; Z79.899 Other long term (current) drug therapy; K21.9 Gastro-esophageal reflux disease without esophagitis; R50.9 Fever, unspecified
CPT/HCPCS: 80048; 81001; 83605; 84484; 85025; 87631; 93005; 96361; 96374; 99284; J7030